=== PATIENT | male | born 1945 | race African-American/Black ===

== ENCOUNTER 2016-11-23 11:38 | Inpatient (IN) | payer MEDICARE, OTHER ==
[~2016-11-23] VITALS: Ht 180.3 cm; Wt 69.9 kg
[~2016-11-23 11:38] MED LIST: ACET500T68 PO; AMIO200T2 PO; AMLO10TA2 PO; AMLO10TA4 PO; AMOX1TAB58 PO; AMOX1TAB61 PO; ASPI-3 PO; ASPI325T4 PO; ATOR10TA60 PO; CA C1TAB28 PO; CALC200T3 PO; CALC667C PO; CARV12.5 PO; CEFE1PIG IV; CETI10TA30 PO; CLON0.2T PO; COLE1TAB PO; DILT120C97 PO; DIPH25CA58 PO; FLUV40CA3 PO; GABA-586 PO; GUAI5LIQ5 PO; INSU100I17 SQ; INSU100I27 SQ; IPRA3AMP IH; LEVO75TA5 PO; LISI-338 PO; LORA10TA3 PO; MINE120C TP; NITR0.4T SL; PANT40TA5 PO; POLY255P PO; TRAM50TA PO; TRAZ50TA15 PO; VANC1VIA3 MC; VANC750V2 IV; ZOLP5TAB4 PO
--- NOTE | 2016-11-23 12:50 | EKG ---
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
[2016-11-23 12:51] LABS: BASO # 0.1 x10^3/uL (0.0-0.2); BASO % 1 % (0-3); EOS % 0 % (0-3); HEMATOCRIT 41.4 % (39.0-53.0); HEMOGLOBIN 13.1 g/dL (13.0-17.5); LYMPH # 17.2 x10^3/uL (1.0-4.8); LYMPH % 69 % (24-48); MEAN CORPUSCULAR HEMOGLOBIN 29 pg (25-35); MEAN CORPUSCULAR HGB CONC 32 g/dL (31-37); MEAN CORPUSCULAR VOLUME 90 fL (79-100); MONO % 5 % (0-9); NEUT % 25 % (31-73); PLATELET COUNT 224 x10^3/uL (140-400); RED BLOOD COUNT 4.58 x10^6/uL (4.30-5.70); RED CELL DISTRIBUTION WIDTH 15.3 % (11.5-14.5); WHITE BLOOD COUNT 24.8 x10^3/uL (4.0-11.0)
[2016-11-23 13:03] LABS: CALCIUM 8.2 mg/dL (8.5-10.1); CREATININE 10.3 mg/dL (0.7-1.3); POTASSIUM 4.4 mmol/L (3.5-5.1)
[2016-11-23 13:15] LABS: ALBUMIN 3.8 g/dL (3.4-5.0); TOTAL BILIRUBIN 0.6 mg/dL (0.2-1.0); TOTAL PROTEIN 7.6 g/dL (6.4-8.2)
[2016-11-23 13:16] LABS: CKMB INDEX 0.3 % (0-4); CKMB MASS 0.6 ng/mL (0.0-3.6)
--- NOTE | 2016-11-23 13:17 | RAD ---
EXAM: Chest, single view. HISTORY: Shortness of breath. COMPARISON: 11/17/2016. FINDINGS: A frontal view of the chest is obtained. There is stable diffuse interstitial prominence suggesting trace congestion. There is no consolidation, effusion or pneumothorax. The heart is normal in size. There are findings consistent with prior CABG. IMPRESSION: Suspected stable trace congestion.
[2016-11-23 14:30] LABS: % EOS 1 % (0-5)
[2016-11-23 14:33] LABS: PLT ESTIMATE ADEQUATE (ADEQUATE)
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
[2016-11-23] MEDS ORDERED: ONDANSETRON PF 4 MG/2 ML VIAL. IV PRN ×2 (15:15→18:45)
[2016-11-23] MEDS ORDERED: ACETAMINOPHEN 325 MG TABLET. PO PRN ×2 (15:15→18:45)
[2016-11-23 17:20] VITALS: BP 157/80
[2016-11-23 17:25] VITALS: BP 157/80
[2016-11-23] MEDS ORDERED: MELA3TAB12 PO (17:47)
[2016-11-23] MEDS ORDERED: TRAZ50TA15 PO (17:47)
[2016-11-23] MEDS ORDERED: IPRA3AMP NEB (17:47)
[2016-11-23] MEDS ORDERED: COLE1TAB2 PO (17:47)
[2016-11-23] MEDS ORDERED: ALBUTEROL SULFATE 2.5 MG/3 ML NEBU. NEB PRN (18:45)
[2016-11-23] MEDS ORDERED: hydrALAZINE 20 MG/ML VIAL. IVP PRN (18:45)
[2016-11-23 19:46] VITALS: BP 155/76
[2016-11-23 23:25] VITALS: BP 148/70
[2016-11-24] MEDS ORDERED: ACETAMINOPHEN 500 MG TABLET PO PRN
[2016-11-24] MEDS ORDERED: DIPHENHYDRAMINE HCL 25 MG CAPSULE PO PRN
[2016-11-24] MEDS ORDERED: CALCIUM CARBONATE 500 MG TAB.CHEW PO PRN
[2016-11-24] MEDS ORDERED: NITROGLYCERIN SUBLINGUAL 0.4 MG BOTTLE OF 25. SL PRN
[2016-11-24 03:17] VITALS: BP 155/86
--- NOTE | 2016-11-24 03:18 | HP ---
ADMIT DATE: 11/23/2016 CHIEF COMPLAINT: Altered mental status and hypoxia. HISTORY OF PRESENT ILLNESS: A 71-year-old male patient with prior history of end-stage renal disease on hemodialysis, brought from [facility]. The patient was here at [facility] yesterday and he was discharged. However, as per report, the patient was confused and wandering in the hallway and at the time of presentation to the ER, he was alert and oriented x 3 as per ER notes. At the time of my examination, the patient denies any confusion; however, he was wearing oxygen, presented with hypoxic respiratory failure. Previously, he was taking oxygen on an as needed basis. He denies any fever, chills, nausea, vomiting, abdominal pain and noncompliance to any medications. PAST MEDICAL HISTORY: Constipation, CVA, GERD, hyperlipidemia, hypertension, hypothyroidism, renal failure, insomnia. PAST SURGICAL HISTORY: CABG and stent placement in kidney, fistula in the left arm. PERSONAL HISTORY: Rarely takes alcohol and positive for cocaine and marijuana use. FAMILY HISTORY: Hypertension. REVIEW OF SYSTEMS: CONSTITUTIONAL: No fever or chills. EYES: No recent vision changes. SKIN: No rash or itching. CARDIOVASCULAR: No chest pain, syncope, palpitations or edema. RESPIRATORY: Hypoxia. GASTROINTESTINAL: No nausea, vomiting, diarrhea or abdominal pain. NEUROLOGICAL: No headache, paralysis. ENDOCRINOLOGIC: No cold or heat intolerance. GENITOURINARY: No burning with urination, no urgency. MUSCULOSKELETAL: No back pain or joint pain. LYMPHATICS: No enlarged nodes. PSYCHIATRIC: No anxiety or depression. ALLERGIES: NKDA. MEDICATIONS: Reviewed and reconciled, please see MRAD. PHYSICAL EXAM: GENERAL: Alert and oriented x 3, no acute distress, nasal cannula. HEENT: Head normocephalic, atraumatic. NECK: Supple. LUNGS: Clear to auscultation. HEART: Systolic murmur present. ABDOMEN: Soft and positive bowel sounds. EXTREMITIES: No cyanosis or edema. NEUROLOGIC: Normal speech and normal tone; alert and oriented. PSYCHIATRIC: Normal affect, normal mood. SKIN: No ulceration. VITAL SIGNS: Temperature 98.1, pulse is 81, respirations 19, blood pressure 147/77, pulse ox 93 on 3 liters. LABORATORY FINDINGS: 1. WBC is 24,000, his platelets are 224 and segmented neutrophil 26. 2. Chemistry: Sodium is 139, potassium 4.4, chloride is 94, gap is 19, creatinine is 10.3, BUN is 48. Troponin is 0.179. IMAGING STUDIES: Initial chest ray, suspected of stable trace congestion. ASSESSMENT: 1. Acute hypoxic respiratory failure, unclear etiology. 2. Leukocytosis. 3. End-stage renal disease, on hemodialysis. 4. Hypertension. 5. Hyperlipidemia. 6. ____ PLAN: 1. The patient will start on broad spectrum antibiotics. He will consult Pulmonology for respiratory failure and possible CT of the chest. 2. Nephrology has been consulted for dialysis. 3. Supplemental oxygen to keep saturations above 90%. 4. Home medications reviewed and reconciled. 5. Renal diet. 6. Mild elevation of troponins due to renal failure. 7. Monitor WBC. Previous WBC at the time of discharge was ____ also. The patient was ____ wearing oxygen. 8. Prognosis is guarded. CHECO LAWTON MD DR: KIA/jc JOB#: [id number] / [id number]
--- NOTE | 2016-11-24 05:32 | ACF ---
Admission Forms Criteria GENERAL ADMISSION CRITERIA (Place 'X' for any and all applicable criteria): Admission is indicated for ANY ONE of the following: [ ]I. Hemodynamic instability as indicated by ANY ONE of the following(1)(2) (3)(4)(5): [ ]a) Vital sign abnormality not readily corrected by appropriate treatment within 12 to 24 hours indicated by ANY ONE of the following: [ ]i) Hypotension [ ]ii) Symptomatic Tachycardia unresponsive to treatment (eg , analgesia, fluids, sedation as indicated) [ ]iii) Orthostatic vital sign changes unresponsive to treatment (eg, fluids) [ ]b) Vital sign abnormality that is severe indicated by ANY ONE of the following: [ ]i) Inadequate perfusion indicated by ANY ONE of the following: [ ]1) Lactic acidosis (greater than 2 mmol/L) [ ]2) New abnormal capillary refill (greater than 3 seconds) [ ]3) Other metabolic acidosis (arterial pH less than 7.35) not otherwise explained [ ]4) Reduced urine output [ ]5) Altered mental status [ ]6) Myocardial Ischemia [ ]v) Mean arterial pressure[A] less than 60 mm Hg [ ]vi) Mean arterial pressure[A] less than 70 mm Hg after 30 minutes of appropriate treatment (eg, fluid resuscitation) [ ]vii) IV inotropic or vasopressor medication required to maintain adequate blood pressure or perfusion [ ]viii) Sustained heart rate greater than 120 beats per minute in adult or child 6 years or older[B]] [ ]II. Hypertension requiring inpatient treatment as indicated by ANY ONE of the following(6)(7)(8): [ ]a) SBP greater than 220 mm Hg or DBP greater than 120 mm Hg despite treatment [ ]b) SBP greater than 140 mm Hg or DBP greater than 100 mm Hg with evidence of acute end organ damage as indicated by ANY ONE of the following: [ ]i) Encephalopathy [ ]ii) Acute renal failure as indicated by new onset of ANY ONE of the following(9)(10)(11)(12)(13): [ ]1) A 3-fold rise in serum creatinine from baseline [ ]2) Serum creatinine greater than 4 mg/dL ( 354 micromoles/L) with acute rise greater than 0.5 mg/dL (44.2 micromoles/L) [ ]3) Reduction of more than 75% in estimated glomerular filtration rate from baseline [ ]4) Estimated glomerular filtration rate less than 35 mL/min/1.73m2 (0.59 mL/sec/1.73m2) in child up to 18 years of age [ ]5) Cessation of urine output indicated by ALL of the following: [ ]A. Adequate volume status [ ]B. Inadequate urine output as indicated by ANY ONE of the following: [ ]a. Urine output less than 0.3 mL/kg/hr for 24 hours [ ]b. Anuria (urine output less than 0.1 mL/kg/hr) for 12 hours [ ]iii) Aortic dissection [ ]iv) Myocardial ischemia [ ]v) Left ventricular heart failure [ ]vi) Retinal hemorrhage [ ]vii) Other significant finding [ ]c) Hypertension in child requiring inpatient treatment as indicated by ALL of the following(14)(15)(16): [ ]i) Outpatient treatment not effective, not available, or not appropriate [ ]ii) SBP or DBP greater than 95th percentile for age [ ]iii) Evidence of acute end organ damage as indicated by ANY ONE of the following: [ ]1) Altered mental status [ ]2) Acute renal failure as indicated by new onset of ANY ONE of the following(9)(10)(11)(12)(13): [ ]A. A 3-fold rise in serum creatinine from baseline [ ]B. Serum creatinine greater than 4 mg/dL (354 micromoles/L) with acute rise greater than 0.5 mg/dL (44.2 micromoles/L) [ ]C. Reduction of more than 75% in estimated glomerular filtration rate from baseline [ ]D. Estimated glomerular filtration rate less than 35 mL/min/1.73m2 (0.59 mL/sec/1.73m2)in child up to 18 years of age [ ]E. Cessation of urine output indicated by ALL of the following: [ ]a. Adequate volume status [ ]b. Inadequate urine output as indicated by ANY ONE of the following: [ ]1) Urine output less than 0.3 mL/kg/hr for 24 hours [ ]2) Anuria (urine output less than 0.1 mL/kg/hr) for 12 hours [ ]3) Severe headache [ ]4) Visual disturbance [ ]5) Retinal hemorrhage [ ]6) Other significant finding [ ]III. Acute cardiac or peripheral ischemia as indicated by ANY ONE of the following: [ ]a) Acute coronary syndrome(17)(18) [ ]b) Acute peripheral ischemia (eg, pulseless, cool, mottled, or cyanotic extremity)(19) [ ]IV. Cardiac arrhythmias or findings of immediate concern indicated by ANY ONE of the following(20)(21): [ ]a) Heart rhythms that are inherently dangerous or unstable indicated by ANY ONE of the following(22)(23)(24): [ ]i) Resuscitated ventricular fibrillation or cardiac arrest [ ]ii) Ventricular escape rhythm [ ]iii) Sustained ventricular tachycardia (30 seconds or more of ventricular rhythm at greater than 100 beats per minute) [ ]iv) Nonsustained ventricular tachycardia and ANY ONE of the following: [ ]1) Suspected cardiac ischemia as cause or consequence of ventricular tachycardia [ ]2) In setting of acute myocarditis [ ]b) Unstable cardiac conduction defects indicated by ANY ONE of the following(24)(25)(26): [ ]i) Type II second-degree atrioventricular block [ ]ii) Third-degree atrioventricular block [ ]iii) New-onset left bundle branch block with suspected myocardial ischemia [ ]c) Any heart rhythm and ANY ONE of the following(22)(23)(27)(28)( 29): [ ] i) Continuous long-term ECG monitoring needed (eg, initiation of drug requiring monitoring for more than 24 hours) [ ] ii) Patient has automatic implanted cardioverter defibrillator that is repeatedly firing, malfunctioning, or in need of immediate adjustment of settings beyond the scope of ambulatory or observation care. [ ]d) Heart rhythms of concern due to ANY ONE of the following: [ ]i) Hypotension [ ]ii) Respiratory distress [ ]iii) Association with other significant symptoms (eg, bradycardia with syncope or ongoing dizziness, supraventricular tachycardia with chest pain) (27)(28) (30) [ ] V. Severe heart failure as indicated by ANY ONE of the following ( 31)(32): [ ]a) Respiratory distress [ ]b) Hypotension [ ]c) Anasarca (refractory to outpatient therapy) [ ]d) Cardiac arrhythmias of immediate concern [ ]e) Myocardial ischemia [X]. Respiratory abnormalities, including ANY ONE of the following(33)(34) (35)(36): [ ]a) Respiratory rate greater than 30 breaths per minute unresponsive to treatment [A] [X]b) New saturation of arterial oxygen less than 90% [ ]c) New partial pressure of carbon dioxide greater than 44 mm Hg ( 5.9 kPa) [ ]d) Supplemental oxygen or respiratory treatments needed that are new or not performable at other levels of care [ ]e) New-onset cyanosis [ ]f) Inability to protect airway [ ]g) Chronic lung disease with severe deterioration (not responsive to emergency and observation care treatment as appropriate) as indicated by ANY ONE of the following(34)(36 ): [ ]i) SaO2 5% below baseline in patient with chronic hypoxemia [ ]ii) New requirement for supplemental oxygen to keep SaO2 at baseline or acceptable level [ ]iii) Required supplemental oxygen performable only in acute inpatient setting [ ]iv) Severe airflow or ventilation abnormalities [ ]v) Previously mobile patient unable to walk between rooms [ ]vi Inability to eat or sleep due to dyspnea [ ]vii) Rapid rate of exacerbation onset [ ]viii) Altered mental status ]VII. Severe airflow or ventilation abnormalities (not responsive to emergency and observation care treatment as appropriate) as indicated by ANY ONE of the following(33)(34)(35)(37): [ ]a) PCO2 greater than 42 mm Hg (5.6 kPa) and pH less than 7.35 (new ) [ ]b) Documented PCO2 increased more than 5 mm Hg (0.7 kPa) from disease baseline [ ]c) Airflow measurements [B] less than 60% of previous best or predicted (eg, peak expiratory flow rate less than 300 L/minute) despite intensive emergent treatment [C] [ ]d) Required respiratory treatments that are performable only in acute inpatient setting [ ]VIII. Impending or actual respiratory arrest ( Also use Respiratory Failure GRG for severe respiratory disease and long-term mechanical ventilation patients) [ ]IX. Neurologic abnormalities, including ANY ONE of the following: [ ]a) New findings that suggest ANY ONE of the following: [ ]i) SMALL [employer] REPAIRER infection(38) [ ]ii) Cerebral bleeding, ischemia, or vasospasm(39)(40) [ ]iii) Increased intracranial pressure, hydrocephalus, or cerebral edema(41)(42)(43) [ ]iv) Spinal cord injury(44) [ ]b) Uncontrolled seizures(45) [ ]c) New-onset coma (eg, Des coma scale score less than 9) or unexplained abnormal mental status (eg, Des coma scale score less than 14) [D](41)(46)(47) [ ]X. New-onset severe neurologic findings requiring inpatient care; examples include(42)(48)(49): [ ]a) Papilledema [ ]b) Cerebral edema [ ]c) Mass effect on CT scan [ ]XI. Suspected acute intra-abdominal process with peritoneal signs, abdominal mass, or similar findings (50)(51)(52) [ ]XII. Severe physiologic disorder remaining after emergency or observation level care (as appropriate) as indicated by ANY ONE of the following (53): [ ]a) Significant dehydration [ ]b) Diabetic ketoacidosis [ ]c) Hyperglycemic hyperosmolar state (eg, osmolality greater than 320 mOsm/kg (mmol/kg) [ ]d) Hypoglycemia [ ]e) Other (new) acid-base disorder with pH less than 7.35 or greater than 7.5(54) [ ]f) Thyroid storm (55) [ ]g) Myxedema coma (55) [ ]XIII. Abdominal abnormalities with ANY ONE of the following(56)(57): [ ]a) Absent bowel sounds with complete ileus [ ]b) Signs of intestinal obstruction or peritonitis [E] [ ]c) Nausea and vomiting that cannot be controlled with outpatient or observation care [ ]XIV. Acute renal failure as indicated by new onset of ANY ONE of the following(9)(10)(11)(12)(13): [ ]a) A 3-fold rise in serum creatinine from baseline [ ]b) Serum creatinine greater than 4 mg/dL (354 micromoles/L) with acute rise greater than 0.5 mg/dL (44.2 micromoles/L) [ ]c) Reduction of more than 75% in estimated glomerular filtration rate from baseline [ ]d) Estimated glomerular filtration rate less than 35 mL/min/ 1.73m2 (0.59 mL/sec/1.73m2) in child up to 18 years of age [ ]e) Cessation of urine output indicated by ALL of the following: [ ]i) Adequate volume status [ ]ii) Inadequate urine output as indicated by ANY ONE of the following: [ ]1) Urine output less than 0.3 mL/kg/hr for 24 hours [ ]2) Anuria (urine output less than 0.1 mL/kg/hr) for 12 hours [ ]XV. Significant uremic complications as indicated by ANY ONE of the following(58)(59)(60): [ ]a) Outpatient therapy is ineffective or not feasible for ANY ONE of the following: [ ]i) Severe heart failure [ ]ii) Severehypertension [ ]iii) Pleural effusion [ ]iv) Pericarditis or pericardial effusion [ ]b) Cardiac arrhythmias of immediate concern [ ]c) Intractable nausea or vomiting [ ]d) Recurrent seizures [ ]e) Encephalopathy [ ]f) Bleeding abnormalities (eg, platelet dysfunction) with active (eg, gastrointestinal) bleeding [ ]g) Dialysis indicated before long-term access or ambulatory arrangements can be made [ ]h) Significant metabolic or electrolyte abnormalities (eg, severe acidosis or hyperkalemia) [ ]XVI. High fever or other high-risk infection situation as indicated by ANY ONE of the following(61)(62)(63)(64): [ ]a) Outpatient and observation care antimicrobial treatment unavailable, not effective, or not appropriate [ ]b) Documented bacteremia [ ]c) Temperature greater than 40.5 degrees C (104.9 degrees F) ( oral) [ ]d) Temperature greater than 39.5 degrees C (103.1 degrees F) ( oral) or less than 36 degrees C (96.8 degrees F) (rectal) that does not respond to e treatment and observation care [ ] XVII. Temperature less than 95 degrees F (35 degrees C)(rectal)(65) [ ] XVIII. Severe nutritional abnormalities as indicated by ALL of the following (66)(67): [ ]a) Inability to tolerate or establish sufficient oral or other enteral nutrition in outpatient setting [ ]b) Parenteral nutrition regimen need that must be implemented on inpatient basis [ ] XIX. Severe electrolyte abnormalities indicated by ALL of the following(68) (69)(70): [ ]a) Electrolytes and associated findings are not as expected for patient baseline or acceptable treatment effects. [ ]b) Severe abnormalities indicated by ANY ONE of the following: [ ]i) Sodium less than 130 mEq/L (mmol/L) (new) [ ]ii)Sodium less than 135 mEq/L (mmol/L) with ANY ONE of the following: [ ]1) Uncorrectable (to near normal or chronic baseline) after trial of outpatient and emergency treatment [ ]2) Altered mental status [ ]3) Seizures [ ]4) Severe medical etiology requiring inpatient management (eg, heart failure, hypovolemia) [ ]iii) Sodium greater than 155 mEq/L (mmol/L) [ ]iv) Sodium greater than 150 mEq/L (mmol/L) with ANY ONE of the following: [ ]1) Uncorrectable (to near normal or chronic baseline) with outpatient and emergency treatment [ ]2) Altered mental status [ ]3) Seizures [ ]4) Severe medical etiology (eg, hypovolemia, diabetes insipidus) [ ]v) Potassium less than 2.5 mEq/L (mmol/L) despite outpatient and emergency treatment [ ]vi) Potassium less than 3 mEq/L (mmol/L) with ANY ONE of the following: [ ]1) Weakness [ ]2) Cardiac abnormality (eg, arrhythmia, conduction disturbance) [ ]3) Cardiac ischemia [ ]4) Ileus [ ]5) Ongoing medical cause requiring inpatient management (eg, acute renal wasting or SIADH) [ ]6) Other severe symptoms [ ]vii) Potassium greater than 6.5 mEq/L (mmol/L) [ ]viii) Potassium greater than 5 mEq/L (mmol/L) with ANY ONE of the following: [ ]1) Uncorrectable (to near normal or chronic baseline) with outpatient and emergency treatment [ ]2) Severe ECG findings [F] [ ]3) Acute worsening of renal failure (creatinine greater than 2.5 mg/dL (221 micromoles/L) or significant elevation for age and size) [ ]4) Severe weakness [ ]5) Severe medical etiology (eg, hemolysis, infection, drug overdose) [ ]ix) Calcium less than 7 mg/dL (1.75 mmol/L) despite outpatient and emergency treatment (72) [ ]x) Calcium less than 8 mg/dL (2 mmol/L) with significant symptoms or findings; examples include(72): [ ]1) Altered mental status [ ]2) Muscle spasms [ ]3) Seizures [ ]4) Breathing difficulty [ ]5) Cardiac abnormality (eg, arrhythmia or conduction disturbance) [ ]xi) Calcium greater than 14 mg/dL (3.5 mmol/L)(72) [ ]xii) Calcium greater than 12 mg/dL (3 mmol/L) with ANY ONE of the following(72): [ ]1) Uncorrectable (to near normal or chronic baseline) with outpatient and emergency treatment [ ]2) Significant dehydration or hypovolemia as indicated by ALL of the following(70)(73)(74): [ ]A. Not resolved with initial treatments [ ]B. Clinically significant dehydration as indicated by ANY ONE of the following: [ ]a. Vomiting refractory to outpatient treatment (ie, precluding oral rehydration) [ ]b. Inability to drink [ ]c. Hypernatremia or other electrolyte abnormality unable to be corrected with outpatient and emergency treatment [ ]d. Failure to remain hydrated with outpatient therapy [ ]e. Reduced urine output [ ]f. Hypotension [ ]g. Serious cause for dehydration requiring acute hospitalization (eg, bowel obstruction, increased intracranial pressure, infectious cause) [ ]h. Child with ANY ONE of the following(75): [ ]1) Severe abdominal tenderness [ ]2) Adequate care not available at home [ ]3) Severe dehydration ( greater than 9% loss of body weight) [ ]4) Significant symptoms or findings; examples include: [ ]A. Altered mental status [ ]B. Cardiac abnormality (eg, arrhythmia, conduction disturbance) [ ]C. Malignant etiology requiring inpatient treatment [ ]xiii) Phosphorus less than 1 mg/dL (0.32 mmol/L) [ ]xiv) Phosphorus less than 1.5 mg/dL (0.48 mmol/L) with ANY ONE of the following: [ ]1) Patient unresponsive to outpatient and emergency treatment [ ]2) Significant symptoms or findings; examples include: [ ]A. Weakness [ ]B. Altered mental status [ ]C. Breathing difficulty [ ]D. Seizures [ ]E. Rhabdomyolysis [ ]xv) Phosphorus greater than 10 mg/dL (3.2 mmol/L) [ ]xvi) Phosphorus greater than 4.5 mg/dL (1.45 mmol/L) (new) with ANY ONE of the following: [ ]1) Severe medical etiology (eg, crush injury, acute renal failure) [ ]2) Associated hypocalcemia with significant findings; examples include: [ ]A. Neurologic symptoms [ ]B. Altered mental status [ ]C. Muscle spasms [ ]D. Seizures [ ]E. Breathing difficulty [ ]F. Cardiac abnormality (eg, arrhythmia, conduction disturbance) [ ]xvii) Magnesium less than 1 mg/dL (0.41 mmol/L) [ ]xviii) Magnesium less than 1.5 mg/dL (0.62 mmol/L) with ANY ONE of the following: [ ]1) Patient unresponsive to outpatient and emergency treatment [ ]2) Associated hypocalcemia with significant findings; examples include: [ ]A. Altered mental status [ ]B. Muscle spasms [ ]C. Seizures [ ]D. Breathing difficulty [ ]E. Cardiac abnormality (eg, arrhythmia , conduction disturbance) [ ]3) Associated hypokalemia (potassium less than 3 mEq/L (mmol/L)) with risk of arrhythmia [ ]xix) Magnesium greater than 4 mEq/L (2 mmol/L) [ ]xx) Magnesium greater than 2.5 mEq/L (1.25 mmol/L) with significant symptoms or findings; examples include: [ ]1) Weakness [ ]2) Altered mental status [ ]3) Cardiac abnormality (eg, arrhythmia, conduction disturbance) [ ]4) Breathing difficulty [ ]5) Severe medical etiology (eg, renal failure, hypovolemia) [ ]xxi) Uric acid greater than 20 mg/dL (1190 micromoles/L)(76) [ ]xxii) Uric acid greater than 8 mg/dL (476 micromoles/L) with significant symptoms or findings of tumor lysis syndrome; examples include(76): [ ]1) Creatinine greater than 1.5 times upper limit of normal [ ]2) Cardiac abnormality (eg, arrhythmia, conduction disturbance) [ ]3) Seizure [ ]XX. Acute blood loss causing significant abnormality as indicated by ANY ONE of the following(77)(78): [ ]a) Hemoglobin less than 10 g/dL (100 g/L) (not baseline) [ ]b) Hematocrit less than 30% (0.30) (not baseline) [ ]c) Repeat hematocrit decreased more than 2% (0.02) [ ]d) Uncontrolled bleeding [ ]XXI. Severe anemia indicated by ANY ONE of the following(78)(79): [ ]a) Altered mental status [ ]b) Chest pain [ ]c) Exertional dyspnea [ ]d) Syncope [ ]e) Other findings suggesting inadequate perfusion [ ]f) Treatment with transfusion or volume replacement is ineffective at resolving ANY ONE of the following [G]: [ ]i) Tachycardia for age [ ]ii) Orthostatic vital sign changes as indicated by ANY ONE of the following(80): [ ]1) Fall in SBP of 20 mm Hg or more 1 to 3 minutes after patient sits or stands from recumbent position [ ]2) Fall in DBP of 10 mm Hg or more 1 to 3 minutes after patient sits or stands from recumbent position [ ]XXII. High-risk low platelet count as indicated by ANY ONE of the following( 81)(82): [ ]a) Severe or life-threatening bleeding (eg, intracranial, major gastrointestinal, or extensive mucosal bleeding), with any reduced platelet count [ ]b) Platelet count less than 20,000/mm3 (20 x109/L) with any active bleeding [ ]c) Platelet count less than 10,000/mm3 (10 x109/L) with minor purpura or petechiae [ ]d) Platelet count less than 5000/mm3 (5 x109/L) [ ]e) Low platelet count with hemolytic anemia [ ]XXIII. Disseminated intravascular coagulation(77)(83) [ ]XXIV. Severe adverse drug or systemic toxin reaction requiring inpatient treatment; examples include(84)(85): [ ]a) Serotonin syndrome(86) [ ]b) Neuroleptic malignant syndrome(86) [ ]c) Cholinergic syndrome with severe symptoms (eg, bronchorrhea, weakness, mental status changes, seizures) [ ]d) Sympathetic syndrome with severe symptoms (eg, seizures, mental status changes, cardiac dysrhythmias) [ ]e) Anticholinergic syndrome [ ]XXV. Severe pain requiring acute inpatient management as indicated by ALL of the following (87)(88)(89): [ ]a) Continuous or frequent (eg, every 2 to 4 hours) parenteral analgesics required [H] [ ]b) Rapid improvement expected from treatment or acute intervention (eg, surgery, anesthesia procedure) [ ]XXVI.Severe behavioral health issues judged unmanageable at a lower level of care (eg, residential) in a patient who is ANY ONE of the following(91) [ ]a) Acutely suicidal [ ]b) A danger to self (eg, self-mutilating or suicidal behavior) [ ]c) A danger to others (eg, assaultive or homicidal behavior) [ ]d) Incapacitated because of grave disability (eg, inability to provide for self at lower level of care) (92) [ ]XXVII. Inpatient monitoring needed; examples include(1)(3)(87)(93)(94)(95)(96 ): [ ]a) Vital signs, neurologic signs, or vascular checks more frequently than every 4 hours [ ]b) Cardiac or respiratory monitoring beyond the scope (eg, over 24 hours) of observation care [ ]c) Pulmonary artery catheter monitoring [ ]d) Suspected compartment syndrome(97) (98) [ ]e) Cerebral bleeding, hydrocephalus, or vasospasm monitoring [ ]f) Increased intracranial pressure or cerebral edema monitoring [ ]g) monitoring [ ]XXVIII. Treatment requiring inpatient care; examples include: [ ]a) IV fluid to replace significant ongoing losses (greater than 3 L/m2 per day)(53) [ ]b) High concentration oxygen (greater than 40%)(33)(99)(100) [ ]c) Frequent respiratory therapy (more frequently than every 4 hours) to maintain airflow rates greater than 60% of baseline(33)(99)(100) [ ]d) Epidural analgesia(87) [ ]e) IV anticoagulation, vasoactive, or antiarrhythmic medication(19 )(23) [ ]f) Acute thrombolytics (generally require 24 hours of observation )(101)(102) [ ]XXIX. Emergency procedures needed; examples include: [ ]a) Emergency inpatient surgery [ ]b) Temporary pacemaker placement(103) [ ]c) Chest tube placement with active evacuation (eg, suction, drainage)(104) [ ]d) Emergent cardioversion(105) [ ]e) Emergent cardiac or vascular procedures (eg, cardiac catheterization, angioplasty) (17)(18) [ ]f) Emergent dialysis access placement and institution(10)(106) [ ]g) Emergent pericardiocentesis(107) [ ]h) Emergent plasmapheresis or leukapheresis(83) [ ]i) Emergent tracheostomy The original [employer] content created by [employer] has been revised. The portions of the content which have been revised are identified through the use of italic text or in bold, and [employer] has neither reviewed nor approved the modified material. All other unmodified content is copyright [employer]. Please see references footnoted in the original [employer] edition 2016 Admission Criteria Met?: Yes AYO WHEELER Nov 24, 2016 05:32
[2016-11-24 07:33] VITALS: BP 145/78
[2016-11-24] MEDS: IPRATRPIUM/ALBUTEROL 0.5/2.5MG 3 ML NEBU. NEB SCH ×3 (08:04→21:00)
[2016-11-24 08:16] VITALS: BP 145/86
--- NOTE | 2016-11-24 08:20 | PDOC ---
PROGRESS NOTES Chief Complaint Chief Complaint Acute encephalopathy, improved Hypoxia, acute on chronic End stage renal disease, HD, Dm2, insulin hypothyriod htn, chronic diastolic CHF History of Present Illness History of Present Illness calm and responsive today, he seems like his normal self Vitals Vitals Vital Signs Date Time Temp Pulse Resp B/P Pulse Ox O2 Delivery O2 Flow Rate FiO2 11/24/16 08:04 95 Nasal Cannula 2.0 11/24/16 03:17 97.9 80 17 155/86 97.9 Physical Exam General: Alert, Oriented X3, Cooperative, No acute distress Heart: No murmurs Lungs: Clear, Other Abdomen: No tenderness, No hepatosplenomegaly Extremities: No edema Skin: No significant lesion Labs LABS Laboratory Tests Test 11/23/16 12:20 White Blood Count 24.8x10^3/uL (4.0-11.0) Red Blood Count 4.58x10^6/uL (4.30-5.70) Hemoglobin 13.1g/dL (13.0-17.5) Hematocrit 41.4% (39.0-53.0) Mean Corpuscular Volume 90fL (79-100) Mean Corpuscular Hemoglobin 29pg (25-35) Mean Corpuscular Hemoglobin Concent 32g/dL (31-37) Red Cell Distribution Width 15.3% (11.5-14.5) Platelet Count 224x10^3/uL (140-400) Neutrophils (%) (Auto) 25% (31-73) Lymphocytes (%) (Auto) 69% (24-48) Monocytes (%) (Auto) 5% (0-9) Eosinophils (%) (Auto) 0% (0-3) Basophils (%) (Auto) 1% (0-3) Neutrophils # (Auto) 6.1x10^3uL (1.8-7.7) Lymphocytes # (Auto) 17.2x10^3/uL (1.0-4.8) Monocytes # (Auto) 1.3x10^3/uL (0.0-1.1) Eosinophils # (Auto) 0.0x10^3/uL (0.0-0.7) Basophils # (Auto) 0.1x10^3/uL (0.0-0.2) Segmented Neutrophils % 26% (35-66) Lymphocytes % 70% (24-48) Atypical Lymphocytes % (Manual) 1% (0-0) Monocytes % 2% (0-10) Eosinophils % 1% (0-5) Platelet Estimate Adequate (ADEQUATE) Sodium Level 139mmol/L (136-145) Potassium Level 4.4mmol/L (3.5-5.1) Chloride Level 94mmol/L (98-107) Carbon Dioxide Level 26mmol/L (21-32) Anion Gap 19 (6-14) Blood Urea Nitrogen 48mg/dL (8-26) Creatinine 10.3mg/dL (0.7-1.3) Estimated GFR (Cockcroft-Gault) 6.0 BUN/Creatinine Ratio 5 (6-20) Glucose Level 143mg/dL (70-99) Lactic Acid Level 1.4mmol/L (0.4-2.0) Calcium Level 8.2mg/dL (8.5-10.1) Total Bilirubin 0.6mg/dL (0.2-1.0) Aspartate Amino Transf (AST/SGOT) 42U/L (15-37) Alanine Aminotransferase (ALT/SGPT) 24U/L (16-63) Alkaline Phosphatase 67U/L (46-116) Creatine Kinase 223U/L (39-308) Creatine Kinase MB (Mass) 0.6ng/mL (0.0-3.6) Creatine Kinase MB Relative Index 0.3% (0-4) Troponin I Quantitative 0.179ng/mL (0.000-0.055) Total Protein 7.6g/dL (6.4-8.2) Albumin 3.8g/dL (3.4-5.0) Albumin/Globulin Ratio 1.0 (1.0-1.7) Review of Systems Review of Systems lethargy weakness Assessment and Plan Assessmemt and Plan cont abx supp 02 i am unsure why he was not wearing his 02 at assisted living Problems Medical Problems: (1) Acute encephalopathy Status: Acute (2) Elevated troponin Status: Acute (3) End stage renal disease Status: Acute (4) Hypoxia Status: Acute Problems: Comment Review of Relevant I have reviewed the following items marli (where applicable) has been applied. Labs Laboratory Tests Test 11/23/16 12:20 White Blood Count 24.8x10^3/uL (4.0-11.0) Red Blood Count 4.58x10^6/uL (4.30-5.70) Hemoglobin 13.1g/dL (13.0-17.5) Hematocrit 41.4% (39.0-53.0) Mean Corpuscular Volume 90fL (79-100) Mean Corpuscular Hemoglobin 29pg (25-35) Mean Corpuscular Hemoglobin Concent 32g/dL (31-37) Red Cell Distribution Width 15.3% (11.5-14.5) Platelet Count 224x10^3/uL (140-400) Neutrophils (%) (Auto) 25% (31-73) Lymphocytes (%) (Auto) 69% (24-48) Monocytes (%) (Auto) 5% (0-9) Eosinophils (%) (Auto) 0% (0-3) Basophils (%) (Auto) 1% (0-3) Neutrophils # (Auto) 6.1x10^3uL (1.8-7.7) Lymphocytes # (Auto) 17.2x10^3/uL (1.0-4.8) Monocytes # (Auto) 1.3x10^3/uL (0.0-1.1) Eosinophils # (Auto) 0.0x10^3/uL (0.0-0.7) Basophils # (Auto) 0.1x10^3/uL (0.0-0.2) Segmented Neutrophils % 26% (35-66) Lymphocytes % 70% (24-48) Atypical Lymphocytes % (Manual) 1% (0-0) Monocytes % 2% (0-10) Eosinophils % 1% (0-5) Platelet Estimate Adequate (ADEQUATE) Sodium Level 139mmol/L (136-145) Potassium Level 4.4mmol/L (3.5-5.1) Chloride Level 94mmol/L (98-107) Carbon Dioxide Level 26mmol/L (21-32) Anion Gap 19 (6-14) Blood Urea Nitrogen 48mg/dL (8-26) Creatinine 10.3mg/dL (0.7-1.3) Estimated GFR (Cockcroft-Gault) 6.0 BUN/Creatinine Ratio 5 (6-20) Glucose Level 143mg/dL (70-99) Lactic Acid Level 1.4mmol/L (0.4-2.0) Calcium Level 8.2mg/dL (8.5-10.1) Total Bilirubin 0.6mg/dL (0.2-1.0) Aspartate Amino Transf (AST/SGOT) 42U/L (15-37) Alanine Aminotransferase (ALT/SGPT) 24U/L (16-63) Alkaline Phosphatase 67U/L (46-116) Creatine Kinase 223U/L (39-308) Creatine Kinase MB (Mass) 0.6ng/mL (0.0-3.6) Creatine Kinase MB Relative Index 0.3% (0-4) Troponin I Quantitative 0.179ng/mL (0.000-0.055) Total Protein 7.6g/dL (6.4-8.2) Albumin 3.8g/dL (3.4-5.0) Albumin/Globulin Ratio 1.0 (1.0-1.7) Laboratory Tests Test 11/23/16 12:20 White Blood Count 24.8x10^3/uL (4.0-11.0) Red Blood Count 4.58x10^6/uL (4.30-5.70) Hemoglobin 13.1g/dL (13.0-17.5) Hematocrit 41.4% (39.0-53.0) Mean Corpuscular Volume 90fL (79-100) Mean Corpuscular Hemoglobin 29pg (25-35) Mean Corpuscular Hemoglobin Concent 32g/dL (31-37) Red Cell Distribution Width 15.3% (11.5-14.5) Platelet Count 224x10^3/uL (140-400) Neutrophils (%) (Auto) 25% (31-73) Lymphocytes (%) (Auto) 69% (24-48) Monocytes (%) (Auto) 5% (0-9) Eosinophils (%) (Auto) 0% (0-3) Basophils (%) (Auto) 1% (0-3) Neutrophils # (Auto) 6.1x10^3uL (1.8-7.7) Lymphocytes # (Auto) 17.2x10^3/uL (1.0-4.8) Monocytes # (Auto) 1.3x10^3/uL (0.0-1.1) Eosinophils # (Auto) 0.0x10^3/uL (0.0-0.7) Basophils # (Auto) 0.1x10^3/uL (0.0-0.2) Segmented Neutrophils % 26% (35-66) Lymphocytes % 70% (24-48) Atypical Lymphocytes % (Manual) 1% (0-0) Monocytes % 2% (0-10) Eosinophils % 1% (0-5) Platelet Estimate Adequate (ADEQUATE) Sodium Level 139mmol/L (136-145) Potassium Level 4.4mmol/L (3.5-5.1) Chloride Level 94mmol/L (98-107) Carbon Dioxide Level 26mmol/L (21-32) Anion Gap 19 (6-14) Blood Urea Nitrogen 48mg/dL (8-26) Creatinine 10.3mg/dL (0.7-1.3) Estimated GFR (Cockcroft-Gault) 6.0 BUN/Creatinine Ratio 5 (6-20) Glucose Level 143mg/dL (70-99) Lactic Acid Level 1.4mmol/L (0.4-2.0) Calcium Level 8.2mg/dL (8.5-10.1) Total Bilirubin 0.6mg/dL (0.2-1.0) Aspartate Amino Transf (AST/SGOT) 42U/L (15-37) Alanine Aminotransferase (ALT/SGPT) 24U/L (16-63) Alkaline Phosphatase 67U/L (46-116) Creatine Kinase 223U/L (39-308) Creatine Kinase MB (Mass) 0.6ng/mL (0.0-3.6) Creatine Kinase MB Relative Index 0.3% (0-4) Troponin I Quantitative 0.179ng/mL (0.000-0.055) Total Protein 7.6g/dL (6.4-8.2) Albumin 3.8g/dL (3.4-5.0) Albumin/Globulin Ratio 1.0 (1.0-1.7) Medications Current Medications Ondansetron HCl (Zofran) 4 mg PRN Q8HRS PRN IV NAUSEA/VOMITING; Start 11/23/16 at 15:15; Stop 11/24/16 at 00:07; Status DC Acetaminophen (Tylenol) 650 mg PRN Q4HRS PRN PO FEVER; Start 11/23/16 at 15:15 ; Stop 11/24/16 at 00:06; Status DC Acetaminophen (Tylenol) 325 mg PRN Q6HRS PRN PO MILD PAIN / TEMP; Start at 18:45; Stop 11/24/16 at 00:06; Status DC Acetaminophen/ Hydrocodone Bitart (Lortab 5/325) 1 tab PRN Q6HRS PRN PO MODERATE TO SEVERE PAIN; Start 11/23/16 at 18:45 Hydralazine HCl (Apresoline) 10 mg PRN Q4HRS PRN IVP ELEVATED BP, SEE COMMENTS ; Start 11/23/16 at 18:45 Ondansetron HCl (Zofran) 4 mg PRN Q8HRS PRN IV NAUSEA/VOMITING; Start 11/23/16 at 18:45 Albuterol Sulfate (Ventolin Neb Soln) 2.5 mg PRN Q4HRS PRN NEB SHORTNESS OF BREATH; Start 11/23/16 at 18:45 Acetaminophen (Tylenol) 500 mg PRN TID PRN PO MILD PAIN/TEMP; Start 11/24/16 at 00:00 Amlodipine Besylate (Norvasc) 10 mg DAILY PO ; Start 11/24/16 at 09:00 Aspirin (Ecotrin) 325 mg DAILY PO ; Start 11/24/16 at 09:00 Atorvastatin Calcium (Lipitor) 5 mg HS PO ; Start 11/24/16 at 21:00 Calcium Acetate (Phoslo) 667 mg TIDAC PO ; Start 11/24/16 at 07:30 Calcium Carbonate/ Glycine (Tums) 500 mg PRN Q6HRS PRN PO HEARTBURN / GAS; Start 11/24/16 at 00:00 Colestipol HCl (Colestid) 1 gm DAILY PO ; Start 11/24/16 at 09:00 Diphenhydramine HCl (Benadryl) 25 mg PRN Q6HRS PRN PO ITCHING; Start 11/24/16 at 00:00 Gabapentin (Neurontin) 300 mg HS PO ; Start 11/24/16 at 21:00 Insulin Detemir (Levemir) 25 units HS SQ ; Start 11/24/16 at 21:00 Albuterol/ Ipratropium (Duoneb) 3 ml TID NEB Last administered on 11/24/16t 08: 04; Start 11/24/16 at 09:00 Levothyroxine Sodium (Synthroid) 75 mcg DAILY07 PO ; Start 11/24/16 at 07:00 Multi-Ingred Cream/Lotion/Oil/ Oint (Hydrocerin) 1 michela QID TP ; Start 11/24/16 at 09:00 Nitroglycerin (Nitrostat) 0.4 mg PRN Q5MIN PRN SL CHEST PAIN; Start 11/24/16 at 00:00 Polyethylene Glycol (miraLAX PACKET) 17 gm DAILY PO ; Start 11/24/16 at 09:00 Trazodone HCl (Desyrel) 50 mg QHS PO ; Start 11/24/16 at 21:00 Non-Formulary Medication 3 mg HS PO ; Start 11/24/16 at 21:00; Status UNV Active Scripts Active Reported Trazodone Hcl 50 Mg Tablet 0.5 Tab PO QHS Melatonin 3 Mg Tab.rapdis 3 Mg PO HS Duoneb 0.5-3(2.5) Mg/3 Ml (Albuterol/Ipratropium) 3 Ml Ampul.neb 3 Ml NEB TID Colestipol Hcl 1 Gm Tablet 1 Gm PO DAILY Eucerin Creme (Mineral Oil/White Petrolatum) 120 Gm Cream..g. 1 Michela TP QID Atorvastatin Calcium 10 Mg Tablet 5 Mg PO HS Take next dose tonight 12/20/15 at bedtime Aspir-Lorin (Aspirin) 325 Mg Tablet.dr 325 Mg PO DAILY Take next dose tomorrow 12/21/15 in AM Amlodipine Besylate 10 Mg Tablet 10 Mg PO DAILY Take next tomorrow 12/21/15 in AM Levemir Flextouch (Insulin Detemir) 100 Unit/1 Ml Insuln.pen 25 Unit SQ HS TAKE NEXT DOSE TONIGHT 12/20/15 AT BEDTIME Polyethylene Glycol 3350 255 Gm Powder 17 Gm PO DAILY TAKE DAILY NEEDED FOR CONSTIPATION Nitrostat (Nitroglycerin) 0.4 Mg Tab.subl 0.4 Mg SL PRN Q5MIN PRN Benadryl (Diphenhydramine Hcl) 25 Mg Capsule 25 Mg PO PRN Q6HRS PRN TAKE NEEDED Acetaminophen 500 Mg Tablet 500 Mg PO PRN TID PRN Loratadine 10 Mg Tablet 10 Mg PO DAILY TAKE NEXT DOSE TOMORROW 12/21/15 IN AM Calcium Acetate 667 Mg Capsule 667 Mg PO TIDAC TAKE NEXT DOSE TONIGHT 05/19/15 AT BEDTIME Levothyroxine Sodium 75 Mcg Tablet 75 Mcg PO DAILY TAKE NEXT DOSE TOMORROW 12/21/15 IN AM Tums (Calcium Carbonate) 200 Mg Tab.chew 200 Mg PO PRN Q6HRS PRN Tramadol Hcl 50 Mg Tablet 100 Mg PO BID PRN Gabapentin 300 Mg Capsule 300 Mg PO HS TAKE NEXT DOSE TONIGHT 12/20/15 AT BEDTIME Vitals/I & O Vital Sign - Last 24 Hours 11/23/16 11/23/16 11/23/16 11/23/16 11:38 11:51 12:21 12:51 Temp 98.1 98.1 Pulse 81 80 75 71 Resp B/P 165/79 162/81 155/74 149/69 Pulse Ox 96 96 92 96 O2 Delivery Nasal Cannula Nasal Cannula Nasal Cannula Nasal Cannula O2 Flow Rate 3 3 3 3 11/23/16 11/23/16 11/23/16 11/23/16 13:21 13:51 14:21 14:51 Pulse 81 71 75 73 Resp B/P 147/77 149/72 175/81 163/74 Pulse Ox 93 96 97 O2 Delivery Nasal Cannula Nasal Cannula Nasal Cannula Nasal Cannula O2 Flow Rate 3 3 3 3 11/23/16 11/23/16 11/23/16 11/23/16 15:21 17:15 17:20 17:25 Temp 97.9 97.9 97.9 97.9 Pulse 77 85 76 76 Resp 18 B/P 153/75 181/89 157/80 157/80 Pulse Ox 93 93 O2 Delivery Nasal Cannula Nasal Cannula Nasal Cannula O2 Flow Rate 3 3.0 3.0 11/23/16 11/23/16 11/23/16 11/24/16 19:46 20:00 23:25 03:17 Temp 97.6 98.0 97.9 97.6 98.0 97.9 Pulse 73 68 80 Resp B/P 155/76 148/70 155/86 Pulse Ox 94 92 95 O2 Delivery Nasal Cannula Nasal Cannula Nasal Cannula Nasal Cannula O2 Flow Rate 3.0 3.0 3.0 3.0 11/24/16 08:04 Pulse Ox 95 O2 Delivery Nasal Cannula O2 Flow Rate 2.0 Intake and Output 11/23/16 11/23/16 11/24/16 15:00 23:00 07:00 Intake Total 300 ml 780 ml Balance 300 ml 780 ml OTTO CLINE MD Nov 24, 2016 08:20
[2016-11-24] MEDS: MINERAL OIL/PETROLATUM TOPICAL CREAM 113GM JAR. TP SCH ×4 (09:00→20:32)
[2016-11-24] MEDS: POLYETHYLENE GLYCOL 3350 17 GM PACKET. PO SCH (09:00)
[2016-11-24] MEDS: CALCIUM ACETATE 667 MG CAPSULE PO SCH ×3 (09:02→16:30)
[2016-11-24] MEDS: AMLODIPINE BESYLATE 10 MG TABLET PO SCH (09:03)
[2016-11-24] MEDS: ASPIRIN ENTERIC COATED 325 MG TABLET.DR. PO SCH (09:03)
--- NOTE | 2016-11-24 10:00 | PDOC ---
Renal-Progress Notes Subjective Notes Notes NONE, CONFUSED, READMITTED WITH SOB AND CHF History of Present Illness Hx of present illness STABLE Vitals Vitals Vital Signs Date Time Temp Pulse Resp B/P Pulse Ox O2 Delivery O2 Flow Rate FiO2 11/24/16 09:03 73 145/78 11/24/16 08:04 95 Nasal Cannula 2.0 11/24/16 07:33 98.0 17 98.0 Weight Weight [ ] I.O. Intake and Output Intake and Output 11/24/16 07:00 Intake Total 1080 ml Balance 1080 ml Intake Oral 1080 ml Labs Labs Laboratory Tests Test 11/23/16 12:20 White Blood Count 24.8x10^3/uL (4.0-11.0) Red Blood Count 4.58x10^6/uL (4.30-5.70) Hemoglobin 13.1g/dL (13.0-17.5) Hematocrit 41.4% (39.0-53.0) Mean Corpuscular Volume 90fL (79-100) Mean Corpuscular Hemoglobin 29pg (25-35) Mean Corpuscular Hemoglobin Concent 32g/dL (31-37) Red Cell Distribution Width 15.3% (11.5-14.5) Platelet Count 224x10^3/uL (140-400) Neutrophils (%) (Auto) 25% (31-73) Lymphocytes (%) (Auto) 69% (24-48) Monocytes (%) (Auto) 5% (0-9) Eosinophils (%) (Auto) 0% (0-3) Basophils (%) (Auto) 1% (0-3) Neutrophils # (Auto) 6.1x10^3uL (1.8-7.7) Lymphocytes # (Auto) 17.2x10^3/uL (1.0-4.8) Monocytes # (Auto) 1.3x10^3/uL (0.0-1.1) Eosinophils # (Auto) 0.0x10^3/uL (0.0-0.7) Basophils # (Auto) 0.1x10^3/uL (0.0-0.2) Segmented Neutrophils % 26% (35-66) Lymphocytes % 70% (24-48) Atypical Lymphocytes % (Manual) 1% (0-0) Monocytes % 2% (0-10) Eosinophils % 1% (0-5) Platelet Estimate Adequate (ADEQUATE) Sodium Level 139mmol/L (136-145) Potassium Level 4.4mmol/L (3.5-5.1) Chloride Level 94mmol/L (98-107) Carbon Dioxide Level 26mmol/L (21-32) Anion Gap 19 (6-14) Blood Urea Nitrogen 48mg/dL (8-26) Creatinine 10.3mg/dL (0.7-1.3) Estimated GFR (Cockcroft-Gault) 6.0 BUN/Creatinine Ratio 5 (6-20) Glucose Level 143mg/dL (70-99) Lactic Acid Level 1.4mmol/L (0.4-2.0) Calcium Level 8.2mg/dL (8.5-10.1) Total Bilirubin 0.6mg/dL (0.2-1.0) Aspartate Amino Transf (AST/SGOT) 42U/L (15-37) Alanine Aminotransferase (ALT/SGPT) 24U/L (16-63) Alkaline Phosphatase 67U/L (46-116) Creatine Kinase 223U/L (39-308) Creatine Kinase MB (Mass) 0.6ng/mL (0.0-3.6) Creatine Kinase MB Relative Index 0.3% (0-4) Troponin I Quantitative 0.179ng/mL (0.000-0.055) Total Protein 7.6g/dL (6.4-8.2) Albumin 3.8g/dL (3.4-5.0) Albumin/Globulin Ratio 1.0 (1.0-1.7) Review of Systems Constitutional: yes: no symptom reported Physical Exam General Appearance: no apparent distress Skin: warm Respiratory: decreased breath sounds Heart: S1S2, RRR Abdomen: soft, bowel sounds present Genitourinary: bladder flat Extremities: pulses present, atrophy Neurology: confused Assessment Assessment IMP ESRD LEUCOCYTOSIS MET ENCEPHALOPATHY DM II HTN MILD CHF PLAN WILL ASK ID TO SEE PT HD TODAY UF TO YANE TONEY MD Nov 24, 2016 10:00
[2016-11-24 11:18] VITALS: BP 150/72
[2016-11-24] MEDS ORDERED: IV NORMAL SALINE 1000ML BAG 1,000 ML IV PRN (11:18)
[2016-11-24] MEDS ORDERED: DIPHENHYDRAMINE 50 MG/ML VIAL IV PRN ×2 (11:30)
[2016-11-24] MEDS ORDERED: DIALYSIS PATIENT. MC PRN (11:30)
[2016-11-24] MEDS: LEVOTHYROXINE 75 MCG TABLET PO SCH (11:31)
--- NOTE | 2016-11-24 11:44 | PDOC ---
Infectious Disease Note Subjective Subjective Pt returned with change in MS and hypoxia, now back to his normal ROS ROS GEN: Denies fevers, chills, sweats HEENT: Denies blurred vision, sore throat CV: Denies chest pain RESP: Denies shortness of air, cough GI: Denies n/v/d NEURO: Denies confusion, dizziness MSK: Denies weakness, joint pain/swelling Vital Sign Vital Signs Vital Signs Date Time Temp Pulse Resp B/P Pulse Ox O2 Delivery O2 Flow Rate FiO2 11/24/16 11:18 97.9 78 17 150/72 92 Nasal Cannula 3.0 97.9 Physical Exam PHYSICAL EXAM GENERAL: NAD, Alert HEENT: PERRL, OC/OP NECK: Supple, no JVD, no LN LUNGS: Clear HEART: S1S2, no gallop, no murmur ABD: Soft, NT, no organomegaly, no rebound EXT: No edema, no cyanosis TELEGRAPH DISPATCHER: Alert, oriented x 3, no focal neurologic deficit SKIN: No rash IV: ok Labs Lab Laboratory Tests Test 11/23/16 12:20 White Blood Count 24.8x10^3/uL (4.0-11.0) Red Blood Count 4.58x10^6/uL (4.30-5.70) Hemoglobin 13.1g/dL (13.0-17.5) Hematocrit 41.4% (39.0-53.0) Mean Corpuscular Volume 90fL (79-100) Mean Corpuscular Hemoglobin 29pg (25-35) Mean Corpuscular Hemoglobin Concent 32g/dL (31-37) Red Cell Distribution Width 15.3% (11.5-14.5) Platelet Count 224x10^3/uL (140-400) Neutrophils (%) (Auto) 25% (31-73) Lymphocytes (%) (Auto) 69% (24-48) Monocytes (%) (Auto) 5% (0-9) Eosinophils (%) (Auto) 0% (0-3) Basophils (%) (Auto) 1% (0-3) Neutrophils # (Auto) 6.1x10^3uL (1.8-7.7) Lymphocytes # (Auto) 17.2x10^3/uL (1.0-4.8) Monocytes # (Auto) 1.3x10^3/uL (0.0-1.1) Eosinophils # (Auto) 0.0x10^3/uL (0.0-0.7) Basophils # (Auto) 0.1x10^3/uL (0.0-0.2) Segmented Neutrophils % 26% (35-66) Lymphocytes % 70% (24-48) Atypical Lymphocytes % (Manual) 1% (0-0) Monocytes % 2% (0-10) Eosinophils % 1% (0-5) Platelet Estimate Adequate (ADEQUATE) Sodium Level 139mmol/L (136-145) Potassium Level 4.4mmol/L (3.5-5.1) Chloride Level 94mmol/L (98-107) Carbon Dioxide Level 26mmol/L (21-32) Anion Gap 19 (6-14) Blood Urea Nitrogen 48mg/dL (8-26) Creatinine 10.3mg/dL (0.7-1.3) Estimated GFR (Cockcroft-Gault) 6.0 BUN/Creatinine Ratio 5 (6-20) Glucose Level 143mg/dL (70-99) Lactic Acid Level 1.4mmol/L (0.4-2.0) Calcium Level 8.2mg/dL (8.5-10.1) Total Bilirubin 0.6mg/dL (0.2-1.0) Aspartate Amino Transf (AST/SGOT) 42U/L (15-37) Alanine Aminotransferase (ALT/SGPT) 24U/L (16-63) Alkaline Phosphatase 67U/L (46-116) Creatine Kinase 223U/L (39-308) Creatine Kinase MB (Mass) 0.6ng/mL (0.0-3.6) Creatine Kinase MB Relative Index 0.3% (0-4) Troponin I Quantitative 0.179ng/mL (0.000-0.055) Total Protein 7.6g/dL (6.4-8.2) Albumin 3.8g/dL (3.4-5.0) Albumin/Globulin Ratio 1.0 (1.0-1.7) Objective Assessment Leukocytosis Hypoxia, CHF ESRD Plan Plan of Care check c diff if diarrhea, pt denies now check CT abd and pelvis and chest d/w KIMMY Benavidez MD Nov 24, 2016 11:44
--- NOTE | 2016-11-24 13:00 | PDOC ---
Provider Note Provider Note dictated JESSICA HAYS MD Nov 24, 2016 13:00
[2016-11-24 13:41] LABS: BASO # 0.1 x10^3/uL (0.0-0.2); BASO % 0 % (0-3); EOS % 1 % (0-3); HEMATOCRIT 37.7 % (39.0-53.0); HEMOGLOBIN 12.2 g/dL (13.0-17.5); LYMPH # 19.5 x10^3/uL (1.0-4.8); LYMPH % 67 % (24-48); MEAN CORPUSCULAR HEMOGLOBIN 29 pg (25-35); MEAN CORPUSCULAR HGB CONC 32 g/dL (31-37); MEAN CORPUSCULAR VOLUME 89 fL (79-100); MONO % 6 % (0-9); NEUT % 27 % (31-73); PLATELET COUNT 245 x10^3/uL (140-400); RED BLOOD COUNT 4.24 x10^6/uL (4.30-5.70); WHITE BLOOD COUNT 29.3 x10^3/uL (4.0-11.0)
[2016-11-24 13:45] LABS: CALCIUM 7.7 mg/dL (8.5-10.1); CREATININE 13.1 mg/dL (0.7-1.3); GFR 4.6; POTASSIUM 4.2 mmol/L (3.5-5.1)
[2016-11-24] MEDS: COLESTIPOL HCL 1 GM TABLET PO SCH (17:56)
[2016-11-24 19:15] VITALS: BP 114/51
[2016-11-24] MEDS: ATORVASTATIN CALCIUM 10 MG TABLET. PO SCH (20:32)
[2016-11-24] MEDS: HYDROCODONE/APAP 5/325MG TABLET. PO PRN ×2 (20:32→21:43)
[2016-11-24] MEDS: traZODone 50 MG TABLET. PO SCH (20:32)
[2016-11-24] MEDS: GABAPENTIN 300 MG CAPSULE. PO SCH (20:37)
[2016-11-24] MEDS: INSULIN DETEMIR 300 UNITS/3 ML INSULN.PEN. SQ SCH (20:42)
[2016-11-24] MEDS ORDERED: NON FORMULARY ITEM (Melatonin 3 MG) PO SCH (21:00)
[2016-11-24 23:17] VITALS: BP 135/71
--- NOTE | 2016-11-25 02:43 | CONS ---
DATE OF CONSULTATION: PULMONARY CONSULTATION ATTENDING PHYSICIAN: Dr. Devries. REASON FOR CONSULTATION: Hypoxia. HISTORY OF PRESENT ILLNESS: The patient is a 71-year-old male who was brought into the Emergency Room with altered mental status. He was also found to be hypoxic at his residence at [facility]. He was confused and was wondering the halls, half dressed. His oxygen saturation was 80%. Normally, he is not on home oxygen. He was placed on oxygen and currently saturations are 92% on 3 liters. He is afebrile. His chest x-ray was reviewed. It shows mild CHF. He does not have a fever. Infectious Disease has also been consulted. I have been asked to see him for further evaluation. He is not the best historian. He does say that he smoked in the past, at least 35 years. PAST MEDICAL HISTORY: Significant for history of CVA, history of GERD, dyslipidemia, hypertension, hypothyroidism, history of [place], renal failure, and insomnia. History of cocaine and marijuana use. PAST SURGICAL HISTORY: Colectomy, coronary artery bypass surgery, stent placed in the kidney and fistula in the left arm. ALLERGIES: None. CURRENT MEDICATIONS: Reviewed as listed in the MRAD. Currently, not on antibiotics. SYSTEMS REVIEW: Unable to obtain from the patient due to his encephalopathy. SOCIAL HISTORY: History of tobacco use for at least 35 years. PHYSICAL EXAMINATION: GENERAL: He is somewhat confused, but no obvious respiratory distress. VITAL SIGNS: He is afebrile, blood pressure 150/72, pulse ox 92% on 3 liters. NECK: Supple. LUNGS: Diminished breath sounds. CARDIOVASCULAR: With regular rate and rhythm. ABDOMEN: Soft and nontender. EXTREMITIES: With no pitting edema. LABORATORY DATA: Reviewed. White cell count 24.8, hemoglobin 13.1, platelets are 224. BUN 40 and creatinine of 10.3. Troponin level is 0.179. IMPRESSION: 1. Acute hypoxic respiratory failure, suspect related to mild congestive heart failure. Cannot exclude an infectious cause. 2. Marked leukocytosis. No focal consolidation seen on the chest x-ray. Infectious Disease has been consulted and CT chest, abdomen and pelvis has been ordered and we will follow the results. 3. Acute metabolic encephalopathy. 4. End-stage renal disease, on hemodialysis. 5. Mildly increased troponin level. 6. Underlying chronic obstructive pulmonary disease, clinically compensated. RECOMMENDATIONS: 1. Continue present oxygen. 2. Follow CT chest as ordered by Infectious Disease. 3. Monitor white cell count. 4. Currently not on antibiotics. We will wait for ID recommendations. 5. Consider hemodialysis with ultrafiltration. 6. Follow Nephrology recommendation. 7. We will follow along with you. JESSICA HAYS MD DR: MEAGAN/jc JOB#: [id number] / [id number] YOHANNES
[2016-11-25 03:12] VITALS: BP 157/93
[2016-11-25 07:00] VITALS: BP 165/78
[2016-11-25] MEDS: IPRATRPIUM/ALBUTEROL 0.5/2.5MG 3 ML NEBU. NEB SCH ×4 (07:14→19:32)
[2016-11-25] MEDS ORDERED: IOHEXOL 240 MG/ML 50ML VIAL. PO ONE (07:30)
[2016-11-25] MEDS ORDERED: IOHEXOL 300 MG/ML 75 ML VIAL IV ONE (07:30)
[2016-11-25] MEDS: CALCIUM ACETATE 667 MG CAPSULE PO SCH ×3 (07:30→16:30)
[2016-11-25 08:35] LABS: BASO # 0.2 x10^3/uL (0.0-0.2); BASO % 1 % (0-3); EOS % 1 % (0-3); HEMATOCRIT 41.5 % (39.0-53.0); HEMOGLOBIN 13.2 g/dL (13.0-17.5); LYMPH # 21.4 x10^3/uL (1.0-4.8); LYMPH % 69 % (24-48); MEAN CORPUSCULAR HEMOGLOBIN 29 pg (25-35); MEAN CORPUSCULAR HGB CONC 32 g/dL (31-37); MEAN CORPUSCULAR VOLUME 91 fL (79-100); MONO % 7 % (0-9); NEUT % 23 % (31-73); PLATELET COUNT 292 x10^3/uL (140-400); RED BLOOD COUNT 4.56 x10^6/uL (4.30-5.70); RED CELL DISTRIBUTION WIDTH 15.4 % (11.5-14.5)
[2016-11-25 08:48] LABS: ALBUMIN 3.8 g/dL (3.4-5.0); ALBUMIN/GLOBULIN RATIO 0.8 (1.0-1.7); CALCIUM 8.7 mg/dL (8.5-10.1); GFR 6.2; PHOSPHORUS 6.1 mg/dL (2.6-4.7); POTASSIUM 4.6 mmol/L (3.5-5.1); TOTAL BILIRUBIN 0.6 mg/dL (0.2-1.0); TOTAL PROTEIN 8.3 g/dL (6.4-8.2)
[2016-11-25] MEDS: POLYETHYLENE GLYCOL 3350 17 GM PACKET. PO SCH (09:00)
[2016-11-25] MEDS: MINERAL OIL/PETROLATUM TOPICAL CREAM 113GM JAR. TP SCH ×4 (09:00→20:02)
--- NOTE | 2016-11-25 10:21 | PDOC ---
CARDIO Progress Notes Date and Time Date of Service 11/25/2016 Time of Evaluation 0940 Subjective Subjective: No Chest Pain, No shortness of breath, No Palpitations, Other ( wants to get out of here) Vitals Vitals Vital Signs Date Time Temp Pulse Resp B/P Pulse Ox O2 Delivery O2 Flow Rate FiO2 11/25/16 08:00 Nasal Cannula 3.0 11/25/16 07:14 94 11/25/16 07:00 98.9 77 18 165/78 98.9 Weight Weight [ ] Input and Output Intake and Output Intake and Output 11/25/16 07:00 Intake Total 550 ml Balance 550 ml Intake Oral 550 ml # Voids 1 Laboratory Labs Laboratory Tests Test 11/24/16 11:57 11/24/16 13:00 11/24/16 20:38 11/25/16 07:12 Nasal Screen MRSA (PCR) Negative (Negative) White Blood Count 29.3x10^3/uL (4.0-11.0) Red Blood Count 4.24x10^6/uL (4.30-5.70) Hemoglobin 12.2g/dL (13.0-17.5) Hematocrit 37.7% (39.0-53.0) Mean Corpuscular Volume 89fL (79-100) Mean Corpuscular Hemoglobin 29pg (25-35) Mean Corpuscular Hemoglobin Concent 32g/dL (31-37) Red Cell Distribution Width 15.0% (11.5-14.5) Platelet Count 245x10^3/uL (140-400) Neutrophils (%) (Auto) 27% (31-73) Lymphocytes (%) (Auto) 67% (24-48) Monocytes (%) (Auto) 6% (0-9) Eosinophils (%) (Auto) 1% (0-3) Basophils (%) (Auto) 0% (0-3) Neutrophils # (Auto) 7.8x10^3uL (1.8-7.7) Lymphocytes # (Auto) 19.5x10^3/uL (1.0-4.8) Monocytes # (Auto) 1.6x10^3/uL (0.0-1.1) Eosinophils # (Auto) 0.3x10^3/uL (0.0-0.7) Basophils # (Auto) 0.1x10^3/uL (0.0-0.2) Sodium Level 139mmol/L (136-145) Potassium Level 4.2mmol/L (3.5-5.1) Chloride Level 95mmol/L (98-107) Carbon Dioxide Level 24mmol/L (21-32) Anion Gap 20 (6-14) Blood Urea Nitrogen 60mg/dL (8-26) Creatinine 13.1mg/dL (0.7-1.3) Estimated GFR (Cockcroft-Gault) 4.6 Glucose Level 126mg/dL (70-99) Calcium Level 7.7mg/dL (8.5-10.1) Glucose (Fingerstick) 173mg/dL (70-99) 124mg/dL (70-99) Test 11/25/16 08:15 White Blood Count 31.0x10^3/uL (4.0-11.0) Red Blood Count 4.56x10^6/uL (4.30-5.70) Hemoglobin 13.2g/dL (13.0-17.5) Hematocrit 41.5% (39.0-53.0) Mean Corpuscular Volume 91fL (79-100) Mean Corpuscular Hemoglobin 29pg (25-35) Mean Corpuscular Hemoglobin Concent 32g/dL (31-37) Red Cell Distribution Width 15.4% (11.5-14.5) Platelet Count 292x10^3/uL (140-400) Neutrophils (%) (Auto) 23% (31-73) Lymphocytes (%) (Auto) 69% (24-48) Monocytes (%) (Auto) 7% (0-9) Eosinophils (%) (Auto) 1% (0-3) Basophils (%) (Auto) 1% (0-3) Neutrophils # (Auto) 7.1x10^3uL (1.8-7.7) Lymphocytes # (Auto) 21.4x10^3/uL (1.0-4.8) Monocytes # (Auto) 2.1x10^3/uL (0.0-1.1) Eosinophils # (Auto) 0.2x10^3/uL (0.0-0.7) Basophils # (Auto) 0.2x10^3/uL (0.0-0.2) Sodium Level 138mmol/L (136-145) Potassium Level 4.6mmol/L (3.5-5.1) Chloride Level 94mmol/L (98-107) Carbon Dioxide Level 29mmol/L (21-32) Anion Gap 15 (6-14) Blood Urea Nitrogen 34mg/dL (8-26) Creatinine 10.0mg/dL (0.7-1.3) Estimated GFR (Cockcroft-Gault) 6.2 BUN/Creatinine Ratio 3 (6-20) Glucose Level 147mg/dL (70-99) Calcium Level 8.7mg/dL (8.5-10.1) Phosphorus Level 6.1mg/dL (2.6-4.7) Magnesium Level 2.0mg/dL (1.8-2.4) Total Bilirubin 0.6mg/dL (0.2-1.0) Aspartate Amino Transf (AST/SGOT) 25U/L (15-37) Alanine Aminotransferase (ALT/SGPT) 22U/L (16-63) Alkaline Phosphatase 76U/L (46-116) Total Protein 8.3g/dL (6.4-8.2) Albumin 3.8g/dL (3.4-5.0) Albumin/Globulin Ratio 0.8 (1.0-1.7) Microbiology Micro Microbiology 11/23/16 Blood Culture - Preliminary, Resulted NO GROWTH AFTER 1 DAY Review of Systems Constitutional: yes: no symptom reported Physical Exam HEENT: Neck Supple W Full Motion Chest: Symmetric LUNGS: Other (diminished bases) Heart: murmurs (2/6 systolic murmur to BLANCA and LLS border) Abdomen: Soft N/T Extremities: No Edema, No Calf Tenderness Neurology: alert, oriented, follow commands Assessment Assessment Reason for evaluation: Arrhythmia HPI: Pt is a 71 yo male admitted for noted hypoxia and confusion. Pt was discharged very recently and was evaluated by cardiology. He was seen at [facility] walking around half naked and was noted confused with hypoxia when help came. Currently pt has no recollection of events and leading to it. Denies any prior symptoms of chest pain, palpitations and no signs of falls or any injury. Currently his mentation appears to be back to baseline and denies any discomfort. Overnight he has been noted with rhythm ectopies but no correlated symptomatology. He is sitting up denies any discomfort. Denies any CP, palpitations as an inpt and no further SOA. 1. Arrhythmia SR with episodes of multifocal PVCs. Tachycardia noted in the 140s, nonsustained episode and its sinus tach, no significant tachyarrhythmias. Likely reactive to extracardiac conditions, mainly fluid shifts, leukocytosis , and hypoxia. Demand mediated mild elevation of troponin. Recent TTE and MPI suggest no ischemia. No anginal symptoms. EKG SR with no acute changes and has been compared. Resides at assisted living. Unable to use BB due to intermittent use of cocaine. Maintain lyte balance. Will obtain another drug screen. Further recommendation as described below. 2. Acute on chronic diastolic CHF Fluid offloading via HD Clinically compensated. 3. Chronic troponin elevation Within 0.07 to 0.18 from multiple admissions. Last TTE 12/2015 with normal wall motion and preserved EF. . Hypoxia with CHF and COPD component. Will obtain TTE today and note any significant changes contributing to current condition. Further recommendation after TTE. 4. Hypoxic/metabolic encephalopathy Improved. 5. Leukocytosis/FLU with sepsis, POA influenza A + noted in 11/18/2016 Treated by ID recently. 6. ESRD on HD per nephrology 7. h/o CAD s/p CABG stable, no anginal symptoms continue with secondary preventions 8. Mild stable. continue medical management 9. Hypertension Labile. on Norvasc Will start on Imdur. 10. HLP statin. 11. H/o substance abuse Last noted positive tox screen was 12/2015. Verbally admit intermittent use cocaine with last use a month ago. If circulating cocaine, this may induce arrhythmias. DELVIS CARBAJAL APRN Nov 25, 2016 10:21
[2016-11-25] MEDS ORDERED: METOPROLOL TART IMMED RELEASE 25 MG TABLET PO SCH (11:00)
--- NOTE | 2016-11-25 11:04 | PDOC ---
Infectious Disease Note Subjective Subjective pt feeling ok, just back from CT ROS ROS GEN: Denies fevers, chills, sweats HEENT: Denies blurred vision, sore throat CV: Denies chest pain GI: Denies n/v/d NEURO: Denies confusion, dizziness MSK: Denies weakness, joint pain/swelling Vital Sign Vital Signs Vital Signs Date Time Temp Pulse Resp B/P Pulse Ox O2 Delivery O2 Flow Rate FiO2 11/25/16 08:00 Nasal Cannula 3.0 11/25/16 07:14 94 11/25/16 07:00 98.9 77 18 165/78 98.9 Physical Exam PHYSICAL EXAM GENERAL: NAD, Alert HEENT: PERRL, OC/OP NECK: Supple, no JVD, no LN LUNGS: Clear HEART: S1S2, no gallop, no murmur ABD: Soft, NT, no organomegaly, no rebound EXT: No edema, no cyanosis [employer]: Alert, oriented x 3, no focal neurologic deficit SKIN: No rash IV: ok Labs Lab Laboratory Tests Test 11/24/16 11:57 11/24/16 13:00 11/24/16 20:38 11/25/16 07:12 Nasal Screen MRSA (PCR) Negative (Negative) White Blood Count 29.3x10^3/uL (4.0-11.0) Red Blood Count 4.24x10^6/uL (4.30-5.70) Hemoglobin 12.2g/dL (13.0-17.5) Hematocrit 37.7% (39.0-53.0) Mean Corpuscular Volume 89fL (79-100) Mean Corpuscular Hemoglobin 29pg (25-35) Mean Corpuscular Hemoglobin Concent 32g/dL (31-37) Red Cell Distribution Width 15.0% (11.5-14.5) Platelet Count 245x10^3/uL (140-400) Neutrophils (%) (Auto) 27% (31-73) Lymphocytes (%) (Auto) 67% (24-48) Monocytes (%) (Auto) 6% (0-9) Eosinophils (%) (Auto) 1% (0-3) Basophils (%) (Auto) 0% (0-3) Neutrophils # (Auto) 7.8x10^3uL (1.8-7.7) Lymphocytes # (Auto) 19.5x10^3/uL (1.0-4.8) Monocytes # (Auto) 1.6x10^3/uL (0.0-1.1) Eosinophils # (Auto) 0.3x10^3/uL (0.0-0.7) Basophils # (Auto) 0.1x10^3/uL (0.0-0.2) Sodium Level 139mmol/L (136-145) Potassium Level 4.2mmol/L (3.5-5.1) Chloride Level 95mmol/L (98-107) Carbon Dioxide Level 24mmol/L (21-32) Anion Gap 20 (6-14) Blood Urea Nitrogen 60mg/dL (8-26) Creatinine 13.1mg/dL (0.7-1.3) Estimated GFR (Cockcroft-Gault) 4.6 Glucose Level 126mg/dL (70-99) Calcium Level 7.7mg/dL (8.5-10.1) Glucose (Fingerstick) 173mg/dL (70-99) 124mg/dL (70-99) Test 11/25/16 08:15 White Blood Count 31.0x10^3/uL (4.0-11.0) Red Blood Count 4.56x10^6/uL (4.30-5.70) Hemoglobin 13.2g/dL (13.0-17.5) Hematocrit 41.5% (39.0-53.0) Mean Corpuscular Volume 91fL (79-100) Mean Corpuscular Hemoglobin 29pg (25-35) Mean Corpuscular Hemoglobin Concent 32g/dL (31-37) Red Cell Distribution Width 15.4% (11.5-14.5) Platelet Count 292x10^3/uL (140-400) Neutrophils (%) (Auto) 23% (31-73) Lymphocytes (%) (Auto) 69% (24-48) Monocytes (%) (Auto) 7% (0-9) Eosinophils (%) (Auto) 1% (0-3) Basophils (%) (Auto) 1% (0-3) Neutrophils # (Auto) 7.1x10^3uL (1.8-7.7) Lymphocytes # (Auto) 21.4x10^3/uL (1.0-4.8) Monocytes # (Auto) 2.1x10^3/uL (0.0-1.1) Eosinophils # (Auto) 0.2x10^3/uL (0.0-0.7) Basophils # (Auto) 0.2x10^3/uL (0.0-0.2) Sodium Level 138mmol/L (136-145) Potassium Level 4.6mmol/L (3.5-5.1) Chloride Level 94mmol/L (98-107) Carbon Dioxide Level 29mmol/L (21-32) Anion Gap 15 (6-14) Blood Urea Nitrogen 34mg/dL (8-26) Creatinine 10.0mg/dL (0.7-1.3) Estimated GFR (Cockcroft-Gault) 6.2 BUN/Creatinine Ratio 3 (6-20) Glucose Level 147mg/dL (70-99) Calcium Level 8.7mg/dL (8.5-10.1) Phosphorus Level 6.1mg/dL (2.6-4.7) Magnesium Level 2.0mg/dL (1.8-2.4) Total Bilirubin 0.6mg/dL (0.2-1.0) Aspartate Amino Transf (AST/SGOT) 25U/L (15-37) Alanine Aminotransferase (ALT/SGPT) 22U/L (16-63) Alkaline Phosphatase 76U/L (46-116) Total Protein 8.3g/dL (6.4-8.2) Albumin 3.8g/dL (3.4-5.0) Albumin/Globulin Ratio 0.8 (1.0-1.7) Objective Assessment Leukocytosis Hypoxia, CHF ESRD Plan Plan of Care check c diff if diarrhea, pt denies now check CT abd and pelvis and chest just done start zac and KIMMY Sellers MD Nov 25, 2016 11:04
[2016-11-25] MEDS: LEVOTHYROXINE 75 MCG TABLET PO SCH (11:22)
[2016-11-25 11:25] VITALS: BP 124/70
[2016-11-25] MEDS: AMLODIPINE BESYLATE 10 MG TABLET PO SCH (11:25)
[2016-11-25] MEDS: ASPIRIN ENTERIC COATED 325 MG TABLET.DR. PO SCH (11:25)
--- NOTE | 2016-11-25 11:26 | PDOC ---
PULMONARY PROGRESS NOTES Subjective no soa Vitals Vital Signs Date Time Temp Pulse Resp B/P Pulse Ox O2 Delivery O2 Flow Rate FiO2 11/25/16 08:00 Nasal Cannula 3.0 11/25/16 07:14 94 11/25/16 07:00 98.9 77 18 165/78 98.9 General: Alert, Oriented X4, No acute distress Lungs: Clear Cardiovascular: S1, S2 Abdomen: Soft Extremities: No Edema, Other Labs Laboratory Tests Test 11/23/16 12:20 11/24/16 11:57 11/24/16 13:00 11/24/16 20:38 White Blood Count 24.8x10^3/uL (4.0-11.0) 29.3x10^3/uL (4.0-11.0) Red Blood Count 4.58x10^6/uL (4.30-5.70) 4.24x10^6/uL (4.30-5.70) Hemoglobin 13.1g/dL (13.0-17.5) 12.2g/dL (13.0-17.5) Hematocrit 41.4% (39.0-53.0) 37.7% (39.0-53.0) Mean Corpuscular Volume 90fL (79-100) 89fL (79-100) Mean Corpuscular Hemoglobin 29pg (25-35) 29pg (25-35) Mean Corpuscular Hemoglobin Concent 32g/dL (31-37) 32g/dL (31-37) Red Cell Distribution Width 15.3% (11.5-14.5) 15.0% (11.5-14.5) Platelet Count 224x10^3/uL (140-400) 245x10^3/uL (140-400) Neutrophils (%) (Auto) 25% (31-73) 27% (31-73) Lymphocytes (%) (Auto) 69% (24-48) 67% (24-48) Monocytes (%) (Auto) 5% (0-9) 6% (0-9) Eosinophils (%) (Auto) 0% (0-3) 1% (0-3) Basophils (%) (Auto) 1% (0-3) 0% (0-3) Neutrophils # (Auto) 6.1x10^3uL (1.8-7.7) 7.8x10^3uL (1.8-7.7) Lymphocytes # (Auto) 17.2x10^3/uL (1.0-4.8) 19.5x10^3/uL (1.0-4.8) Monocytes # (Auto) 1.3x10^3/uL (0.0-1.1) 1.6x10^3/uL (0.0-1.1) Eosinophils # (Auto) 0.0x10^3/uL (0.0-0.7) 0.3x10^3/uL (0.0-0.7) Basophils # (Auto) 0.1x10^3/uL (0.0-0.2) 0.1x10^3/uL (0.0-0.2) Segmented Neutrophils % 26% (35-66) Lymphocytes % 70% (24-48) Atypical Lymphocytes % (Manual) 1% (0-0) Monocytes % 2% (0-10) Eosinophils % 1% (0-5) Platelet Estimate Adequate (ADEQUATE) Sodium Level 139mmol/L (136-145) 139mmol/L (136-145) Potassium Level 4.4mmol/L (3.5-5.1) 4.2mmol/L (3.5-5.1) Chloride Level 94mmol/L (98-107) 95mmol/L (98-107) Carbon Dioxide Level 26mmol/L (21-32) 24mmol/L (21-32) Anion Gap 19 (6-14) 20 (6-14) Blood Urea Nitrogen 48mg/dL (8-26) 60mg/dL (8-26) Creatinine 10.3mg/dL (0.7-1.3) 13.1mg/dL (0.7-1.3) Estimated GFR (Cockcroft-Gault) 6.0 4.6 BUN/Creatinine Ratio 5 (6-20) Glucose Level 143mg/dL (70-99) 126mg/dL (70-99) Lactic Acid Level 1.4mmol/L (0.4-2.0) Calcium Level 8.2mg/dL (8.5-10.1) 7.7mg/dL (8.5-10.1) Total Bilirubin 0.6mg/dL (0.2-1.0) Aspartate Amino Transf (AST/SGOT) 42U/L (15-37) Alanine Aminotransferase (ALT/SGPT) 24U/L (16-63) Alkaline Phosphatase 67U/L (46-116) Creatine Kinase 223U/L (39-308) Creatine Kinase MB (Mass) 0.6ng/mL (0.0-3.6) Creatine Kinase MB Relative Index 0.3% (0-4) Troponin I Quantitative 0.179ng/mL (0.000-0.055) Total Protein 7.6g/dL (6.4-8.2) Albumin 3.8g/dL (3.4-5.0) Albumin/Globulin Ratio 1.0 (1.0-1.7) Nasal Screen MRSA (PCR) Negative (Negative) Glucose (Fingerstick) 173mg/dL (70-99) Test 11/25/16 07:12 11/25/16 08:15 11/25/16 11:16 Glucose (Fingerstick) 124mg/dL (70-99) 150mg/dL (70-99) White Blood Count 31.0x10^3/uL (4.0-11.0) Red Blood Count 4.56x10^6/uL (4.30-5.70) Hemoglobin 13.2g/dL (13.0-17.5) Hematocrit 41.5% (39.0-53.0) Mean Corpuscular Volume 91fL (79-100) Mean Corpuscular Hemoglobin 29pg (25-35) Mean Corpuscular Hemoglobin Concent 32g/dL (31-37) Red Cell Distribution Width 15.4% (11.5-14.5) Platelet Count 292x10^3/uL (140-400) Neutrophils (%) (Auto) 23% (31-73) Lymphocytes (%) (Auto) 69% (24-48) Monocytes (%) (Auto) 7% (0-9) Eosinophils (%) (Auto) 1% (0-3) Basophils (%) (Auto) 1% (0-3) Neutrophils # (Auto) 7.1x10^3uL (1.8-7.7) Lymphocytes # (Auto) 21.4x10^3/uL (1.0-4.8) Monocytes # (Auto) 2.1x10^3/uL (0.0-1.1) Eosinophils # (Auto) 0.2x10^3/uL (0.0-0.7) Basophils # (Auto) 0.2x10^3/uL (0.0-0.2) Sodium Level 138mmol/L (136-145) Potassium Level 4.6mmol/L (3.5-5.1) Chloride Level 94mmol/L (98-107) Carbon Dioxide Level 29mmol/L (21-32) Anion Gap 15 (6-14) Blood Urea Nitrogen 34mg/dL (8-26) Creatinine 10.0mg/dL (0.7-1.3) Estimated GFR (Cockcroft-Gault) 6.2 BUN/Creatinine Ratio 3 (6-20) Glucose Level 147mg/dL (70-99) Calcium Level 8.7mg/dL (8.5-10.1) Phosphorus Level 6.1mg/dL (2.6-4.7) Magnesium Level 2.0mg/dL (1.8-2.4) Total Bilirubin 0.6mg/dL (0.2-1.0) Aspartate Amino Transf (AST/SGOT) 25U/L (15-37) Alanine Aminotransferase (ALT/SGPT) 22U/L (16-63) Alkaline Phosphatase 76U/L (46-116) Total Protein 8.3g/dL (6.4-8.2) Albumin 3.8g/dL (3.4-5.0) Albumin/Globulin Ratio 0.8 (1.0-1.7) Laboratory Tests Test 11/24/16 11:57 11/24/16 13:00 11/24/16 20:38 11/25/16 07:12 Nasal Screen MRSA (PCR) Negative (Negative) White Blood Count 29.3x10^3/uL (4.0-11.0) Red Blood Count 4.24x10^6/uL (4.30-5.70) Hemoglobin 12.2g/dL (13.0-17.5) Hematocrit 37.7% (39.0-53.0) Mean Corpuscular Volume 89fL (79-100) Mean Corpuscular Hemoglobin 29pg (25-35) Mean Corpuscular Hemoglobin Concent 32g/dL (31-37) Red Cell Distribution Width 15.0% (11.5-14.5) Platelet Count 245x10^3/uL (140-400) Neutrophils (%) (Auto) 27% (31-73) Lymphocytes (%) (Auto) 67% (24-48) Monocytes (%) (Auto) 6% (0-9) Eosinophils (%) (Auto) 1% (0-3) Basophils (%) (Auto) 0% (0-3) Neutrophils # (Auto) 7.8x10^3uL (1.8-7.7) Lymphocytes # (Auto) 19.5x10^3/uL (1.0-4.8) Monocytes # (Auto) 1.6x10^3/uL (0.0-1.1) Eosinophils # (Auto) 0.3x10^3/uL (0.0-0.7) Basophils # (Auto) 0.1x10^3/uL (0.0-0.2) Sodium Level 139mmol/L (136-145) Potassium Level 4.2mmol/L (3.5-5.1) Chloride Level 95mmol/L (98-107) Carbon Dioxide Level 24mmol/L (21-32) Anion Gap 20 (6-14) Blood Urea Nitrogen 60mg/dL (8-26) Creatinine 13.1mg/dL (0.7-1.3) Estimated GFR (Cockcroft-Gault) 4.6 Glucose Level 126mg/dL (70-99) Calcium Level 7.7mg/dL (8.5-10.1) Glucose (Fingerstick) 173mg/dL (70-99) 124mg/dL (70-99) Test 11/25/16 08:15 11/25/16 11:16 White Blood Count 31.0x10^3/uL (4.0-11.0) Red Blood Count 4.56x10^6/uL (4.30-5.70) Hemoglobin 13.2g/dL (13.0-17.5) Hematocrit 41.5% (39.0-53.0) Mean Corpuscular Volume 91fL (79-100) Mean Corpuscular Hemoglobin 29pg (25-35) Mean Corpuscular Hemoglobin Concent 32g/dL (31-37) Red Cell Distribution Width 15.4% (11.5-14.5) Platelet Count 292x10^3/uL (140-400) Neutrophils (%) (Auto) 23% (31-73) Lymphocytes (%) (Auto) 69% (24-48) Monocytes (%) (Auto) 7% (0-9) Eosinophils (%) (Auto) 1% (0-3) Basophils (%) (Auto) 1% (0-3) Neutrophils # (Auto) 7.1x10^3uL (1.8-7.7) Lymphocytes # (Auto) 21.4x10^3/uL (1.0-4.8) Monocytes # (Auto) 2.1x10^3/uL (0.0-1.1) Eosinophils # (Auto) 0.2x10^3/uL (0.0-0.7) Basophils # (Auto) 0.2x10^3/uL (0.0-0.2) Sodium Level 138mmol/L (136-145) Potassium Level 4.6mmol/L (3.5-5.1) Chloride Level 94mmol/L (98-107) Carbon Dioxide Level 29mmol/L (21-32) Anion Gap 15 (6-14) Blood Urea Nitrogen 34mg/dL (8-26) Creatinine 10.0mg/dL (0.7-1.3) Estimated GFR (Cockcroft-Gault) 6.2 BUN/Creatinine Ratio 3 (6-20) Glucose Level 147mg/dL (70-99) Calcium Level 8.7mg/dL (8.5-10.1) Phosphorus Level 6.1mg/dL (2.6-4.7) Magnesium Level 2.0mg/dL (1.8-2.4) Total Bilirubin 0.6mg/dL (0.2-1.0) Aspartate Amino Transf (AST/SGOT) 25U/L (15-37) Alanine Aminotransferase (ALT/SGPT) 22U/L (16-63) Alkaline Phosphatase 76U/L (46-116) Total Protein 8.3g/dL (6.4-8.2) Albumin 3.8g/dL (3.4-5.0) Albumin/Globulin Ratio 0.8 (1.0-1.7) Glucose (Fingerstick) 150mg/dL (70-99) Medications Active Scripts Medications Dose Route/Sig Days Date Category Dose Instructions Trazodone Hcl 50 Mg Tablet 0.5 Tab PO QHS 11/23/16 Reported Melatonin 3 Mg Tab.rapdis 3 Mg PO HS 11/23/16 Reported Duoneb 0.5-3(2.5) Mg/3 Ml (Albuterol/Ipratropium) 3 Ml Ampul.neb 3 Ml NEB TID 11/23/16 Reported Colestipol Hcl 1 Gm Tablet 1 Gm PO DAILY 11/23/16 Reported Eucerin Creme (Mineral Oil/White Petrolatum) 120 Gm Cream..g. 1 Michela TP QID 11/18/15 Reported Atorvastatin Calcium 10 Mg Tablet 5 Mg PO HS 11/18/15 Reported Take next dose tonight 12/20/15 at bedtime Aspir-Lorin (Aspirin) 325 Mg Tablet.dr 325 Mg PO DAILY 11/18/15 Reported Take next dose tomorrow 12/21/15 in AM Amlodipine Besylate 10 Mg Tablet 10 Mg PO DAILY 11/18/15 Reported Take next tomorrow 12/21/15 in AM Levemir Flextouch (Insulin Detemir) 100 Unit/1 Ml Insuln.pen 25 Unit SQ HS 08/15/15 Reported TAKE NEXT DOSE TONIGHT 12/20/15 AT BEDTIME Polyethylene Glycol 3350 255 Gm Powder 17 Gm PO DAILY 03/24/15 Reported TAKE DAILY NEEDED FOR CONSTIPATION Nitrostat (Nitroglycerin) 0.4 Mg Tab.subl 0.4 Mg SL PRN Q5MIN PRN 03/24/15 Reported Benadryl (Diphenhydramine Hcl) 25 Mg Capsule 25 Mg PO PRN Q6HRS PRN 03/24/15 Reported TAKE NEEDED Acetaminophen 500 Mg Tablet 500 Mg PO PRN TID PRN 03/24/15 Reported Loratadine 10 Mg Tablet 10 Mg PO DAILY 04/03/14 Reported TAKE NEXT DOSE TOMORROW 12/21/15 IN AM Calcium Acetate 667 Mg Capsule 667 Mg PO TIDAC 11/11/13 Reported TAKE NEXT DOSE TONIGHT 05/19/15 AT BEDTIME Levothyroxine Sodium 75 Mcg Tablet 75 Mcg PO DAILY 11/11/13 Reported TAKE NEXT DOSE TOMORROW 12/21/15 IN AM Tums (Calcium Carbonate) 200 Mg Tab.chew 200 Mg PO PRN Q6HRS PRN 11/11/13 Reported Tramadol Hcl 50 Mg Tablet 100 Mg PO BID PRN 11/11/13 Reported Gabapentin 300 Mg Capsule 300 Mg PO HS 11/11/13 Reported TAKE NEXT DOSE TONIGHT 12/20/[address] CHEST REVIEWED Mild basal infiltrates/atelectasis Impression . 1. Acute hypoxic respiratory failure, suspect related to mild congestive heart failure seen on cxr. Not well seen on today's ct chest . Mild basal infiltrates vs atelectasis seen CT chest, Await abdomen and pelvis findings 3. Acute metabolic encephalopathy. 4. End-stage renal disease, on hemodialysis. 5. Mildly increased troponin level. 6. Underlying chronic obstructive pulmonary disease, clinically compensated. 7. Unexplained leukocytosis Plan . : 1. Continue present oxygen. 2. Follow CT abdomen/pelvis report reviewed, no acute findings 3. Cannot explained etiology of marked leukocytosis based on ct findings. Do not think its a pulmonary source. Needs to r/o [employer] etiology. Follow ID recommendations . 4. ID recommendations. 5. Consider hemodialysis with ultrafiltration. 6. Follow Nephrology recommendation. JESSICA HAYS MD Nov 25, 2016 11:26
--- NOTE | 2016-11-25 11:54 | PDOC ---
Renal-Progress Notes Subjective Notes Notes LESS CONFUSED History of Present Illness Hx of present illness BETTER Vitals Vitals Vital Signs Date Time Temp Pulse Resp B/P Pulse Ox O2 Delivery O2 Flow Rate FiO2 11/25/16 11:25 97.9 64 22 124/70 93 Nasal Cannula 3.0 97.9 Weight Weight [ ] I.O. Intake and Output Intake and Output 11/25/16 07:00 Intake Total 550 ml Balance 550 ml Intake Oral 550 ml # Voids 1 Labs Labs Laboratory Tests Test 11/24/16 11:57 11/24/16 13:00 11/24/16 20:38 11/25/16 07:12 Nasal Screen MRSA (PCR) Negative (Negative) White Blood Count 29.3x10^3/uL (4.0-11.0) Red Blood Count 4.24x10^6/uL (4.30-5.70) Hemoglobin 12.2g/dL (13.0-17.5) Hematocrit 37.7% (39.0-53.0) Mean Corpuscular Volume 89fL (79-100) Mean Corpuscular Hemoglobin 29pg (25-35) Mean Corpuscular Hemoglobin Concent 32g/dL (31-37) Red Cell Distribution Width 15.0% (11.5-14.5) Platelet Count 245x10^3/uL (140-400) Neutrophils (%) (Auto) 27% (31-73) Lymphocytes (%) (Auto) 67% (24-48) Monocytes (%) (Auto) 6% (0-9) Eosinophils (%) (Auto) 1% (0-3) Basophils (%) (Auto) 0% (0-3) Neutrophils # (Auto) 7.8x10^3uL (1.8-7.7) Lymphocytes # (Auto) 19.5x10^3/uL (1.0-4.8) Monocytes # (Auto) 1.6x10^3/uL (0.0-1.1) Eosinophils # (Auto) 0.3x10^3/uL (0.0-0.7) Basophils # (Auto) 0.1x10^3/uL (0.0-0.2) Sodium Level 139mmol/L (136-145) Potassium Level 4.2mmol/L (3.5-5.1) Chloride Level 95mmol/L (98-107) Carbon Dioxide Level 24mmol/L (21-32) Anion Gap 20 (6-14) Blood Urea Nitrogen 60mg/dL (8-26) Creatinine 13.1mg/dL (0.7-1.3) Estimated GFR (Cockcroft-Gault) 4.6 Glucose Level 126mg/dL (70-99) Calcium Level 7.7mg/dL (8.5-10.1) Glucose (Fingerstick) 173mg/dL (70-99) 124mg/dL (70-99) Test 11/25/16 08:15 11/25/16 11:16 White Blood Count 31.0x10^3/uL (4.0-11.0) Red Blood Count 4.56x10^6/uL (4.30-5.70) Hemoglobin 13.2g/dL (13.0-17.5) Hematocrit 41.5% (39.0-53.0) Mean Corpuscular Volume 91fL (79-100) Mean Corpuscular Hemoglobin 29pg (25-35) Mean Corpuscular Hemoglobin Concent 32g/dL (31-37) Red Cell Distribution Width 15.4% (11.5-14.5) Platelet Count 292x10^3/uL (140-400) Neutrophils (%) (Auto) 23% (31-73) Lymphocytes (%) (Auto) 69% (24-48) Monocytes (%) (Auto) 7% (0-9) Eosinophils (%) (Auto) 1% (0-3) Basophils (%) (Auto) 1% (0-3) Neutrophils # (Auto) 7.1x10^3uL (1.8-7.7) Lymphocytes # (Auto) 21.4x10^3/uL (1.0-4.8) Monocytes # (Auto) 2.1x10^3/uL (0.0-1.1) Eosinophils # (Auto) 0.2x10^3/uL (0.0-0.7) Basophils # (Auto) 0.2x10^3/uL (0.0-0.2) Sodium Level 138mmol/L (136-145) Potassium Level 4.6mmol/L (3.5-5.1) Chloride Level 94mmol/L (98-107) Carbon Dioxide Level 29mmol/L (21-32) Anion Gap 15 (6-14) Blood Urea Nitrogen 34mg/dL (8-26) Creatinine 10.0mg/dL (0.7-1.3) Estimated GFR (Cockcroft-Gault) 6.2 BUN/Creatinine Ratio 3 (6-20) Glucose Level 147mg/dL (70-99) Calcium Level 8.7mg/dL (8.5-10.1) Phosphorus Level 6.1mg/dL (2.6-4.7) Magnesium Level 2.0mg/dL (1.8-2.4) Total Bilirubin 0.6mg/dL (0.2-1.0) Aspartate Amino Transf (AST/SGOT) 25U/L (15-37) Alanine Aminotransferase (ALT/SGPT) 22U/L (16-63) Alkaline Phosphatase 76U/L (46-116) Total Protein 8.3g/dL (6.4-8.2) Albumin 3.8g/dL (3.4-5.0) Albumin/Globulin Ratio 0.8 (1.0-1.7) Glucose (Fingerstick) 150mg/dL (70-99) Micro Micro Microbiology 11/23/16 Blood Culture - Preliminary, Resulted NO GROWTH AFTER 1 DAY Review of Systems Constitutional: yes: no symptom reported Physical Exam General Appearance: no apparent distress Skin: warm Respiratory: decreased breath sounds Heart: S1S2, RRR Abdomen: soft, bowel sounds present Genitourinary: bladder flat Extremities: pulses present, atrophy Neurology: alert Assessment Assessment IMP ESRD LEUCOCYTOSIS MET ENCEPHALOPATHY DM II HTN MILD CHF PLAN ID EVAL AND TX HD TOMORROW YANE RANGEL MD Nov 25, 2016 11:54
--- NOTE | 2016-11-25 11:57 | RAD ---
CT chest abdomen pelvis with IV contrast History: Leukocytosis. Comparison: CT chest 09/16/2014. CT abdomen pelvis 04/03/2014. Technique: After administration of oral and intravenous contrast, 60 mL Omnipaque 300, helical CT of the chest, abdomen, and pelvis was performed from the lung apices through the ischial tuberosities. One or more of the following individualized dose reduction techniques were utilized for the study: Automated exposure control Adjustment of mA and/or kV according to patient's size Use of iterative reconstruction technique. Findings: Median sternotomy wires are seen. Thyroid is symmetric, but small. Trachea and mainstem bronchi appear patent. No mediastinal lymphadenopathy is seen. Largest lymph node is a right lower paratracheal lymph node which measures 9 mm in short axis. Post CABG changes are seen. Diffuse atherosclerosis of the aorta and branch vessels is noted. Mild bilateral gynecomastia is seen. Mild-moderate centrilobular emphysematous changes of lungs can be seen. No pneumothorax or pleural effusion is identified. Bilateral lower lobes demonstrate areas of dependent consolidation which are relatively increased attenuation, favored represent atelectasis. No convincing airspace disease to suggest appreciated. Liver demonstrates several small cysts. Spleen, pancreas, and right adrenal gland are unremarkable. Mild density is seen involving the gallbladder, could indicate cholelithiasis. There is nodular thickening of left adrenal gland, similar to previous study, probably from hematoma. Bilateral renal cysts are seen. Bilateral kidneys are moderate to severely atrophic. Both kidneys demonstrate multiple calcifications involving the hilum and renal collecting system, which may be combination of vascular calcifications and nonobstructive nephrolithiasis. Rather severe aortic atherosclerosis is seen as well as involving branch vessels of the abdominal aorta. No bowel obstruction or inflammation is identified. Urinary bladder demonstrates a small amount of urine. Prostate is enlarged. As seen before, multiple small epigastric ventral hernias containing fat are seen. No appendiceal inflammation is identified. No free air or free fluid is seen in the abdomen or pelvis. Degenerative changes are present in the spine. Impression: 1. No acute abnormality identified in the chest, abdomen, or pelvis. No inflammation or explanation for patient's leukocytosis is identified. 2. Bilateral dependent atelectasis. 3. Emphysema. 4. Rather extensive atherosclerosis. 5. Question cholelithiasis. 6. Multiple fat-containing ventral hernias.
[2016-11-25] MEDS ORDERED: VANCOMYCIN 1.75 GM in IV NORMAL SALINE 500ML BAG 500 ML IV ONE (12:00)
[2016-11-25] MEDS: ISOSORBIDE MONONITRATE ER 30 MG TAB.ER.24H PO SCH (13:30)
--- NOTE | 2016-11-25 14:02 | PDOC ---
PROGRESS NOTES Chief Complaint Chief Complaint Acute encephalopathy, improved Hypoxia, acute on chronic End stage renal disease, HD, Dm2, insulin hypothyriod htn, chronic diastolic CHF History of Present Illness History of Present Illness calm and responsive today, he seems like his normal self Vitals Vitals Vital Signs Date Time Temp Pulse Resp B/P Pulse Ox O2 Delivery O2 Flow Rate FiO2 11/25/16 13:44 97 Nasal Cannula 3.0 11/25/16 13:30 77 165/78 11/25/16 11:25 97.9 22 97.9 Physical Exam General: Alert, Oriented X3, Cooperative, No acute distress Heart: Regular rate, No murmurs Lungs: Clear Abdomen: No tenderness, No hepatosplenomegaly Extremities: No edema Skin: No significant lesion Labs LABS Laboratory Tests Test 11/24/16 20:38 11/25/16 07:12 11/25/16 08:15 11/25/16 11:16 Glucose (Fingerstick) 173mg/dL (70-99) 124mg/dL (70-99) 150mg/dL (70-99) White Blood Count 31.0x10^3/uL (4.0-11.0) Red Blood Count 4.56x10^6/uL (4.30-5.70) Hemoglobin 13.2g/dL (13.0-17.5) Hematocrit 41.5% (39.0-53.0) Mean Corpuscular Volume 91fL (79-100) Mean Corpuscular Hemoglobin 29pg (25-35) Mean Corpuscular Hemoglobin Concent 32g/dL (31-37) Red Cell Distribution Width 15.4% (11.5-14.5) Platelet Count 292x10^3/uL (140-400) Neutrophils (%) (Auto) 23% (31-73) Lymphocytes (%) (Auto) 69% (24-48) Monocytes (%) (Auto) 7% (0-9) Eosinophils (%) (Auto) 1% (0-3) Basophils (%) (Auto) 1% (0-3) Neutrophils # (Auto) 7.1x10^3uL (1.8-7.7) Lymphocytes # (Auto) 21.4x10^3/uL (1.0-4.8) Monocytes # (Auto) 2.1x10^3/uL (0.0-1.1) Eosinophils # (Auto) 0.2x10^3/uL (0.0-0.7) Basophils # (Auto) 0.2x10^3/uL (0.0-0.2) Sodium Level 138mmol/L (136-145) Potassium Level 4.6mmol/L (3.5-5.1) Chloride Level 94mmol/L (98-107) Carbon Dioxide Level 29mmol/L (21-32) Anion Gap 15 (6-14) Blood Urea Nitrogen 34mg/dL (8-26) Creatinine 10.0mg/dL (0.7-1.3) Estimated GFR (Cockcroft-Gault) 6.2 BUN/Creatinine Ratio 3 (6-20) Glucose Level 147mg/dL (70-99) Calcium Level 8.7mg/dL (8.5-10.1) Phosphorus Level 6.1mg/dL (2.6-4.7) Magnesium Level 2.0mg/dL (1.8-2.4) Total Bilirubin 0.6mg/dL (0.2-1.0) Aspartate Amino Transf (AST/SGOT) 25U/L (15-37) Alanine Aminotransferase (ALT/SGPT) 22U/L (16-63) Alkaline Phosphatase 76U/L (46-116) Total Protein 8.3g/dL (6.4-8.2) Albumin 3.8g/dL (3.4-5.0) Albumin/Globulin Ratio 0.8 (1.0-1.7) Assessment and Plan Assessmemt and Plan cont current dc soon Problems Medical Problems: (1) Acute encephalopathy Status: Acute (2) Elevated troponin Status: Acute (3) End stage renal disease Status: Acute (4) Hypoxia Status: Acute Problems: Comment Review of Relevant I have reviewed the following items marli (where applicable) has been applied. Labs Laboratory Tests Test 11/24/16 11:57 11/24/16 13:00 11/24/16 20:38 11/25/16 07:12 Nasal Screen MRSA (PCR) Negative (Negative) White Blood Count 29.3x10^3/uL (4.0-11.0) Red Blood Count 4.24x10^6/uL (4.30-5.70) Hemoglobin 12.2g/dL (13.0-17.5) Hematocrit 37.7% (39.0-53.0) Mean Corpuscular Volume 89fL (79-100) Mean Corpuscular Hemoglobin 29pg (25-35) Mean Corpuscular Hemoglobin Concent 32g/dL (31-37) Red Cell Distribution Width 15.0% (11.5-14.5) Platelet Count 245x10^3/uL (140-400) Neutrophils (%) (Auto) 27% (31-73) Lymphocytes (%) (Auto) 67% (24-48) Monocytes (%) (Auto) 6% (0-9) Eosinophils (%) (Auto) 1% (0-3) Basophils (%) (Auto) 0% (0-3) Neutrophils # (Auto) 7.8x10^3uL (1.8-7.7) Lymphocytes # (Auto) 19.5x10^3/uL (1.0-4.8) Monocytes # (Auto) 1.6x10^3/uL (0.0-1.1) Eosinophils # (Auto) 0.3x10^3/uL (0.0-0.7) Basophils # (Auto) 0.1x10^3/uL (0.0-0.2) Sodium Level 139mmol/L (136-145) Potassium Level 4.2mmol/L (3.5-5.1) Chloride Level 95mmol/L (98-107) Carbon Dioxide Level 24mmol/L (21-32) Anion Gap 20 (6-14) Blood Urea Nitrogen 60mg/dL (8-26) Creatinine 13.1mg/dL (0.7-1.3) Estimated GFR (Cockcroft-Gault) 4.6 Glucose Level 126mg/dL (70-99) Calcium Level 7.7mg/dL (8.5-10.1) Glucose (Fingerstick) 173mg/dL (70-99) 124mg/dL (70-99) Test 11/25/16 08:15 11/25/16 11:16 White Blood Count 31.0x10^3/uL (4.0-11.0) Red Blood Count 4.56x10^6/uL (4.30-5.70) Hemoglobin 13.2g/dL (13.0-17.5) Hematocrit 41.5% (39.0-53.0) Mean Corpuscular Volume 91fL (79-100) Mean Corpuscular Hemoglobin 29pg (25-35) Mean Corpuscular Hemoglobin Concent 32g/dL (31-37) Red Cell Distribution Width 15.4% (11.5-14.5) Platelet Count 292x10^3/uL (140-400) Neutrophils (%) (Auto) 23% (31-73) Lymphocytes (%) (Auto) 69% (24-48) Monocytes (%) (Auto) 7% (0-9) Eosinophils (%) (Auto) 1% (0-3) Basophils (%) (Auto) 1% (0-3) Neutrophils # (Auto) 7.1x10^3uL (1.8-7.7) Lymphocytes # (Auto) 21.4x10^3/uL (1.0-4.8) Monocytes # (Auto) 2.1x10^3/uL (0.0-1.1) Eosinophils # (Auto) 0.2x10^3/uL (0.0-0.7) Basophils # (Auto) 0.2x10^3/uL (0.0-0.2) Sodium Level 138mmol/L (136-145) Potassium Level 4.6mmol/L (3.5-5.1) Chloride Level 94mmol/L (98-107) Carbon Dioxide Level 29mmol/L (21-32) Anion Gap 15 (6-14) Blood Urea Nitrogen 34mg/dL (8-26) Creatinine 10.0mg/dL (0.7-1.3) Estimated GFR (Cockcroft-Gault) 6.2 BUN/Creatinine Ratio 3 (6-20) Glucose Level 147mg/dL (70-99) Calcium Level 8.7mg/dL (8.5-10.1) Phosphorus Level 6.1mg/dL (2.6-4.7) Magnesium Level 2.0mg/dL (1.8-2.4) Total Bilirubin 0.6mg/dL (0.2-1.0) Aspartate Amino Transf (AST/SGOT) 25U/L (15-37) Alanine Aminotransferase (ALT/SGPT) 22U/L (16-63) Alkaline Phosphatase 76U/L (46-116) Total Protein 8.3g/dL (6.4-8.2) Albumin 3.8g/dL (3.4-5.0) Albumin/Globulin Ratio 0.8 (1.0-1.7) Glucose (Fingerstick) 150mg/dL (70-99) Laboratory Tests Test 11/24/16 20:38 11/25/16 07:12 11/25/16 08:15 11/25/16 11:16 Glucose (Fingerstick) 173mg/dL (70-99) 124mg/dL (70-99) 150mg/dL (70-99) White Blood Count 31.0x10^3/uL (4.0-11.0) Red Blood Count 4.56x10^6/uL (4.30-5.70) Hemoglobin 13.2g/dL (13.0-17.5) Hematocrit 41.5% (39.0-53.0) Mean Corpuscular Volume 91fL (79-100) Mean Corpuscular Hemoglobin 29pg (25-35) Mean Corpuscular Hemoglobin Concent 32g/dL (31-37) Red Cell Distribution Width 15.4% (11.5-14.5) Platelet Count 292x10^3/uL (140-400) Neutrophils (%) (Auto) 23% (31-73) Lymphocytes (%) (Auto) 69% (24-48) Monocytes (%) (Auto) 7% (0-9) Eosinophils (%) (Auto) 1% (0-3) Basophils (%) (Auto) 1% (0-3) Neutrophils # (Auto) 7.1x10^3uL (1.8-7.7) Lymphocytes # (Auto) 21.4x10^3/uL (1.0-4.8) Monocytes # (Auto) 2.1x10^3/uL (0.0-1.1) Eosinophils # (Auto) 0.2x10^3/uL (0.0-0.7) Basophils # (Auto) 0.2x10^3/uL (0.0-0.2) Sodium Level 138mmol/L (136-145) Potassium Level 4.6mmol/L (3.5-5.1) Chloride Level 94mmol/L (98-107) Carbon Dioxide Level 29mmol/L (21-32) Anion Gap 15 (6-14) Blood Urea Nitrogen 34mg/dL (8-26) Creatinine 10.0mg/dL (0.7-1.3) Estimated GFR (Cockcroft-Gault) 6.2 BUN/Creatinine Ratio 3 (6-20) Glucose Level 147mg/dL (70-99) Calcium Level 8.7mg/dL (8.5-10.1) Phosphorus Level 6.1mg/dL (2.6-4.7) Magnesium Level 2.0mg/dL (1.8-2.4) Total Bilirubin 0.6mg/dL (0.2-1.0) Aspartate Amino Transf (AST/SGOT) 25U/L (15-37) Alanine Aminotransferase (ALT/SGPT) 22U/L (16-63) Alkaline Phosphatase 76U/L (46-116) Total Protein 8.3g/dL (6.4-8.2) Albumin 3.8g/dL (3.4-5.0) Albumin/Globulin Ratio 0.8 (1.0-1.7) Microbiology 11/23/16 Blood Culture - Preliminary, Resulted NO GROWTH AFTER 2 DAYS Medications Current Medications Ondansetron HCl (Zofran) 4 mg PRN Q8HRS PRN IV NAUSEA/VOMITING; Start 11/23/16 at 15:15; Stop 11/24/16 at 00:07; Status DC Acetaminophen (Tylenol) 650 mg PRN Q4HRS PRN PO FEVER; Start 11/23/16 at 15:15 ; Stop 11/24/16 at 00:06; Status DC Acetaminophen (Tylenol) 325 mg PRN Q6HRS PRN PO MILD PAIN / TEMP; Start at 18:45; Stop 11/24/16 at 00:06; Status DC Acetaminophen/ Hydrocodone Bitart (Lortab 5/325) 1 tab PRN Q6HRS PRN PO MODERATE TO SEVERE PAIN Last administered on 11/24/16t 21:43; Start 11/23/16 at 18:45 Hydralazine HCl (Apresoline) 10 mg PRN Q4HRS PRN IVP ELEVATED BP, SEE COMMENTS ; Start 11/23/16 at 18:45 Ondansetron HCl (Zofran) 4 mg PRN Q8HRS PRN IV NAUSEA/VOMITING; Start 11/23/16 at 18:45 Albuterol Sulfate (Ventolin Neb Soln) 2.5 mg PRN Q4HRS PRN NEB SHORTNESS OF BREATH; Start 11/23/16 at 18:45 Acetaminophen (Tylenol) 500 mg PRN TID PRN PO MILD PAIN/TEMP; Start 11/24/16 at 00:00 Amlodipine Besylate (Norvasc) 10 mg DAILY PO Last administered on 11/25/16 11: 25; Start 11/24/16 at 09:00 Aspirin (Ecotrin) 325 mg DAILY PO Last administered on 11/25/16 11:25; Start 11/24/16 at 09:00 Atorvastatin Calcium (Lipitor) 5 mg HS PO Last administered on 11/24/16 20:32 ; Start 11/24/16 at 21:00 Calcium Acetate (Phoslo) 667 mg TIDAC PO Last administered on 11/25/16 11:30; Start 11/24/16 at 07:30 Calcium Carbonate/ Glycine (Tums) 500 mg PRN Q6HRS PRN PO HEARTBURN / GAS; Start 11/24/16 at 00:00 Colestipol HCl (Colestid) 1 gm DAILY PO Last administered on 11/24/16 17:56; Start 11/24/16 at 09:00 Diphenhydramine HCl (Benadryl) 25 mg PRN Q6HRS PRN PO ITCHING; Start 11/24/16 at 00:00 Gabapentin (Neurontin) 300 mg HS PO ; Start 11/24/16 at 21:00 Insulin Detemir (Levemir) 25 units HS SQ Last administered on 11/24/16 20:42; Start 11/24/16 at 21:00 Albuterol/ Ipratropium (Duoneb) 3 ml TID NEB Last administered on 11/25/16 13: 44; Start 11/24/16 at 09:00 Levothyroxine Sodium (Synthroid) 75 mcg DAILY07 PO Last administered on 11:22; Start 11/24/16 at 07:00 Multi-Ingred Cream/Lotion/Oil/ Oint (Hydrocerin) 1 michela QID TP Last administered on 11/24/16 20:32; Start 11/24/16 at 09:00 Nitroglycerin (Nitrostat) 0.4 mg PRN Q5MIN PRN SL CHEST PAIN; Start 11/24/16 at 00:00 Polyethylene Glycol (miraLAX PACKET) 17 gm DAILY PO ; Start 11/24/16 at 09:00 Trazodone HCl (Desyrel) 50 mg QHS PO Last administered on 11/24/16 20:32; Start 11/24/16 at 21:00 Non-Formulary Medication 3 mg 3 mg HS PO ; Start 11/24/16 at 21:00; Status UNV Sodium Chloride (Iv Sodium Chloride 0.9% 1000ml Bag) 1,000 ml @ 1,000 mls/hr Q1H PRN IV hypotension; Start 11/24/16 at 11:18; Stop 11/24/16 at 17:17; Status DC Diphenhydramine HCl (Benadryl) 25 mg 1X PRN PRN IV ITCHING; Start 11/24/16 at 11:30; Stop 11/25/16 at 11:29; Status DC Diphenhydramine HCl (Benadryl) 25 mg 1X PRN PRN IV ITCHING; Start 11/24/16 at 11:30; Stop 11/25/16 at 11:29; Status DC Info (PHARMACY MONITORING -- do not chart) 1 each PRN DAILY PRN MC SEE COMMENTS ; Start 11/24/16 at 11:30 Iohexol (Omnipaque 300 Mg/ml) 75 ml 1X ONCE IV ; Start 11/25/16 at 07:30; Stop 11/25/16 at 07:31; Status DC Iohexol (Omnipaque 240 Mg/ml) 30 ml 1X ONCE PO ; Start 11/25/16 at 07:30; Stop 11/25/16 at 07:31; Status DC Metoprolol Tartrate (Lopressor) 12.5 mg BID PO ; Start 11/25/16 at 11:00; Stop 11/25/16 at 11:00; Status DC Isosorbide Mononitrate (Imdur) 30 mg DAILY PO Last administered on 11/25/16 13 :30; Start 11/25/16 at 11:00 Vancomycin HCl 1 each 1 each PRN DAILY PRN MC SEE COMMENTS; Start 11/25/16 at 11:15 Piperacillin Sod/ Tazobactam Sod 2.25 gm/Sodium Chloride 50 ml @ 100 mls/hr Q6HRS IV ; Start 11/25/16 at 12:00 Vancomycin HCl/ Sodium Chloride (Iv Sodium Chloride 0.9% 500ml Bag) 500 ml @ 250 mls/hr 1X ONCE IV Last administered on 11/25/16t 13:28; Start 11/25/16 at 12:00; Stop 11/25/16 at 13:59; Status DC Active Scripts Active Reported Trazodone Hcl 50 Mg Tablet 0.5 Tab PO QHS Melatonin 3 Mg Tab.rapdis 3 Mg PO HS Duoneb 0.5-3(2.5) Mg/3 Ml (Albuterol/Ipratropium) 3 Ml Ampul.neb 3 Ml NEB TID Colestipol Hcl 1 Gm Tablet 1 Gm PO DAILY Eucerin Creme (Mineral Oil/White Petrolatum) 120 Gm Cream..g. 1 Michela TP QID Atorvastatin Calcium 10 Mg Tablet 5 Mg PO HS Take next dose tonight 12/20/15 at bedtime Aspir-Lorin (Aspirin) 325 Mg Tablet.dr 325 Mg PO DAILY Take next dose tomorrow 12/21/15 in AM Amlodipine Besylate 10 Mg Tablet 10 Mg PO DAILY Take next tomorrow 12/21/15 in AM Levemir Flextouch (Insulin Detemir) 100 Unit/1 Ml Insuln.pen 25 Unit SQ HS TAKE NEXT DOSE TONIGHT 12/20/15 AT BEDTIME Polyethylene Glycol 3350 255 Gm Powder 17 Gm PO DAILY TAKE DAILY NEEDED FOR CONSTIPATION Nitrostat (Nitroglycerin) 0.4 Mg Tab.subl 0.4 Mg SL PRN Q5MIN PRN Benadryl (Diphenhydramine Hcl) 25 Mg Capsule 25 Mg PO PRN Q6HRS PRN TAKE NEEDED Acetaminophen 500 Mg Tablet 500 Mg PO PRN TID PRN Loratadine 10 Mg Tablet 10 Mg PO DAILY TAKE NEXT DOSE TOMORROW 12/21/15 IN AM Calcium Acetate 667 Mg Capsule 667 Mg PO TIDAC TAKE NEXT DOSE TONIGHT 05/19/15 AT BEDTIME Levothyroxine Sodium 75 Mcg Tablet 75 Mcg PO DAILY TAKE NEXT DOSE TOMORROW 12/21/15 IN AM Tums (Calcium Carbonate) 200 Mg Tab.chew 200 Mg PO PRN Q6HRS PRN Tramadol Hcl 50 Mg Tablet 100 Mg PO BID PRN Gabapentin 300 Mg Capsule 300 Mg PO HS TAKE NEXT DOSE TONIGHT 12/20/15 AT BEDTIME Vitals/I & O Vital Sign - Last 24 Hours 11/24/16 11/24/16 11/24/16 11/24/16 19:15 20:00 21:01 21:43 Temp 99.2 99.2 Pulse 79 Resp 18 B/P 114/51 Pulse Ox 93 93 O2 Delivery Nasal Cannula Nasal Cannula Nasal Cannula Nasal Cannula O2 Flow Rate 3.0 3.0 3.0 3.0 11/24/16 11/25/16 11/25/16 11/25/16 23:17 03:12 07:00 07:14 Temp 98.6 98.4 98.9 98.6 98.4 98.9 Pulse 76 75 77 Resp B/P 135/71 157/93 165/78 Pulse Ox 95 94 O2 Delivery Nasal Cannula Nasal Cannula Nasal Cannula Nasal Cannula O2 Flow Rate 3.0 3.0 3.0 3.0 11/25/16 11/25/16 11/25/16 11/25/16 08:00 11:25 11:25 13:30 Temp 97.9 97.9 Pulse 77 64 77 Resp 22 B/P 165/78 124/70 165/78 Pulse Ox 93 O2 Delivery Nasal Cannula Nasal Cannula O2 Flow Rate 3.0 3.0 11/25/16 13:44 Pulse Ox 97 O2 Delivery Nasal Cannula O2 Flow Rate 3.0 Intake and Output 11/24/16 11/24/16 11/25/16 15:00 23:00 07:00 Intake Total 450 ml 100 ml Balance 450 ml 100 ml OTTO CLINE MD Nov 25, 2016 14:02
--- NOTE | 2016-11-25 14:43 | CARD ---
APPROVED REPORT EXAM: Two-dimensional and M-mode echocardiogram with Doppler and color Doppler. Other Information Quality : Fair INDICATION Congestive Heart Failure CAD 2D DIMENSIONS RVDd3.4 (2.9-3.5cm)Left Atrium(2D)3.4 (1.6-4.0cm) IVSd1.5 (0.7-1.1cm)Aortic Root(2D)2.2 (2.0-3.7cm) LVDd3.9 (3.9-5.9cm)LVOT Diameter1.8 (1.8-2.4cm) PWd1.4 (0.7-1.1cm)LVDs3.2 (2.5-4.0cm) SV25.8 mlLVEF(%)50.0 (>50%) Aortic Valve AoV Peak Jerry.173.6cm/sAoV VTI28.7cm AO Peak GR.12.0mmHgLVOT Peak Jerry.103.6cm/s LVOT VTI 17.59cmAO Mean GR.7mmHg RADHA (VMAX)1.68qr0ZRC (VTI)1.61cm2 AI P 1/2 [id number] Mitral Valve MV E Ajwbietq32.3cm/sMV DECEL [id number] MV A Suvdpeme06.9cm/sMV E Mean Gr.1mmHg MV OOB93ldW/A Ratio0.6 MV A Bwbglwaa21liWEM (PHT)2.58cm2 TDI E/Lateral E'6.1E/Medial E'9.1 Pulmonary Valve PV Peak Hqgfdbai469.4cm/sPV Peak Grad.7mmHg RVOT VTI18.3cm Tricuspid Valve TR P. Nmteagqs214cf/sTR Peak Gr.7mmHg Pulmonary Vein S1 Bfzqmoac09.8cm/sD2 Uatyodfc63.0cm/s LEFT VENTRICLE The left ventricle is normal size. There is mild to moderate concentric left ventricular hypertrophy. The left ventricular systolic function is low normal. EF 50% Subtle septal hypokinesis. Transmitral Doppler flow pattern is Grade I-abnormal relaxation pattern. RIGHT VENTRICLE The right ventricle is normal size. There is normal right ventricular wall thickness. The right ventr icular systolic function is normal. ATRIA The left atrium size is normal. The right atrium size is normal. The interatrial septum is intact wit h no evidence for an atrial septal defect or patent foramen ovale as noted on 2-D or Doppler imaging. AORTIC VALVE The aortic valve is mildly calcified. The aortic valve is trileaflet. Doppler and Color Flow revealed mild aortic regurgitation. There is mild valvular aortic stenosis. Calculated aortic valve area is 1 .7 cm2 with maximum pressure gradient of 12 mmHg and mean pressure gradient of 7 mmHg. MITRAL VALVE The mitral valve is normal in structure and function. Doppler and Color Flow revealed trace to mild m itral regurgitation. TRICUSPID VALVE The tricuspid valve is normal in structure and function. Doppler and Color Flow revealed trace tricus pid regurgitation. PULMONIC VALVE Doppler and Color Flow revealed trace pulmonic valvular regurgitation. GREAT VESSELS The aortic root is normal in size. Normal pulmonary venous flow (Doppler). The IVC is normal in size and collapses >50% with inspiration. PERICARDIAL EFFUSION There is no evidence of significant pericardial effusion. Critical Notification Critical Value: No <Conclusion> The left ventricular systolic function is low normal. EF 50% Subtle septal hypokinesis. Transmitral Doppler flow pattern is Grade I-abnormal relaxation pattern. There is mild valvular aortic stenosis. Calculated aortic valve area is 1.7 cm2 with maximum pressur e gradient of 12 mmHg and mean pressure gradient of 7 mmHg. Doppler and Color Flow revealed mild aortic regurgitation.
[2016-11-25 15:26] VITALS: BP 128/68
[2016-11-25] MEDS: PIPERACILLIN/TAZOBACTAM 2.25 GM in IV NORMAL SALINE 50ML 50 ML IV SCH ×2 (17:04→19:55)
[2016-11-25] MEDS: COLESTIPOL HCL 1 GM TABLET PO SCH (17:18)
[2016-11-25] MEDS: VANCOMYCIN PER PHARMACY MC PRN (18:39)
[2016-11-25 19:10] VITALS: BP 138/75
[2016-11-25] MEDS: traZODone 50 MG TABLET. PO SCH (19:57)
[2016-11-25] MEDS: INSULIN DETEMIR 300 UNITS/3 ML INSULN.PEN. SQ SCH (20:02)
[2016-11-25] MEDS: GABAPENTIN 300 MG CAPSULE. PO SCH (20:02)
[2016-11-25] MEDS: ATORVASTATIN CALCIUM 10 MG TABLET. PO SCH (20:02)
[2016-11-25 23:54] VITALS: BP 112/57
[2016-11-26] MEDS: PIPERACILLIN/TAZOBACTAM 2.25 GM in IV NORMAL SALINE 50ML 50 ML IV SCH ×4 (02:12→18:30)
[2016-11-26 03:22] VITALS: BP 131/63
[2016-11-26] MEDS: LEVOTHYROXINE 75 MCG TABLET PO SCH (06:02)
[2016-11-26 06:40] LABS: CALCIUM 8.2 mg/dL (8.5-10.1); CREATININE 11.2 mg/dL (0.7-1.3); GFR 5.5; POTASSIUM 5.1 mmol/L (3.5-5.1)
[2016-11-26] MEDS: CALCIUM ACETATE 667 MG CAPSULE PO SCH ×3 (07:30→16:30)
[2016-11-26] MEDS ORDERED: IV NORMAL SALINE 1000ML BAG 1,000 ML IV PRN (07:36)
[2016-11-26] MEDS ORDERED: ALBUMIN HUMAN 25% 200 ML IV PRN (07:45)
[2016-11-26] MEDS ORDERED: DIALYSIS PATIENT. MC PRN ×2 (07:45)
[2016-11-26] MEDS: IPRATRPIUM/ALBUTEROL 0.5/2.5MG 3 ML NEBU. NEB SCH ×4 (08:54→19:28)
[2016-11-26] MEDS: POLYETHYLENE GLYCOL 3350 17 GM PACKET. PO SCH (09:00)
[2016-11-26] MEDS: COLESTIPOL HCL 1 GM TABLET PO SCH (09:00)
[2016-11-26] MEDS: MINERAL OIL/PETROLATUM TOPICAL CREAM 113GM JAR. TP SCH ×4 (09:00→21:30)
--- NOTE | 2016-11-26 09:44 | PDOC ---
PROGRESS NOTES Chief Complaint Chief Complaint Acute encephalopathy, improved Hypoxia, acute on chronic End stage renal disease, HD, Dm2, insulin hypothyriod htn, chronic diastolic CHF History of Present Illness History of Present Illness no event HD this AM cont current Vitals Vitals Vital Signs Date Time Temp Pulse Resp B/P Pulse Ox O2 Delivery O2 Flow Rate FiO2 11/26/16 03:22 98.1 68 16 131/63 99 Nasal Cannula 3.0 98.1 Physical Exam General: Alert, Oriented X3, Cooperative, No acute distress Heart: Regular rate, No murmurs Lungs: Clear Abdomen: No tenderness, No hepatosplenomegaly Extremities: No edema Skin: No significant lesion Labs LABS Laboratory Tests Test 11/25/16 11:16 11/25/16 16:49 11/25/16 16:54 11/25/16 16:58 Glucose (Fingerstick) 150mg/dL (70-99) 276mg/dL (70-99) 166mg/dL (70-99) 169mg/dL (70-99) Test 11/25/16 20:01 11/26/16 05:38 Glucose (Fingerstick) 117mg/dL (70-99) Sodium Level 134mmol/L (136-145) Potassium Level 5.1mmol/L (3.5-5.1) Chloride Level 91mmol/L (98-107) Carbon Dioxide Level 25mmol/L (21-32) Anion Gap 18 (6-14) Blood Urea Nitrogen 45mg/dL (8-26) Creatinine 11.2mg/dL (0.7-1.3) Estimated GFR (Cockcroft-Gault) 5.5 Glucose Level 111mg/dL (70-99) Calcium Level 8.2mg/dL (8.5-10.1) Assessment and Plan Assessmemt and Plan improved, consider SNU, PT eval 11/25, recommended lives at assisted living, possible compliance problems Problems Medical Problems: (1) Acute encephalopathy Status: Acute (2) Elevated troponin Status: Acute (3) End stage renal disease Status: Acute (4) Hypoxia Status: Acute Problems: Comment Review of Relevant I have reviewed the following items marli (where applicable) has been applied. Labs Laboratory Tests Test 11/24/16 11:57 11/24/16 13:00 11/24/16 20:38 11/25/16 07:12 Nasal Screen MRSA (PCR) Negative (Negative) White Blood Count 29.3x10^3/uL (4.0-11.0) Red Blood Count 4.24x10^6/uL (4.30-5.70) Hemoglobin 12.2g/dL (13.0-17.5) Hematocrit 37.7% (39.0-53.0) Mean Corpuscular Volume 89fL (79-100) Mean Corpuscular Hemoglobin 29pg (25-35) Mean Corpuscular Hemoglobin Concent 32g/dL (31-37) Red Cell Distribution Width 15.0% (11.5-14.5) Platelet Count 245x10^3/uL (140-400) Neutrophils (%) (Auto) 27% (31-73) Lymphocytes (%) (Auto) 67% (24-48) Monocytes (%) (Auto) 6% (0-9) Eosinophils (%) (Auto) 1% (0-3) Basophils (%) (Auto) 0% (0-3) Neutrophils # (Auto) 7.8x10^3uL (1.8-7.7) Lymphocytes # (Auto) 19.5x10^3/uL (1.0-4.8) Monocytes # (Auto) 1.6x10^3/uL (0.0-1.1) Eosinophils # (Auto) 0.3x10^3/uL (0.0-0.7) Basophils # (Auto) 0.1x10^3/uL (0.0-0.2) Sodium Level 139mmol/L (136-145) Potassium Level 4.2mmol/L (3.5-5.1) Chloride Level 95mmol/L (98-107) Carbon Dioxide Level 24mmol/L (21-32) Anion Gap 20 (6-14) Blood Urea Nitrogen 60mg/dL (8-26) Creatinine 13.1mg/dL (0.7-1.3) Estimated GFR (Cockcroft-Gault) 4.6 Glucose Level 126mg/dL (70-99) Calcium Level 7.7mg/dL (8.5-10.1) Glucose (Fingerstick) 173mg/dL (70-99) 124mg/dL (70-99) Test 11/25/16 08:15 11/25/16 11:16 11/25/16 16:49 11/25/16 16:54 White Blood Count 31.0x10^3/uL (4.0-11.0) Red Blood Count 4.56x10^6/uL (4.30-5.70) Hemoglobin 13.2g/dL (13.0-17.5) Hematocrit 41.5% (39.0-53.0) Mean Corpuscular Volume 91fL (79-100) Mean Corpuscular Hemoglobin 29pg (25-35) Mean Corpuscular Hemoglobin Concent 32g/dL (31-37) Red Cell Distribution Width 15.4% (11.5-14.5) Platelet Count 292x10^3/uL (140-400) Neutrophils (%) (Auto) 23% (31-73) Lymphocytes (%) (Auto) 69% (24-48) Monocytes (%) (Auto) 7% (0-9) Eosinophils (%) (Auto) 1% (0-3) Basophils (%) (Auto) 1% (0-3) Neutrophils # (Auto) 7.1x10^3uL (1.8-7.7) Lymphocytes # (Auto) 21.4x10^3/uL (1.0-4.8) Monocytes # (Auto) 2.1x10^3/uL (0.0-1.1) Eosinophils # (Auto) 0.2x10^3/uL (0.0-0.7) Basophils # (Auto) 0.2x10^3/uL (0.0-0.2) Sodium Level 138mmol/L (136-145) Potassium Level 4.6mmol/L (3.5-5.1) Chloride Level 94mmol/L (98-107) Carbon Dioxide Level 29mmol/L (21-32) Anion Gap 15 (6-14) Blood Urea Nitrogen 34mg/dL (8-26) Creatinine 10.0mg/dL (0.7-1.3) Estimated GFR (Cockcroft-Gault) 6.2 BUN/Creatinine Ratio 3 (6-20) Glucose Level 147mg/dL (70-99) Calcium Level 8.7mg/dL (8.5-10.1) Phosphorus Level 6.1mg/dL (2.6-4.7) Magnesium Level 2.0mg/dL (1.8-2.4) Total Bilirubin 0.6mg/dL (0.2-1.0) Aspartate Amino Transf (AST/SGOT) 25U/L (15-37) Alanine Aminotransferase (ALT/SGPT) 22U/L (16-63) Alkaline Phosphatase 76U/L (46-116) Total Protein 8.3g/dL (6.4-8.2) Albumin 3.8g/dL (3.4-5.0) Albumin/Globulin Ratio 0.8 (1.0-1.7) Glucose (Fingerstick) 150mg/dL (70-99) 276mg/dL (70-99) 166mg/dL (70-99) Test 11/25/16 16:58 11/25/16 20:01 11/26/16 05:38 Glucose (Fingerstick) 169mg/dL (70-99) 117mg/dL (70-99) Sodium Level 134mmol/L (136-145) Potassium Level 5.1mmol/L (3.5-5.1) Chloride Level 91mmol/L (98-107) Carbon Dioxide Level 25mmol/L (21-32) Anion Gap 18 (6-14) Blood Urea Nitrogen 45mg/dL (8-26) Creatinine 11.2mg/dL (0.7-1.3) Estimated GFR (Cockcroft-Gault) 5.5 Glucose Level 111mg/dL (70-99) Calcium Level 8.2mg/dL (8.5-10.1) Laboratory Tests Test 11/25/16 11:16 11/25/16 16:49 11/25/16 16:54 11/25/16 16:58 Glucose (Fingerstick) 150mg/dL (70-99) 276mg/dL (70-99) 166mg/dL (70-99) 169mg/dL (70-99) Test 11/25/16 20:01 11/26/16 05:38 Glucose (Fingerstick) 117mg/dL (70-99) Sodium Level 134mmol/L (136-145) Potassium Level 5.1mmol/L (3.5-5.1) Chloride Level 91mmol/L (98-107) Carbon Dioxide Level 25mmol/L (21-32) Anion Gap 18 (6-14) Blood Urea Nitrogen 45mg/dL (8-26) Creatinine 11.2mg/dL (0.7-1.3) Estimated GFR (Cockcroft-Gault) 5.5 Glucose Level 111mg/dL (70-99) Calcium Level 8.2mg/dL (8.5-10.1) Microbiology 11/23/16 Blood Culture - Preliminary, Resulted NO GROWTH AFTER 2 DAYS Medications Current Medications Ondansetron HCl (Zofran) 4 mg PRN Q8HRS PRN IV NAUSEA/VOMITING; Start 11/23/16 at 15:15; Stop 11/24/16 at 00:07; Status DC Acetaminophen (Tylenol) 650 mg PRN Q4HRS PRN PO FEVER; Start 11/23/16 at 15:15 ; Stop 11/24/16 at 00:06; Status DC Acetaminophen (Tylenol) 325 mg PRN Q6HRS PRN PO MILD PAIN / TEMP; Start at 18:45; Stop 11/24/16 at 00:06; Status DC Acetaminophen/ Hydrocodone Bitart (Lortab 5/325) 1 tab PRN Q6HRS PRN PO MODERATE TO SEVERE PAIN Last administered on 11/24/16 21:43; Start 11/23/16 at 18:45 Hydralazine HCl (Apresoline) 10 mg PRN Q4HRS PRN IVP ELEVATED BP, SEE COMMENTS ; Start 11/23/16 at 18:45 Ondansetron HCl (Zofran) 4 mg PRN Q8HRS PRN IV NAUSEA/VOMITING; Start 11/23/16 at 18:45 Albuterol Sulfate (Ventolin Neb Soln) 2.5 mg PRN Q4HRS PRN NEB SHORTNESS OF BREATH; Start 11/23/16 at 18:45 Acetaminophen (Tylenol) 500 mg PRN TID PRN PO MILD PAIN/TEMP; Start 11/24/16 at 00:00 Amlodipine Besylate (Norvasc) 10 mg DAILY PO Last administered on 11/25/16 11: 25; Start 11/24/16 at 09:00 Aspirin (Ecotrin) 325 mg DAILY PO Last administered on 11/25/16 11:25; Start 11/24/16 at 09:00 Atorvastatin Calcium (Lipitor) 5 mg HS PO Last administered on 11/24/16 20:32 ; Start 11/24/16 at 21:00 Calcium Acetate (Phoslo) 667 mg TIDAC PO Last administered on 11/25/16 11:30; Start 11/24/16 at 07:30 Calcium Carbonate/ Glycine (Tums) 500 mg PRN Q6HRS PRN PO HEARTBURN / GAS; Start 11/24/16 at 00:00 Colestipol HCl (Colestid) 1 gm DAILY PO Last administered on 11/25/16 17:18; Start 11/24/16 at 09:00 Diphenhydramine HCl (Benadryl) 25 mg PRN Q6HRS PRN PO ITCHING; Start 11/24/16 at 00:00 Gabapentin (Neurontin) 300 mg HS PO ; Start 11/24/16 at 21:00 Insulin Detemir (Levemir) 25 units HS SQ Last administered on 11/24/16 20:42; Start 11/24/16 at 21:00 Albuterol/ Ipratropium (Duoneb) 3 ml TID NEB Last administered on 11/25/16 13: 44; Start 11/24/16 at 09:00 Levothyroxine Sodium (Synthroid) 75 mcg DAILY07 PO Last administered on 06:02; Start 11/24/16 at 07:00 Multi-Ingred Cream/Lotion/Oil/ Oint (Hydrocerin) 1 michela QID TP Last administered on 11/24/16 20:32; Start 11/24/16 at 09:00 Nitroglycerin (Nitrostat) 0.4 mg PRN Q5MIN PRN SL CHEST PAIN; Start 11/24/16 at 00:00 Polyethylene Glycol (miraLAX PACKET) 17 gm DAILY PO ; Start 11/24/16 at 09:00 Trazodone HCl (Desyrel) 50 mg QHS PO Last administered on 11/25/16 19:57; Start 11/24/16 at 21:00 Non-Formulary Medication 3 mg 3 mg HS PO ; Start 11/24/16 at 21:00; Status UNV Sodium Chloride (Iv Sodium Chloride 0.9% 1000ml Bag) 1,000 ml @ 1,000 mls/hr Q1H PRN IV hypotension; Start 11/24/16 at 11:18; Stop 11/24/16 at 17:17; Status DC Diphenhydramine HCl (Benadryl) 25 mg 1X PRN PRN IV ITCHING; Start 11/24/16 at 11:30; Stop 11/25/16 at 11:29; Status DC Diphenhydramine HCl (Benadryl) 25 mg 1X PRN PRN IV ITCHING; Start 11/24/16 at 11:30; Stop 11/25/16 at 11:29; Status DC Info (PHARMACY MONITORING -- do not chart) 1 each PRN DAILY PRN MC SEE COMMENTS ; Start 11/24/16 at 11:30 Iohexol (Omnipaque 300 Mg/ml) 75 ml 1X ONCE IV ; Start 11/25/16 at 07:30; Stop 11/25/16 at 07:31; Status DC Iohexol (Omnipaque 240 Mg/ml) 30 ml 1X ONCE PO ; Start 11/25/16 at 07:30; Stop 11/25/16 at 07:31; Status DC Metoprolol Tartrate (Lopressor) 12.5 mg BID PO ; Start 11/25/16 at 11:00; Stop 11/25/16 at 11:00; Status DC Isosorbide Mononitrate (Imdur) 30 mg DAILY PO Last administered on 11/25/16 13 :30; Start 11/25/16 at 11:00 Vancomycin HCl 1 each 1 each PRN DAILY PRN MC SEE COMMENTS Last administered on 11/25/16 18:39; Start 11/25/16 at 11:15 Piperacillin Sod/ Tazobactam Sod 2.25 gm/Sodium Chloride 50 ml @ 100 mls/hr Q6HRS IV Last administered on 11/26/16 05:41; Start 11/25/16 at 12:00 Vancomycin HCl/ Sodium Chloride (Iv Sodium Chloride 0.9% 500ml Bag) 500 ml @ 250 mls/hr 1X ONCE IV Last administered on 11/25/16 13:28; Start 11/25/16 at 12:00; Stop 11/25/16 at 13:59; Status DC Vancomycin HCl 1 each 1 each 1X ONCE MC ; Start 11/27/16 at 16:00; Stop at 16:01 Sodium Chloride 1,000 ml @ 1,000 mls/hr Q1H PRN IV hypotension; Start 11/26/16 at 07:36; Stop 11/26/16 at 13:35 Albumin Human (Albuminar) 200 ml @ 200 mls/hr 1X PRN PRN IV Hypotension; Start 11/26/16 at 07:45; Stop 11/26/16 at 13:44 Info (PHARMACY MONITORING -- do not chart) 1 each PRN DAILY PRN MC SEE COMMENTS ; Start 11/26/16 at 07:45; Status UNV Info (PHARMACY MONITORING -- do not chart) 1 each PRN DAILY PRN MC SEE COMMENTS ; Start 11/26/16 at 07:45; Status UNV Active Scripts Active Reported Trazodone Hcl 50 Mg Tablet 0.5 Tab PO QHS Melatonin 3 Mg Tab.rapdis 3 Mg PO HS Duoneb 0.5-3(2.5) Mg/3 Ml (Albuterol/Ipratropium) 3 Ml Ampul.neb 3 Ml NEB TID Colestipol Hcl 1 Gm Tablet 1 Gm PO DAILY Eucerin Creme (Mineral Oil/White Petrolatum) 120 Gm Cream..g. 1 Michela TP QID Atorvastatin Calcium 10 Mg Tablet 5 Mg PO HS Take next dose tonight 12/20/15 at bedtime Aspir-Lorin (Aspirin) 325 Mg Tablet.dr 325 Mg PO DAILY Take next dose tomorrow 12/21/15 in AM Amlodipine Besylate 10 Mg Tablet 10 Mg PO DAILY Take next tomorrow 12/21/15 in AM Levemir Flextouch (Insulin Detemir) 100 Unit/1 Ml Insuln.pen 25 Unit SQ HS TAKE NEXT DOSE TONIGHT 12/20/15 AT BEDTIME Polyethylene Glycol 3350 255 Gm Powder 17 Gm PO DAILY TAKE DAILY NEEDED FOR CONSTIPATION Nitrostat (Nitroglycerin) 0.4 Mg Tab.subl 0.4 Mg SL PRN Q5MIN PRN Benadryl (Diphenhydramine Hcl) 25 Mg Capsule 25 Mg PO PRN Q6HRS PRN TAKE NEEDED Acetaminophen 500 Mg Tablet 500 Mg PO PRN TID PRN Loratadine 10 Mg Tablet 10 Mg PO DAILY TAKE NEXT DOSE TOMORROW 12/21/15 IN AM Calcium Acetate 667 Mg Capsule 667 Mg PO TIDAC TAKE NEXT DOSE TONIGHT 05/19/15 AT BEDTIME Levothyroxine Sodium 75 Mcg Tablet 75 Mcg PO DAILY TAKE NEXT DOSE TOMORROW 12/21/15 IN AM Tums (Calcium Carbonate) 200 Mg Tab.chew 200 Mg PO PRN Q6HRS PRN Tramadol Hcl 50 Mg Tablet 100 Mg PO BID PRN Gabapentin 300 Mg Capsule 300 Mg PO HS TAKE NEXT DOSE TONIGHT 12/20/15 AT BEDTIME Vitals/I & O Vital Sign - Last 24 Hours 11/25/16 11/25/16 11/25/16 11/25/16 11:25 11:25 13:30 13:44 Temp 97.9 97.9 Pulse 77 64 77 Resp 22 B/P 165/78 124/70 165/78 Pulse Ox 93 97 O2 Delivery Nasal Cannula Nasal Cannula O2 Flow Rate 3.0 3.0 11/25/16 11/25/16 11/25/16 11/25/16 15:26 19:10 20:00 23:54 Temp 97.9 98.5 97.9 97.9 98.5 97.9 Pulse 65 75 67 Resp 20 20 20 B/P 128/68 138/75 112/57 Pulse Ox 93 92 92 O2 Delivery Nasal Cannula Nasal Cannula Nasal Cannula Nasal Cannula O2 Flow Rate 3.0 3.0 3.0 3.0 11/26/16 03:22 Temp 98.1 98.1 Pulse 68 Resp 16 B/P 131/63 Pulse Ox 99 O2 Delivery Nasal Cannula O2 Flow Rate 3.0 Intake and Output 11/25/16 11/25/16 11/26/16 15:00 23:00 07:00 Intake Total 240 ml Balance 240 ml OTTO CLINE MD Nov 26, 2016 09:44
--- NOTE | 2016-11-26 10:17 | PDOC ---
Infectious Disease Note Subjective Subjective pt feeling better ROS ROS GEN: Denies fevers, chills, sweats HEENT: Denies blurred vision, sore throat CV: Denies chest pain RESP: Denies shortness of air, cough GI: Denies n/v/d NEURO: Denies confusion, dizziness MSK: Denies weakness, joint pain/swelling Vital Sign Vital Signs Vital Signs Date Time Temp Pulse Resp B/P Pulse Ox O2 Delivery O2 Flow Rate FiO2 11/26/16 03:22 98.1 68 16 131/63 99 Nasal Cannula 3.0 98.1 Physical Exam PHYSICAL EXAM GENERAL: NAD, Alert HEENT: PERRL, OC/OP NECK: Supple, no JVD, no LN LUNGS: Clear HEART: S1S2, no gallop, no murmur ABD: Soft, NT, no organomegaly, no rebound EXT: No edema, no cyanosis POT MAKER: Alert, oriented x 3, no focal neurologic deficit SKIN: No rash IV: ok Labs Lab Laboratory Tests Test 11/25/16 11:16 11/25/16 16:49 11/25/16 16:54 11/25/16 16:58 Glucose (Fingerstick) 150mg/dL (70-99) 276mg/dL (70-99) 166mg/dL (70-99) 169mg/dL (70-99) Test 11/25/16 20:01 11/26/16 05:38 Glucose (Fingerstick) 117mg/dL (70-99) Sodium Level 134mmol/L (136-145) Potassium Level 5.1mmol/L (3.5-5.1) Chloride Level 91mmol/L (98-107) Carbon Dioxide Level 25mmol/L (21-32) Anion Gap 18 (6-14) Blood Urea Nitrogen 45mg/dL (8-26) Creatinine 11.2mg/dL (0.7-1.3) Estimated GFR (Cockcroft-Gault) 5.5 Glucose Level 111mg/dL (70-99) Calcium Level 8.2mg/dL (8.5-10.1) Micro culture neg ct neg Objective Assessment Leukocytosis ? etio Hypoxia, CHF ESRD Plan Plan of Care check c diff if diarrhea, pt denies now vanc and zosyn cbc KIMMY MORALES MD Nov 26, 2016 10:17
--- NOTE | 2016-11-26 10:42 | PDOC ---
CARDIO Progress Notes Date and Time Date of Service 11/26/2016 Time of Evaluation 1015 Subjective Subjective: No Chest Pain, No shortness of breath, No Palpitations, No Dizziness Vitals Vitals Vital Signs Date Time Temp Pulse Resp B/P Pulse Ox O2 Delivery O2 Flow Rate FiO2 11/26/16 03:22 98.1 68 16 131/63 99 Nasal Cannula 3.0 98.1 Weight Weight [ ] Input and Output Intake and Output Intake and Output 11/26/16 07:00 Intake Total 240 ml Balance 240 ml Intake Oral 240 ml # Voids 1 # Bowel Movements 1 Laboratory Labs Laboratory Tests Test 11/25/16 11:16 11/25/16 16:49 11/25/16 16:54 11/25/16 16:58 Glucose (Fingerstick) 150mg/dL (70-99) 276mg/dL (70-99) 166mg/dL (70-99) 169mg/dL (70-99) Test 11/25/16 20:01 11/26/16 05:38 Glucose (Fingerstick) 117mg/dL (70-99) Sodium Level 134mmol/L (136-145) Potassium Level 5.1mmol/L (3.5-5.1) Chloride Level 91mmol/L (98-107) Carbon Dioxide Level 25mmol/L (21-32) Anion Gap 18 (6-14) Blood Urea Nitrogen 45mg/dL (8-26) Creatinine 11.2mg/dL (0.7-1.3) Estimated GFR (Cockcroft-Gault) 5.5 Glucose Level 111mg/dL (70-99) Calcium Level 8.2mg/dL (8.5-10.1) Microbiology Micro Microbiology 11/23/16 Blood Culture - Preliminary, Resulted NO GROWTH AFTER 2 DAYS Review of Systems Constitutional: yes: no symptom reported Physical Exam HEENT: Neck Supple W Full Motion Chest: Symmetric LUNGS: Other (diminished bases) Heart: S1S2, RRR, murmurs (2/6 systolic murmur to BLANCA and LLS border) Abdomen: Soft N/T Extremities: No Edema, No Calf Tenderness Neurology: alert, oriented, follow commands Assessment Assessment 1. Arrhythmia SR with episodes of multifocal PVCs yesterday and brief occasional NSVT overnight. Fast HR noted to be sustained sinus tach in which no further recurrence overnight, reactive Highly suspecting part contributor is continued use of cocaine. Demand mediated mild elevation of troponin. Repeat TTE revealed no significant changes. No anginal symptoms. EKG SR with no acute changes and has been compared. Resides at assisted living. Unable to use BB due to intermittent use of cocaine. Maintain lyte balance. Emphasized complete cessation of cocaine use. Encourage to comply with outpt follow ups. 2. Acute on chronic diastolic CHF Fluid offloading via HD and currently receiving it. Clinically compensated. 3. Chronic troponin elevation Within 0.07 to 0.18 from multiple admissions. Notable for hypoxia with CHF and COPD component. 4. Hypoxic/metabolic encephalopathy Improved. 5. Leukocytosis/FLU with sepsis, POA influenza A + noted in 11/18/2016 Treated by ID recently. 6. ESRD on HD per nephrology 7. h/o CAD s/p CABG stable, no anginal symptoms continue with secondary preventions No further cardiac recommendation 8. Mild stable. No significant changes per TTE continue medical management 9. Hypertension controlled on Norvasc with addition of imdur 10. HLP statin. 11. H/o substance abuse Last noted positive tox screen was 12/2015. Continued use. Verbally told me he used it last month and corrected himself that he used it last week as well. Emphasized abstinence. DELVIS CARBAJAL APRN Nov 26, 2016 10:42
[2016-11-26 10:46] LABS: HEMATOCRIT 43.5 % (39.0-53.0); RED BLOOD COUNT 4.85 x10^6/uL (4.30-5.70); RED CELL DISTRIBUTION WIDTH 15.3 % (11.5-14.5); WHITE BLOOD COUNT 10.1 x10^3/uL (4.0-11.0)
[2016-11-26 11:00] VITALS: BP 142/63
[2016-11-26] MEDS: ASPIRIN ENTERIC COATED 325 MG TABLET.DR. PO SCH (11:12)
[2016-11-26] MEDS: AMLODIPINE BESYLATE 10 MG TABLET PO SCH (11:13)
[2016-11-26] MEDS: ISOSORBIDE MONONITRATE ER 30 MG TAB.ER.24H PO SCH (11:16)
--- NOTE | 2016-11-26 11:17 | PDOC ---
Renal-Progress Notes Subjective Notes Notes LESS CONFUSED History of Present Illness Hx of present illness BETTER Vitals Vitals Vital Signs Date Time Temp Pulse Resp B/P Pulse Ox O2 Delivery O2 Flow Rate FiO2 11/26/16 11:00 97.7 77 18 142/63 99 Nasal Cannula 3.0 97.7 Weight Weight [ ] I.O. Intake and Output Intake and Output 11/26/16 07:00 Intake Total 240 ml Balance 240 ml Intake Oral 240 ml # Voids 1 # Bowel Movements 1 Labs Labs Laboratory Tests Test 11/25/16 16:49 11/25/16 16:54 11/25/16 16:58 11/25/16 20:01 Glucose (Fingerstick) 276mg/dL (70-99) 166mg/dL (70-99) 169mg/dL (70-99) 117mg/dL (70-99) Test 11/26/16 05:38 White Blood Count 10.1x10^3/uL (4.0-11.0) Red Blood Count 4.85x10^6/uL (4.30-5.70) Hemoglobin 14.0g/dL (13.0-17.5) Hematocrit 43.5% (39.0-53.0) Mean Corpuscular Volume 90fL (79-100) Mean Corpuscular Hemoglobin 29pg (25-35) Mean Corpuscular Hemoglobin Concent 32g/dL (31-37) Red Cell Distribution Width 15.3% (11.5-14.5) Platelet Count 344x10^3/uL (140-400) Sodium Level 134mmol/L (136-145) Potassium Level 5.1mmol/L (3.5-5.1) Chloride Level 91mmol/L (98-107) Carbon Dioxide Level 25mmol/L (21-32) Anion Gap 18 (6-14) Blood Urea Nitrogen 45mg/dL (8-26) Creatinine 11.2mg/dL (0.7-1.3) Estimated GFR (Cockcroft-Gault) 5.5 Glucose Level 111mg/dL (70-99) Calcium Level 8.2mg/dL (8.5-10.1) Micro Micro Microbiology 11/23/16 Blood Culture - Preliminary, Resulted NO GROWTH AFTER 2 DAYS Review of Systems Constitutional: yes: no symptom reported Physical Exam General Appearance: no apparent distress Skin: warm Respiratory: decreased breath sounds Heart: S1S2, RRR Abdomen: soft, bowel sounds present Genitourinary: bladder flat Extremities: pulses present, atrophy Neurology: alert Assessment Assessment IMP ESRD LEUCOCYTOSIS MET ENCEPHALOPATHY DM II HTN MILD CHF PLAN ID EVAL AND TX HD TODAY UF TO YANE TONEY MD Nov 26, 2016 11:17
--- NOTE | 2016-11-26 14:49 | PDOC ---
PULMONARY PROGRESS NOTES Subjective has sob, cough, no pain, no nasal congestion Vitals Vital Signs Date Time Temp Pulse Resp B/P Pulse Ox O2 Delivery O2 Flow Rate FiO2 11/26/16 11:42 92 Nasal Cannula 3.0 11/26/16 11:16 77 142/63 11/26/16 11:00 97.7 18 97.7 Comments ros as above ros otherwise neg General: Alert, Oriented X4, No acute distress HEENT: Other (nc at perrl) Lungs: Clear Cardiovascular: S1, S2 Abdomen: Soft, Non-tender, Other (no mass ) Neuro Exam: Alert, Oriented Extremities: No Edema, Other Skin: Warm Labs Laboratory Tests Test 11/24/16 20:38 11/25/16 07:12 11/25/16 08:15 11/25/16 11:16 Glucose (Fingerstick) 173mg/dL (70-99) 124mg/dL (70-99) 150mg/dL (70-99) White Blood Count 31.0x10^3/uL (4.0-11.0) Red Blood Count 4.56x10^6/uL (4.30-5.70) Hemoglobin 13.2g/dL (13.0-17.5) Hematocrit 41.5% (39.0-53.0) Mean Corpuscular Volume 91fL (79-100) Mean Corpuscular Hemoglobin 29pg (25-35) Mean Corpuscular Hemoglobin Concent 32g/dL (31-37) Red Cell Distribution Width 15.4% (11.5-14.5) Platelet Count 292x10^3/uL (140-400) Neutrophils (%) (Auto) 23% (31-73) Lymphocytes (%) (Auto) 69% (24-48) Monocytes (%) (Auto) 7% (0-9) Eosinophils (%) (Auto) 1% (0-3) Basophils (%) (Auto) 1% (0-3) Neutrophils # (Auto) 7.1x10^3uL (1.8-7.7) Lymphocytes # (Auto) 21.4x10^3/uL (1.0-4.8) Monocytes # (Auto) 2.1x10^3/uL (0.0-1.1) Eosinophils # (Auto) 0.2x10^3/uL (0.0-0.7) Basophils # (Auto) 0.2x10^3/uL (0.0-0.2) Sodium Level 138mmol/L (136-145) Potassium Level 4.6mmol/L (3.5-5.1) Chloride Level 94mmol/L (98-107) Carbon Dioxide Level 29mmol/L (21-32) Anion Gap 15 (6-14) Blood Urea Nitrogen 34mg/dL (8-26) Creatinine 10.0mg/dL (0.7-1.3) Estimated GFR (Cockcroft-Gault) 6.2 BUN/Creatinine Ratio 3 (6-20) Glucose Level 147mg/dL (70-99) Calcium Level 8.7mg/dL (8.5-10.1) Phosphorus Level 6.1mg/dL (2.6-4.7) Magnesium Level 2.0mg/dL (1.8-2.4) Total Bilirubin 0.6mg/dL (0.2-1.0) Aspartate Amino Transf (AST/SGOT) 25U/L (15-37) Alanine Aminotransferase (ALT/SGPT) 22U/L (16-63) Alkaline Phosphatase 76U/L (46-116) Total Protein 8.3g/dL (6.4-8.2) Albumin 3.8g/dL (3.4-5.0) Albumin/Globulin Ratio 0.8 (1.0-1.7) Test 11/25/16 16:49 11/25/16 16:54 11/25/16 16:58 11/25/16 20:01 Glucose (Fingerstick) 276mg/dL (70-99) 166mg/dL (70-99) 169mg/dL (70-99) 117mg/dL (70-99) Test 11/26/16 05:38 11/26/16 11:33 White Blood Count 10.1x10^3/uL (4.0-11.0) Red Blood Count 4.85x10^6/uL (4.30-5.70) Hemoglobin 14.0g/dL (13.0-17.5) Hematocrit 43.5% (39.0-53.0) Mean Corpuscular Volume 90fL (79-100) Mean Corpuscular Hemoglobin 29pg (25-35) Mean Corpuscular Hemoglobin Concent 32g/dL (31-37) Red Cell Distribution Width 15.3% (11.5-14.5) Platelet Count 344x10^3/uL (140-400) Sodium Level 134mmol/L (136-145) Potassium Level 5.1mmol/L (3.5-5.1) Chloride Level 91mmol/L (98-107) Carbon Dioxide Level 25mmol/L (21-32) Anion Gap 18 (6-14) Blood Urea Nitrogen 45mg/dL (8-26) Creatinine 11.2mg/dL (0.7-1.3) Estimated GFR (Cockcroft-Gault) 5.5 Glucose Level 111mg/dL (70-99) Calcium Level 8.2mg/dL (8.5-10.1) Glucose (Fingerstick) 114mg/dL (70-99) Laboratory Tests Test 11/25/16 16:49 11/25/16 16:54 11/25/16 16:58 11/25/16 20:01 Glucose (Fingerstick) 276mg/dL (70-99) 166mg/dL (70-99) 169mg/dL (70-99) 117mg/dL (70-99) Test 11/26/16 05:38 11/26/16 11:33 White Blood Count 10.1x10^3/uL (4.0-11.0) Red Blood Count 4.85x10^6/uL (4.30-5.70) Hemoglobin 14.0g/dL (13.0-17.5) Hematocrit 43.5% (39.0-53.0) Mean Corpuscular Volume 90fL (79-100) Mean Corpuscular Hemoglobin 29pg (25-35) Mean Corpuscular Hemoglobin Concent 32g/dL (31-37) Red Cell Distribution Width 15.3% (11.5-14.5) Platelet Count 344x10^3/uL (140-400) Sodium Level 134mmol/L (136-145) Potassium Level 5.1mmol/L (3.5-5.1) Chloride Level 91mmol/L (98-107) Carbon Dioxide Level 25mmol/L (21-32) Anion Gap 18 (6-14) Blood Urea Nitrogen 45mg/dL (8-26) Creatinine 11.2mg/dL (0.7-1.3) Estimated GFR (Cockcroft-Gault) 5.5 Glucose Level 111mg/dL (70-99) Calcium Level 8.2mg/dL (8.5-10.1) Glucose (Fingerstick) 114mg/dL (70-99) Medications Active Scripts Medications Dose Route/Sig Days Date Category Dose Instructions Trazodone Hcl 50 Mg Tablet 0.5 Tab PO QHS 11/23/16 Reported Melatonin 3 Mg Tab.rapdis 3 Mg PO HS 11/23/16 Reported Duoneb 0.5-3(2.5) Mg/3 Ml (Albuterol/Ipratropium) 3 Ml Ampul.neb 3 Ml NEB TID 11/23/16 Reported Colestipol Hcl 1 Gm Tablet 1 Gm PO DAILY 11/23/16 Reported Eucerin Creme (Mineral Oil/White Petrolatum) 120 Gm Cream..g. 1 Michela TP QID 11/18/15 Reported Atorvastatin Calcium 10 Mg Tablet 5 Mg PO HS 11/18/15 Reported Take next dose tonight 12/20/15 at bedtime Aspir-Lorin (Aspirin) 325 Mg Tablet.dr 325 Mg PO DAILY 11/18/15 Reported Take next dose tomorrow 12/21/15 in AM Amlodipine Besylate 10 Mg Tablet 10 Mg PO DAILY 11/18/15 Reported Take next tomorrow 12/21/15 in AM Levemir Flextouch (Insulin Detemir) 100 Unit/1 Ml Insuln.pen 25 Unit SQ HS 08/15/15 Reported TAKE NEXT DOSE TONIGHT 12/20/15 AT BEDTIME Polyethylene Glycol 3350 255 Gm Powder 17 Gm PO DAILY 03/24/15 Reported TAKE DAILY NEEDED FOR CONSTIPATION Nitrostat (Nitroglycerin) 0.4 Mg Tab.subl 0.4 Mg SL PRN Q5MIN PRN 03/24/15 Reported Benadryl (Diphenhydramine Hcl) 25 Mg Capsule 25 Mg PO PRN Q6HRS PRN 03/24/15 Reported TAKE NEEDED Acetaminophen 500 Mg Tablet 500 Mg PO PRN TID PRN 03/24/15 Reported Loratadine 10 Mg Tablet 10 Mg PO DAILY 04/03/14 Reported TAKE NEXT DOSE TOMORROW 12/21/15 IN AM Calcium Acetate 667 Mg Capsule 667 Mg PO TIDAC 11/11/13 Reported TAKE NEXT DOSE TONIGHT 05/19/15 AT BEDTIME Levothyroxine Sodium 75 Mcg Tablet 75 Mcg PO DAILY 11/11/13 Reported TAKE NEXT DOSE TOMORROW 12/21/15 IN AM Tums (Calcium Carbonate) 200 Mg Tab.chew 200 Mg PO PRN Q6HRS PRN 11/11/13 Reported Tramadol Hcl 50 Mg Tablet 100 Mg PO BID PRN 11/11/13 Reported Gabapentin 300 Mg Capsule 300 Mg PO HS 11/11/13 Reported TAKE NEXT DOSE TONIGHT 12/20/[address] CHEST REVIEWED Mild basal infiltrates/atelectasis Impression . 1. Acute hypoxic respiratory failure, suspect related to mild congestive heart failure seen on cxr. Not well seen on today's ct chest . Mild basal infiltrates vs atelectasis seen CT chest, Await abdomen and pelvis findings 3. Acute metabolic encephalopathy. 4. End-stage renal disease, on hemodialysis. 5. Mildly increased troponin level. 6. Underlying chronic obstructive pulmonary disease, clinically compensated. 7. Unexplained leukocytosis Plan . : 1. [address] abdomen/pelvis report reviewed, no acute findings 3. Cannot explained etiology of marked leukocytosis based on ct findings. Do not think its a pulmonary source. Follow ID recommendations . cont abx 4. bronchodilator 5. Consider hemodialysis with ultrafiltration. 6. Follow Nephrology recommendation. discussed w MADELINE Schafer MD Nov 26, 2016 14:49
[2016-11-26 15:00] VITALS: BP 113/56
[2016-11-26] MEDS: VANCOMYCIN PER PHARMACY MC PRN (18:07)
[2016-11-26 19:30] VITALS: BP 119/45
[2016-11-26] MEDS: traZODone 50 MG TABLET. PO SCH (21:26)
[2016-11-26] MEDS: ATORVASTATIN CALCIUM 10 MG TABLET. PO SCH (21:29)
[2016-11-26] MEDS: GABAPENTIN 300 MG CAPSULE. PO SCH (21:30)
[2016-11-26] MEDS: INSULIN DETEMIR 300 UNITS/3 ML INSULN.PEN. SQ SCH (21:41)
[2016-11-26 23:29] VITALS: BP 116/60
[2016-11-27] MEDS: PIPERACILLIN/TAZOBACTAM 2.25 GM in IV NORMAL SALINE 50ML 50 ML IV SCH ×3 (00:38→11:37)
[2016-11-27 03:06] VITALS: BP 114/57
[2016-11-27] MEDS: LEVOTHYROXINE 75 MCG TABLET PO SCH (06:24)
[2016-11-27] MEDS: CALCIUM ACETATE 667 MG CAPSULE PO SCH ×3 (06:24→16:41)
[2016-11-27 07:39] VITALS: BP 115/62
[2016-11-27] MEDS: IPRATRPIUM/ALBUTEROL 0.5/2.5MG 3 ML NEBU. NEB SCH ×4 (07:42→19:46)
[2016-11-27] MEDS: ISOSORBIDE MONONITRATE ER 30 MG TAB.ER.24H PO SCH (08:28)
[2016-11-27] MEDS: POLYETHYLENE GLYCOL 3350 17 GM PACKET. PO SCH (08:28)
[2016-11-27] MEDS: AMLODIPINE BESYLATE 10 MG TABLET PO SCH (08:28)
[2016-11-27] MEDS: COLESTIPOL HCL 1 GM TABLET PO SCH (08:28)
[2016-11-27] MEDS: ASPIRIN ENTERIC COATED 325 MG TABLET.DR. PO SCH (08:28)
[2016-11-27] MEDS: MINERAL OIL/PETROLATUM TOPICAL CREAM 113GM JAR. TP SCH ×4 (08:31→20:26)
--- NOTE | 2016-11-27 09:06 | PDOC ---
PULMONARY PROGRESS NOTES Subjective has sob, cough, no pain, no nasal congestion, is tired Vitals Vital Signs Date Time Temp Pulse Resp B/P Pulse Ox O2 Delivery O2 Flow Rate FiO2 11/27/16 08:28 74 115/62 11/27/16 07:43 Nasal Cannula 3.0 11/27/16 07:39 97.5 18 92 97.5 Comments ros as above ros otherwise neg General: Alert, Oriented X4, No acute distress HEENT: Other (nc at perrl) Lungs: Clear Cardiovascular: S1, S2 Abdomen: Soft, Non-tender, Other (no mass ) Neuro Exam: Alert, Oriented Extremities: No Edema, Other Skin: Warm Labs Laboratory Tests Test 11/25/16 11:16 11/25/16 16:49 11/25/16 16:54 11/25/16 16:58 Glucose (Fingerstick) 150mg/dL (70-99) 276mg/dL (70-99) 166mg/dL (70-99) 169mg/dL (70-99) Test 11/25/16 20:01 11/26/16 05:38 11/26/16 11:33 11/26/16 16:49 Glucose (Fingerstick) 117mg/dL (70-99) 114mg/dL (70-99) 166mg/dL (70-99) White Blood Count 10.1x10^3/uL (4.0-11.0) Red Blood Count 4.85x10^6/uL (4.30-5.70) Hemoglobin 14.0g/dL (13.0-17.5) Hematocrit 43.5% (39.0-53.0) Mean Corpuscular Volume 90fL (79-100) Mean Corpuscular Hemoglobin 29pg (25-35) Mean Corpuscular Hemoglobin Concent 32g/dL (31-37) Red Cell Distribution Width 15.3% (11.5-14.5) Platelet Count 344x10^3/uL (140-400) Sodium Level 134mmol/L (136-145) Potassium Level 5.1mmol/L (3.5-5.1) Chloride Level 91mmol/L (98-107) Carbon Dioxide Level 25mmol/L (21-32) Anion Gap 18 (6-14) Blood Urea Nitrogen 45mg/dL (8-26) Creatinine 11.2mg/dL (0.7-1.3) Estimated GFR (Cockcroft-Gault) 5.5 Glucose Level 111mg/dL (70-99) Calcium Level 8.2mg/dL (8.5-10.1) Test 11/26/16 21:09 11/27/16 07:51 Glucose (Fingerstick) 126mg/dL (70-99) 70mg/dL (70-99) Laboratory Tests Test 11/26/16 11:33 11/26/16 16:49 11/26/16 21:09 11/27/16 07:51 Glucose (Fingerstick) 114mg/dL (70-99) 166mg/dL (70-99) 126mg/dL (70-99) 70mg/dL (70-99) Medications Active Scripts Medications Dose Route/Sig Days Date Category Dose Instructions Trazodone Hcl 50 Mg Tablet 0.5 Tab PO QHS 11/23/16 Reported Melatonin 3 Mg Tab.rapdis 3 Mg PO HS 11/23/16 Reported Duoneb 0.5-3(2.5) Mg/3 Ml (Albuterol/Ipratropium) 3 Ml Ampul.neb 3 Ml NEB TID 11/23/16 Reported Colestipol Hcl 1 Gm Tablet 1 Gm PO DAILY 11/23/16 Reported Eucerin Creme (Mineral Oil/White Petrolatum) 120 Gm Cream..g. 1 Michela TP QID 11/18/15 Reported Atorvastatin Calcium 10 Mg Tablet 5 Mg PO HS 11/18/15 Reported Take next dose tonight 12/20/15 at bedtime Aspir-Lorin (Aspirin) 325 Mg Tablet.dr 325 Mg PO DAILY 11/18/15 Reported Take next dose tomorrow 12/21/15 in AM Amlodipine Besylate 10 Mg Tablet 10 Mg PO DAILY 11/18/15 Reported Take next tomorrow 12/21/15 in AM Levemir Flextouch (Insulin Detemir) 100 Unit/1 Ml Insuln.pen 25 Unit SQ HS 08/15/15 Reported TAKE NEXT DOSE TONIGHT 12/20/15 AT BEDTIME Polyethylene Glycol 3350 255 Gm Powder 17 Gm PO DAILY 03/24/15 Reported TAKE DAILY NEEDED FOR CONSTIPATION Nitrostat (Nitroglycerin) 0.4 Mg Tab.subl 0.4 Mg SL PRN Q5MIN PRN 03/24/15 Reported Benadryl (Diphenhydramine Hcl) 25 Mg Capsule 25 Mg PO PRN Q6HRS PRN 03/24/15 Reported TAKE NEEDED Acetaminophen 500 Mg Tablet 500 Mg PO PRN TID PRN 03/24/15 Reported Loratadine 10 Mg Tablet 10 Mg PO DAILY 04/03/14 Reported TAKE NEXT DOSE TOMORROW 12/21/15 IN AM Calcium Acetate 667 Mg Capsule 667 Mg PO TIDAC 11/11/13 Reported TAKE NEXT DOSE TONIGHT 05/19/15 AT BEDTIME Levothyroxine Sodium 75 Mcg Tablet 75 Mcg PO DAILY 11/11/13 Reported TAKE NEXT DOSE TOMORROW 12/21/15 IN AM Tums (Calcium Carbonate) 200 Mg Tab.chew 200 Mg PO PRN Q6HRS PRN 11/11/13 Reported Tramadol Hcl 50 Mg Tablet 100 Mg PO BID PRN 11/11/13 Reported Gabapentin 300 Mg Capsule 300 Mg PO HS 11/11/13 Reported TAKE NEXT DOSE TONIGHT 12/20/[address] CHEST REVIEWED Mild basal infiltrates/atelectasis Impression . 1. Acute hypoxic respiratory failure, suspect related to mild congestive heart failure seen on cxr. Not well seen on today's ct chest . Mild basal infiltrates vs atelectasis seen CT chest, Await abdomen and pelvis findings 3. Acute metabolic encephalopathy. 4. End-stage renal disease, on hemodialysis. 5. Mildly increased troponin level. 6. Underlying chronic obstructive pulmonary disease, clinically compensated. 7. Unexplained leukocytosis, resolved Plan . : 1. [address] abdomen/pelvis report reviewed, no acute findings 3. Cannot explained etiology of marked leukocytosis based on ct findings. Do not think its a pulmonary source. Follow ID recommendations . cont abx 4. bronchodilator 5. Consider hemodialysis with ultrafiltration. 6. Follow Nephrology recommendation. discussed w pt will sign off but available for any help MADELINE FLOYD MD Nov 27, 2016 09:06
--- NOTE | 2016-11-27 10:26 | PDOC ---
Infectious Disease Note Subjective Subjective Comfortable, tired Appetite ok Diarrhea yesterday, and this am. No cramps but cannot control Supplemental O2, no increase demand ROS ROS GEN: Denies fevers, chills, sweats HEENT: Denies sore throat CV: Denies chest pain RESP: Denies shortness of air, cough GI: Denies n/v Vital Sign Vital Signs Vital Signs Date Time Temp Pulse Resp B/P Pulse Ox O2 Delivery O2 Flow Rate FiO2 11/27/16 08:28 74 115/62 11/27/16 07:43 Nasal Cannula 3.0 11/27/16 07:39 97.5 18 92 97.5 Physical Exam PHYSICAL EXAM GENERAL: NAD HEENT: Oral cavity pink and moist NECK: Supple, no JVD, no LN LUNGS: Clear HEART: S1S2, no gallop, no murmur ABD: Soft, NT, BS present EXT: No edema, no cyanosis [employer]DIVIDUAL [employer]: Sleepy, responds appropriately SKIN: No rash IV: ok Labs Lab Laboratory Tests Test 11/26/16 11:33 11/26/16 16:49 11/26/16 21:09 11/27/16 07:51 Glucose (Fingerstick) 114mg/dL (70-99) 166mg/dL (70-99) 126mg/dL (70-99) 70mg/dL (70-99) Micro BLOOD CULTURE Preliminary NO GROWTH AFTER 3 DAYS Objective Assessment Leukocytosis ? etiology. improved 11/26 but rapidly hopefully true Hypoxia, CHF ESRD/HD Plan Plan of Care Cont vanc D/c Zosyn CBC in am Need C-diff sample - d/w nursing Monitor labs/cultures Supportive care Attending Co-Sign Attending Co-Sign The patient was seen and interviewed as well as examined at the bedside. The chart was reviewed. The case was discussed. Agree with the plan of care. KAUSHIK PRESTON APRN Nov 27, 2016 10:26 LALITHA BAUTISTA MD Nov 27, 2016 13:58
[2016-11-27 11:57] VITALS: BP 104/69
--- NOTE | 2016-11-27 12:18 | PDOC ---
PROGRESS NOTES Chief Complaint Chief Complaint Acute encephalopathy, improved Hypoxia, acute on chronic End stage renal disease, HD, Dm2, insulin hypothyriod htn, chronic diastolic CHF History of Present Illness History of Present Illness no event feels well cont current DC plan for when abx are able to be weaned per ID consult Vitals Vitals Vital Signs Date Time Temp Pulse Resp B/P Pulse Ox O2 Delivery O2 Flow Rate FiO2 11/27/16 11:57 97.7 95 18 104/69 90 Nasal Cannula 3.0 97.7 Physical Exam General: Alert, Oriented X3, Cooperative, No acute distress Heart: Regular rate, No murmurs Lungs: Clear Abdomen: No tenderness, No hepatosplenomegaly Extremities: No clubbing, No cyanosis, No edema Skin: No rashes, No breakdown, No significant lesion Labs LABS Laboratory Tests Test 11/26/16 16:49 11/26/16 21:09 11/27/16 07:51 11/27/16 11:39 Glucose (Fingerstick) 166mg/dL (70-99) 126mg/dL (70-99) 70mg/dL (70-99) 135mg/dL (70-99) Review of Systems Review of Systems some lethargy Assessment and Plan Assessmemt and Plan Problems Medical Problems: (1) Acute encephalopathy Status: Acute (2) Elevated troponin Status: Acute (3) End stage renal disease Status: Acute (4) Hypoxia Status: Acute Problems: Comment Review of Relevant I have reviewed the following items marli (where applicable) has been applied. Labs Laboratory Tests Test 11/25/16 16:49 11/25/16 16:54 11/25/16 16:58 11/25/16 20:01 Glucose (Fingerstick) 276mg/dL (70-99) 166mg/dL (70-99) 169mg/dL (70-99) 117mg/dL (70-99) Test 11/26/16 05:38 11/26/16 11:33 11/26/16 16:49 11/26/16 21:09 White Blood Count 10.1x10^3/uL (4.0-11.0) Red Blood Count 4.85x10^6/uL (4.30-5.70) Hemoglobin 14.0g/dL (13.0-17.5) Hematocrit 43.5% (39.0-53.0) Mean Corpuscular Volume 90fL (79-100) Mean Corpuscular Hemoglobin 29pg (25-35) Mean Corpuscular Hemoglobin Concent 32g/dL (31-37) Red Cell Distribution Width 15.3% (11.5-14.5) Platelet Count 344x10^3/uL (140-400) Sodium Level 134mmol/L (136-145) Potassium Level 5.1mmol/L (3.5-5.1) Chloride Level 91mmol/L (98-107) Carbon Dioxide Level 25mmol/L (21-32) Anion Gap 18 (6-14) Blood Urea Nitrogen 45mg/dL (8-26) Creatinine 11.2mg/dL (0.7-1.3) Estimated GFR (Cockcroft-Gault) 5.5 Glucose Level 111mg/dL (70-99) Calcium Level 8.2mg/dL (8.5-10.1) Glucose (Fingerstick) 114mg/dL (70-99) 166mg/dL (70-99) 126mg/dL (70-99) Test 11/27/16 07:51 11/27/16 11:39 Glucose (Fingerstick) 70mg/dL (70-99) 135mg/dL (70-99) Laboratory Tests Test 11/26/16 16:49 11/26/16 21:09 11/27/16 07:51 11/27/16 11:39 Glucose (Fingerstick) 166mg/dL (70-99) 126mg/dL (70-99) 70mg/dL (70-99) 135mg/dL (70-99) Microbiology 11/23/16 Blood Culture - Preliminary, Resulted NO GROWTH AFTER 3 DAYS Medications Current Medications Ondansetron HCl (Zofran) 4 mg PRN Q8HRS PRN IV NAUSEA/VOMITING; Start 11/23/16 at 15:15; Stop 11/24/16 at 00:07; Status DC Acetaminophen (Tylenol) 650 mg PRN Q4HRS PRN PO FEVER; Start 11/23/16 at 15:15 ; Stop 11/24/16 at 00:06; Status DC Acetaminophen (Tylenol) 325 mg PRN Q6HRS PRN PO MILD PAIN / TEMP; Start at 18:45; Stop 11/24/16 at 00:06; Status DC Acetaminophen/ Hydrocodone Bitart (Lortab 5/325) 1 tab PRN Q6HRS PRN PO MODERATE TO SEVERE PAIN Last administered on 11/24/16 21:43; Start 11/23/16 at 18:45 Hydralazine HCl (Apresoline) 10 mg PRN Q4HRS PRN IVP ELEVATED BP, SEE COMMENTS ; Start 11/23/16 at 18:45 Ondansetron HCl (Zofran) 4 mg PRN Q8HRS PRN IV NAUSEA/VOMITING; Start 11/23/16 at 18:45 Albuterol Sulfate (Ventolin Neb Soln) 2.5 mg PRN Q4HRS PRN NEB SHORTNESS OF BREATH Last administered on 11/26/16 19:31; Start 11/23/16 at 18:45 Acetaminophen (Tylenol) 500 mg PRN TID PRN PO MILD PAIN/TEMP; Start 11/24/16 at 00:00 Amlodipine Besylate (Norvasc) 10 mg DAILY PO Last administered on 11/27/16 08: 28; Start 11/24/16 at 09:00 Aspirin (Ecotrin) 325 mg DAILY PO Last administered on 11/27/16 08:28; Start 11/24/16 at 09:00 Atorvastatin Calcium (Lipitor) 5 mg HS PO Last administered on 11/26/16 21:29 ; Start 11/24/16 at 21:00 Calcium Acetate (Phoslo) 667 mg TIDAC PO Last administered on 11/27/16 11:36; Start 11/24/16 at 07:30 Calcium Carbonate/ Glycine (Tums) 500 mg PRN Q6HRS PRN PO HEARTBURN / GAS; Start 11/24/16 at 00:00 Colestipol HCl (Colestid) 1 gm DAILY PO Last administered on 11/27/16 08:28; Start 11/24/16 at 09:00 Diphenhydramine HCl (Benadryl) 25 mg PRN Q6HRS PRN PO ITCHING; Start 11/24/16 at 00:00 Gabapentin (Neurontin) 300 mg HS PO Last administered on 11/26/16 21:30; Start 11/24/16 at 21:00 Insulin Detemir (Levemir) 25 units HS SQ Last administered on 11/26/16 21:41; Start 11/24/16 at 21:00 Albuterol/ Ipratropium (Duoneb) 3 ml TID NEB Last administered on 11/26/16 11: 40; Start 11/24/16 at 09:00; Stop 11/26/16 at 14:52; Status DC Levothyroxine Sodium (Synthroid) 75 mcg DAILY07 PO Last administered on 06:24; Start 11/24/16 at 07:00 Multi-Ingred Cream/Lotion/Oil/ Oint (Hydrocerin) 1 michela QID TP Last administered on 11/27/16 08:31; Start 11/24/16 at 09:00 Nitroglycerin (Nitrostat) 0.4 mg PRN Q5MIN PRN SL CHEST PAIN; Start 11/24/16 at 00:00 Polyethylene Glycol (miraLAX PACKET) 17 gm DAILY PO ; Start 11/24/16 at 09:00 Trazodone HCl (Desyrel) 50 mg QHS PO Last administered on 11/26/16 21:26; Start 11/24/16 at 21:00 Non-Formulary Medication 3 mg 3 mg HS PO ; Start 11/24/16 at 21:00; Status UNV Sodium Chloride (Iv Sodium Chloride 0.9% 1000ml Bag) 1,000 ml @ 1,000 mls/hr Q1H PRN IV hypotension; Start 11/24/16 at 11:18; Stop 11/24/16 at 17:17; Status DC Diphenhydramine HCl (Benadryl) 25 mg 1X PRN PRN IV ITCHING; Start 11/24/16 at 11:30; Stop 11/25/16 at 11:29; Status DC Diphenhydramine HCl (Benadryl) 25 mg 1X PRN PRN IV ITCHING; Start 11/24/16 at 11:30; Stop 11/25/16 at 11:29; Status DC Info (PHARMACY MONITORING -- do not chart) 1 each PRN DAILY PRN MC SEE COMMENTS ; Start 11/24/16 at 11:30 Iohexol (Omnipaque 300 Mg/ml) 75 ml 1X ONCE IV ; Start 11/25/16 at 07:30; Stop 11/25/16 at 07:31; Status DC Iohexol (Omnipaque 240 Mg/ml) 30 ml 1X ONCE PO ; Start 11/25/16 at 07:30; Stop 11/25/16 at 07:31; Status DC Metoprolol Tartrate (Lopressor) 12.5 mg BID PO ; Start 11/25/16 at 11:00; Stop 11/25/16 at 11:00; Status DC Isosorbide Mononitrate (Imdur) 30 mg DAILY PO Last administered on 11/27/16 08 :28; Start 11/25/16 at 11:00 Vancomycin HCl 1 each 1 each PRN DAILY PRN MC SEE COMMENTS Last administered on 11/26/16 18:07; Start 11/25/16 at 11:15 Piperacillin Sod/ Tazobactam Sod 2.25 gm/Sodium Chloride 50 ml @ 100 mls/hr Q6HRS IV Last administered on 11/27/16 11:37; Start 11/25/16 at 12:00 Vancomycin HCl/ Sodium Chloride (Iv Sodium Chloride 0.9% 500ml Bag) 500 ml @ 250 mls/hr 1X ONCE IV Last administered on 11/25/16 13:28; Start 11/25/16 at 12:00; Stop 11/25/16 at 13:59; Status DC Vancomycin HCl 1 each 1 each 1X ONCE MC ; Start 11/27/16 at 16:00; Stop at 16:01 Sodium Chloride 1,000 ml @ 1,000 mls/hr Q1H PRN IV hypotension; Start 11/26/16 at 07:36; Stop 11/26/16 at 13:35; Status DC Albumin Human (Albuminar) 200 ml @ 200 mls/hr 1X PRN PRN IV Hypotension; Start 11/26/16 at 07:45; Stop 11/26/16 at 13:44; Status DC Info (PHARMACY MONITORING -- do not chart) 1 each PRN DAILY PRN MC SEE COMMENTS ; Start 11/26/16 at 07:45; Status UNV Info (PHARMACY MONITORING -- do not chart) 1 each PRN DAILY PRN MC SEE COMMENTS ; Start 11/26/16 at 07:45; Status UNV Albuterol/ Ipratropium (Duoneb) 3 ml RTQID NEB Last administered on 11/27/16t 11:33; Start 11/26/16 at 16:00 Active Scripts Active Reported Trazodone Hcl 50 Mg Tablet 0.5 Tab PO QHS Melatonin 3 Mg Tab.rapdis 3 Mg PO HS Duoneb 0.5-3(2.5) Mg/3 Ml (Albuterol/Ipratropium) 3 Ml Ampul.neb 3 Ml NEB TID Colestipol Hcl 1 Gm Tablet 1 Gm PO DAILY Eucerin Creme (Mineral Oil/White Petrolatum) 120 Gm Cream..g. 1 Michela TP QID Atorvastatin Calcium 10 Mg Tablet 5 Mg PO HS Take next dose tonight 12/20/15 at bedtime Aspir-Lorin (Aspirin) 325 Mg Tablet.dr 325 Mg PO DAILY Take next dose tomorrow 12/21/15 in AM Amlodipine Besylate 10 Mg Tablet 10 Mg PO DAILY Take next tomorrow 12/21/15 in AM Levemir Flextouch (Insulin Detemir) 100 Unit/1 Ml Insuln.pen 25 Unit SQ HS TAKE NEXT DOSE TONIGHT 12/20/15 AT BEDTIME Polyethylene Glycol 3350 255 Gm Powder 17 Gm PO DAILY TAKE DAILY NEEDED FOR CONSTIPATION Nitrostat (Nitroglycerin) 0.4 Mg Tab.subl 0.4 Mg SL PRN Q5MIN PRN Benadryl (Diphenhydramine Hcl) 25 Mg Capsule 25 Mg PO PRN Q6HRS PRN TAKE NEEDED Acetaminophen 500 Mg Tablet 500 Mg PO PRN TID PRN Loratadine 10 Mg Tablet 10 Mg PO DAILY TAKE NEXT DOSE TOMORROW 12/21/15 IN AM Calcium Acetate 667 Mg Capsule 667 Mg PO TIDAC TAKE NEXT DOSE TONIGHT 05/19/15 AT BEDTIME Levothyroxine Sodium 75 Mcg Tablet 75 Mcg PO DAILY TAKE NEXT DOSE TOMORROW 12/21/15 IN AM Tums (Calcium Carbonate) 200 Mg Tab.chew 200 Mg PO PRN Q6HRS PRN Tramadol Hcl 50 Mg Tablet 100 Mg PO BID PRN Gabapentin 300 Mg Capsule 300 Mg PO HS TAKE NEXT DOSE TONIGHT 12/20/15 AT BEDTIME Vitals/I & O Vital Sign - Last 24 Hours 11/26/16 11/26/16 11/26/16 11/26/16 15:00 15:26 19:30 19:32 Temp 98.1 97.5 98.1 97.5 Pulse 97 89 Resp 20 18 B/P 113/56 119/45 Pulse Ox 97 92 O2 Delivery Nasal Cannula Nasal Cannula Nasal Cannula Nasal Cannula O2 Flow Rate 3.0 3.0 3.0 3.0 11/26/16 11/26/16 11/27/16 11/27/16 20:00 23:29 03:06 07:39 Temp 98.1 98.3 97.5 98.1 98.3 97.5 Pulse 77 75 74 Resp 18 18 18 B/P 116/60 114/57 115/62 Pulse Ox 91 91 92 O2 Delivery Nasal Cannula Nasal Cannula Nasal Cannula Nasal Cannula O2 Flow Rate 3.0 3.0 3.0 3.0 11/27/16 11/27/16 11/27/16 11/27/16 07:43 08:28 08:28 11:33 Pulse 74 74 B/P 115/62 115/62 O2 Delivery Nasal Cannula Room Air O2 Flow Rate 3.0 11/27/16 11:57 Temp 97.7 97.7 Pulse 95 Resp 18 B/P 104/69 Pulse Ox 90 O2 Delivery Nasal Cannula O2 Flow Rate 3.0 Intake and Output 11/26/16 11/26/16 11/27/16 15:00 23:00 07:00 Intake Total 200 ml 170 ml Balance 200 ml 170 ml OTTO CLINE MD Nov 27, 2016 12:18
[2016-11-27 15:00] VITALS: BP 123/53
[2016-11-27] MEDS ORDERED: VANCOMYCIN RANDOM LEVEL. MC ONE (16:00)
[2016-11-27 19:00] VITALS: BP 145/64
[2016-11-27] MEDS: ATORVASTATIN CALCIUM 10 MG TABLET. PO SCH (20:18)
[2016-11-27] MEDS: traZODone 50 MG TABLET. PO SCH (20:18)
[2016-11-27] MEDS: GABAPENTIN 300 MG CAPSULE. PO SCH (20:18)
[2016-11-27] MEDS: INSULIN DETEMIR 300 UNITS/3 ML INSULN.PEN. SQ SCH (20:25)
[2016-11-27 23:00] VITALS: BP 135/63
[2016-11-28 03:00] VITALS: BP 130/65
[2016-11-28 05:11] LABS: BASO % 0 % (0-3); EOS % 2 % (0-3); HEMATOCRIT 36.6 % (39.0-53.0); HEMOGLOBIN 11.8 g/dL (13.0-17.5); LYMPH # 15.2 x10^3/uL (1.0-4.8); LYMPH % 63 % (24-48); MEAN CORPUSCULAR HEMOGLOBIN 29 pg (25-35); MEAN CORPUSCULAR HGB CONC 32 g/dL (31-37); MEAN CORPUSCULAR VOLUME 88 fL (79-100); MONO % 6 % (0-9); NEUT % 29 % (31-73); PLATELET COUNT 420 x10^3/uL (140-400); RED BLOOD COUNT 4.14 x10^6/uL (4.30-5.70); RED CELL DISTRIBUTION WIDTH 15.5 % (11.5-14.5); WHITE BLOOD COUNT 24.2 x10^3/uL (4.0-11.0)
[2016-11-28] MEDS: LEVOTHYROXINE 75 MCG TABLET PO SCH (06:30)
[2016-11-28 07:19] VITALS: BP 135/75
[2016-11-28] MEDS: IPRATRPIUM/ALBUTEROL 0.5/2.5MG 3 ML NEBU. NEB SCH ×4 (08:06→19:03)
[2016-11-28] MEDS: POLYETHYLENE GLYCOL 3350 17 GM PACKET. PO SCH (09:00)
[2016-11-28] MEDS: CALCIUM ACETATE 667 MG CAPSULE PO SCH ×3 (09:29→17:14)
[2016-11-28] MEDS: COLESTIPOL HCL 1 GM TABLET PO SCH (09:29)
[2016-11-28] MEDS: MINERAL OIL/PETROLATUM TOPICAL CREAM 113GM JAR. TP SCH ×4 (09:29→20:44)
[2016-11-28] MEDS: AMLODIPINE BESYLATE 10 MG TABLET PO SCH (09:30)
[2016-11-28] MEDS: ISOSORBIDE MONONITRATE ER 30 MG TAB.ER.24H PO SCH (09:30)
[2016-11-28] MEDS: ASPIRIN ENTERIC COATED 325 MG TABLET.DR. PO SCH (09:30)
--- NOTE | 2016-11-28 10:38 | PDOC ---
Infectious Disease Note Subjective Subjective Comfortable Appetite ok + diarrhea. 1-2 stools in the morning usually No cramps/N/V ROS ROS GEN: Denies fevers, chills, sweats HEENT: Denies sore throat CV: Denies chest pain RESP: Denies shortness of air, cough Vital Sign Vital Signs Vital Signs Date Time Temp Pulse Resp B/P Pulse Ox O2 Delivery O2 Flow Rate FiO2 11/28/16 09:30 87 138/77 11/28/16 08:06 Nasal Cannula 3.0 11/28/16 07:19 97.9 18 97 97.9 Physical Exam PHYSICAL EXAM GENERAL: Propped up in bed, alert, NAD HEENT: Oral cavity pink and moist NECK: Supple, no JVD, no LN LUNGS: Clear HEART: S1S2, no gallop, no murmur ABD: Soft, NT, BS present EXT: No edema, no cyanosis. 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 SKIN: No rash IV: ok Labs Lab Laboratory Tests Test 11/27/16 11:39 11/27/16 16:20 11/27/16 16:55 11/27/16 20:20 Glucose (Fingerstick) 135mg/dL (70-99) 174mg/dL (70-99) 197mg/dL (70-99) Random Vancomycin Level 26.1mcg/mL Test 11/28/16 04:23 11/28/16 08:03 White Blood Count 24.2x10^3/uL (4.0-11.0) Red Blood Count 4.14x10^6/uL (4.30-5.70) Hemoglobin 11.8g/dL (13.0-17.5) Hematocrit 36.6% (39.0-53.0) Mean Corpuscular Volume 88fL (79-100) Mean Corpuscular Hemoglobin 29pg (25-35) Mean Corpuscular Hemoglobin Concent 32g/dL (31-37) Red Cell Distribution Width 15.5% (11.5-14.5) Platelet Count 420x10^3/uL (140-400) Neutrophils (%) (Auto) 29% (31-73) Lymphocytes (%) (Auto) 63% (24-48) Monocytes (%) (Auto) 6% (0-9) Eosinophils (%) (Auto) 2% (0-3) Basophils (%) (Auto) 0% (0-3) Neutrophils # (Auto) 7.1x10^3uL (1.8-7.7) Lymphocytes # (Auto) 15.2x10^3/uL (1.0-4.8) Monocytes # (Auto) 1.5x10^3/uL (0.0-1.1) Eosinophils # (Auto) 0.4x10^3/uL (0.0-0.7) Basophils # (Auto) 0.0x10^3/uL (0.0-0.2) Glucose (Fingerstick) 141mg/dL (70-99) Micro BLOOD CULTURE Preliminary NO GROWTH AFTER 3 DAYS Objective Assessment Leukocytosis ? etiology. Elevated again ? if 11/27 true WBC Hypoxia, CHF ESRD/HD Plan Plan of Care Cont vanc C-diff sample pending. Still complains to me about his stomach and loose stool Trial of po Vanc until C-diff ruled out. Sample sent d/w nursing Monitor labs/cultures Supportive care Attending Co-Sign Attending Co-Sign The patient was seen and interviewed as well as examined at the bedside. The chart was reviewed. The case was discussed. Agree with the plan of care. KAUSHIK PRESTON APRN Nov 28, 2016 10:38 LALITHA BAUTISTA MD Nov 28, 2016 13:22
[2016-11-28 11:17] VITALS: BP 117/66
--- NOTE | 2016-11-28 11:40 | PDOC ---
PROGRESS NOTES Chief Complaint Chief Complaint Acute encephalopathy, improved Hypoxia, acute on chronic End stage renal disease, HD, Dm2, insulin hypothyroid htn, chronic diastolic CHF History of Present Illness History of Present Illness no event feels well some dyspnea at rest on IV vanco - may be able to coordinate with HD at discharge Vitals Vitals Vital Signs Date Time Temp Pulse Resp B/P Pulse Ox O2 Delivery O2 Flow Rate FiO2 11/28/16 11:17 98.1 74 18 117/66 90 Nasal Cannula 3.0 98.1 Physical Exam General: Alert, Oriented X3, Cooperative, No acute distress Heart: Regular rate, No murmurs Lungs: Clear Abdomen: No tenderness, No hepatosplenomegaly Extremities: No clubbing, No cyanosis, No edema Skin: No rashes, No breakdown, No significant lesion Labs LABS Laboratory Tests Test 11/27/16 16:20 11/27/16 16:55 11/27/16 20:20 11/28/16 04:23 Random Vancomycin Level 26.1mcg/mL Glucose (Fingerstick) 174mg/dL (70-99) 197mg/dL (70-99) White Blood Count 24.2x10^3/uL (4.0-11.0) Red Blood Count 4.14x10^6/uL (4.30-5.70) Hemoglobin 11.8g/dL (13.0-17.5) Hematocrit 36.6% (39.0-53.0) Mean Corpuscular Volume 88fL (79-100) Mean Corpuscular Hemoglobin 29pg (25-35) Mean Corpuscular Hemoglobin Concent 32g/dL (31-37) Red Cell Distribution Width 15.5% (11.5-14.5) Platelet Count 420x10^3/uL (140-400) Neutrophils (%) (Auto) 29% (31-73) Lymphocytes (%) (Auto) 63% (24-48) Monocytes (%) (Auto) 6% (0-9) Eosinophils (%) (Auto) 2% (0-3) Basophils (%) (Auto) 0% (0-3) Neutrophils # (Auto) 7.1x10^3uL (1.8-7.7) Lymphocytes # (Auto) 15.2x10^3/uL (1.0-4.8) Monocytes # (Auto) 1.5x10^3/uL (0.0-1.1) Eosinophils # (Auto) 0.4x10^3/uL (0.0-0.7) Basophils # (Auto) 0.0x10^3/uL (0.0-0.2) Test 11/28/16 08:03 Glucose (Fingerstick) 141mg/dL (70-99) Assessment and Plan Assessmemt and Plan Problems Medical Problems: (1) Acute encephalopathy Status: Acute (2) Elevated troponin Status: Acute (3) End stage renal disease Status: Acute (4) Hypoxia Status: Acute Problems: Comment Review of Relevant I have reviewed the following items marli (where applicable) has been applied. Labs Laboratory Tests Test 11/26/16 16:49 11/26/16 21:09 11/27/16 07:51 11/27/16 11:39 Glucose (Fingerstick) 166mg/dL (70-99) 126mg/dL (70-99) 70mg/dL (70-99) 135mg/dL (70-99) Test 11/27/16 16:20 11/27/16 16:55 11/27/16 20:20 11/28/16 04:23 Random Vancomycin Level 26.1mcg/mL Glucose (Fingerstick) 174mg/dL (70-99) 197mg/dL (70-99) White Blood Count 24.2x10^3/uL (4.0-11.0) Red Blood Count 4.14x10^6/uL (4.30-5.70) Hemoglobin 11.8g/dL (13.0-17.5) Hematocrit 36.6% (39.0-53.0) Mean Corpuscular Volume 88fL (79-100) Mean Corpuscular Hemoglobin 29pg (25-35) Mean Corpuscular Hemoglobin Concent 32g/dL (31-37) Red Cell Distribution Width 15.5% (11.5-14.5) Platelet Count 420x10^3/uL (140-400) Neutrophils (%) (Auto) 29% (31-73) Lymphocytes (%) (Auto) 63% (24-48) Monocytes (%) (Auto) 6% (0-9) Eosinophils (%) (Auto) 2% (0-3) Basophils (%) (Auto) 0% (0-3) Neutrophils # (Auto) 7.1x10^3uL (1.8-7.7) Lymphocytes # (Auto) 15.2x10^3/uL (1.0-4.8) Monocytes # (Auto) 1.5x10^3/uL (0.0-1.1) Eosinophils # (Auto) 0.4x10^3/uL (0.0-0.7) Basophils # (Auto) 0.0x10^3/uL (0.0-0.2) Test 11/28/16 08:03 Glucose (Fingerstick) 141mg/dL (70-99) Laboratory Tests Test 11/27/16 16:20 11/27/16 16:55 11/27/16 20:20 11/28/16 04:23 Random Vancomycin Level 26.1mcg/mL Glucose (Fingerstick) 174mg/dL (70-99) 197mg/dL (70-99) White Blood Count 24.2x10^3/uL (4.0-11.0) Red Blood Count 4.14x10^6/uL (4.30-5.70) Hemoglobin 11.8g/dL (13.0-17.5) Hematocrit 36.6% (39.0-53.0) Mean Corpuscular Volume 88fL (79-100) Mean Corpuscular Hemoglobin 29pg (25-35) Mean Corpuscular Hemoglobin Concent 32g/dL (31-37) Red Cell Distribution Width 15.5% (11.5-14.5) Platelet Count 420x10^3/uL (140-400) Neutrophils (%) (Auto) 29% (31-73) Lymphocytes (%) (Auto) 63% (24-48) Monocytes (%) (Auto) 6% (0-9) Eosinophils (%) (Auto) 2% (0-3) Basophils (%) (Auto) 0% (0-3) Neutrophils # (Auto) 7.1x10^3uL (1.8-7.7) Lymphocytes # (Auto) 15.2x10^3/uL (1.0-4.8) Monocytes # (Auto) 1.5x10^3/uL (0.0-1.1) Eosinophils # (Auto) 0.4x10^3/uL (0.0-0.7) Basophils # (Auto) 0.0x10^3/uL (0.0-0.2) Test 11/28/16 08:03 Glucose (Fingerstick) 141mg/dL (70-99) Microbiology 11/23/16 Blood Culture - Preliminary, Resulted NO GROWTH AFTER 4 DAYS Medications Current Medications Ondansetron HCl (Zofran) 4 mg PRN Q8HRS PRN IV NAUSEA/VOMITING; Start 11/23/16 at 15:15; Stop 11/24/16 at 00:07; Status DC Acetaminophen (Tylenol) 650 mg PRN Q4HRS PRN PO FEVER; Start 11/23/16 at 15:15 ; Stop 11/24/16 at 00:06; Status DC Acetaminophen (Tylenol) 325 mg PRN Q6HRS PRN PO MILD PAIN / TEMP; Start at 18:45; Stop 11/24/16 at 00:06; Status DC Acetaminophen/ Hydrocodone Bitart (Lortab 5/325) 1 tab PRN Q6HRS PRN PO MODERATE TO SEVERE PAIN Last administered on 11/24/16 21:43; Start 11/23/16 at 18:45 Hydralazine HCl (Apresoline) 10 mg PRN Q4HRS PRN IVP ELEVATED BP, SEE COMMENTS ; Start 11/23/16 at 18:45 Ondansetron HCl (Zofran) 4 mg PRN Q8HRS PRN IV NAUSEA/VOMITING; Start 11/23/16 at 18:45 Albuterol Sulfate (Ventolin Neb Soln) 2.5 mg PRN Q4HRS PRN NEB SHORTNESS OF BREATH Last administered on 11/26/16 19:31; Start 11/23/16 at 18:45 Acetaminophen (Tylenol) 500 mg PRN TID PRN PO MILD PAIN/TEMP; Start 11/24/16 at 00:00 Amlodipine Besylate (Norvasc) 10 mg DAILY PO Last administered on 11/28/16 09: 30; Start 11/24/16 at 09:00 Aspirin (Ecotrin) 325 mg DAILY PO Last administered on 11/28/16 09:30; Start 11/24/16 at 09:00 Atorvastatin Calcium (Lipitor) 5 mg HS PO Last administered on 11/27/16 20:18 ; Start 11/24/16 at 21:00 Calcium Acetate (Phoslo) 667 mg TIDAC PO Last administered on 11/28/16 09:29; Start 11/24/16 at 07:30 Calcium Carbonate/ Glycine (Tums) 500 mg PRN Q6HRS PRN PO HEARTBURN / GAS; Start 11/24/16 at 00:00 Colestipol HCl (Colestid) 1 gm DAILY PO Last administered on 11/28/16 09:29; Start 11/24/16 at 09:00 Diphenhydramine HCl (Benadryl) 25 mg PRN Q6HRS PRN PO ITCHING; Start 11/24/16 at 00:00 Gabapentin (Neurontin) 300 mg HS PO Last administered on 11/27/16 20:18; Start 11/24/16 at 21:00 Insulin Detemir (Levemir) 25 units HS SQ Last administered on 11/27/16 20:25; Start 11/24/16 at 21:00 Albuterol/ Ipratropium (Duoneb) 3 ml TID NEB Last administered on 11/26/16 11: 40; Start 11/24/16 at 09:00; Stop 11/26/16 at 14:52; Status DC Levothyroxine Sodium (Synthroid) 75 mcg DAILY07 PO Last administered on 06:30; Start 11/24/16 at 07:00 Multi-Ingred Cream/Lotion/Oil/ Oint (Hydrocerin) 1 michela QID TP Last administered on 11/28/16 09:29; Start 11/24/16 at 09:00 Nitroglycerin (Nitrostat) 0.4 mg PRN Q5MIN PRN SL CHEST PAIN; Start 11/24/16 at 00:00 Polyethylene Glycol (miraLAX PACKET) 17 gm DAILY PO ; Start 11/24/16 at 09:00 Trazodone HCl (Desyrel) 50 mg QHS PO Last administered on 11/27/16 20:18; Start 11/24/16 at 21:00 Non-Formulary Medication 3 mg 3 mg HS PO ; Start 11/24/16 at 21:00; Status UNV Sodium Chloride (Iv Sodium Chloride 0.9% 1000ml Bag) 1,000 ml @ 1,000 mls/hr Q1H PRN IV hypotension; Start 11/24/16 at 11:18; Stop 11/24/16 at 17:17; Status DC Diphenhydramine HCl (Benadryl) 25 mg 1X PRN PRN IV ITCHING; Start 11/24/16 at 11:30; Stop 11/25/16 at 11:29; Status DC Diphenhydramine HCl (Benadryl) 25 mg 1X PRN PRN IV ITCHING; Start 11/24/16 at 11:30; Stop 11/25/16 at 11:29; Status DC Info (PHARMACY MONITORING -- do not chart) 1 each PRN DAILY PRN MC SEE COMMENTS ; Start 11/24/16 at 11:30 Iohexol (Omnipaque 300 Mg/ml) 75 ml 1X ONCE IV ; Start 11/25/16 at 07:30; Stop 11/25/16 at 07:31; Status DC Iohexol (Omnipaque 240 Mg/ml) 30 ml 1X ONCE PO ; Start 11/25/16 at 07:30; Stop 11/25/16 at 07:31; Status DC Metoprolol Tartrate (Lopressor) 12.5 mg BID PO ; Start 11/25/16 at 11:00; Stop 11/25/16 at 11:00; Status DC Isosorbide Mononitrate (Imdur) 30 mg DAILY PO Last administered on 11/28/16 09 :30; Start 11/25/16 at 11:00 Vancomycin HCl 1 each 1 each PRN DAILY PRN MC SEE COMMENTS Last administered on 11/26/16 18:07; Start 11/25/16 at 11:15 Piperacillin Sod/ Tazobactam Sod 2.25 gm/Sodium Chloride 50 ml @ 100 mls/hr Q6HRS IV Last administered on 11/27/16 11:37; Start 11/25/16 at 12:00; Stop at 13:59; Status DC Vancomycin HCl/ Sodium Chloride (Iv Sodium Chloride 0.9% 500ml Bag) 500 ml @ 250 mls/hr 1X ONCE IV Last administered on 11/25/16 13:28; Start 11/25/16 at 12:00; Stop 11/25/16 at 13:59; Status DC Vancomycin HCl 1 each 1 each 1X ONCE MC Last administered on 11/27/16 16:00; Start 11/27/16 at 16:00; Stop 11/27/16 at 16:01; Status DC Sodium Chloride 1,000 ml @ 1,000 mls/hr Q1H PRN IV hypotension; Start 11/26/16 at 07:36; Stop 11/26/16 at 13:35; Status DC Albumin Human (Albuminar) 200 ml @ 200 mls/hr 1X PRN PRN IV Hypotension; Start 11/26/16 at 07:45; Stop 11/26/16 at 13:44; Status DC Info (PHARMACY MONITORING -- do not chart) 1 each PRN DAILY PRN MC SEE COMMENTS ; Start 11/26/16 at 07:45; Status UNV Info (PHARMACY MONITORING -- do not chart) 1 each PRN DAILY PRN MC SEE COMMENTS ; Start 11/26/16 at 07:45; Status UNV Albuterol/ Ipratropium (Duoneb) 3 ml RTQID NEB Last administered on 11/28/16 08:06; Start 11/26/16 at 16:00 Active Scripts Active Reported Trazodone Hcl 50 Mg Tablet 0.5 Tab PO QHS Melatonin 3 Mg Tab.rapdis 3 Mg PO HS Duoneb 0.5-3(2.5) Mg/3 Ml (Albuterol/Ipratropium) 3 Ml Ampul.neb 3 Ml NEB TID Colestipol Hcl 1 Gm Tablet 1 Gm PO DAILY Eucerin Creme (Mineral Oil/White Petrolatum) 120 Gm Cream..g. 1 Michela TP QID Atorvastatin Calcium 10 Mg Tablet 5 Mg PO HS Take next dose tonight 12/20/15 at bedtime Aspir-Lorin (Aspirin) 325 Mg Tablet.dr 325 Mg PO DAILY Take next dose tomorrow 12/21/15 in AM Amlodipine Besylate 10 Mg Tablet 10 Mg PO DAILY Take next tomorrow 12/21/15 in AM Levemir Flextouch (Insulin Detemir) 100 Unit/1 Ml Insuln.pen 25 Unit SQ HS TAKE NEXT DOSE TONIGHT 12/20/15 AT BEDTIME Polyethylene Glycol 3350 255 Gm Powder 17 Gm PO DAILY TAKE DAILY NEEDED FOR CONSTIPATION Nitrostat (Nitroglycerin) 0.4 Mg Tab.subl 0.4 Mg SL PRN Q5MIN PRN Benadryl (Diphenhydramine Hcl) 25 Mg Capsule 25 Mg PO PRN Q6HRS PRN TAKE NEEDED Acetaminophen 500 Mg Tablet 500 Mg PO PRN TID PRN Loratadine 10 Mg Tablet 10 Mg PO DAILY TAKE NEXT DOSE TOMORROW 12/21/15 IN AM Calcium Acetate 667 Mg Capsule 667 Mg PO TIDAC TAKE NEXT DOSE TONIGHT 05/19/15 AT BEDTIME Levothyroxine Sodium 75 Mcg Tablet 75 Mcg PO DAILY TAKE NEXT DOSE TOMORROW 12/21/15 IN AM Tums (Calcium Carbonate) 200 Mg Tab.chew 200 Mg PO PRN Q6HRS PRN Tramadol Hcl 50 Mg Tablet 100 Mg PO BID PRN Gabapentin 300 Mg Capsule 300 Mg PO HS TAKE NEXT DOSE TONIGHT 12/20/15 AT BEDTIME Vitals/I & O Vital Sign - Last 24 Hours 11/27/16 11/27/16 11/27/16 11/27/16 11:57 15:00 15:38 19:00 Temp 97.7 97.7 98.1 97.7 97.7 98.1 Pulse 95 78 77 Resp 18 18 18 B/P 104/69 123/53 145/64 Pulse Ox 90 91 91 92 O2 Delivery Nasal Cannula Nasal Cannula Nasal Cannula Nasal Cannula O2 Flow Rate 3.0 3.0 3.0 3.0 11/27/16 11/27/16 11/27/16 11/28/16 19:46 20:00 23:00 03:00 Temp 98.5 98.4 98.5 98.4 Pulse 80 76 Resp 18 18 B/P 135/63 130/65 Pulse Ox 95 95 O2 Delivery Nasal Cannula Nasal Cannula Nasal Cannula Nasal Cannula O2 Flow Rate 3.0 3.0 3.0 3.0 11/28/16 11/28/16 11/28/16 11/28/16 07:19 08:06 09:30 09:30 Temp 97.9 97.9 Pulse 87 87 87 Resp 18 B/P 135/75 138/77 138/77 Pulse Ox 97 O2 Delivery Nasal Cannula Nasal Cannula O2 Flow Rate 3.0 3.0 11/28/16 11:17 Temp 98.1 98.1 Pulse 74 Resp 18 B/P 117/66 Pulse Ox 90 O2 Delivery Nasal Cannula O2 Flow Rate 3.0 Intake and Output 11/27/16 11/27/16 11/28/16 15:00 23:00 07:00 Intake Total 240 ml 500 ml 780 ml Balance 240 ml 500 ml 780 ml OTTO CLINE MD Nov 28, 2016 11:40
[2016-11-28] MEDS: VANCOMYCIN PER PHARMACY MC PRN (14:25)
[2016-11-28 15:00] VITALS: BP 131/60
[2016-11-28] MEDS: VANCOMYCIN 125 MG/2.5 ML ORAL SOLUTION. PO SCH ×3 (15:23→20:44)
[2016-11-28 19:00] VITALS: BP 155/65
[2016-11-28] MEDS: ATORVASTATIN CALCIUM 10 MG TABLET. PO SCH (20:44)
[2016-11-28] MEDS: traZODone 50 MG TABLET. PO SCH (20:44)
[2016-11-28] MEDS: GABAPENTIN 300 MG CAPSULE. PO SCH (20:44)
[2016-11-28] MEDS: INSULIN DETEMIR 300 UNITS/3 ML INSULN.PEN. SQ SCH (20:48)
[2016-11-28 22:36] VITALS: BP 117/56
[2016-11-29 03:00] VITALS: BP 136/55
[2016-11-29 06:03] LABS: BASO # 0.1 x10^3/uL (0.0-0.2); BASO % 0 % (0-3); EOS % 2 % (0-3); HEMATOCRIT 34.6 % (39.0-53.0); HEMOGLOBIN 11.1 g/dL (13.0-17.5); LYMPH # 15.5 x10^3/uL (1.0-4.8); LYMPH % 59 % (24-48); MEAN CORPUSCULAR HEMOGLOBIN 29 pg (25-35); MEAN CORPUSCULAR HGB CONC 32 g/dL (31-37); MEAN CORPUSCULAR VOLUME 90 fL (79-100); MONO % 6 % (0-9); NEUT % 33 % (31-73); PLATELET COUNT 449 x10^3/uL (140-400); RED BLOOD COUNT 3.84 x10^6/uL (4.30-5.70); RED CELL DISTRIBUTION WIDTH 15.3 % (11.5-14.5); WHITE BLOOD COUNT 26.4 x10^3/uL (4.0-11.0)
[2016-11-29] MEDS: LEVOTHYROXINE 75 MCG TABLET PO SCH (06:12)
[2016-11-29] MEDS: IPRATRPIUM/ALBUTEROL 0.5/2.5MG 3 ML NEBU. NEB SCH ×4 (06:22→19:57)
[2016-11-29 06:30] LABS: ALBUMIN 2.7 g/dL (3.4-5.0); ALBUMIN/GLOBULIN RATIO 0.5 (1.0-1.7); CALCIUM 8.4 mg/dL (8.5-10.1); CREATININE 13.6 mg/dL (0.7-1.3); GFR 4.4; MAGNESIUM 2.3 mg/dL (1.8-2.4); POTASSIUM 4.2 mmol/L (3.5-5.1); TOTAL BILIRUBIN 0.4 mg/dL (0.2-1.0); TOTAL PROTEIN 7.8 g/dL (6.4-8.2)
[2016-11-29 07:00] VITALS: BP 133/57
[2016-11-29] MEDS: VANCOMYCIN 125 MG/2.5 ML ORAL SOLUTION. PO SCH (08:00)
[2016-11-29] MEDS: CALCIUM ACETATE 667 MG CAPSULE PO SCH ×3 (08:01→16:55)
[2016-11-29] MEDS: AMLODIPINE BESYLATE 10 MG TABLET PO SCH (08:01)
[2016-11-29] MEDS: ISOSORBIDE MONONITRATE ER 30 MG TAB.ER.24H PO SCH (08:01)
[2016-11-29] MEDS: POLYETHYLENE GLYCOL 3350 17 GM PACKET. PO SCH (08:02)
[2016-11-29] MEDS: ASPIRIN ENTERIC COATED 325 MG TABLET.DR. PO SCH (08:02)
[2016-11-29] MEDS: MINERAL OIL/PETROLATUM TOPICAL CREAM 113GM JAR. TP SCH ×4 (08:02→20:25)
[2016-11-29] MEDS: COLESTIPOL HCL 1 GM TABLET PO SCH (08:02)
--- NOTE | 2016-11-29 09:00 | PDOC ---
Infectious Disease Note Subjective Subjective Comfortable Appetite ok No diarrhea today No cramps/N/V ROS ROS GEN: Denies fevers, chills, sweats HEENT: Denies blurred vision, sore throat CV: Denies chest pain RESP: Denies shortness of air, cough GI: Denies n/v/d NEURO: Denies confusion, dizziness MSK: Denies weakness, joint pain/swelling Vital Sign Vital Signs Vital Signs Date Time Temp Pulse Resp B/P Pulse Ox O2 Delivery O2 Flow Rate FiO2 11/29/16 08:01 73 133/57 11/29/16 08:00 Nasal Cannula 3.0 11/29/16 06:23 96 11/29/16 03:00 97.8 18 97.8 Physical Exam PHYSICAL EXAM GENERAL: Propped up in bed, alert, NAD HEENT: Oral cavity pink and moist NECK: Supple, no JVD, no LN LUNGS: Clear HEART: S1S2, no gallop, no murmur ABD: Soft, NT, BS present EXT: No edema, no cyanosis. 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 SKIN: No rash IV: ok Labs Lab Laboratory Tests Test 11/28/16 09:08 11/28/16 12:48 11/28/16 17:14 11/28/16 20:25 Clostridium difficile Toxin (PCR) Negative (Negative) Glucose (Fingerstick) 199mg/dL (70-99) 180mg/dL (70-99) 277mg/dL (70-99) Test 11/29/16 05:10 11/29/16 07:22 White Blood Count 26.4x10^3/uL (4.0-11.0) Red Blood Count 3.84x10^6/uL (4.30-5.70) Hemoglobin 11.1g/dL (13.0-17.5) Hematocrit 34.6% (39.0-53.0) Mean Corpuscular Volume 90fL (79-100) Mean Corpuscular Hemoglobin 29pg (25-35) Mean Corpuscular Hemoglobin Concent 32g/dL (31-37) Red Cell Distribution Width 15.3% (11.5-14.5) Platelet Count 449x10^3/uL (140-400) Neutrophils (%) (Auto) 33% (31-73) Lymphocytes (%) (Auto) 59% (24-48) Monocytes (%) (Auto) 6% (0-9) Eosinophils (%) (Auto) 2% (0-3) Basophils (%) (Auto) 0% (0-3) Neutrophils # (Auto) 8.8x10^3uL (1.8-7.7) Lymphocytes # (Auto) 15.5x10^3/uL (1.0-4.8) Monocytes # (Auto) 1.6x10^3/uL (0.0-1.1) Eosinophils # (Auto) 0.5x10^3/uL (0.0-0.7) Basophils # (Auto) 0.1x10^3/uL (0.0-0.2) Sodium Level 142mmol/L (136-145) Potassium Level 4.2mmol/L (3.5-5.1) Chloride Level 99mmol/L (98-107) Carbon Dioxide Level 25mmol/L (21-32) Anion Gap 18 (6-14) Blood Urea Nitrogen 53mg/dL (8-26) Creatinine 13.6mg/dL (0.7-1.3) Estimated GFR (Cockcroft-Gault) 4.4 BUN/Creatinine Ratio 4 (6-20) Glucose Level 135mg/dL (70-99) Calcium Level 8.4mg/dL (8.5-10.1) Magnesium Level 2.3mg/dL (1.8-2.4) Total Bilirubin 0.4mg/dL (0.2-1.0) Aspartate Amino Transf (AST/SGOT) 17U/L (15-37) Alanine Aminotransferase (ALT/SGPT) 12U/L (16-63) Alkaline Phosphatase 70U/L (46-116) Total Protein 7.8g/dL (6.4-8.2) Albumin 2.7g/dL (3.4-5.0) Albumin/Globulin Ratio 0.5 (1.0-1.7) Glucose (Fingerstick) 109mg/dL (70-99) Objective Assessment Leukocytosis ? etiology. Elevated again . C-diff neg/ Lymphocytosis Hypoxia, CHF ESRD/HD Plan Plan of Care Discont vanc IV and po Consult Heme given persistent Leukocytosis and lymphocytosis Monitor labs/cultures Supportive care LALITHA BAUTISTA MD Nov 29, 2016 08:59
[2016-11-29 11:00] VITALS: BP 132/64
--- NOTE | 2016-11-29 12:08 | PDOC ---
Dialysis Progress Note Dialysis Note Dialysis Note Seen on Hemodialysis, tolerating treatment well for now Vitals on Hemodialysis: 139/72 73 afeb General Appearance: Awake: Alert Oriented x 3 Neck: No JVD or JVP Chest: CTA Shon Heart: S1 S2 Abdomen - Soft NTND Extremities - No Edema ESRD: Dialysis as below F 180 NR 3.5 Hrs (unless otherwise stated on OP Ch Orders) 3 K 2.5 Ca 140 Na 35 HC03 Qb 350 + Qd 500+ Heparin 0 Units Uf dry weight as tolerated May give 25-50 gms of 25% Albumin if needed to maintain Hemodynamic stability Treatment plan reviewed and discussed with bar captain Vitals Vital Signs Vital Signs Date Time Temp Pulse Resp B/P Pulse Ox O2 Delivery O2 Flow Rate FiO2 11/29/16 11:00 98.3 69 20 132/64 98 Nasal Cannula 3.0 98.3 Labs Last Labs Laboratory Tests Test 11/27/16 16:20 11/27/16 16:55 11/27/16 20:20 11/28/16 04:23 Random Vancomycin Level 26.1mcg/mL Glucose (Fingerstick) 174mg/dL (70-99) 197mg/dL (70-99) White Blood Count 24.2x10^3/uL (4.0-11.0) Red Blood Count 4.14x10^6/uL (4.30-5.70) Hemoglobin 11.8g/dL (13.0-17.5) Hematocrit 36.6% (39.0-53.0) Mean Corpuscular Volume 88fL (79-100) Mean Corpuscular Hemoglobin 29pg (25-35) Mean Corpuscular Hemoglobin Concent 32g/dL (31-37) Red Cell Distribution Width 15.5% (11.5-14.5) Platelet Count 420x10^3/uL (140-400) Neutrophils (%) (Auto) 29% (31-73) Lymphocytes (%) (Auto) 63% (24-48) Monocytes (%) (Auto) 6% (0-9) Eosinophils (%) (Auto) 2% (0-3) Basophils (%) (Auto) 0% (0-3) Neutrophils # (Auto) 7.1x10^3uL (1.8-7.7) Lymphocytes # (Auto) 15.2x10^3/uL (1.0-4.8) Monocytes # (Auto) 1.5x10^3/uL (0.0-1.1) Eosinophils # (Auto) 0.4x10^3/uL (0.0-0.7) Basophils # (Auto) 0.0x10^3/uL (0.0-0.2) Test 11/28/16 08:03 11/28/16 09:08 11/28/16 12:48 11/28/16 17:14 Glucose (Fingerstick) 141mg/dL (70-99) 199mg/dL (70-99) 180mg/dL (70-99) Clostridium difficile Toxin (PCR) Negative (Negative) Test 11/28/16 20:25 11/29/16 05:10 11/29/16 07:22 11/29/16 10:48 Glucose (Fingerstick) 277mg/dL (70-99) 109mg/dL (70-99) 158mg/dL (70-99) White Blood Count 26.4x10^3/uL (4.0-11.0) Red Blood Count 3.84x10^6/uL (4.30-5.70) Hemoglobin 11.1g/dL (13.0-17.5) Hematocrit 34.6% (39.0-53.0) Mean Corpuscular Volume 90fL (79-100) Mean Corpuscular Hemoglobin 29pg (25-35) Mean Corpuscular Hemoglobin Concent 32g/dL (31-37) Red Cell Distribution Width 15.3% (11.5-14.5) Platelet Count 449x10^3/uL (140-400) Neutrophils (%) (Auto) 33% (31-73) Lymphocytes (%) (Auto) 59% (24-48) Monocytes (%) (Auto) 6% (0-9) Eosinophils (%) (Auto) 2% (0-3) Basophils (%) (Auto) 0% (0-3) Neutrophils # (Auto) 8.8x10^3uL (1.8-7.7) Lymphocytes # (Auto) 15.5x10^3/uL (1.0-4.8) Monocytes # (Auto) 1.6x10^3/uL (0.0-1.1) Eosinophils # (Auto) 0.5x10^3/uL (0.0-0.7) Basophils # (Auto) 0.1x10^3/uL (0.0-0.2) Sodium Level 142mmol/L (136-145) Potassium Level 4.2mmol/L (3.5-5.1) Chloride Level 99mmol/L (98-107) Carbon Dioxide Level 25mmol/L (21-32) Anion Gap 18 (6-14) Blood Urea Nitrogen 53mg/dL (8-26) Creatinine 13.6mg/dL (0.7-1.3) Estimated GFR (Cockcroft-Gault) 4.4 BUN/Creatinine Ratio 4 (6-20) Glucose Level 135mg/dL (70-99) Calcium Level 8.4mg/dL (8.5-10.1) Magnesium Level 2.3mg/dL (1.8-2.4) Total Bilirubin 0.4mg/dL (0.2-1.0) Aspartate Amino Transf (AST/SGOT) 17U/L (15-37) Alanine Aminotransferase (ALT/SGPT) 12U/L (16-63) Alkaline Phosphatase 70U/L (46-116) Total Protein 7.8g/dL (6.4-8.2) Albumin 2.7g/dL (3.4-5.0) Albumin/Globulin Ratio 0.5 (1.0-1.7) Laboratory Tests Test 11/28/16 12:48 11/28/16 17:14 11/28/16 20:25 11/29/16 05:10 Glucose (Fingerstick) 199mg/dL (70-99) 180mg/dL (70-99) 277mg/dL (70-99) White Blood Count 26.4x10^3/uL (4.0-11.0) Red Blood Count 3.84x10^6/uL (4.30-5.70) Hemoglobin 11.1g/dL (13.0-17.5) Hematocrit 34.6% (39.0-53.0) Mean Corpuscular Volume 90fL (79-100) Mean Corpuscular Hemoglobin 29pg (25-35) Mean Corpuscular Hemoglobin Concent 32g/dL (31-37) Red Cell Distribution Width 15.3% (11.5-14.5) Platelet Count 449x10^3/uL (140-400) Neutrophils (%) (Auto) 33% (31-73) Lymphocytes (%) (Auto) 59% (24-48) Monocytes (%) (Auto) 6% (0-9) Eosinophils (%) (Auto) 2% (0-3) Basophils (%) (Auto) 0% (0-3) Neutrophils # (Auto) 8.8x10^3uL (1.8-7.7) Lymphocytes # (Auto) 15.5x10^3/uL (1.0-4.8) Monocytes # (Auto) 1.6x10^3/uL (0.0-1.1) Eosinophils # (Auto) 0.5x10^3/uL (0.0-0.7) Basophils # (Auto) 0.1x10^3/uL (0.0-0.2) Sodium Level 142mmol/L (136-145) Potassium Level 4.2mmol/L (3.5-5.1) Chloride Level 99mmol/L (98-107) Carbon Dioxide Level 25mmol/L (21-32) Anion Gap 18 (6-14) Blood Urea Nitrogen 53mg/dL (8-26) Creatinine 13.6mg/dL (0.7-1.3) Estimated GFR (Cockcroft-Gault) 4.4 BUN/Creatinine Ratio 4 (6-20) Glucose Level 135mg/dL (70-99) Calcium Level 8.4mg/dL (8.5-10.1) Magnesium Level 2.3mg/dL (1.8-2.4) Total Bilirubin 0.4mg/dL (0.2-1.0) Aspartate Amino Transf (AST/SGOT) 17U/L (15-37) Alanine Aminotransferase (ALT/SGPT) 12U/L (16-63) Alkaline Phosphatase 70U/L (46-116) Total Protein 7.8g/dL (6.4-8.2) Albumin 2.7g/dL (3.4-5.0) Albumin/Globulin Ratio 0.5 (1.0-1.7) Test 11/29/16 07:22 11/29/16 10:48 Glucose (Fingerstick) 109mg/dL (70-99) 158mg/dL (70-99) Assessment Assessment Problems Medical Problems: (1) Acute encephalopathy Status: Acute (2) Elevated troponin Status: Acute (3) End stage renal disease Status: Acute (4) Hypoxia Status: Acute Problems: Plan Plan of Care Problems Medical Problems: (1) Acute encephalopathy Status: Acute (2) Elevated troponin Status: Acute (3) End stage renal disease Status: Acute (4) Hypoxia Status: Acute LEIGH MORALES MD Nov 29, 2016 12:08
--- NOTE | 2016-11-29 14:05 | PDOC ---
PROGRESS NOTES Chief Complaint Chief Complaint Acute encephalopathy, improved Hypoxia, acute on chronic End stage renal disease on HD, Dm2, insulin hypothyroid htn, chronic diastolic CHF leukocytosis plan; 1. fu with renal for HD, fu with ID, off vanco iv and po on 11/29 2. onco consult for leukocytosis with high percentage of lymph 3. cont insulin , SSI ptot dvt, gi ppx History of Present Illness History of Present Illness no event feels well some dyspnea at rest CDIFF NEG, diarrhea better wbc still high as 26 Vitals Vitals Vital Signs Date Time Temp Pulse Resp B/P Pulse Ox O2 Delivery O2 Flow Rate FiO2 11/29/16 11:00 98.3 69 20 132/64 98 Nasal Cannula 3.0 98.3 Physical Exam General: Alert, Oriented X3, Cooperative, No acute distress Heart: Regular rate, No murmurs Lungs: Clear Abdomen: No tenderness, No hepatosplenomegaly Extremities: No clubbing, No cyanosis, No edema Skin: No rashes, No breakdown, No significant lesion Labs LABS Laboratory Tests Test 11/28/16 17:14 11/28/16 20:25 11/29/16 05:10 11/29/16 07:22 Glucose (Fingerstick) 180mg/dL (70-99) 277mg/dL (70-99) 109mg/dL (70-99) White Blood Count 26.4x10^3/uL (4.0-11.0) Red Blood Count 3.84x10^6/uL (4.30-5.70) Hemoglobin 11.1g/dL (13.0-17.5) Hematocrit 34.6% (39.0-53.0) Mean Corpuscular Volume 90fL (79-100) Mean Corpuscular Hemoglobin 29pg (25-35) Mean Corpuscular Hemoglobin Concent 32g/dL (31-37) Red Cell Distribution Width 15.3% (11.5-14.5) Platelet Count 449x10^3/uL (140-400) Neutrophils (%) (Auto) 33% (31-73) Lymphocytes (%) (Auto) 59% (24-48) Monocytes (%) (Auto) 6% (0-9) Eosinophils (%) (Auto) 2% (0-3) Basophils (%) (Auto) 0% (0-3) Neutrophils # (Auto) 8.8x10^3uL (1.8-7.7) Lymphocytes # (Auto) 15.5x10^3/uL (1.0-4.8) Monocytes # (Auto) 1.6x10^3/uL (0.0-1.1) Eosinophils # (Auto) 0.5x10^3/uL (0.0-0.7) Basophils # (Auto) 0.1x10^3/uL (0.0-0.2) Sodium Level 142mmol/L (136-145) Potassium Level 4.2mmol/L (3.5-5.1) Chloride Level 99mmol/L (98-107) Carbon Dioxide Level 25mmol/L (21-32) Anion Gap 18 (6-14) Blood Urea Nitrogen 53mg/dL (8-26) Creatinine 13.6mg/dL (0.7-1.3) Estimated GFR (Cockcroft-Gault) 4.4 BUN/Creatinine Ratio 4 (6-20) Glucose Level 135mg/dL (70-99) Calcium Level 8.4mg/dL (8.5-10.1) Magnesium Level 2.3mg/dL (1.8-2.4) Total Bilirubin 0.4mg/dL (0.2-1.0) Aspartate Amino Transf (AST/SGOT) 17U/L (15-37) Alanine Aminotransferase (ALT/SGPT) 12U/L (16-63) Alkaline Phosphatase 70U/L (46-116) Total Protein 7.8g/dL (6.4-8.2) Albumin 2.7g/dL (3.4-5.0) Albumin/Globulin Ratio 0.5 (1.0-1.7) Test 11/29/16 10:48 Glucose (Fingerstick) 158mg/dL (70-99) Review of Systems Review of Systems no fever, chills, sob, chest pain Assessment and Plan Assessmemt and Plan Problems Medical Problems: (1) Acute encephalopathy Status: Acute (2) Elevated troponin Status: Acute (3) End stage renal disease Status: Acute (4) Hypoxia Status: Acute Problems: Comment Review of Relevant I have reviewed the following items marli (where applicable) has been applied. Labs Laboratory Tests Test 11/27/16 16:20 11/27/16 16:55 11/27/16 20:20 11/28/16 04:23 Random Vancomycin Level 26.1mcg/mL Glucose (Fingerstick) 174mg/dL (70-99) 197mg/dL (70-99) White Blood Count 24.2x10^3/uL (4.0-11.0) Red Blood Count 4.14x10^6/uL (4.30-5.70) Hemoglobin 11.8g/dL (13.0-17.5) Hematocrit 36.6% (39.0-53.0) Mean Corpuscular Volume 88fL (79-100) Mean Corpuscular Hemoglobin 29pg (25-35) Mean Corpuscular Hemoglobin Concent 32g/dL (31-37) Red Cell Distribution Width 15.5% (11.5-14.5) Platelet Count 420x10^3/uL (140-400) Neutrophils (%) (Auto) 29% (31-73) Lymphocytes (%) (Auto) 63% (24-48) Monocytes (%) (Auto) 6% (0-9) Eosinophils (%) (Auto) 2% (0-3) Basophils (%) (Auto) 0% (0-3) Neutrophils # (Auto) 7.1x10^3uL (1.8-7.7) Lymphocytes # (Auto) 15.2x10^3/uL (1.0-4.8) Monocytes # (Auto) 1.5x10^3/uL (0.0-1.1) Eosinophils # (Auto) 0.4x10^3/uL (0.0-0.7) Basophils # (Auto) 0.0x10^3/uL (0.0-0.2) Test 11/28/16 08:03 11/28/16 09:08 11/28/16 12:48 11/28/16 17:14 Glucose (Fingerstick) 141mg/dL (70-99) 199mg/dL (70-99) 180mg/dL (70-99) Clostridium difficile Toxin (PCR) Negative (Negative) Test 11/28/16 20:25 11/29/16 05:10 11/29/16 07:22 11/29/16 10:48 Glucose (Fingerstick) 277mg/dL (70-99) 109mg/dL (70-99) 158mg/dL (70-99) White Blood Count 26.4x10^3/uL (4.0-11.0) Red Blood Count 3.84x10^6/uL (4.30-5.70) Hemoglobin 11.1g/dL (13.0-17.5) Hematocrit 34.6% (39.0-53.0) Mean Corpuscular Volume 90fL (79-100) Mean Corpuscular Hemoglobin 29pg (25-35) Mean Corpuscular Hemoglobin Concent 32g/dL (31-37) Red Cell Distribution Width 15.3% (11.5-14.5) Platelet Count 449x10^3/uL (140-400) Neutrophils (%) (Auto) 33% (31-73) Lymphocytes (%) (Auto) 59% (24-48) Monocytes (%) (Auto) 6% (0-9) Eosinophils (%) (Auto) 2% (0-3) Basophils (%) (Auto) 0% (0-3) Neutrophils # (Auto) 8.8x10^3uL (1.8-7.7) Lymphocytes # (Auto) 15.5x10^3/uL (1.0-4.8) Monocytes # (Auto) 1.6x10^3/uL (0.0-1.1) Eosinophils # (Auto) 0.5x10^3/uL (0.0-0.7) Basophils # (Auto) 0.1x10^3/uL (0.0-0.2) Sodium Level 142mmol/L (136-145) Potassium Level 4.2mmol/L (3.5-5.1) Chloride Level 99mmol/L (98-107) Carbon Dioxide Level 25mmol/L (21-32) Anion Gap 18 (6-14) Blood Urea Nitrogen 53mg/dL (8-26) Creatinine 13.6mg/dL (0.7-1.3) Estimated GFR (Cockcroft-Gault) 4.4 BUN/Creatinine Ratio 4 (6-20) Glucose Level 135mg/dL (70-99) Calcium Level 8.4mg/dL (8.5-10.1) Magnesium Level 2.3mg/dL (1.8-2.4) Total Bilirubin 0.4mg/dL (0.2-1.0) Aspartate Amino Transf (AST/SGOT) 17U/L (15-37) Alanine Aminotransferase (ALT/SGPT) 12U/L (16-63) Alkaline Phosphatase 70U/L (46-116) Total Protein 7.8g/dL (6.4-8.2) Albumin 2.7g/dL (3.4-5.0) Albumin/Globulin Ratio 0.5 (1.0-1.7) Laboratory Tests Test 11/28/16 17:14 11/28/16 20:25 11/29/16 05:10 11/29/16 07:22 Glucose (Fingerstick) 180mg/dL (70-99) 277mg/dL (70-99) 109mg/dL (70-99) White Blood Count 26.4x10^3/uL (4.0-11.0) Red Blood Count 3.84x10^6/uL (4.30-5.70) Hemoglobin 11.1g/dL (13.0-17.5) Hematocrit 34.6% (39.0-53.0) Mean Corpuscular Volume 90fL (79-100) Mean Corpuscular Hemoglobin 29pg (25-35) Mean Corpuscular Hemoglobin Concent 32g/dL (31-37) Red Cell Distribution Width 15.3% (11.5-14.5) Platelet Count 449x10^3/uL (140-400) Neutrophils (%) (Auto) 33% (31-73) Lymphocytes (%) (Auto) 59% (24-48) Monocytes (%) (Auto) 6% (0-9) Eosinophils (%) (Auto) 2% (0-3) Basophils (%) (Auto) 0% (0-3) Neutrophils # (Auto) 8.8x10^3uL (1.8-7.7) Lymphocytes # (Auto) 15.5x10^3/uL (1.0-4.8) Monocytes # (Auto) 1.6x10^3/uL (0.0-1.1) Eosinophils # (Auto) 0.5x10^3/uL (0.0-0.7) Basophils # (Auto) 0.1x10^3/uL (0.0-0.2) Sodium Level 142mmol/L (136-145) Potassium Level 4.2mmol/L (3.5-5.1) Chloride Level 99mmol/L (98-107) Carbon Dioxide Level 25mmol/L (21-32) Anion Gap 18 (6-14) Blood Urea Nitrogen 53mg/dL (8-26) Creatinine 13.6mg/dL (0.7-1.3) Estimated GFR (Cockcroft-Gault) 4.4 BUN/Creatinine Ratio 4 (6-20) Glucose Level 135mg/dL (70-99) Calcium Level 8.4mg/dL (8.5-10.1) Magnesium Level 2.3mg/dL (1.8-2.4) Total Bilirubin 0.4mg/dL (0.2-1.0) Aspartate Amino Transf (AST/SGOT) 17U/L (15-37) Alanine Aminotransferase (ALT/SGPT) 12U/L (16-63) Alkaline Phosphatase 70U/L (46-116) Total Protein 7.8g/dL (6.4-8.2) Albumin 2.7g/dL (3.4-5.0) Albumin/Globulin Ratio 0.5 (1.0-1.7) Test 11/29/16 10:48 Glucose (Fingerstick) 158mg/dL (70-99) Microbiology 11/23/16 Blood Culture - Final, Complete NO GROWTH AFTER 5 DAYS Medications Current Medications Ondansetron HCl (Zofran) 4 mg PRN Q8HRS PRN IV NAUSEA/VOMITING; Start 11/23/16 at 15:15; Stop 11/24/16 at 00:07; Status DC Acetaminophen (Tylenol) 650 mg PRN Q4HRS PRN PO FEVER; Start 11/23/16 at 15:15 ; Stop 11/24/16 at 00:06; Status DC Acetaminophen (Tylenol) 325 mg PRN Q6HRS PRN PO MILD PAIN / TEMP; Start at 18:45; Stop 11/24/16 at 00:06; Status DC Acetaminophen/ Hydrocodone Bitart (Lortab 5/325) 1 tab PRN Q6HRS PRN PO MODERATE TO SEVERE PAIN Last administered on 11/24/16 21:43; Start 11/23/16 at 18:45 Hydralazine HCl (Apresoline) 10 mg PRN Q4HRS PRN IVP ELEVATED BP, SEE COMMENTS ; Start 11/23/16 at 18:45 Ondansetron HCl (Zofran) 4 mg PRN Q8HRS PRN IV NAUSEA/VOMITING; Start 11/23/16 at 18:45 Albuterol Sulfate (Ventolin Neb Soln) 2.5 mg PRN Q4HRS PRN NEB SHORTNESS OF BREATH Last administered on 11/26/16 19:31; Start 11/23/16 at 18:45 Acetaminophen (Tylenol) 500 mg PRN TID PRN PO MILD PAIN/TEMP; Start 11/24/16 at 00:00 Amlodipine Besylate (Norvasc) 10 mg DAILY PO Last administered on 11/29/16 08: 01; Start 11/24/16 at 09:00 Aspirin (Ecotrin) 325 mg DAILY PO Last administered on 11/29/16 08:02; Start 11/24/16 at 09:00 Atorvastatin Calcium (Lipitor) 5 mg HS PO Last administered on 11/28/16 20:44 ; Start 11/24/16 at 21:00 Calcium Acetate (Phoslo) 667 mg TIDAC PO Last administered on 11/29/16 08:01; Start 11/24/16 at 07:30 Calcium Carbonate/ Glycine (Tums) 500 mg PRN Q6HRS PRN PO HEARTBURN / GAS; Start 11/24/16 at 00:00 Colestipol HCl (Colestid) 1 gm DAILY PO Last administered on 11/29/16 08:02; Start 11/24/16 at 09:00 Diphenhydramine HCl (Benadryl) 25 mg PRN Q6HRS PRN PO ITCHING; Start 11/24/16 at 00:00 Gabapentin (Neurontin) 300 mg HS PO Last administered on 11/28/16 20:44; Start 11/24/16 at 21:00 Insulin Detemir (Levemir) 25 units HS SQ Last administered on 11/28/16 20:48; Start 11/24/16 at 21:00 Albuterol/ Ipratropium (Duoneb) 3 ml TID NEB Last administered on 11/26/16 11: 40; Start 11/24/16 at 09:00; Stop 11/26/16 at 14:52; Status DC Levothyroxine Sodium (Synthroid) 75 mcg DAILY07 PO Last administered on 06:12; Start 11/24/16 at 07:00 Multi-Ingred Cream/Lotion/Oil/ Oint (Hydrocerin) 1 michela QID TP Last administered on 11/29/16 08:02; Start 11/24/16 at 09:00 Nitroglycerin (Nitrostat) 0.4 mg PRN Q5MIN PRN SL CHEST PAIN; Start 11/24/16 at 00:00 Polyethylene Glycol (miraLAX PACKET) 17 gm DAILY PO Last administered on 08:02; Start 11/24/16 at 09:00 Trazodone HCl (Desyrel) 50 mg QHS PO Last administered on 11/28/16 20:44; Start 11/24/16 at 21:00 Non-Formulary Medication 3 mg 3 mg HS PO ; Start 11/24/16 at 21:00; Status UNV Sodium Chloride (Iv Sodium Chloride 0.9% 1000ml Bag) 1,000 ml @ 1,000 mls/hr Q1H PRN IV hypotension; Start 11/24/16 at 11:18; Stop 11/24/16 at 17:17; Status DC Diphenhydramine HCl (Benadryl) 25 mg 1X PRN PRN IV ITCHING; Start 11/24/16 at 11:30; Stop 11/25/16 at 11:29; Status DC Diphenhydramine HCl (Benadryl) 25 mg 1X PRN PRN IV ITCHING; Start 11/24/16 at 11:30; Stop 11/25/16 at 11:29; Status DC Info (PHARMACY MONITORING -- do not chart) 1 each PRN DAILY PRN MC SEE COMMENTS ; Start 11/24/16 at 11:30 Iohexol (Omnipaque 300 Mg/ml) 75 ml 1X ONCE IV ; Start 11/25/16 at 07:30; Stop 11/25/16 at 07:31; Status DC Iohexol (Omnipaque 240 Mg/ml) 30 ml 1X ONCE PO ; Start 11/25/16 at 07:30; Stop 11/25/16 at 07:31; Status DC Metoprolol Tartrate (Lopressor) 12.5 mg BID PO ; Start 11/25/16 at 11:00; Stop 11/25/16 at 11:00; Status DC Isosorbide Mononitrate (Imdur) 30 mg DAILY PO Last administered on 11/29/16 08 :01; Start 11/25/16 at 11:00 Vancomycin HCl 1 each 1 each PRN DAILY PRN MC SEE COMMENTS Last administered on 11/28/16 14:25; Start 11/25/16 at 11:15; Stop 11/29/16 at 08:59; Status DC Piperacillin Sod/ Tazobactam Sod 2.25 gm/Sodium Chloride 50 ml @ 100 mls/hr Q6HRS IV Last administered on 11/27/16 11:37; Start 11/25/16 at 12:00; Stop at 13:59; Status DC Vancomycin HCl/ Sodium Chloride (Iv Sodium Chloride 0.9% 500ml Bag) 500 ml @ 250 mls/hr 1X ONCE IV Last administered on 11/25/16 13:28; Start 11/25/16 at 12:00; Stop 11/25/16 at 13:59; Status DC Vancomycin HCl 1 each 1 each 1X ONCE MC Last administered on 11/27/16 16:00; Start 11/27/16 at 16:00; Stop 11/27/16 at 16:01; Status DC Sodium Chloride 1,000 ml @ 1,000 mls/hr Q1H PRN IV hypotension; Start 11/26/16 at 07:36; Stop 11/26/16 at 13:35; Status DC Albumin Human (Albuminar) 200 ml @ 200 mls/hr 1X PRN PRN IV Hypotension; Start 11/26/16 at 07:45; Stop 11/26/16 at 13:44; Status DC Info (PHARMACY MONITORING -- do not chart) 1 each PRN DAILY PRN MC SEE COMMENTS ; Start 11/26/16 at 07:45; Status UNV Info (PHARMACY MONITORING -- do not chart) 1 each PRN DAILY PRN MC SEE COMMENTS ; Start 11/26/16 at 07:45; Status UNV Albuterol/ Ipratropium (Duoneb) 3 ml RTQID NEB Last administered on 11/29/16 10:54; Start 11/26/16 at 16:00 Vancomycin HCl 125 mg 125 mg [id number] PO Last administered on 11/29/16 08:00; Start 11/28/16 at 14:00; Stop 11/29/16 at 08:59; Status DC Vancomycin HCl/ Sodium Chloride (Iv Sodium Chloride 0.9% 100ml) 100 ml @ 100 mls/hr QMWF IV ; Start 11/29/16 at 16:00; Stop 11/29/16 at 16:00; Status DC Active Scripts Active Reported Trazodone Hcl 50 Mg Tablet 0.5 Tab PO QHS Melatonin 3 Mg Tab.rapdis 3 Mg PO HS Duoneb 0.5-3(2.5) Mg/3 Ml (Albuterol/Ipratropium) 3 Ml Ampul.neb 3 Ml NEB TID Colestipol Hcl 1 Gm Tablet 1 Gm PO DAILY Eucerin Creme (Mineral Oil/White Petrolatum) 120 Gm Cream..g. 1 Michela TP QID Atorvastatin Calcium 10 Mg Tablet 5 Mg PO HS Take next dose tonight 12/20/15 at bedtime Aspir-Lorin (Aspirin) 325 Mg Tablet.dr 325 Mg PO DAILY Take next dose tomorrow 12/21/15 in AM Amlodipine Besylate 10 Mg Tablet 10 Mg PO DAILY Take next tomorrow 12/21/15 in AM Levemir Flextouch (Insulin Detemir) 100 Unit/1 Ml Insuln.pen 25 Unit SQ HS TAKE NEXT DOSE TONIGHT 12/20/15 AT BEDTIME Polyethylene Glycol 3350 255 Gm Powder 17 Gm PO DAILY TAKE DAILY NEEDED FOR CONSTIPATION Nitrostat (Nitroglycerin) 0.4 Mg Tab.subl 0.4 Mg SL PRN Q5MIN PRN Benadryl (Diphenhydramine Hcl) 25 Mg Capsule 25 Mg PO PRN Q6HRS PRN TAKE NEEDED Acetaminophen 500 Mg Tablet 500 Mg PO PRN TID PRN Loratadine 10 Mg Tablet 10 Mg PO DAILY TAKE NEXT DOSE TOMORROW 12/21/15 IN AM Calcium Acetate 667 Mg Capsule 667 Mg PO TIDAC TAKE NEXT DOSE TONIGHT 05/19/15 AT BEDTIME Levothyroxine Sodium 75 Mcg Tablet 75 Mcg PO DAILY TAKE NEXT DOSE TOMORROW 12/21/15 IN AM Tums (Calcium Carbonate) 200 Mg Tab.chew 200 Mg PO PRN Q6HRS PRN Tramadol Hcl 50 Mg Tablet 100 Mg PO BID PRN Gabapentin 300 Mg Capsule 300 Mg PO HS TAKE NEXT DOSE TONIGHT 12/20/15 AT BEDTIME Vitals/I & O Vital Sign - Last 24 Hours 11/28/16 11/28/16 11/28/16 11/28/16 15:00 16:31 19:00 19:03 Temp 97.5 98.1 97.5 98.1 Pulse 82 81 Resp 18 16 B/P 131/60 155/65 Pulse Ox 93 90 O2 Delivery Nasal Cannula Nasal Cannula Nasal Cannula Nasal Cannula O2 Flow Rate 3.0 3.0 3.0 3.0 11/28/16 11/28/16 11/29/16 11/29/16 20:00 22:36 03:00 06:23 Temp 96.3 97.8 96.3 97.8 Pulse 82 77 Resp 16 18 B/P 117/56 136/55 Pulse Ox 99 91 96 O2 Delivery Nasal Cannula Nasal Cannula Nasal Cannula Nasal Cannula O2 Flow Rate 3.0 3.0 3.0 3.0 11/29/16 11/29/16 11/29/16 11/29/16 07:00 08:00 08:01 08:01 Temp 98.4 98.4 Pulse 73 73 73 Resp 20 B/P 133/57 133/57 133/57 Pulse Ox 94 O2 Delivery Nasal Cannula Nasal Cannula O2 Flow Rate 3.0 3.0 11/29/16 11/29/16 10:54 11:00 Temp 98.3 98.3 Pulse 69 Resp 20 B/P 132/64 Pulse Ox 91 98 O2 Delivery Nasal Cannula Nasal Cannula O2 Flow Rate 3.0 3.0 Intake and Output 11/28/16 11/28/16 11/29/16 15:00 23:00 07:00 Intake Total 480 ml 1180 ml 300 ml Balance 480 ml 1180 ml 300 ml ARMANDO BO MD Nov 29, 2016 14:05
--- NOTE | 2016-11-29 14:18 | PDOC ---
Provider Note Provider Note Hem/Onc consult 1. Leukocytosis suspicious for CLL I will order flow cytometry See dictation [id number] VIRGIE VIDAL MD Nov 29, 2016 14:18
[2016-11-29 15:00] VITALS: BP 134/64
[2016-11-29] MEDS ORDERED: VANCOMYCIN 500 MG in IV NORMAL SALINE 100ML 100 ML IV SCH (16:00)
[2016-11-29 19:26] VITALS: BP 152/65
[2016-11-29] MEDS: traZODone 50 MG TABLET. PO SCH (20:25)
[2016-11-29] MEDS: INSULIN DETEMIR 300 UNITS/3 ML INSULN.PEN. SQ SCH (20:25)
[2016-11-29] MEDS: ATORVASTATIN CALCIUM 10 MG TABLET. PO SCH (20:25)
[2016-11-29] MEDS: GABAPENTIN 300 MG CAPSULE. PO SCH (20:25)
[2016-11-29 23:24] VITALS: BP 150/65
--- NOTE | 2016-11-30 00:37 | CONS ---
DATE OF CONSULTATION: 11/29/2016 REQUESTING PHYSICIAN: Dr. Niall Devries REASON FOR CONSULTATION: Leukocytosis and lymphocytosis. HISTORY OF PRESENT ILLNESS: The patient is a 71-year-old -[place] gentleman who reports having had chronic leukocytosis and lymphocytosis and he follows up at [facility]. When asked if he has leukemia, he mentioned that he does think that he has leukemia. He was admitted to [facility] on 11/23/2016 with altered mental status. He was noted to be hypoxic at his residence at [facility]. He was confused and was wandering in the halls half dressed. His oxygen saturation was 80%. He was placed on oxygen. He underwent chest x-ray which showed mild CHF. No fever. He was noted to have leukocytosis with a WBC of 24.8 on 11/23/2016 with absolute lymphocyte count of 17.2. Peripheral smears have revealed evidence of atypical lymphocytes and hence I was consulted for further evaluation. His WBC count worsened on 11/29/2016 to 26.4 and hence I was consulted. PAST MEDICAL HISTORY: CVA, GERD, dyslipidemia, hypertension, hypothyroidism, myocardial infarction, renal failure, insomnia. SOCIAL HISTORY: He has a [id number] smoking history. FAMILY HISTORY: Negative for leukemia. REVIEW OF SYSTEMS: A 12-point review of systems was performed. Pertinent positives are mentioned in the history of present illness. Rest of the system review is negative. PHYSICAL EXAMINATION: GENERAL APPEARANCE: The patient is a 71-year-old -[place] gentleman who is in no acute cardiorespiratory distress. VITAL SIGNS: Blood pressure 132/64, temperature 98.3. HEAD: Atraumatic, normocephalic. EYES: No icterus. NECK: Supple. CHEST: Bilaterally symmetrical. HEART: S1, S2 normal. ABDOMEN: Soft, nontender. CENTRAL NERVOUS SYSTEM: No focal deficits. LYMPHATICS: No lymphadenopathy. SKIN: No rashes. PSYCHOLOGIC: Mood and affect are appropriate. MUSCULOSKELETAL: No joint effusions. LABORATORY DATA: WBC 26.4, hemoglobin 11.1, platelet count 449, absolute lymphocyte count 15.5. Peripheral blood smear reveals evidence of elevated lymphocytes and atypical lymphocytes. Creatinine is 13.6. IMPRESSION AND PLAN: 1. Chronic leukocytosis and lymphocytosis. It is clinically concerning for chronic lymphocytic leukemia. The patient reports having been evaluated at [facility] and I will obtain the records from [facility]. Even he does have confirmed CLL, this would be considered as stage 0 chronic lymphocytic leukemia and it would not require any chemotherapy at this point. I discussed in detail with the patient. He understands and agrees with continued followup. 2. End-stage renal disease. He is on hemodialysis. 3. Acute hypoxic type respiratory failure, improved. Management per Pulmonary Medicine. VIRGIE VIDAL MD DR: JANE/jc JOB#: [id number] / [id number] YOHANNES
[2016-11-30 03:11] VITALS: BP 154/68
[2016-11-30] MEDS: LEVOTHYROXINE 75 MCG TABLET PO SCH (06:01)
[2016-11-30 07:00] VITALS: BP 144/65
[2016-11-30] MEDS: ASPIRIN ENTERIC COATED 325 MG TABLET.DR. PO SCH (08:40)
[2016-11-30] MEDS: AMLODIPINE BESYLATE 10 MG TABLET PO SCH (08:40)
[2016-11-30] MEDS: CALCIUM ACETATE 667 MG CAPSULE PO SCH ×3 (08:41→16:30)
[2016-11-30] MEDS: POLYETHYLENE GLYCOL 3350 17 GM PACKET. PO SCH (08:41)
[2016-11-30] MEDS: ISOSORBIDE MONONITRATE ER 30 MG TAB.ER.24H PO SCH (08:41)
[2016-11-30] MEDS: COLESTIPOL HCL 1 GM TABLET PO SCH (08:41)
[2016-11-30] MEDS: MINERAL OIL/PETROLATUM TOPICAL CREAM 113GM JAR. TP SCH ×2 (08:44→13:00)
[2016-11-30] MEDS: IPRATRPIUM/ALBUTEROL 0.5/2.5MG 3 ML NEBU. NEB SCH ×3 (09:07→15:51)
--- NOTE | 2016-11-30 09:07 | PDOC ---
Provider Note Provider Note DATE OF SERVICE: 11/30/2016 c/c: f/u of CLL Leukocytosis and lymphocytosis. HISTORY OF PRESENT ILLNESS: The patient is a 71-year-old -[place] gentleman who reports having had chronic leukocytosis and lymphocytosis and he follows up at [facility]. He was admitted to [facility] on 11/23/2016 with altered mental status. He was noted to be hypoxic at his residence at [facility]. He was confused and was wandering in the halls half dressed. His oxygen saturation was 80%. He was placed on oxygen. He underwent chest x-ray which showed mild CHF. No fever. He was noted to have leukocytosis with a WBC of 24.8 on 11/23/2016 with absolute lymphocyte count of 17.2. Peripheral smears have revealed evidence of atypical lymphocytes and hence I was consulted for further evaluation. His WBC count worsened on 11/29/2016 to 26.4 and hence I was consulted. PAST MEDICAL HISTORY: CVA, GERD, dyslipidemia, hypertension, hypothyroidism, myocardial infarction, renal failure, insomnia. REVIEW OF SYSTEMS: no CP PHYSICAL EXAMINATION: GENERAL APPEARANCE: The patient is a 71-year-old -[place] gentleman who is in no acute cardiorespiratory distress. CHEST: Bilaterally symmetrical. HEART: S1, S2 normal. ABDOMEN: Soft, nontender. CENTRAL NERVOUS SYSTEM: No focal deficits. LABORATORY DATA: WBC 26.4, hemoglobin 11.1, platelet count 449, absolute lymphocyte count 15.5. Peripheral blood smear reveals evidence of elevated lymphocytes and atypical lymphocytes. Creatinine is 13.6. IMPRESSION AND PLAN: 1. CLL - Chronic leukocytosis and lymphocytosis. I reviewed records from [facility]. This would be considered as stage 0 chronic lymphocytic leukemia and it would not require any chemotherapy at this point. I discussed in detail with the patient. He understands and agrees with continued followup. 2. End-stage renal disease. He is on hemodialysis. 3. Acute hypoxic type respiratory failure, improved. Management per Pulmonary Medicine. VIRGIE VIDAL MD Nov 30, 2016 09:07
--- NOTE | 2016-11-30 09:10 | PDOC ---
Infectious Disease Note Subjective Subjective Comfortable Appetite ok No diarrhea today No cramps/N/V Wants to go home ROS ROS GEN: Denies fevers, chills, sweats HEENT: Denies blurred vision, sore throat CV: Denies chest pain RESP: Denies shortness of air, cough GI: Denies n/v/d NEURO: Denies confusion, dizziness MSK: Denies weakness, joint pain/swelling Vital Sign Vital Signs Vital Signs Date Time Temp Pulse Resp B/P Pulse Ox O2 Delivery O2 Flow Rate FiO2 11/30/16 08:41 69 144/65 11/30/16 07:00 98.5 18 94 98.5 11/30/16 03:11 Room Air 11/29/16 23:24 3.0 Physical Exam PHYSICAL EXAM GENERAL: Propped up in bed, alert, NAD. Looks well HEENT: Oral cavity pink and moist NECK: Supple, no JVD, no LN LUNGS: Clear HEART: S1S2, no gallop, no murmur ABD: Soft, NT, BS present EXT: No edema, no cyanosis. LUE AV fistula QA TECH: Alert, oriented SKIN: No rash IV: ok Labs Lab Laboratory Tests Test 11/29/16 10:48 11/29/16 17:18 11/29/16 20:16 Glucose (Fingerstick) 158mg/dL (70-99) 216mg/dL (70-99) 203mg/dL (70-99) Objective Assessment Leukocytosis ? etiology. Appreciate Dr. Kennedy stroud Lymphocytosis Hypoxia, CHF ESRD/HD Plan Plan of Care Cont off LALITHA Zapata MD Nov 30, 2016 09:10
[2016-11-30 09:52] LABS: CALCIUM 9.5 mg/dL (8.5-10.1); CREATININE 10.1 mg/dL (0.7-1.3); GFR 6.1; POTASSIUM 4.8 mmol/L (3.5-5.1)
[2016-11-30 09:54] LABS: BASO % 0 % (0-3); EOS % 2 % (0-3); HEMATOCRIT 37.7 % (39.0-53.0); HEMOGLOBIN 12.4 g/dL (13.0-17.5); LYMPH # 14.1 x10^3/uL (1.0-4.8); LYMPH % 56 % (24-48); MEAN CORPUSCULAR HEMOGLOBIN 29 pg (25-35); MEAN CORPUSCULAR HGB CONC 33 g/dL (31-37); MEAN CORPUSCULAR VOLUME 88 fL (79-100); MONO % 5 % (0-9); NEUT % 37 % (31-73); PLATELET COUNT 504 x10^3/uL (140-400); RED BLOOD COUNT 4.28 x10^6/uL (4.30-5.70); RED CELL DISTRIBUTION WIDTH 15.3 % (11.5-14.5); WHITE BLOOD COUNT 25.1 x10^3/uL (4.0-11.0)
--- NOTE | 2016-11-30 10:15 | PDOC ---
SUBJECTIVE ROS F/up ESRD Feeling "fine" CVS: no Orthopnea, no CP RESP: no SOB, no JIMENEZ GI: no Nausea, no Vomiting : no Dysuria, no Urgency OBJECTIVE Vital Signs Vital Signs Date Time Temp Pulse Resp B/P Pulse Ox O2 Delivery O2 Flow Rate FiO2 11/30/16 09:09 95 Nasal Cannula 3.0 11/30/16 08:41 69 144/65 11/30/16 07:00 98.5 18 98.5 I & 0 Intake and Output 11/30/16 07:00 Intake Total 560 ml Output Total 200 ml Balance 360 ml Intake Oral 560 ml Output Urine Total 200 ml PHYSICAL EXAM Physical Exam GEN: Awake, Oriented x 3, In no distress EYES: Vision Unchanged, Conjunctiva Normal EN: No EN Drainage, Mucous Membranes moist NECK: no JVD, min JVP, Supple, no Thyromegaly CVS: S1S2, soft Murmur, No Gallop, No Rub,no Edema RESP: no Rales, occ Rhonchi,no Acc. Muscle Use GI: BS + ve, NO Bruit, Non Tender, Non Distended : no CVA tenderness, no Suprapubic Tenderness DIAGNOSIS/ASSESSMENT Assessment & Plan ESRD: Current fluid and E-lyte status does not necessitate emergent need for dialysis. Will re-evaluate for dialysis in the am and continue on MWF schedule. ANEMIA; NO Aranesp ordered for hgb > 11, Transfuse with next HD as needed HTN: Current BP meds as reviewed. See orders for changes. H/o HyperPhos - ct current binder regimen for now. Follow phos and alter regimen as needed Discussed Plan of Care with family [] at bedside [] over the phone Problems: COMMENT/RELEVANT DATA Meds Current Medications Medications (Trade) Dose Ordered Sig/Zeus Start Time Stop Time Status Last Admin Dose Admin Acetaminophen (Tylenol) 500 mg PRN TID PRN 11/24/16 00:00 Acetaminophen/ Hydrocodone Bitart (Lortab 5/325) 1 tab PRN Q6HRS PRN 11/23/16 18:45 11/24/16 21:43 1 TAB Albumin Human (Albuminar) 200 ml @ 200 mls/hr 1X PRN PRN 11/26/16 07:45 11/26/16 13:44 DC Albuterol Sulfate (Ventolin Neb Soln) 2.5 mg PRN Q4HRS PRN 11/23/16 18:45 11/26/16 19:31 2.5 MG Albuterol/ Ipratropium (Duoneb) 3 ml RTQID 11/26/16 16:00 11/30/16 09:07 3 ML Amlodipine Besylate (Norvasc) 10 mg DAILY 11/24/16 09:00 11/30/16 08:40 10 MG Aspirin (Ecotrin) 325 mg DAILY 11/24/16 09:00 11/30/16 08:40 325 MG Atorvastatin Calcium (Lipitor) 5 mg HS 11/24/16 21:00 11/29/16 20:25 5 MG Calcium Acetate (Phoslo) 667 mg TIDAC 11/24/16 07:30 11/30/16 08:41 667 MG Calcium Carbonate/ Glycine (Tums) 500 mg PRN Q6HRS PRN 11/24/16 00:00 Colestipol HCl (Colestid) 1 gm DAILY 11/24/16 09:00 11/30/16 08:41 1 GM Diphenhydramine HCl (Benadryl) 25 mg 1X PRN PRN 11/24/16 11:30 11/25/16 11:29 DC Gabapentin (Neurontin) 300 mg HS 11/24/16 21:00 11/29/16 20:25 300 MG Hydralazine HCl (Apresoline) 10 mg PRN Q4HRS PRN 11/23/16 18:45 Info (PHARMACY MONITORING -- do not chart) 1 each PRN DAILY PRN 11/26/16 07:45 UNV Insulin Detemir (Levemir) 25 units HS 11/24/16 21:00 11/29/16 20:25 25 UNITS Iohexol (Omnipaque 240 Mg/ml) 30 ml 1X ONCE 11/25/16 07:30 11/25/16 07:31 DC Iohexol (Omnipaque 300 Mg/ml) 75 ml 1X ONCE 11/25/16 07:30 11/25/16 07:31 DC Isosorbide Mononitrate 30 mg 30 mg DAILY 11/25/16 11:00 11/30/16 08:41 30 MG Levothyroxine Sodium (Synthroid) 75 mcg DAILY07 11/24/16 07:00 11/30/16 06:01 75 MCG Metoprolol Tartrate (Lopressor) 12.5 mg BID 11/25/16 11:00 11/25/16 11:00 DC Multi-Ingred Cream/Lotion/Oil/ Oint (Hydrocerin) 1 eren QID 11/24/16 09:00 11/30/16 08:44 1 EREN Nitroglycerin (Nitrostat) 0.4 mg PRN Q5MIN PRN 11/24/16 00:00 Non-Formulary Medication 3 mg 3 mg HS 11/24/16 21:00 UNV Ondansetron HCl (Zofran) 4 mg PRN Q8HRS PRN 11/23/16 18:45 Piperacillin Sod/ Tazobactam Sod 2.25 gm/Sodium Chloride 50 ml @ 100 mls/hr Q6HRS 11/25/16 12:00 11/27/16 13:59 DC 11/27/16 11:37 100 MLS/HR Polyethylene Glycol (miraLAX PACKET) 17 gm DAILY 11/24/16 09:00 11/29/16 08:02 17 GM Sodium Chloride 1,000 ml @ 1,000 mls/hr Q1H PRN 11/26/16 07:36 11/26/16 13:35 DC Sodium Chloride (Iv Sodium Chloride 0.9% 1000ml Bag) 1,000 ml @ 1,000 mls/hr Q1H PRN 11/24/16 11:18 11/24/16 17:17 DC Trazodone HCl (Desyrel) 50 mg QHS 11/24/16 21:00 11/29/16 20:25 50 MG Vancomycin HCl 125 mg 125 mg [id number] 11/28/16 14:00 11/29/16 08:59 DC 11/29/16 08:00 125 MG Vancomycin HCl 1 each 1 each 1X ONCE 11/27/16 16:00 11/27/16 16:01 DC 11/27/16 16:00 1 EACH Vancomycin HCl/ Sodium Chloride (Iv Sodium Chloride 0.9% 100ml) 100 ml @ 100 mls/hr QMWF 11/29/16 16:00 11/29/16 16:00 DC Vancomycin HCl/ Sodium Chloride (Iv Sodium Chloride 0.9% 500ml Bag) 500 ml @ 250 mls/hr 1X ONCE 11/25/16 12:00 11/25/16 13:59 DC 11/25/16 13:28 250 MLS/HR Lab Laboratory Tests Test 11/29/16 10:48 11/29/16 17:18 11/29/16 20:16 11/30/16 07:18 Glucose (Fingerstick) 158mg/dL (70-99) 216mg/dL (70-99) 203mg/dL (70-99) 261mg/dL (70-99) Test 11/30/16 09:00 White Blood Count 25.1x10^3/uL (4.0-11.0) Red Blood Count 4.28x10^6/uL (4.30-5.70) Hemoglobin 12.4g/dL (13.0-17.5) Hematocrit 37.7% (39.0-53.0) Mean Corpuscular Volume 88fL (79-100) Mean Corpuscular Hemoglobin 29pg (25-35) Mean Corpuscular Hemoglobin Concent 33g/dL (31-37) Red Cell Distribution Width 15.3% (11.5-14.5) Platelet Count 504x10^3/uL (140-400) Neutrophils (%) (Auto) 37% (31-73) Lymphocytes (%) (Auto) 56% (24-48) Monocytes (%) (Auto) 5% (0-9) Eosinophils (%) (Auto) 2% (0-3) Basophils (%) (Auto) 0% (0-3) Neutrophils # (Auto) 9.2x10^3uL (1.8-7.7) Lymphocytes # (Auto) 14.1x10^3/uL (1.0-4.8) Monocytes # (Auto) 1.3x10^3/uL (0.0-1.1) Eosinophils # (Auto) 0.4x10^3/uL (0.0-0.7) Basophils # (Auto) 0.0x10^3/uL (0.0-0.2) Sodium Level 138mmol/L (136-145) Potassium Level 4.8mmol/L (3.5-5.1) Chloride Level 95mmol/L (98-107) Carbon Dioxide Level 28mmol/L (21-32) Anion Gap 15 (6-14) Blood Urea Nitrogen 44mg/dL (8-26) Creatinine 10.1mg/dL (0.7-1.3) Estimated GFR (Cockcroft-Gault) 6.1 Glucose Level 210mg/dL (70-99) Calcium Level 9.5mg/dL (8.5-10.1) Other CT Body 1. No acute abnormality identified in the chest, abdomen, or pelvis. No inflammation or explanation for patient's leukocytosis is identified. 2. Bilateral dependent atelectasis. 3. Emphysema. 4. Rather extensive atherosclerosis. 5. Question cholelithiasis. 6. Multiple fat-containing ventral hernias. LEIGH MORALES MD Nov 30, 2016 10:15
[2016-11-30 10:52] VITALS: BP 119/61
--- NOTE | 2016-11-30 14:15 | PDOC3 ---
Discharge Summary [facility] Date of Admission: Nov 23, 2016 Discharge Date: Nov 30, 2016 Admitting Diagnosis Acute encephalopathy, metabolic Hypoxia, acute on chronic End stage renal disease on HD, Dm2, insulin hypothyroid htn, chronic diastolic CHF leukocytosis with CLL plan; 1. fu with renal for HD, fu with ID, off vanco iv and po on 11/29 2. onco consult for leukocytosis with high percentage of lymph 3. cont insulin , SSI ptot dvt, gi ppx History of Present Illness History of Present Illness no event feels well some dyspnea at rest CDIFF NEG, diarrhea better wbc still high as 26 Vitals Vitals Vital Signs Date Time Temp Pulse Resp B/P Pulse Ox O2 Delivery O2 Flow Rate FiO2 11/29/16 11:00 98.3 69 20 132/64 98 Nasal Cannula 3.0 98.3 Physical Exam Problems: Final Diagnosis Problems Medical Problems: (1) Acute encephalopathy Status: Acute (2) Elevated troponin Status: Acute (3) End stage renal disease Status: Acute (4) Hypoxia Status: Acute CONSULTS id pulm renal Brief Hospital Course Mr. Simms is a 71 old M, from assisted living facility, home o2 2-3L sometimes, HD pt, comes for AMS. He was found possible PNA and leukocytosis and was treated with abx. He was found still leukocytosis, abx dced. onco consulted, pt has had CLL, no need t treatment. dc home, cont HD dc time 35min General: Alert, Oriented X3, Cooperative, No acute distress Heart: Regular rate, No murmurs Lungs: Clear Abdomen: No tenderness, No hepatosplenomegaly Extremities: No clubbing, No cyanosis, No edema Skin: No rashes, No breakdown, No significant lesion Patient History: FH: heart attack 30 MOTHER, Onset:Unknown FH: liver disease 33 FATHER, Onset:Unknown Unknown Problems: Disposition home CONDITION AT DISCHARGE: Improved Diet regular Scheduled Amlodipine Besylate (Amlodipine Besylate) 10 MG PO DAILY (Reported) Aspirin (Aspir-Lorin) 325 MG PO DAILY (Reported) Atorvastatin Calcium (Atorvastatin Calcium) 5 MG PO HS (Reported) Calcium Acetate (Calcium Acetate) 667 MG PO TIDAC (Reported) Colestipol Hcl (Colestipol Hcl) 1 GM PO DAILY (Reported) Gabapentin (Gabapentin) 300 MG PO HS (Reported) Insulin Detemir (Levemir Flextouch) 25 UNIT SQ HS (Reported) Ipratropium/Albuterol Sulfate (Duoneb 0.5-3(2.5) Mg/3 Ml) 3 ML NEB TID (Reported ) Levothyroxine Sodium (Levothyroxine Sodium) 75 MCG PO DAILY (Reported) Loratadine (Loratadine) 10 MG PO DAILY (Reported) Melatonin (Melatonin) 3 MG PO HS (Reported) Mineral Oil/Petrolatum,White (Eucerin Creme ) 1 MINERVA TP QID (Reported) Polyethylene Glycol 3350 (Polyethylene Glycol 3350) 17 GM PO DAILY (Reported) Trazodone Hcl (Trazodone Hcl) 0.5 TAB PO QHS (Reported) Scheduled PRN Acetaminophen (Acetaminophen) 500 MG PO PRN TID PRN PRN PAIN/TEMP (Reported) Calcium Carbonate (Tums) 200 MG PO PRN Q6HRS PRN PRN HEARTBURN / GAS (Reported) Diphenhydramine Hcl (Benadryl) 25 MG PO PRN Q6HRS PRN PRN ITCHING (Reported) Nitroglycerin (Nitrostat) 0.4 MG SL PRN Q5MIN PRN PRN CHEST PAIN (Reported) Tramadol Hcl (Tramadol Hcl) 100 MG PO BID PRN PRN (Reported) Discontinued Medications Trazodone Hcl (Trazodone Hcl) 50 MG PO QHS (Reported) Follow Up pcp in 2 weeks ARMANDO BO MD Nov 30, 2016 14:15
[2016-11-30 14:54] VITALS: BP 129/70
== END 2016-11-30 17:12 | disposition home or self-care (01) | DRG 291 ==
LOC: ER 11:38 → ED HOLD 14:22 → 6 SOUTH 17:25
PROVIDERS: ADMIT Internal Medicine; ATTEND Internal Medicine
DX: I50.33 Acute on chronic diastolic (congestive) heart failure (principal); J96.01 Acute respiratory failure with hypoxia; G93.41 Metabolic encephalopathy; N18.6 End stage renal disease; J18.9 Pneumonia, unspecified organism; C91.10 Chronic lymphocytic leukemia of B-cell type not having achieved remission; I13.2 Hypertensive heart and chronic kidney disease with heart failure and with stage 5 chronic kidney disease, or end stage renal disease; G93.1 Anoxic brain damage, not elsewhere classified; E03.9 Hypothyroidism, unspecified; E11.22 Type 2 diabetes mellitus with diabetic chronic kidney disease; E78.00 Pure hypercholesterolemia, unspecified; E78.5 Hyperlipidemia, unspecified; F14.90 Cocaine use, unspecified, uncomplicated; I25.10 Atherosclerotic heart disease of native coronary artery without angina pectoris; I35.0 Nonrheumatic aortic (valve) stenosis; J44.9 Chronic obstructive pulmonary disease, unspecified; K21.9 Gastro-esophageal reflux disease without esophagitis; Z84.89 Family history of other specified conditions; Z82.49 Family history of ischemic heart disease and other diseases of the circulatory system; Z86.73 Personal history of transient ischemic attack (TIA), and cerebral infarction without residual deficits; I25.2 Old myocardial infarction; Z87.891 Personal history of nicotine dependence; Z95.1 Presence of aortocoronary bypass graft; Z99.2 Dependence on renal dialysis
CPT/HCPCS: 36415; 71010; 71260; 74177; 80048; 80053; 80202; 82553; 82947; 83605; 83735; 84100; 84484; 85007; 85027; 87040; 87324; 87641; 93005; 93306; 94640; 94760; J1815; J2543; J3370; J7040; J7620; 97116; 97530; 97535; 99285-25

== ENCOUNTER 2017-11-04 11:24 | Inpatient (IN) | payer MEDICARE, OTHER ==
[~2017-11-04] VITALS: Ht 180.3 cm; Wt 72.3 kg
[~2017-11-04 11:24] MED LIST changes: -ASPI325T4 PO; +ASPI325T8 PO; +CHOL100013 PO; +COLE1TAB2 PO; +DILT120C80 PO; -DILT120C97 PO; +FOLI0.8T3 PO; +IPRA3AMP NEB; +ISOS30TA4 PO; +LACT1CAP19 PO; +LEVO500T59 PO; +MELA3TAB43 PO; +MIRT15TA3 PO; +SEVE800T9 PO; -ZOLP5TAB4 PO; +ZOLP5TAB5 PO
--- NOTE | 2017-11-04 12:15 | EKG ---
[facility] [address] [place] [address] Test Date: 2017-11-04 Test Time: 11:34:31 Pat Name: IMAN STRANGE Department: Room: Gender: M [employer] Admin: : 1945 Requested By: ANNE-MARIE CHOWDARY Order Number: [id number] Reading MD: Akira Guzmán Measurements Intervals [place] Rate: 78 P: 71 IA: 178 QRS: 51 QRSD: 98 T: 142 QT: 386 QTc: 443 Interpretive Statements SINUS RHYTHM VENTRICULAR PREMATURE COMPLEX(ES) ST & T ABNORMALITY, CONSIDER ANTEROLATERAL ISCHEMIA OR LEFT VENTRICULAR STRAIN T ABNORMALITY IN INFEROLATERAL LEADS ABNORMAL ECG Electronically Signed On 11-17-2017 16:26:04 RAG INSPECTOR by Akira Guzmán
[2017-11-04] MEDS ORDERED: methylPREDNISolone SOD SUCC PF 125 MG/2 ML VIAL. IV ONE (14:30)
[2017-11-04] MEDS ORDERED: IPRATRPIUM/ALBUTEROL 0.5/2.5MG 3 ML NEBU. NEB ONE (14:30)
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
--- NOTE | 2017-11-04 15:26 | PDOC2 ---
CONSULT Date of Consult Date of Consult DATE: 11/04/17 TIME: 15:20 Reason for Consult Reason for Consult: ESRD, RA Hypoxia Referring Physician Referring Physician: Dr Rios in ER Identification/Chief Complaint Chief Complaint SOB Problems: Source Source: Chart review, Patient Past Medical History Cardiovascular: CAD, HTN, Hyperlipidemia CENTRAL NERVOUS SYSTEM: CVA GI: GERD Heme/Onc: Cancer Hepatobiliary: Other Rheumatologic: No pertinent hx Infectious disease: No pertinent hx Renal/: Chronic renal insuff Past Surgical History Past Surgical History: Other Family History Family History: Diabetes, Other Social History ALCOHOL: none Drugs: Cocaine, Marijuana Lives: Alone Domestic Violence: Neg Current Problem List Problem List Problems Medical Problems: (1) Shortness of breath Status: Acute Current Medications Current Medications Current Medications Albuterol/ Ipratropium (Duoneb) 3 ml 1X ONCE NEB ; Start 11/04/17 at 14:30; Stop 11/04/17 at 14:31; Status DC Methylprednisolone Sodium Succinate (SOLU-Medrol 125MG VIAL) 125 mg 1X ONCE IV ; Start 11/04/17 at 14:30; Stop 11/04/17 at 14:31; Status DC Active Scripts Active Levemir Flextouch (Insulin Detemir) 100 Unit/1 Ml Insuln.pen 32 Units SQ HS Novolog Flexpen (Insulin Aspart) 100 Unit/1 Ml Insuln.pen 8 Units SQ TIDAC Culturelle (Lactobacillus Rhamnosus Gg) 1 Each Cap.sprink 1 Cap PO BID Levaquin (Levofloxacin) 500 Mg Tablet 500 Mg PO Q48H until 10/21/17 Isosorbide Mononitrate Er (Isosorbide Mononitrate) 30 Mg Tab.er.24h 30 Mg PO DAILY Reported Mirtazapine 15 Mg Tablet 1 Tab PO QHS Renvela (Sevelamer Carbonate) 800 Mg Tablet 800 Mg PO TIDWMEALS Vitamin D (Cholecalciferol (Vitamin D3)) 1,000 Unit Capsule 1 Cap PO DAILY Nephro-Ulises Tablet (Folic Acid/Vitamin B Comp W-C) 0.8 Mg Tablet 1 Tab PO DAILY Trazodone Hcl 50 Mg Tablet 1 Tab PO QHS Duoneb 0.5-3(2.5) Mg/3 Ml (Albuterol/Ipratropium) 3 Ml Ampul.neb 3 Ml NEB TID Colestipol Hcl 1 Gm Tablet 1 Gm PO DAILY Atorvastatin Calcium 10 Mg Tablet 5 Mg PO HS Take next dose tonight 12/20/15 at bedtime Aspir-Lorin (Aspirin) 325 Mg Tablet.dr 325 Mg PO DAILY Take next dose tomorrow 12/21/15 in AM Amlodipine Besylate 10 Mg Tablet 10 Mg PO DAILY Take next tomorrow 12/21/15 in AM Levemir Flextouch (Insulin Detemir) 100 Unit/1 Ml Insuln.pen 28 Unit SQ HS TAKE NEXT DOSE TONIGHT 12/20/15 AT BEDTIME Polyethylene Glycol 3350 255 Gm Powder 17 Gm PO DAILY TAKE DAILY NEEDED FOR CONSTIPATION Nitrostat (Nitroglycerin) 0.4 Mg Tab.subl 0.4 Mg SL PRN Q5MIN PRN Benadryl (Diphenhydramine Hcl) 25 Mg Capsule 25 Mg PO PRN Q6HRS PRN TAKE NEEDED Acetaminophen 500 Mg Tablet 500 Mg PO PRN TID PRN Loratadine 10 Mg Tablet 10 Mg PO DAILY TAKE NEXT DOSE TOMORROW 12/21/15 IN AM Levothyroxine Sodium 75 Mcg Tablet 75 Mcg PO DAILY TAKE NEXT DOSE TOMORROW 12/21/15 IN AM Tums (Calcium Carbonate) 200 Mg Tab.chew 200 Mg PO PRN Q6HRS PRN Tramadol Hcl 50 Mg Tablet 100 Mg PO BID PRN Gabapentin 300 Mg Capsule 300 Mg PO HS TAKE NEXT DOSE TONIGHT 12/20/15 AT BEDTIME Allergies Allergies: Coded Allergies: No Known Drug Allergies (Unverified , 10/15/13) ROS Review of System GEN: no Fevers no Chills EYES: no new Visual Complaints ENT: no EN Drainage no Hearing deficiets CVS: min Orthopnea no CP RESP: + SOB + JIMENEZ GI: n Nausea no Vomiting : no Dysuria no Urgency HEME: no easy bruising no Palp Ly Nodes NEURO no Focal Weakness no Sz PSYCH: no Suicidal Ideation no Depression SKIN: no Rashes ENDO: no Polyuria or Polydipsia no Hot/Cold Intolerance MU SK: no Arthraigia no Myalgia Physical Exam Physical Exam General Appearance: Awake Alert Oriented x 2 In mod resp Distress - ? underlying dementia/ memory loss Eyes: VIsion Unchanged Conjunctiva Normal EN: No EN Drainage Mucous Memb. dryihs - poor dentition Neck: min JVD + JVP Supple no Thyromegaly CVS: S1 S2 + Murmur No Gallop No Rub no Edema Resp: few gee Rales occ Rhonchi + Acc. Muscle use GI: BS +ve NO Bruit Non Tender Non Distended : no CVA tenderness; no Suprapubic Tenderness SKIN: no Rashes Breast Exam deferred Mu.Sk: Adequate ROM no Muscle Atrophy Heme: Unable to palpate Obvious LAD no Splenomegaly NEURO: Good Strength and Tone Cranial Nerves II - XII grossly intact Psych: not Depressed no Active hallucination Vital Signs Vital Signs Date Time Temp Pulse Resp B/P (MAP) Pulse Ox O2 Delivery O2 Flow Rate FiO2 11/04/17 13:06 74 13 153/71 (98) Nasal Cannula 4.0 11/04/17 11:24 98.1 82 98.1 Assessment & Plan ESRD: Dialysis as below (emergent) F 180 NR 2.5 Hrs 2 K 2.5 Ca 140 Na 40 HC03 Qb 350 + Qd 500+ Heparin 0 Units Uf 4 Kgs or to dry weight as tolerated May give 25-50 gms of 25% Albumin if needed to maintain Hemodynamic stability Treatment plan reviewed and discussed with job trainer RA Hypoxia: Emergent HD as ordered resp failure presumably due to fl overload - HD emergently has been setup - will reval on HD suspect fluid overload - UF with HD - some due to non-compliance Non-compliance with Fluid and diet - Anemia of CKD by Hx - may need Epogen if hgb < 11; reval after UF on HD. Transfuse with next HD as needed. HTN: Current BP meds reviewed. reval after UF Bone & Mineral: follow phos and alter binder regimen based on Trend Discussed Plan of Care and prognosis etc. at length with family. Labs Labs unable to be drawn due to lack of IV Access and hence will proceed with emergent HD and draw labs then LEIGH MORALES MD Nov 04, 2017 15:25
--- NOTE | 2017-11-04 15:29 | RAD ---
Indication: Shortness of air. Time of exam 1515 hours. Correlation is made with prior study from 10/18/2017. The heart is enlarged. There are changes of median sternotomy. There has been development of interstitial infiltrates in the upper lung malone bilaterally. No parenchymal consolidation is seen. No effusion or pneumothorax is identified. Impression: Development of bilateral interstitial infiltrates when compared with exam from 10/18/2017.
[2017-11-04] MEDS ORDERED: MORPHINE SULFATE 2 MG/ML DISP.SYRIN. IV PRN (15:45)
[2017-11-04] MEDS ORDERED: ONDANSETRON PF 4 MG/2 ML VIAL. IV PRN (15:45)
--- NOTE | 2017-11-04 16:19 | EKG ---
[facility] [address] [place] [address] Test Date: 2017-11-04 Test Time: 15:18:08 Pat Name: IMAN STRANGE Department: Room: Gender: M Ham Sawyer: : 1945 Requested By: ANNE-MARIE CHOWDARY Order Number: [id number] Reading MD: Akira Guzmán Measurements Intervals [place] Rate: 76 P: 22 WI: 190 QRS: 44 QRSD: 98 T: -170 QT: 398 QTc: 447 Interpretive Statements SINUS RHYTHM VENTRICULAR PREMATURE COMPLEX(ES) ST & T ABNORMALITY, CONSIDER ANTEROLATERAL ISCHEMIA OR LEFT VENTRICULAR STRAIN INFEROLATERAL ISCHEMIA OR LEFT VENTRICULAR STRAIN ABNORMAL ECG Electronically Signed On 11-17-2017 16:27:41 RIPSHEAR OPERATOR by Akira Guzmán
--- NOTE | 2017-11-04 16:38 | PDOC ---
Dialysis Progress Note Dialysis Note Dialysis Note Seen on Hemodialysis, tolerating treatment Okay hemodynamically but still on lot of O2. FM with NRB i npalce Vitals on Hemodialysis: 163/76 69 General Appearance: Awake: Alert Oriented x 2 Neck: No JVD or JVP Chest: CTA Shon Heart: S1 S2 + Murmur Abdomen - Soft NTND Extremities - No Edema ESRD: Dialysis as below F 180 NR 2.5 Hrs 2 K 2.5 Ca 140 Na 40 HC03 Qb 350 + Qd 500+ Heparin 0 Units Uf 4 Kgs or to dry weight as tolerated May give 25-50 gms of 25% Albumin if needed to maintain Hemodynamic stability Treatment plan reviewed and discussed with supervisor polishing Labs were drawn at beginng of HD and so HD O are subject to change pending availability of same Vitals Vital Signs Vital Signs Date Time Temp Pulse Resp B/P (MAP) Pulse Ox O2 Delivery O2 Flow Rate FiO2 11/04/17 15:58 74 24 173/74 (107) 100 NonRebreather Mask 10.0 11/04/17 11:24 98.1 98.1 Assessment Assessment Problems Medical Problems: (1) Shortness of breath Status: Acute Problems: Plan Plan of Care Problems Medical Problems: (1) Shortness of breath Status: Acute LEIGH MORALES MD Nov 04, 2017 16:38
[2017-11-04] MEDS ORDERED: PIP/TAZO PER PHARMACY MC PRN (16:45)
[2017-11-04] MEDS ORDERED: IV NORMAL SALINE 1000ML BAG 1,000 ML IV PRN ×2 (16:58)
[2017-11-04] MEDS ORDERED: diphenhydrAMINE 50 MG/ML VIAL IV PRN ×2 (17:00)
[2017-11-04] MEDS ORDERED: VANCOMYCIN 2 GM in IV DEXTROSE 5 %-0.2 % NACL 500 ML IV ONE (17:00)
[2017-11-04] MEDS: PIPERACILLIN/TAZO IV Push 2.25 GM VIAL. IVP SCH ×2 (17:00→22:43)
[2017-11-04] MEDS ORDERED: DIALYSIS PATIENT. MC PRN (17:00)
[2017-11-04 17:15] LABS: BASO # 0.1 x10^3/uL (0.0-0.2); BASO % 0 % (0-3); EOS % 4 % (0-3); HEMATOCRIT 24.8 % (39.0-53.0); HEMOGLOBIN 8.2 g/dL (13.0-17.5); LYMPH # 10.4 x10^3/uL (1.0-4.8); LYMPH % 59 % (24-48); MEAN CORPUSCULAR HEMOGLOBIN 29 pg (25-35); MEAN CORPUSCULAR HGB CONC 33 g/dL (31-37); MEAN CORPUSCULAR VOLUME 88 fL (79-100); MONO % 4 % (0-9); NEUT % 33 % (31-73); PLATELET COUNT 494 x10^3/uL (140-400); RED BLOOD COUNT 2.84 x10^6/uL (4.30-5.70); RED CELL DISTRIBUTION WIDTH 14.6 % (11.5-14.5); WHITE BLOOD COUNT 17.6 x10^3/uL (4.0-11.0)
[2017-11-04 17:19] LABS: CREATININE 8.9 mg/dL (0.7-1.3); GFR 7.1
[2017-11-04 17:26] LABS: DIRECT BILIRUBIN 0.1 mg/dL (0.0-0.2); TOTAL BILIRUBIN 0.4 mg/dL (0.2-1.0)
[2017-11-04] MEDS: VANCOMYCIN PER PHARMACY MC PRN (18:41)
[2017-11-04 19:30] VITALS: BP 150/64
[2017-11-04 19:56] LABS: % EOS 5 % (0-5)
[2017-11-04 19:57] LABS: CRENATED RBC PRESENT; OVALOCYTES OCC; PLT ESTIMATE INCREASED (ADEQUATE); POLYCHROMASIA SLIGHT; SCHISTOCYTES OCC; TARGET CELLS OCC
[2017-11-04 20:00] VITALS: BP 137/67
[2017-11-04 20:30] VITALS: BP 123/51
[2017-11-04 21:00] VITALS: BP 119/69
[2017-11-04 22:00] VITALS: BP 131/57
[2017-11-04 23:00] VITALS: BP 146/65
--- NOTE | 2017-11-04 23:12 | HP ---
ADMIT DATE: 11/04/2017 CHIEF COMPLAINT: Shortness of breath, swelling, elevated blood pressure, weakness. HISTORY OF PRESENT ILLNESS: The patient is a pleasant 72-year-old male who is noncompliant with his dialysis. I think the reason he is noncompliant was basically he lives alone. He does not have any transportation. He states he does not even have any food at home. No one is there. Once again, he has missed dialysis. I just discharged him a few days ago. On that admission, he had missed dialysis and presented with volume overload. Once again, he is here with volume overload. He may need emergent dialysis. I have discussed the case with ER physician. We are going to admit the patient and consult Nephrology. PAST MEDICAL HISTORY: Noncompliance, diabetes, hypertension, end-stage renal disease, on dialysis. ALLERGIES: None. FAMILY HISTORY: Diabetes. SOCIAL HISTORY: Does not drink, smoke or take drugs. MEDICATIONS: Reviewed. REVIEW OF SYSTEMS: GENERAL: He complains of weakness. SKIN: No bruising, hair changes or rashes. EYES: No blurred, double or loss of vision. NOSE AND THROAT: No history of nosebleeds, hoarseness or sore throat. HEART: No history of palpitations, chest pain or shortness of breath on exertion. PULMONARY: He complains of shortness of breath. GASTROINTESTINAL: Denies changes in appetite, nausea, vomiting, diarrhea or constipation. GENITOURINARY: No history of frequency, urgency, hesitancy or nocturia. NEUROLOGIC: Denies history of numbness, tingling, tremor or weakness. PSYCHIATRIC: No history of panic, anxiety or depression. ENDOCRINE: No history of heat or cold intolerance, polyuria or polydipsia. EXTREMITIES: Denies muscle weakness, joint pain, pain on walking or stiffness. PHYSICAL EXAMINATION: VITAL SIGNS: Temperature afebrile, pulse 90, respirations 18, blood pressure 113/68. GENERAL: He is alert, very weak, very depressed. He is on 100% nonrebreather. LUNGS: Diffuse wheezing. ABDOMEN: Soft, positive bowel sounds. EXTREMITIES: 1+ edema. SKIN: No rashes. ENDOCRINE: No thyromegaly. LYMPHATICS: No cervical nodes. HEMATOPOIETIC: No bruising. PSYCHIATRIC: He is depressed. ASSESSMENT AND PLAN: Volume overload secondary to end-stage renal disease with noncompliance. The patient has been admitted. We will consult Nephrology for dialysis. Continue his home medications, PT, OT, renal diet. Suspect he needs long-term care placement, but the patient refuses. PROGNOSIS: Guarded. LUIZ ALVARADO DO DR: CATARINA/jc JOB#: [id number] / [id number]
[2017-11-05] VITALS (11 sets, daily range): BP systolic 133–159; BP diastolic 54–71
--- NOTE | 2017-11-05 02:56 | CONS ---
DATE OF CONSULTATION: HISTORY OF PRESENT ILLNESS: The patient is a 72-year-old -[place] gentleman with known ESRD. He is followed by Nephrology and dialyzes at . He cannot tell me whether he went to dialysis on Tuesday or not. He appears to have some memory deficits. He is known to have noncompliance with his fluid intake. He was recently discharged from [facility] and was at rehab for about a week. He claims they sent him out from there and has been home. He could not tell me if he went to dialysis Tuesday either. He now presents to the ER with increasing shortness of breath. He is typically on 2 liters nasal cannula oxygen, but was found to be grossly hypoxemic and was sent from the dialysis unit to the ER. It is unclear to us why he does not go to ; however, he tells me that he does not like the care out there. On presentation to the ER, he was noted to be grossly hypoxemic as noted in the ER notes and reviewed by me. His pulse ox was 82% on 4 liters nasal cannula oxygen at presentation. He was noted to have somewhat of air hunger and is now on a nonrebreather. His chest x-ray done in the ER shows development of bilateral interstitial infiltrates when compared to exam from 10/18 at time of discharge. I was called by Dr. Adorno because of lack of IV access and for PICC line placement; however, given his ESRD status, it was felt that he would benefit from emergent dialysis. Anyway, his labs will have to be drawn at the beginning of dialysis. No labs are currently available. He does have a tendency to hyperkalemia also. There were some EKG changes as reviewed with the ER physician; however, no chest pain was reported by patient. He is also noted to have used cocaine 2-3 days ago. In this setting, emergent hemodialysis has been set up for the patient. For rest of details, see my electronic renal consult note. The patient will be dialyzed again tomorrow. LEIGH MORALES MD DR: ERASMO/jc JOB#: [id number] / [id number]
[2017-11-05] MEDS: PIPERACILLIN/TAZO IV Push 2.25 GM VIAL. IVP SCH ×3 (05:33→21:04)
[2017-11-05] MEDS ORDERED: IV NORMAL SALINE 1000ML BAG 1,000 ML IV PRN (08:29)
[2017-11-05] MEDS ORDERED: ALBUMIN HUMAN 25% 200 ML IV PRN (08:30)
[2017-11-05] MEDS ORDERED: DIALYSIS PATIENT. MC PRN (08:30)
[2017-11-05] MEDS: VANCOMYCIN PER PHARMACY MC PRN (09:25)
--- NOTE | 2017-11-05 10:27 | PDOC ---
Dialysis Progress Note Dialysis Note Dialysis Note Seen on Hemodialysis, tolerating treatment Okay Vitals on Hemodialysis: 130/51 72 afeb General Appearance: Awake: Alert Oriented x 2 Neck: No JVD or JVP Chest: CTA Shon Heart: S1 S2 + Murmur Abdomen - Soft NTND Extremities - No Edema ESRD: Dialysis as below F 180 NR 2.5 Hrs 2 K 2.5 Ca 140 Na 40 HC03 Qb 350 + Qd 500+ Heparin 0 Units Uf 1-2 Kgs or to dry weight as tolerated May give 25-50 gms of 25% Albumin if needed to maintain Hemodynamic stability Treatment plan reviewed and discussed with color sprayer Labs were drawn at beginng of HD and so HD O are subject to change pending availability of same Vitals Vital Signs Vital Signs Date Time Temp Pulse Resp B/P (MAP) Pulse Ox O2 Delivery O2 Flow Rate FiO2 11/05/17 08:00 71 18 146/65 (92) 99 Nasal Cannula 4.0 11/05/17 03:00 98.6 98.6 Labs Last Labs Laboratory Tests Test 11/04/17 16:50 11/04/17 18:37 11/05/17 03:45 White Blood Count 17.6 x10^3/uL (4.0-11.0) Red Blood Count 2.84 x10^6/uL (4.30-5.70) Hemoglobin 8.2 g/dL (13.0-17.5) Hematocrit 24.8 % (39.0-53.0) Mean Corpuscular Volume 88 fL (79-100) Mean Corpuscular Hemoglobin 29 pg (25-35) Mean Corpuscular Hemoglobin Concent 33 g/dL (31-37) Red Cell Distribution Width 14.6 % (11.5-14.5) Platelet Count 494 x10^3/uL (140-400) Neutrophils (%) (Auto) 33 % (31-73) Lymphocytes (%) (Auto) 59 % (24-48) Monocytes (%) (Auto) 4 % (0-9) Eosinophils (%) (Auto) 4 % (0-3) Basophils (%) (Auto) 0 % (0-3) Neutrophils # (Auto) 5.8 x10^3uL (1.8-7.7) Lymphocytes # (Auto) 10.4 x10^3/uL (1.0-4.8) Monocytes # (Auto) 0.6 x10^3/uL (0.0-1.1) Eosinophils # (Auto) 0.7 x10^3/uL (0.0-0.7) Basophils # (Auto) 0.1 x10^3/uL (0.0-0.2) Segmented Neutrophils % 32 % (35-66) Lymphocytes % 61 % (24-48) Monocytes % 2 % (0-10) Eosinophils % 5 % (0-5) Platelet Estimate Increased (ADEQUATE) Polychromasia Slight Target Cells Occ Ovalocytes Occ Crenated Cell Present Schistocytes Occ Sodium Level 140 mmol/L (136-145) Potassium Level 5.0 mmol/L (3.5-5.1) Chloride Level 97 mmol/L (98-107) Carbon Dioxide Level 31 mmol/L (21-32) Anion Gap 12 (6-14) Blood Urea Nitrogen 54 mg/dL (8-26) Creatinine 8.9 mg/dL (0.7-1.3) Estimated GFR (Cockcroft-Gault) 7.1 Glucose Level 92 mg/dL (70-99) Lactic Acid Level 0.4 mmol/L (0.4-2.0) Calcium Level 9.0 mg/dL (8.5-10.1) Total Bilirubin 0.4 mg/dL (0.2-1.0) Direct Bilirubin 0.1 mg/dL (0.0-0.2) Aspartate Amino Transf (AST/SGOT) 20 U/L (15-37) Alanine Aminotransferase (ALT/SGPT) 13 U/L (16-63) Alkaline Phosphatase 95 U/L (46-116) Troponin I Quantitative 0.271 ng/mL (0.000-0.055) 0.181 ng/mL (0.000-0.055) JT-Hul-R-Type Natriuretic Peptide 30913 pg/mL (0-124) Total Protein 7.0 g/dL (6.4-8.2) Albumin 3.0 g/dL (3.4-5.0) Lipase 87 U/L (73-393) Glucose (Fingerstick) 109 mg/dL (70-99) Laboratory Tests Test 11/04/17 16:50 11/04/17 18:37 11/05/17 03:45 White Blood Count 17.6 x10^3/uL (4.0-11.0) Red Blood Count 2.84 x10^6/uL (4.30-5.70) Hemoglobin 8.2 g/dL (13.0-17.5) Hematocrit 24.8 % (39.0-53.0) Mean Corpuscular Volume 88 fL (79-100) Mean Corpuscular Hemoglobin 29 pg (25-35) Mean Corpuscular Hemoglobin Concent 33 g/dL (31-37) Red Cell Distribution Width 14.6 % (11.5-14.5) Platelet Count 494 x10^3/uL (140-400) Neutrophils (%) (Auto) 33 % (31-73) Lymphocytes (%) (Auto) 59 % (24-48) Monocytes (%) (Auto) 4 % (0-9) Eosinophils (%) (Auto) 4 % (0-3) Basophils (%) (Auto) 0 % (0-3) Neutrophils # (Auto) 5.8 x10^3uL (1.8-7.7) Lymphocytes # (Auto) 10.4 x10^3/uL (1.0-4.8) Monocytes # (Auto) 0.6 x10^3/uL (0.0-1.1) Eosinophils # (Auto) 0.7 x10^3/uL (0.0-0.7) Basophils # (Auto) 0.1 x10^3/uL (0.0-0.2) Segmented Neutrophils % 32 % (35-66) Lymphocytes % 61 % (24-48) Monocytes % 2 % (0-10) Eosinophils % 5 % (0-5) Platelet Estimate Increased (ADEQUATE) Polychromasia Slight Target Cells Occ Ovalocytes Occ Crenated Cell Present Schistocytes Occ Sodium Level 140 mmol/L (136-145) Potassium Level 5.0 mmol/L (3.5-5.1) Chloride Level 97 mmol/L (98-107) Carbon Dioxide Level 31 mmol/L (21-32) Anion Gap 12 (6-14) Blood Urea Nitrogen 54 mg/dL (8-26) Creatinine 8.9 mg/dL (0.7-1.3) Estimated GFR (Cockcroft-Gault) 7.1 Glucose Level 92 mg/dL (70-99) Lactic Acid Level 0.4 mmol/L (0.4-2.0) Calcium Level 9.0 mg/dL (8.5-10.1) Total Bilirubin 0.4 mg/dL (0.2-1.0) Direct Bilirubin 0.1 mg/dL (0.0-0.2) Aspartate Amino Transf (AST/SGOT) 20 U/L (15-37) Alanine Aminotransferase (ALT/SGPT) 13 U/L (16-63) Alkaline Phosphatase 95 U/L (46-116) Troponin I Quantitative 0.271 ng/mL (0.000-0.055) 0.181 ng/mL (0.000-0.055) KW-Cje-S-Type Natriuretic Peptide 72886 pg/mL (0-124) Total Protein 7.0 g/dL (6.4-8.2) Albumin 3.0 g/dL (3.4-5.0) Lipase 87 U/L (73-393) Glucose (Fingerstick) 109 mg/dL (70-99) Assessment Assessment Problems Medical Problems: (1) Shortness of breath Status: Acute Problems: Plan Plan of Care Problems Medical Problems: (1) Shortness of breath Status: Acute LEIGH MORALES MD Nov 05, 2017 10:27
--- NOTE | 2017-11-05 10:40 | CONS ---
DATE OF CONSULTATION: ATTENDING PHYSICIAN: Dr. Demarcus Childs. REASON FOR CONSULTATION: Hypoxic respiratory failure. HISTORY OF PRESENT ILLNESS: The patient is a 72-year-old male who has a history of end-stage renal disease, on hemodialysis. He is somewhat noncompliant. He presented to the hospital with complaint of shortness of breath. He did not have any significant cough, fever, chills or chest pain or leg edema. He was noted to be hypoxic and was placed on 4 liters of oxygen. The patient's chest x-ray was consistent with mild interstitial edema. He is currently under dialysis. PAST MEDICAL HISTORY: History of end-stage renal disease, on hemodialysis; diabetes; hypertension and ongoing tobaccoism. Suspect COPD. ALLERGIES: None. FAMILY HISTORY: Diabetes. SOCIAL HISTORY: Smoker since in his teenage years. ALLERGIES: None. CURRENT MEDICATIONS: Reviewed as listed in the MRAD including broad-spectrum antibiotics. REVIEW OF SYSTEMS: Twelve-point system obtained. Pertinent positives discussed in history of present illness, otherwise noncontributory. All systems that were negative were reviewed as well. SOCIAL HISTORY: Smoker since age 16. PHYSICAL EXAMINATION: VITAL SIGNS: Blood pressure is stable; pulse ox initially was 82% on 4 liters, currently on 4 liters with saturation 96%. HEENT: Sclerae nonicteric. NECK: Supple. LUNGS: Diminished breath sounds. CARDIOVASCULAR: Regular rate and rhythm. ABDOMEN: Soft, nontender. EXTREMITIES: With no pitting edema. LABORATORY DATA: Reviewed. White cell count 17.6, hemoglobin 8.2 and platelets are 494. Troponin 0.271. IMPRESSION: 1. Acute hypoxic respiratory failure secondary to [id number] diastolic heart failure. 2. End-stage renal disease, on hemodialysis now in congestive heart failure. 3. History of tobaccoism, suspect underlying chronic obstructive pulmonary disease. 4. Increased troponin. 5. Leukocytosis, most likely reactive, but clinically less likely pneumonia. RECOMMENDATIONS: 1. Continue to wean oxygen. 2. Continue hemodialysis with ultrafiltration. 3. Repeat chest x-ray in 24 hours after dialysis. 4. Antibiotics can be deescalated, clinically less likely pneumonia. 5. Monitor white cell count. 6. Smoking cessation counseling provided. 7. Add bronchodilators. 8. Discussed with RN and we will follow along with you. JESSICA HAYS MD DR: MEAGAN/jc JOB#: [id number] / [id number]
[2017-11-05] MEDS: IPRATRPIUM/ALBUTEROL 0.5/2.5MG 3 ML NEBU. NEB SCH ×3 (12:00→20:42)
--- NOTE | 2017-11-05 12:59 | PDOC2 ---
CONSULT Date of Consult Date of Consult DATE: 11/05/17 TIME: 12:58 Reason for Consult Reason for Consult: Congestive heart failure Referring Physician Referring Physician: Dr. Childs Identification/Chief Complaint Chief Complaint Shortness of breath Problems: Source Source: Chart review, Patient History of Present Illness Reason for Visit: 72-year-old male with history of end-stage renal disease who is noncompliant with medications and dialysis presented with progressive shortness of breath. He denied any chest pain, palpitations or syncope. Past Medical History Cardiovascular: CAD, HTN, Hyperlipidemia CENTRAL NERVOUS SYSTEM: CVA GI: GERD Heme/Onc: Cancer Hepatobiliary: Other Rheumatologic: No pertinent hx Infectious disease: No pertinent hx Renal/: Chronic renal insuff Past Surgical History Past Surgical History: Other Family History Family History: Diabetes, Other Social History ALCOHOL: none Drugs: Cocaine, Marijuana Lives: Alone Domestic Violence: Neg Current Problem List Problem List Problems Medical Problems: (1) Shortness of breath Status: Acute Current Medications Current Medications Current Medications Albuterol/ Ipratropium (Duoneb) 3 ml 1X ONCE NEB ; Start 11/04/17 at 14:30; Stop 11/04/17 at 14:31; Status DC Methylprednisolone Sodium Succinate (SOLU-Medrol 125MG VIAL) 125 mg 1X ONCE IV Last administered on 11/04/17 15:59; Start 11/04/17 at 14:30; Stop at 14:31; Status DC Ondansetron HCl (Zofran) 4 mg PRN Q8HRS PRN IV NAUSEA/VOMITING; Start at 15:45; Stop 11/05/17 at 15:44 Morphine Sulfate 2 mg PRN Q2HR PRN IV PAIN; Start 11/04/17 at 15:45; Stop at 15:44 Vancomycin HCl (Vanco Per Pharmacy) 1 each PRN DAILY PRN MC SEE COMMENTS Last administered on 11/05/17 09:25; Start 11/04/17 at 16:45 Piperacillin Sod/ Tazobactam Sod (Zosyn Per Pharmacy) 1 each PRN DAILY PRN MC SEE COMMENTS; Start 11/04/17 at 16:45 Vancomycin HCl 2 gm/Dextrose/ Sodium Chloride 500 ml @ 250 mls/hr 1X ONCE IV Last administered on 11/04/17 20:41; Start 11/04/17 at 17:00; Stop 11/04/17 at 18:59; Status DC Piperacillin Sod/ Tazobactam Sod (Zosyn) 2.25 gm Q8HRS IVP Last administered on 11/05/17t 05:33; Start 11/04/17 at 17:00 Sodium Chloride 1,000 ml @ 1,000 mls/hr Q1H PRN IV hypotension; Start at 16:58; Stop 11/04/17 at 22:57; Status DC Diphenhydramine HCl (Benadryl) 25 mg 1X PRN PRN IV ITCHING; Start 11/04/17 at 17:00; Stop 11/05/17 at 16:59 Diphenhydramine HCl (Benadryl) 25 mg 1X PRN PRN IV ITCHING; Start 11/04/17 at 17:00; Stop 11/05/17 at 16:59 Sodium Chloride 1,000 ml @ 400 mls/hr Q2H30M PRN IV PATENCY; Start 11/04/17 at 16:58; Stop 11/05/17 at 04:57; Status DC Info (PHARMACY MONITORING -- do not chart) 1 each PRN DAILY PRN MC SEE COMMENTS ; Start 11/04/17 at 17:00; Stop 11/05/17 at 09:24; Status DC Vancomycin HCl 1 each 1X ONCE MC ; Start 11/06/17 at 05:00; Stop 11/06/17 at 05:01 Sodium Chloride 1,000 ml @ 1,000 mls/hr Q1H PRN IV hypotension; Start at 08:29; Stop 11/05/17 at 14:28 Albumin Human 200 ml @ 200 mls/hr 1X PRN PRN IV Hypotension; Start 11/05/17 at 08:30; Stop 11/05/17 at 14:29 Info (PHARMACY MONITORING -- do not chart) 1 each PRN DAILY PRN MC SEE COMMENTS ; Start 11/05/17 at 08:30 Lactobacillus Rhamnosus (Culturelle) 1 cap BID PO ; Start 11/05/17 at 21:00 Albuterol/ Ipratropium (Duoneb) 3 ml RTQID NEB ; Start 11/05/17 at 12:00 Active Scripts Active Levemir Flextouch (Insulin Detemir) 100 Unit/1 Ml Insuln.pen 32 Units SQ HS Novolog Flexpen (Insulin Aspart) 100 Unit/1 Ml Insuln.pen 8 Units SQ TIDAC Culturelle (Lactobacillus Rhamnosus Gg) 1 Each Cap.sprink 1 Cap PO BID Levaquin (Levofloxacin) 500 Mg Tablet 500 Mg PO Q48H until 10/21/17 Isosorbide Mononitrate Er (Isosorbide Mononitrate) 30 Mg Tab.er.24h 30 Mg PO DAILY Reported Mirtazapine 15 Mg Tablet 1 Tab PO QHS Renvela (Sevelamer Carbonate) 800 Mg Tablet 800 Mg PO TIDWMEALS Vitamin D (Cholecalciferol (Vitamin D3)) 1,000 Unit Capsule 1 Cap PO DAILY Nephro-Ulises Tablet (Folic Acid/Vitamin B Comp W-C) 0.8 Mg Tablet 1 Tab PO DAILY Trazodone Hcl 50 Mg Tablet 1 Tab PO QHS Duoneb 0.5-3(2.5) Mg/3 Ml (Albuterol/Ipratropium) 3 Ml Ampul.neb 3 Ml NEB TID Colestipol Hcl 1 Gm Tablet 1 Gm PO DAILY Atorvastatin Calcium 10 Mg Tablet 5 Mg PO HS Take next dose tonight 12/20/15 at bedtime Aspir-Lorin (Aspirin) 325 Mg Tablet.dr 325 Mg PO DAILY Take next dose tomorrow 12/21/15 in AM Amlodipine Besylate 10 Mg Tablet 10 Mg PO DAILY Take next tomorrow 12/21/15 in AM Levemir Flextouch (Insulin Detemir) 100 Unit/1 Ml Insuln.pen 28 Unit SQ HS TAKE NEXT DOSE TONIGHT 12/20/15 AT BEDTIME Polyethylene Glycol 3350 255 Gm Powder 17 Gm PO DAILY TAKE DAILY NEEDED FOR CONSTIPATION Nitrostat (Nitroglycerin) 0.4 Mg Tab.subl 0.4 Mg SL PRN Q5MIN PRN Benadryl (Diphenhydramine Hcl) 25 Mg Capsule 25 Mg PO PRN Q6HRS PRN TAKE NEEDED Acetaminophen 500 Mg Tablet 500 Mg PO PRN TID PRN Loratadine 10 Mg Tablet 10 Mg PO DAILY TAKE NEXT DOSE TOMORROW 12/21/15 IN AM Levothyroxine Sodium 75 Mcg Tablet 75 Mcg PO DAILY TAKE NEXT DOSE TOMORROW 12/21/15 IN AM Tums (Calcium Carbonate) 200 Mg Tab.chew 200 Mg PO PRN Q6HRS PRN Tramadol Hcl 50 Mg Tablet 100 Mg PO BID PRN Gabapentin 300 Mg Capsule 300 Mg PO HS TAKE NEXT DOSE TONIGHT 12/20/15 AT BEDTIME Allergies Allergies: Coded Allergies: No Known Drug Allergies (Unverified , 10/15/13) ROS PSYCHOLOGICAL ROS: No: Hallucinations Eyes: No Loss of vision HEENT: No: Epistaxis Respiratory: YES: Shortness of breath, No: Hemoptysis Gastrointestinal: No Vomiting, No Diarrhea Genitourinary: No Hematuria Neurological: No Seizures Skin: No Rash Physical Exam General: Alert, No acute distress HEENT: Atraumatic Lungs: Other (bilateral basal crepitations) Heart: Regular rate Abdomen: Soft, No tenderness Extremities: No edema Psych/Mental Status: Mood NL Vitals VITALS Vital Signs Date Time Temp Pulse Resp B/P (MAP) Pulse Ox O2 Delivery O2 Flow Rate FiO2 11/05/17 08:00 71 18 146/65 (92) 99 Nasal Cannula 4.0 11/05/17 03:00 98.6 98.6 Labs Labs Laboratory Tests Test 11/04/17 16:50 11/04/17 18:37 11/05/17 03:45 White Blood Count 17.6 x10^3/uL (4.0-11.0) Red Blood Count 2.84 x10^6/uL (4.30-5.70) Hemoglobin 8.2 g/dL (13.0-17.5) Hematocrit 24.8 % (39.0-53.0) Mean Corpuscular Volume 88 fL (79-100) Mean Corpuscular Hemoglobin 29 pg (25-35) Mean Corpuscular Hemoglobin Concent 33 g/dL (31-37) Red Cell Distribution Width 14.6 % (11.5-14.5) Platelet Count 494 x10^3/uL (140-400) Neutrophils (%) (Auto) 33 % (31-73) Lymphocytes (%) (Auto) 59 % (24-48) Monocytes (%) (Auto) 4 % (0-9) Eosinophils (%) (Auto) 4 % (0-3) Basophils (%) (Auto) 0 % (0-3) Neutrophils # (Auto) 5.8 x10^3uL (1.8-7.7) Lymphocytes # (Auto) 10.4 x10^3/uL (1.0-4.8) Monocytes # (Auto) 0.6 x10^3/uL (0.0-1.1) Eosinophils # (Auto) 0.7 x10^3/uL (0.0-0.7) Basophils # (Auto) 0.1 x10^3/uL (0.0-0.2) Segmented Neutrophils % 32 % (35-66) Lymphocytes % 61 % (24-48) Monocytes % 2 % (0-10) Eosinophils % 5 % (0-5) Platelet Estimate Increased (ADEQUATE) Polychromasia Slight Target Cells Occ Ovalocytes Occ Crenated Cell Present Schistocytes Occ Sodium Level 140 mmol/L (136-145) Potassium Level 5.0 mmol/L (3.5-5.1) Chloride Level 97 mmol/L (98-107) Carbon Dioxide Level 31 mmol/L (21-32) Anion Gap 12 (6-14) Blood Urea Nitrogen 54 mg/dL (8-26) Creatinine 8.9 mg/dL (0.7-1.3) Estimated GFR (Cockcroft-Gault) 7.1 Glucose Level 92 mg/dL (70-99) Lactic Acid Level 0.4 mmol/L (0.4-2.0) Calcium Level 9.0 mg/dL (8.5-10.1) Total Bilirubin 0.4 mg/dL (0.2-1.0) Direct Bilirubin 0.1 mg/dL (0.0-0.2) Aspartate Amino Transf (AST/SGOT) 20 U/L (15-37) Alanine Aminotransferase (ALT/SGPT) 13 U/L (16-63) Alkaline Phosphatase 95 U/L (46-116) Troponin I Quantitative 0.271 ng/mL (0.000-0.055) 0.181 ng/mL (0.000-0.055) HL-Yie-L-Type Natriuretic Peptide 34689 pg/mL (0-124) Total Protein 7.0 g/dL (6.4-8.2) Albumin 3.0 g/dL (3.4-5.0) Lipase 87 U/L (73-393) Glucose (Fingerstick) 109 mg/dL (70-99) Laboratory Tests Test 11/04/17 16:50 12/22/17 18:37 11/05/17 03:45 White Blood Count 17.6 x10^3/uL (4.0-11.0) Red Blood Count 2.84 x10^6/uL (4.30-5.70) Hemoglobin 8.2 g/dL (13.0-17.5) Hematocrit 24.8 % (39.0-53.0) Mean Corpuscular Volume 88 fL (79-100) Mean Corpuscular Hemoglobin 29 pg (25-35) Mean Corpuscular Hemoglobin Concent 33 g/dL (31-37) Red Cell Distribution Width 14.6 % (11.5-14.5) Platelet Count 494 x10^3/uL (140-400) Neutrophils (%) (Auto) 33 % (31-73) Lymphocytes (%) (Auto) 59 % (24-48) Monocytes (%) (Auto) 4 % (0-9) Eosinophils (%) (Auto) 4 % (0-3) Basophils (%) (Auto) 0 % (0-3) Neutrophils # (Auto) 5.8 x10^3uL (1.8-7.7) Lymphocytes # (Auto) 10.4 x10^3/uL (1.0-4.8) Monocytes # (Auto) 0.6 x10^3/uL (0.0-1.1) Eosinophils # (Auto) 0.7 x10^3/uL (0.0-0.7) Basophils # (Auto) 0.1 x10^3/uL (0.0-0.2) Segmented Neutrophils % 32 % (35-66) Lymphocytes % 61 % (24-48) Monocytes % 2 % (0-10) Eosinophils % 5 % (0-5) Platelet Estimate Increased (ADEQUATE) Polychromasia Slight Target Cells Occ Ovalocytes Occ Crenated Cell Present Schistocytes Occ Sodium Level 140 mmol/L (136-145) Potassium Level 5.0 mmol/L (3.5-5.1) Chloride Level 97 mmol/L (98-107) Carbon Dioxide Level 31 mmol/L (21-32) Anion Gap 12 (6-14) Blood Urea Nitrogen 54 mg/dL (8-26) Creatinine 8.9 mg/dL (0.7-1.3) Estimated GFR (Cockcroft-Gault) 7.1 Glucose Level 92 mg/dL (70-99) Lactic Acid Level 0.4 mmol/L (0.4-2.0) Calcium Level 9.0 mg/dL (8.5-10.1) Total Bilirubin 0.4 mg/dL (0.2-1.0) Direct Bilirubin 0.1 mg/dL (0.0-0.2) Aspartate Amino Transf (AST/SGOT) 20 U/L (15-37) Alanine Aminotransferase (ALT/SGPT) 13 U/L (16-63) Alkaline Phosphatase 95 U/L (46-116) Troponin I Quantitative 0.271 ng/mL (0.000-0.055) 0.181 ng/mL (0.000-0.055) AP-Pji-X-Type Natriuretic Peptide 43654 pg/mL (0-124) Total Protein 7.0 g/dL (6.4-8.2) Albumin 3.0 g/dL (3.4-5.0) Lipase 87 U/L (73-393) Glucose (Fingerstick) 109 mg/dL (70-99) Assessment/Plan Assessment/Plan 1. Acute respiratory failure secondary to acute on chronic diastolic heart failure secondary to noncompliance with hemodialysis. Recent 2-D echo in September 2017 showed LVEF 55-60% with moderate aortic insufficiency. Continue fluid removal with dialysis per nephrology team. 2. Mild troponin elevation mostly secondary to demand ischemia. Patient has history of coronary artery disease s/p CABG and cardiac catheterization in the September 2017 showed patent grafts. Continue current medical management. 3. 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 Left kidney was atrophic and hence no intervention was performed in the left renal artery. Patient has had repeated admissions for acute on chronic diastolic heart failure probably from noncompliance but agree with nephrology that right renal artery restenosis might have to be ruled out. I will discuss with primary door frame assembler machine 4. Hypertension: Controlled 5. Hyperlipidemia: Continue statin therapy 6. Diabetes mellitus type 2: Treated per IM 7. End-stage renal disease: Continue hemodialysis per nephrology team Thank you for your consultation DREA VERDUGO MD Nov 05, 2017 12:59
--- NOTE | 2017-11-05 15:39 | PDOC ---
PROGRESS NOTES Chief Complaint Chief Complaint acute on chronic diastolic CHF, fluid overload ESRD, has missed HD accel htn on admti noncompliance, poor ability to maintain self care History of Present Illness History of Present Illness feels better today, is not excited about getting HD again tomorrow, no complaint, Vitals Vitals Vital Signs Date Time Temp Pulse Resp B/P (MAP) Pulse Ox O2 Delivery O2 Flow Rate FiO2 11/05/17 15:15 97.9 91 16 136/60 (85) 94 Nasal Cannula 4.0 97.9 Physical Exam General: Alert, Cooperative, No acute distress Heart: Regular rate Lungs: Clear, Other Abdomen: Normal bowel sounds, Soft Extremities: No clubbing, No cyanosis Skin: No breakdown Labs LABS Laboratory Tests Test 11/04/17 16:50 11/04/17 18:37 11/05/17 03:45 11/05/17 13:09 White Blood Count 17.6 x10^3/uL (4.0-11.0) Red Blood Count 2.84 x10^6/uL (4.30-5.70) Hemoglobin 8.2 g/dL (13.0-17.5) Hematocrit 24.8 % (39.0-53.0) Mean Corpuscular Volume 88 fL (79-100) Mean Corpuscular Hemoglobin 29 pg (25-35) Mean Corpuscular Hemoglobin Concent 33 g/dL (31-37) Red Cell Distribution Width 14.6 % (11.5-14.5) Platelet Count 494 x10^3/uL (140-400) Neutrophils (%) (Auto) 33 % (31-73) Lymphocytes (%) (Auto) 59 % (24-48) Monocytes (%) (Auto) 4 % (0-9) Eosinophils (%) (Auto) 4 % (0-3) Basophils (%) (Auto) 0 % (0-3) Neutrophils # (Auto) 5.8 x10^3uL (1.8-7.7) Lymphocytes # (Auto) 10.4 x10^3/uL (1.0-4.8) Monocytes # (Auto) 0.6 x10^3/uL (0.0-1.1) Eosinophils # (Auto) 0.7 x10^3/uL (0.0-0.7) Basophils # (Auto) 0.1 x10^3/uL (0.0-0.2) Segmented Neutrophils % 32 % (35-66) Lymphocytes % 61 % (24-48) Monocytes % 2 % (0-10) Eosinophils % 5 % (0-5) Platelet Estimate Increased (ADEQUATE) Polychromasia Slight Target Cells Occ Ovalocytes Occ Crenated Cell Present Schistocytes Occ Sodium Level 140 mmol/L (136-145) Potassium Level 5.0 mmol/L (3.5-5.1) Chloride Level 97 mmol/L (98-107) Carbon Dioxide Level 31 mmol/L (21-32) Anion Gap 12 (6-14) Blood Urea Nitrogen 54 mg/dL (8-26) Creatinine 8.9 mg/dL (0.7-1.3) Estimated GFR (Cockcroft-Gault) 7.1 Glucose Level 92 mg/dL (70-99) Lactic Acid Level 0.4 mmol/L (0.4-2.0) Calcium Level 9.0 mg/dL (8.5-10.1) Total Bilirubin 0.4 mg/dL (0.2-1.0) Direct Bilirubin 0.1 mg/dL (0.0-0.2) Aspartate Amino Transf (AST/SGOT) 20 U/L (15-37) Alanine Aminotransferase (ALT/SGPT) 13 U/L (16-63) Alkaline Phosphatase 95 U/L (46-116) Troponin I Quantitative 0.271 ng/mL (0.000-0.055) 0.181 ng/mL (0.000-0.055) XR-Nvm-N-Type Natriuretic Peptide 29248 pg/mL (0-124) Total Protein 7.0 g/dL (6.4-8.2) Albumin 3.0 g/dL (3.4-5.0) Lipase 87 U/L (73-393) Glucose (Fingerstick) 109 mg/dL (70-99) 233 mg/dL (70-99) Review of Systems Review of Systems no n,.v.d some fatigue Assessment and Plan Assessmemt and Plan Problems Medical Problems: (1) Shortness of breath Status: Acute Problems: Comment Review of Relevant I have reviewed the following items marli (where applicable) has been applied. Labs Laboratory Tests Test 11/04/17 16:50 11/04/17 18:37 11/05/17 03:45 11/05/17 13:09 White Blood Count 17.6 x10^3/uL (4.0-11.0) Red Blood Count 2.84 x10^6/uL (4.30-5.70) Hemoglobin 8.2 g/dL (13.0-17.5) Hematocrit 24.8 % (39.0-53.0) Mean Corpuscular Volume 88 fL (79-100) Mean Corpuscular Hemoglobin 29 pg (25-35) Mean Corpuscular Hemoglobin Concent 33 g/dL (31-37) Red Cell Distribution Width 14.6 % (11.5-14.5) Platelet Count 494 x10^3/uL (140-400) Neutrophils (%) (Auto) 33 % (31-73) Lymphocytes (%) (Auto) 59 % (24-48) Monocytes (%) (Auto) 4 % (0-9) Eosinophils (%) (Auto) 4 % (0-3) Basophils (%) (Auto) 0 % (0-3) Neutrophils # (Auto) 5.8 x10^3uL (1.8-7.7) Lymphocytes # (Auto) 10.4 x10^3/uL (1.0-4.8) Monocytes # (Auto) 0.6 x10^3/uL (0.0-1.1) Eosinophils # (Auto) 0.7 x10^3/uL (0.0-0.7) Basophils # (Auto) 0.1 x10^3/uL (0.0-0.2) Segmented Neutrophils % 32 % (35-66) Lymphocytes % 61 % (24-48) Monocytes % 2 % (0-10) Eosinophils % 5 % (0-5) Platelet Estimate Increased (ADEQUATE) Polychromasia Slight Target Cells Occ Ovalocytes Occ Crenated Cell Present Schistocytes Occ Sodium Level 140 mmol/L (136-145) Potassium Level 5.0 mmol/L (3.5-5.1) Chloride Level 97 mmol/L (98-107) Carbon Dioxide Level 31 mmol/L (21-32) Anion Gap 12 (6-14) Blood Urea Nitrogen 54 mg/dL (8-26) Creatinine 8.9 mg/dL (0.7-1.3) Estimated GFR (Cockcroft-Gault) 7.1 Glucose Level 92 mg/dL (70-99) Lactic Acid Level 0.4 mmol/L (0.4-2.0) Calcium Level 9.0 mg/dL (8.5-10.1) Total Bilirubin 0.4 mg/dL (0.2-1.0) Direct Bilirubin 0.1 mg/dL (0.0-0.2) Aspartate Amino Transf (AST/SGOT) 20 U/L (15-37) Alanine Aminotransferase (ALT/SGPT) 13 U/L (16-63) Alkaline Phosphatase 95 U/L (46-116) Troponin I Quantitative 0.271 ng/mL (0.000-0.055) 0.181 ng/mL (0.000-0.055) LX-Pih-D-Type Natriuretic Peptide 23057 pg/mL (0-124) Total Protein 7.0 g/dL (6.4-8.2) Albumin 3.0 g/dL (3.4-5.0) Lipase 87 U/L (73-393) Glucose (Fingerstick) 109 mg/dL (70-99) 233 mg/dL (70-99) Laboratory Tests Test 11/04/17 16:50 11/04/17 18:37 11/05/17 03:45 11/05/17 13:09 White Blood Count 17.6 x10^3/uL (4.0-11.0) Red Blood Count 2.84 x10^6/uL (4.30-5.70) Hemoglobin 8.2 g/dL (13.0-17.5) Hematocrit 24.8 % (39.0-53.0) Mean Corpuscular Volume 88 fL (79-100) Mean Corpuscular Hemoglobin 29 pg (25-35) Mean Corpuscular Hemoglobin Concent 33 g/dL (31-37) Red Cell Distribution Width 14.6 % (11.5-14.5) Platelet Count 494 x10^3/uL (140-400) Neutrophils (%) (Auto) 33 % (31-73) Lymphocytes (%) (Auto) 59 % (24-48) Monocytes (%) (Auto) 4 % (0-9) Eosinophils (%) (Auto) 4 % (0-3) Basophils (%) (Auto) 0 % (0-3) Neutrophils # (Auto) 5.8 x10^3uL (1.8-7.7) Lymphocytes # (Auto) 10.4 x10^3/uL (1.0-4.8) Monocytes # (Auto) 0.6 x10^3/uL (0.0-1.1) Eosinophils # (Auto) 0.7 x10^3/uL (0.0-0.7) Basophils # (Auto) 0.1 x10^3/uL (0.0-0.2) Segmented Neutrophils % 32 % (35-66) Lymphocytes % 61 % (24-48) Monocytes % 2 % (0-10) Eosinophils % 5 % (0-5) Platelet Estimate Increased (ADEQUATE) Polychromasia Slight Target Cells Occ Ovalocytes Occ Crenated Cell Present Schistocytes Occ Sodium Level 140 mmol/L (136-145) Potassium Level 5.0 mmol/L (3.5-5.1) Chloride Level 97 mmol/L (98-107) Carbon Dioxide Level 31 mmol/L (21-32) Anion Gap 12 (6-14) Blood Urea Nitrogen 54 mg/dL (8-26) Creatinine 8.9 mg/dL (0.7-1.3) Estimated GFR (Cockcroft-Gault) 7.1 Glucose Level 92 mg/dL (70-99) Lactic Acid Level 0.4 mmol/L (0.4-2.0) Calcium Level 9.0 mg/dL (8.5-10.1) Total Bilirubin 0.4 mg/dL (0.2-1.0) Direct Bilirubin 0.1 mg/dL (0.0-0.2) Aspartate Amino Transf (AST/SGOT) 20 U/L (15-37) Alanine Aminotransferase (ALT/SGPT) 13 U/L (16-63) Alkaline Phosphatase 95 U/L (46-116) Troponin I Quantitative 0.271 ng/mL (0.000-0.055) 0.181 ng/mL (0.000-0.055) RP-Jtb-Z-Type Natriuretic Peptide 50852 pg/mL (0-124) Total Protein 7.0 g/dL (6.4-8.2) Albumin 3.0 g/dL (3.4-5.0) Lipase 87 U/L (73-393) Glucose (Fingerstick) 109 mg/dL (70-99) 233 mg/dL (70-99) Medications Current Medications Albuterol/ Ipratropium (Duoneb) 3 ml 1X ONCE NEB ; Start 11/04/17 at 14:30; Stop 11/04/17 at 14:31; Status DC Methylprednisolone Sodium Succinate (SOLU-Medrol 125MG VIAL) 125 mg 1X ONCE IV Last administered on 11/04/17 15:59; Start 11/04/17 at 14:30; Stop at 14:31; Status DC Ondansetron HCl (Zofran) 4 mg PRN Q8HRS PRN IV NAUSEA/VOMITING; Start at 15:45; Stop 11/05/17 at 15:44 Morphine Sulfate 2 mg PRN Q2HR PRN IV PAIN; Start 11/04/17 at 15:45; Stop at 15:44 Vancomycin HCl (Vanco Per Pharmacy) 1 each PRN DAILY PRN MC SEE COMMENTS Last administered on 11/05/17 09:25; Start 11/04/17 at 16:45 Piperacillin Sod/ Tazobactam Sod (Zosyn Per Pharmacy) 1 each PRN DAILY PRN MC SEE COMMENTS; Start 11/04/17 at 16:45 Vancomycin HCl 2 gm/Dextrose/ Sodium Chloride 500 ml @ 250 mls/hr 1X ONCE IV Last administered on 11/04/17 20:41; Start 11/04/17 at 17:00; Stop 11/04/17 at 18:59; Status DC Piperacillin Sod/ Tazobactam Sod (Zosyn) 2.25 gm Q8HRS IVP Last administered on 11/05/17 14:19; Start 11/04/17 at 17:00 Sodium Chloride 1,000 ml @ 1,000 mls/hr Q1H PRN IV hypotension; Start at 16:58; Stop 11/04/17 at 22:57; Status DC Diphenhydramine HCl (Benadryl) 25 mg 1X PRN PRN IV ITCHING; Start 11/04/17 at 17:00; Stop 11/05/17 at 16:59 Diphenhydramine HCl (Benadryl) 25 mg 1X PRN PRN IV ITCHING; Start 11/04/17 at 17:00; Stop 11/05/17 at 16:59 Sodium Chloride 1,000 ml @ 400 mls/hr Q2H30M PRN IV PATENCY; Start 11/04/17 at 16:58; Stop 11/05/17 at 04:57; Status DC Info (PHARMACY MONITORING -- do not chart) 1 each PRN DAILY PRN MC SEE COMMENTS ; Start 11/04/17 at 17:00; Stop 11/05/17 at 09:24; Status DC Vancomycin HCl 1 each 1X ONCE MC ; Start 11/06/17 at 05:00; Stop 11/06/17 at 05:01 Sodium Chloride 1,000 ml @ 1,000 mls/hr Q1H PRN IV hypotension; Start at 08:29; Stop 11/05/17 at 14:28; Status DC Albumin Human 200 ml @ 200 mls/hr 1X PRN PRN IV Hypotension; Start 11/05/17 at 08:30; Stop 11/05/17 at 14:29; Status DC Info (PHARMACY MONITORING -- do not chart) 1 each PRN DAILY PRN MC SEE COMMENTS ; Start 11/05/17 at 08:30 Lactobacillus Rhamnosus (Culturelle) 1 cap BID PO ; Start 11/05/17 at 21:00 Albuterol/ Ipratropium (Duoneb) 3 ml RTQID NEB Last administered on 11/05/17t 15:35; Start 11/05/17 at 12:00 Active Scripts Active Levemir Flextouch (Insulin Detemir) 100 Unit/1 Ml Insuln.pen 32 Units SQ HS Novolog Flexpen (Insulin Aspart) 100 Unit/1 Ml Insuln.pen 8 Units SQ TIDAC Culturelle (Lactobacillus Rhamnosus Gg) 1 Each Cap.sprink 1 Cap PO BID Levaquin (Levofloxacin) 500 Mg Tablet 500 Mg PO Q48H until 10/21/17 Isosorbide Mononitrate Er (Isosorbide Mononitrate) 30 Mg Tab.er.24h 30 Mg PO DAILY Reported Mirtazapine 15 Mg Tablet 1 Tab PO QHS Renvela (Sevelamer Carbonate) 800 Mg Tablet 800 Mg PO TIDWMEALS Vitamin D (Cholecalciferol (Vitamin D3)) 1,000 Unit Capsule 1 Cap PO DAILY Nephro-Ulises Tablet (Folic Acid/Vitamin B Comp W-C) 0.8 Mg Tablet 1 Tab PO DAILY Trazodone Hcl 50 Mg Tablet 1 Tab PO QHS Duoneb 0.5-3(2.5) Mg/3 Ml (Albuterol/Ipratropium) 3 Ml Ampul.neb 3 Ml NEB TID Colestipol Hcl 1 Gm Tablet 1 Gm PO DAILY Atorvastatin Calcium 10 Mg Tablet 5 Mg PO HS Take next dose tonight 12/20/15 at bedtime Aspir-Lorin (Aspirin) 325 Mg Tablet.dr 325 Mg PO DAILY Take next dose tomorrow 12/21/15 in AM Amlodipine Besylate 10 Mg Tablet 10 Mg PO DAILY Take next tomorrow 12/21/15 in AM Levemir Flextouch (Insulin Detemir) 100 Unit/1 Ml Insuln.pen 28 Unit SQ HS TAKE NEXT DOSE TONIGHT 12/20/15 AT BEDTIME Polyethylene Glycol 3350 255 Gm Powder 17 Gm PO DAILY TAKE DAILY NEEDED FOR CONSTIPATION Nitrostat (Nitroglycerin) 0.4 Mg Tab.subl 0.4 Mg SL PRN Q5MIN PRN Benadryl (Diphenhydramine Hcl) 25 Mg Capsule 25 Mg PO PRN Q6HRS PRN TAKE NEEDED Acetaminophen 500 Mg Tablet 500 Mg PO PRN TID PRN Loratadine 10 Mg Tablet 10 Mg PO DAILY TAKE NEXT DOSE TOMORROW 12/21/15 IN AM Levothyroxine Sodium 75 Mcg Tablet 75 Mcg PO DAILY TAKE NEXT DOSE TOMORROW 12/21/15 IN AM Tums (Calcium Carbonate) 200 Mg Tab.chew 200 Mg PO PRN Q6HRS PRN Tramadol Hcl 50 Mg Tablet 100 Mg PO BID PRN Gabapentin 300 Mg Capsule 300 Mg PO HS TAKE NEXT DOSE TONIGHT 12/20/15 AT BEDTIME Vitals/I & O Vital Sign - Last 24 Hours 11/04/17 11/04/17 11/04/17 11/04/17 15:58 19:30 20:00 20:00 Temp 97.8 97.8 Pulse 74 80 82 Resp 24 18 18 B/P (MAP) 173/74 (107) 150/64 (92) 137/67 (90) Pulse Ox 100 95 95 O2 Delivery NonRebreather Mask Nasal Cannula Nasal Cannula Nasal Cannula O2 Flow Rate 10.0 4.0 4.0 4.0 11/04/17 11/04/17 11/04/17 11/04/17 20:30 21:00 22:00 23:00 Pulse 84 84 81 93 Resp 18 14 23 B/P (MAP) 123/51 (75) 119/69 (86) 131/57 (81) 146/65 (92) Pulse Ox 92 93 96 96 O2 Delivery Nasal Cannula Nasal Cannula Nasal Cannula Nasal Cannula O2 Flow Rate 4.0 4.0 4.0 4.0 11/05/17 11/05/17 11/05/17 11/05/17 00:00 00:03 01:00 02:00 Temp 98.2 98.2 Pulse 95 74 76 Resp 18 B/P (MAP) 143/58 (86) 136/55 (82) 159/65 (96) Pulse Ox 96 96 96 O2 Delivery Nasal Cannula Nasal Cannula Nasal Cannula Nasal Cannula O2 Flow Rate 4.0 4.0 4.0 4.0 11/05/17 11/05/17 11/05/17 11/05/17 03:00 04:00 04:05 05:00 Temp 98.6 98.6 Pulse 76 69 72 Resp 16 15 14 B/P (MAP) 148/62 (90) 136/63 (87) 133/71 (91) Pulse Ox 96 98 99 O2 Delivery Nasal Cannula Nasal Cannula Nasal Cannula Nasal Cannula O2 Flow Rate 4.0 4.0 4.0 4.0 11/05/17 11/05/17 11/05/17 11/05/17 06:00 07:37 08:00 15:15 Temp 97.9 97.9 Pulse 72 71 91 Resp 10 31 16 B/P (MAP) 159/58 (91) 146/65 (92) 136/60 (85) Pulse Ox 99 99 94 O2 Delivery Nasal Cannula Nasal Cannula Nasal Cannula Nasal Cannula O2 Flow Rate 4.0 4.0 4.0 4.0 Intake and Output 11/04/17 11/04/17 11/05/17 15:00 23:00 07:00 Intake Total 500 ml 275 ml Output Total 100 ml Balance 500 ml 175 ml OTTO CLINE MD Nov 05, 2017 15:39
[2017-11-05] MEDS: LACTOBACILLUS RHAMNOSUS GG 1 CAPSULE. PO SCH (21:03)
[2017-11-06] MEDS: ZOLPIDEM 5 MG TABLET. PO PRN ×2 (00:51→20:50)
[2017-11-06] MEDS ORDERED: VANCOMYCIN RANDOM LEVEL. MC ONE (05:00)
[2017-11-06] MEDS: PIPERACILLIN/TAZO IV Push 2.25 GM VIAL. IVP SCH ×3 (06:02→21:39)
[2017-11-06 07:00] VITALS: BP 137/56
[2017-11-06] MEDS ORDERED: IV NORMAL SALINE 1000ML BAG 1,000 ML IV PRN ×2 (07:30)
[2017-11-06] MEDS: LACTOBACILLUS RHAMNOSUS GG 1 CAPSULE. PO SCH ×2 (07:59→20:50)
[2017-11-06] MEDS: IPRATRPIUM/ALBUTEROL 0.5/2.5MG 3 ML NEBU. NEB SCH ×4 (08:00→19:42)
[2017-11-06] MEDS ORDERED: DIALYSIS PATIENT. MC PRN (09:15)
--- NOTE | 2017-11-06 09:39 | PDOC ---
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 Vitals Vital Signs Vital Signs Date Time Temp Pulse Resp B/P (MAP) Pulse Ox O2 Delivery O2 Flow Rate FiO2 11/06/17 07:00 99.9 83 137/56 (83) 94 Nasal Cannula 4.0 99.9 11/05/17 22:33 18 Labs Last Labs Laboratory Tests Test 11/04/17 16:50 11/04/17 18:37 11/04/17 20:30 11/05/17 03:45 White Blood Count 17.6 x10^3/uL (4.0-11.0) Red Blood Count 2.84 x10^6/uL (4.30-5.70) Hemoglobin 8.2 g/dL (13.0-17.5) Hematocrit 24.8 % (39.0-53.0) Mean Corpuscular Volume 88 fL (79-100) Mean Corpuscular Hemoglobin 29 pg (25-35) Mean Corpuscular Hemoglobin Concent 33 g/dL (31-37) Red Cell Distribution Width 14.6 % (11.5-14.5) Platelet Count 494 x10^3/uL (140-400) Neutrophils (%) (Auto) 33 % (31-73) Lymphocytes (%) (Auto) 59 % (24-48) Monocytes (%) (Auto) 4 % (0-9) Eosinophils (%) (Auto) 4 % (0-3) Basophils (%) (Auto) 0 % (0-3) Neutrophils # (Auto) 5.8 x10^3uL (1.8-7.7) Lymphocytes # (Auto) 10.4 x10^3/uL (1.0-4.8) Monocytes # (Auto) 0.6 x10^3/uL (0.0-1.1) Eosinophils # (Auto) 0.7 x10^3/uL (0.0-0.7) Basophils # (Auto) 0.1 x10^3/uL (0.0-0.2) Segmented Neutrophils % 32 % (35-66) Lymphocytes % 61 % (24-48) Monocytes % 2 % (0-10) Eosinophils % 5 % (0-5) Platelet Estimate Increased (ADEQUATE) Polychromasia Slight Target Cells Occ Ovalocytes Occ Crenated Cell Present Schistocytes Occ Sodium Level 140 mmol/L (136-145) Potassium Level 5.0 mmol/L (3.5-5.1) Chloride Level 97 mmol/L (98-107) Carbon Dioxide Level 31 mmol/L (21-32) Anion Gap 12 (6-14) Blood Urea Nitrogen 54 mg/dL (8-26) Creatinine 8.9 mg/dL (0.7-1.3) Estimated GFR (Cockcroft-Gault) 7.1 Glucose Level 92 mg/dL (70-99) Lactic Acid Level 0.4 mmol/L (0.4-2.0) Calcium Level 9.0 mg/dL (8.5-10.1) Total Bilirubin 0.4 mg/dL (0.2-1.0) Direct Bilirubin 0.1 mg/dL (0.0-0.2) Aspartate Amino Transf (AST/SGOT) 20 U/L (15-37) Alanine Aminotransferase (ALT/SGPT) 13 U/L (16-63) Alkaline Phosphatase 95 U/L (46-116) Troponin I Quantitative 0.271 ng/mL (0.000-0.055) 0.181 ng/mL (0.000-0.055) HM-Wpo-C-Type Natriuretic Peptide 75495 pg/mL (0-124) Total Protein 7.0 g/dL (6.4-8.2) Albumin 3.0 g/dL (3.4-5.0) Lipase 87 U/L (73-393) Glucose (Fingerstick) 109 mg/dL (70-99) Nasal Screen MRSA (PCR) Negative (Negative) Test 11/05/17 13:09 11/05/17 17:08 11/05/17 21:37 11/06/17 07:41 Glucose (Fingerstick) 233 mg/dL (70-99) 224 mg/dL (70-99) 322 mg/dL (70-99) 171 mg/dL (70-99) Laboratory Tests Test 11/05/17 13:09 11/05/17 17:08 11/05/17 21:37 11/06/17 07:41 Glucose (Fingerstick) 233 mg/dL (70-99) 224 mg/dL (70-99) 322 mg/dL (70-99) 171 mg/dL (70-99) Assessment Assessment Problems Medical Problems: (1) Fluid overload Status: Acute (2) Shortness of breath Status: Acute Problems: Plan Plan of Care Problems Medical Problems: (1) Shortness of breath Status: Acute LEIGH MORALES MD Nov 06, 2017 09:39
--- NOTE | 2017-11-06 12:24 | PDOC ---
PROGRESS NOTES Chief Complaint Chief Complaint acute on chronic diastolic CHF, fluid overload acute on chronic respiratory failure secondary to chronic diastolic HF ESRD, has missed HD noncompliance, poor ability to maintain self care HTN DM History of Present Illness History of Present Illness Patient seen and examined during dialysis. No acute events overnight. Denies chest pain, shortness of breath. Vitals Vitals Vital Signs Date Time Temp Pulse Resp B/P (MAP) Pulse Ox O2 Delivery O2 Flow Rate FiO2 11/06/17 07:45 Nasal Cannula 4.0 11/06/17 07:00 99.9 83 137/56 (83) 94 99.9 11/05/17 22:33 18 Physical Exam General: Alert, No acute distress Heart: Regular rate, Normal S1, Normal S2 Lungs: Clear, Other Abdomen: Soft, No tenderness Extremities: No clubbing, No edema Skin: No breakdown Labs LABS Laboratory Tests Test 11/05/17 13:09 11/05/17 17:08 11/05/17 21:37 11/06/17 07:41 Glucose (Fingerstick) 233 mg/dL (70-99) 224 mg/dL (70-99) 322 mg/dL (70-99) 171 mg/dL (70-99) Review of Systems Review of Systems Denies shortness of breath or chest pain. Assessment and Plan Assessmemt and Plan Problems Medical Problems: (1) Fluid overload Status: Acute (2) Shortness of breath Status: Acute acute on chronic diastolic CHF, fluid overload acute on chronic respiratory failure secondary to chronic diastolic HF ESRD, has missed HD noncompliance, poor ability to maintain self care HTN DM PLAN: Recheck AM labs Continue HD per nephrology wean O2 and abx per pulmonology Duoneb Smoking cessation education Continue home medications PT/OT Problems: Comment Review of Relevant I have reviewed the following items marli (where applicable) has been applied. Labs Laboratory Tests Test 11/04/17 16:50 11/04/17 18:37 11/04/17 20:30 11/05/17 03:45 White Blood Count 17.6 x10^3/uL (4.0-11.0) Red Blood Count 2.84 x10^6/uL (4.30-5.70) Hemoglobin 8.2 g/dL (13.0-17.5) Hematocrit 24.8 % (39.0-53.0) Mean Corpuscular Volume 88 fL (79-100) Mean Corpuscular Hemoglobin 29 pg (25-35) Mean Corpuscular Hemoglobin Concent 33 g/dL (31-37) Red Cell Distribution Width 14.6 % (11.5-14.5) Platelet Count 494 x10^3/uL (140-400) Neutrophils (%) (Auto) 33 % (31-73) Lymphocytes (%) (Auto) 59 % (24-48) Monocytes (%) (Auto) 4 % (0-9) Eosinophils (%) (Auto) 4 % (0-3) Basophils (%) (Auto) 0 % (0-3) Neutrophils # (Auto) 5.8 x10^3uL (1.8-7.7) Lymphocytes # (Auto) 10.4 x10^3/uL (1.0-4.8) Monocytes # (Auto) 0.6 x10^3/uL (0.0-1.1) Eosinophils # (Auto) 0.7 x10^3/uL (0.0-0.7) Basophils # (Auto) 0.1 x10^3/uL (0.0-0.2) Segmented Neutrophils % 32 % (35-66) Lymphocytes % 61 % (24-48) Monocytes % 2 % (0-10) Eosinophils % 5 % (0-5) Platelet Estimate Increased (ADEQUATE) Polychromasia Slight Target Cells Occ Ovalocytes Occ Crenated Cell Present Schistocytes Occ Sodium Level 140 mmol/L (136-145) Potassium Level 5.0 mmol/L (3.5-5.1) Chloride Level 97 mmol/L (98-107) Carbon Dioxide Level 31 mmol/L (21-32) Anion Gap 12 (6-14) Blood Urea Nitrogen 54 mg/dL (8-26) Creatinine 8.9 mg/dL (0.7-1.3) Estimated GFR (Cockcroft-Gault) 7.1 Glucose Level 92 mg/dL (70-99) Lactic Acid Level 0.4 mmol/L (0.4-2.0) Calcium Level 9.0 mg/dL (8.5-10.1) Total Bilirubin 0.4 mg/dL (0.2-1.0) Direct Bilirubin 0.1 mg/dL (0.0-0.2) Aspartate Amino Transf (AST/SGOT) 20 U/L (15-37) Alanine Aminotransferase (ALT/SGPT) 13 U/L (16-63) Alkaline Phosphatase 95 U/L (46-116) Troponin I Quantitative 0.271 ng/mL (0.000-0.055) 0.181 ng/mL (0.000-0.055) CV-Jjd-[id number]-Type Natriuretic Peptide 65818 pg/mL (0-124) Total Protein 7.0 g/dL (6.4-8.2) Albumin 3.0 g/dL (3.4-5.0) Lipase 87 U/L (73-393) Glucose (Fingerstick) 109 mg/dL (70-99) Nasal Screen MRSA (PCR) Negative (Negative) Test 11/05/17 13:09 11/05/17 17:08 11/05/17 21:37 11/06/17 07:41 Glucose (Fingerstick) 233 mg/dL (70-99) 224 mg/dL (70-99) 322 mg/dL (70-99) 171 mg/dL (70-99) Laboratory Tests Test 11/05/17 13:09 11/05/17 17:08 11/05/17 21:37 11/06/17 07:41 Glucose (Fingerstick) 233 mg/dL (70-99) 224 mg/dL (70-99) 322 mg/dL (70-99) 171 mg/dL (70-99) Microbiology 11/04/17 Blood Culture - Preliminary, Resulted NO GROWTH AFTER 1 DAY Medications Current Medications Albuterol/ Ipratropium (Duoneb) 3 ml 1X ONCE NEB ; Start 11/04/17 at 14:30; Stop 11/04/17 at 14:31; Status DC Methylprednisolone Sodium Succinate (SOLU-Medrol 125MG VIAL) 125 mg 1X ONCE IV Last administered on 11/04/17t 15:59; Start 11/04/17 at 14:30; Stop at 14:31; Status DC Ondansetron HCl (Zofran) 4 mg PRN Q8HRS PRN IV NAUSEA/VOMITING; Start at 15:45; Stop 11/05/17 at 15:44; Status DC Morphine Sulfate 2 mg PRN Q2HR PRN IV PAIN; Start 11/04/17 at 15:45; Stop at 15:44; Status DC Vancomycin HCl (Vanco Per Pharmacy) 1 each PRN DAILY PRN MC SEE COMMENTS Last administered on 11/05/17 09:25; Start 11/04/17 at 16:45 Piperacillin Sod/ Tazobactam Sod (Zosyn Per Pharmacy) 1 each PRN DAILY PRN MC SEE COMMENTS; Start 11/04/17 at 16:45 Vancomycin HCl 2 gm/Dextrose/ Sodium Chloride 500 ml @ 250 mls/hr 1X ONCE IV Last administered on 11/04/17 20:41; Start 11/04/17 at 17:00; Stop 11/04/17 at 18:59; Status DC Piperacillin Sod/ Tazobactam Sod (Zosyn) 2.25 gm Q8HRS IVP Last administered on 11/06/17 06:02; Start 11/04/17 at 17:00 Sodium Chloride 1,000 ml @ 1,000 mls/hr Q1H PRN IV hypotension; Start at 16:58; Stop 11/04/17 at 22:57; Status DC Diphenhydramine HCl (Benadryl) 25 mg 1X PRN PRN IV ITCHING; Start 11/04/17 at 17:00; Stop 11/05/17 at 16:59; Status DC Diphenhydramine HCl (Benadryl) 25 mg 1X PRN PRN IV ITCHING; Start 11/04/17 at 17:00; Stop 11/05/17 at 16:59; Status DC Sodium Chloride 1,000 ml @ 400 mls/hr Q2H30M PRN IV PATENCY; Start 11/04/17 at 16:58; Stop 11/05/17 at 04:57; Status DC Info (PHARMACY MONITORING -- do not chart) 1 each PRN DAILY PRN MC SEE COMMENTS ; Start 11/04/17 at 17:00; Stop 11/05/17 at 09:24; Status DC Vancomycin HCl 1 each 1X ONCE MC ; Start 11/06/17 at 05:00; Stop 11/06/17 at 05:01; Status DC Sodium Chloride 1,000 ml @ 1,000 mls/hr Q1H PRN IV hypotension; Start at 08:29; Stop 11/05/17 at 14:28; Status DC Albumin Human 200 ml @ 200 mls/hr 1X PRN PRN IV Hypotension; Start 11/05/17 at 08:30; Stop 11/05/17 at 14:29; Status DC Info (PHARMACY MONITORING -- do not chart) 1 each PRN DAILY PRN MC SEE COMMENTS ; Start 11/05/17 at 08:30 Lactobacillus Rhamnosus (Culturelle) 1 cap BID PO Last administered on 21:03; Start 11/05/17 at 21:00 Albuterol/ Ipratropium (Duoneb) 3 ml RTQID NEB Last administered on 11/05/17 20:42; Start 11/05/17 at 12:00 Zolpidem Tartrate (Ambien) 5 mg PRN QHS PRN PO INSOMNIA Last administered on 00:51; Start 11/05/17 at 23:45 Sodium Chloride 1,000 ml @ 1,000 mls/hr Q1H PRN IV hypotension; Start at 07:30; Stop 11/06/17 at 13:29 Sodium Chloride 1,000 ml @ 400 mls/hr Q2H30M PRN IV PATENCY; Start 11/06/17 at 07:30; Stop 11/06/17 at 19:29 Info (PHARMACY MONITORING -- do not chart) 1 each PRN DAILY PRN MC SEE COMMENTS ; Start 11/06/17 at 09:15 Active Scripts Active Levemir Flextouch (Insulin Detemir) 100 Unit/1 Ml Insuln.pen 32 Units SQ HS Novolog Flexpen (Insulin Aspart) 100 Unit/1 Ml Insuln.pen 8 Units SQ TIDAC Culturelle (Lactobacillus Rhamnosus Gg) 1 Each Cap.sprink 1 Cap PO BID Levaquin (Levofloxacin) 500 Mg Tablet 500 Mg PO Q48H until 10/21/17 Isosorbide Mononitrate Er (Isosorbide Mononitrate) 30 Mg Tab.er.24h 30 Mg PO DAILY Reported Mirtazapine 15 Mg Tablet 1 Tab PO QHS Renvela (Sevelamer Carbonate) 800 Mg Tablet 800 Mg PO TIDWMEALS Vitamin D (Cholecalciferol (Vitamin D3)) 1,000 Unit Capsule 1 Cap PO DAILY Nephro-Ulises Tablet (Folic Acid/Vitamin B Comp W-C) 0.8 Mg Tablet 1 Tab PO DAILY Trazodone Hcl 50 Mg Tablet 1 Tab PO QHS Duoneb 0.5-3(2.5) Mg/3 Ml (Albuterol/Ipratropium) 3 Ml Ampul.neb 3 Ml NEB TID Colestipol Hcl 1 Gm Tablet 1 Gm PO DAILY Atorvastatin Calcium 10 Mg Tablet 5 Mg PO HS Take next dose tonight 12/20/15 at bedtime Aspir-Lorin (Aspirin) 325 Mg Tablet.dr 325 Mg PO DAILY Take next dose tomorrow 12/21/15 in AM Amlodipine Besylate 10 Mg Tablet 10 Mg PO DAILY Take next tomorrow 12/21/15 in AM Levemir Flextouch (Insulin Detemir) 100 Unit/1 Ml Insuln.pen 28 Unit SQ HS TAKE NEXT DOSE TONIGHT 12/20/15 AT BEDTIME Polyethylene Glycol 3350 255 Gm Powder 17 Gm PO DAILY TAKE DAILY NEEDED FOR CONSTIPATION Nitrostat (Nitroglycerin) 0.4 Mg Tab.subl 0.4 Mg SL PRN Q5MIN PRN Benadryl (Diphenhydramine Hcl) 25 Mg Capsule 25 Mg PO PRN Q6HRS PRN TAKE NEEDED Acetaminophen 500 Mg Tablet 500 Mg PO PRN TID PRN Loratadine 10 Mg Tablet 10 Mg PO DAILY TAKE NEXT DOSE TOMORROW 12/21/15 IN AM Levothyroxine Sodium 75 Mcg Tablet 75 Mcg PO DAILY TAKE NEXT DOSE TOMORROW 12/21/15 IN AM Tums (Calcium Carbonate) 200 Mg Tab.chew 200 Mg PO PRN Q6HRS PRN Tramadol Hcl 50 Mg Tablet 100 Mg PO BID PRN Gabapentin 300 Mg Capsule 300 Mg PO HS TAKE NEXT DOSE TONIGHT 12/20/15 AT BEDTIME Vitals/I & O Vital Sign - Last 24 Hours 11/05/17 11/05/17 11/05/17 11/05/17 15:15 15:39 20:38 20:42 Temp 97.9 98.6 97.9 98.6 Pulse 91 79 Resp 16 18 B/P (MAP) 136/60 (85) 134/54 (80) Pulse Ox 94 100 96 97 O2 Delivery Nasal Cannula Room Air Nasal Cannula Room Air O2 Flow Rate 4.0 5.0 4.5 5.0 11/05/17 11/06/17 11/06/17 11/06/17 22:33 00:05 07:00 07:45 Temp 99.9 99.9 99.9 99.9 Pulse 83 83 Resp 18 B/P (MAP) 137/56 (83) 137/56 (83) Pulse Ox 94 94 O2 Delivery Nasal Cannula Nasal Cannula Nasal Cannula Nasal Cannula O2 Flow Rate 4.0 4.0 4.0 4.0 Intake and Output 11/05/17 11/05/17 11/06/17 15:00 23:00 07:00 Intake Total 0 ml 275 ml 400 ml Output Total 3 ml 0 ml Balance 0 ml 272 ml 400 ml LUIZ ALVARADO III DO Nov 06, 2017 12:24
[2017-11-06] MEDS: VANCOMYCIN PER PHARMACY MC PRN (13:39)
[2017-11-06 14:39] VITALS: BP 139/60
[2017-11-06 19:31] VITALS: BP 135/75
[2017-11-06 23:33] VITALS: BP 149/64
--- NOTE | 2017-11-07 00:57 | PN ---
DATE: SUBJECTIVE: The patient is being seen while having dialysis. He feels better. No shortness of breath. PHYSICAL EXAMINATION: VITAL SIGNS: Reviewed, stable. Pulse ox 96% on 2 liters. HEENT: Sclerae nonicteric. NECK: Supple. LUNGS: Diminished breath sounds. CARDIOVASCULAR: Regular rate and rhythm. ABDOMEN: Soft, nontender. EXTREMITIES: With no pitting edema. ASSESSMENT: 1. Acute hypoxic respiratory failure secondary to congestive heart failure. 2. Acute on chronic diastolic heart failure. 3. End-stage renal disease, on hemodialysis. 4. Chronic obstructive pulmonary disease, clinically compensated. RECOMMENDATIONS: 1. The patient is doing well with ultrafiltration with hemodialysis. Clinically better. 2. We will obtain chest x-ray post-hemodialysis. 3. Wean off oxygen. 4. Possible discharge home after hemodialysis. JESSICA HAYS MD DR: MEAGAN/jc JOB#: [id number] / [id number]
[2017-11-07 03:24] VITALS: BP 130/45
[2017-11-07] MEDS: PIPERACILLIN/TAZO IV Push 2.25 GM VIAL. IVP SCH (05:22)
[2017-11-07 07:00] VITALS: BP 102/62
[2017-11-07] MEDS: LACTOBACILLUS RHAMNOSUS GG 1 CAPSULE. PO SCH ×2 (07:57→21:36)
[2017-11-07] MEDS: IPRATRPIUM/ALBUTEROL 0.5/2.5MG 3 ML NEBU. NEB SCH ×4 (08:03→19:26)
--- NOTE | 2017-11-07 08:33 | RAD ---
Examination: Single frontal view of the chest History: History of shortness of breath Comparison: 11/04/2017 Findings: The cardiomediastinal silhouette grossly appears unremarkable. Median sternotomy wires appear intact. Minimal prominent appearing bilateral interstitial markings probably interstitial infiltrates or edema grossly similar to prior exam. Impression: Unchanged exam.
--- NOTE | 2017-11-07 10:22 | PDOC ---
PROGRESS NOTES Chief Complaint Chief Complaint acute on chronic diastolic CHF, fluid overload acute on chronic respiratory failure secondary to chronic diastolic HF ESRD, has missed HD noncompliance, poor ability to maintain self care HTN DM History of Present Illness History of Present Illness Patient seen and examined. No acute events overnight. States he has no one at home to take him to dialysis. Would like assistance finding placement. Denies chest pain, shortness of breath. Vitals Vitals Vital Signs Date Time Temp Pulse Resp B/P (MAP) Pulse Ox O2 Delivery O2 Flow Rate FiO2 11/07/17 08:03 92 Nasal Cannula 2.0 11/07/17 07:00 98.6 80 20 102/62 (75) 98.6 Physical Exam General: Alert, No acute distress Heart: Regular rate, Normal S1, Normal S2 Lungs: Clear, Other Abdomen: Soft, No tenderness Extremities: No clubbing, No edema Skin: No breakdown Labs LABS Laboratory Tests Test 11/06/17 17:04 11/07/17 07:34 Glucose (Fingerstick) 136 mg/dL (70-99) 141 mg/dL (70-99) Review of Systems Review of Systems Denies fevers/chills, chest pain, shortness of breath. Assessment and Plan Assessmemt and Plan Problems Medical Problems: (1) Fluid overload Status: Acute (2) Shortness of breath Status: Acute acute on chronic diastolic CHF, fluid overload acute on chronic respiratory failure secondary to chronic diastolic HF ESRD, has missed HD noncompliance, poor ability to maintain self care HTN DM PLAN: Recheck labs HD per nephrology Duoneb Smoking cessation Continue home medications PT/OT D/c disposition pending Problems: Comment Review of Relevant I have reviewed the following items marli (where applicable) has been applied. Labs Laboratory Tests Test 11/05/17 13:09 11/05/17 17:08 11/05/17 21:37 11/06/17 07:41 Glucose (Fingerstick) 233 mg/dL (70-99) 224 mg/dL (70-99) 322 mg/dL (70-99) 171 mg/dL (70-99) Test 11/06/17 17:04 11/07/17 07:34 Glucose (Fingerstick) 136 mg/dL (70-99) 141 mg/dL (70-99) Laboratory Tests Test 11/06/17 17:04 11/07/17 07:34 Glucose (Fingerstick) 136 mg/dL (70-99) 141 mg/dL (70-99) Microbiology 11/04/17 Blood Culture - Preliminary, Resulted NO GROWTH AFTER 2 DAYS Medications Current Medications Albuterol/ Ipratropium (Duoneb) 3 ml 1X ONCE NEB ; Start 11/04/17 at 14:30; Stop 11/04/17 at 14:31; Status DC Methylprednisolone Sodium Succinate (SOLU-Medrol 125MG VIAL) 125 mg 1X ONCE IV Last administered on 11/04/17 15:59; Start 11/04/17 at 14:30; Stop at 14:31; Status DC Ondansetron HCl (Zofran) 4 mg PRN Q8HRS PRN IV NAUSEA/VOMITING; Start at 15:45; Stop 11/05/17 at 15:44; Status DC Morphine Sulfate 2 mg PRN Q2HR PRN IV PAIN; Start 11/04/17 at 15:45; Stop at 15:44; Status DC Vancomycin HCl (Vanco Per Pharmacy) 1 each PRN DAILY PRN MC SEE COMMENTS Last administered on 11/06/17 13:39; Start 11/04/17 at 16:45; Stop 11/06/17 at 17 :03; Status DC Piperacillin Sod/ Tazobactam Sod (Zosyn Per Pharmacy) 1 each PRN DAILY PRN MC SEE COMMENTS; Start 11/04/17 at 16:45 Vancomycin HCl 2 gm/Dextrose/ Sodium Chloride 500 ml @ 250 mls/hr 1X ONCE IV Last administered on 11/04/17 20:41; Start 11/04/17 at 17:00; Stop 11/04/17 at 18:59; Status DC Piperacillin Sod/ Tazobactam Sod (Zosyn) 2.25 gm Q8HRS IVP Last administered on 11/07/17 05:22; Start 11/04/17 at 17:00 Sodium Chloride 1,000 ml @ 1,000 mls/hr Q1H PRN IV hypotension; Start at 16:58; Stop 11/04/17 at 22:57; Status DC Diphenhydramine HCl (Benadryl) 25 mg 1X PRN PRN IV ITCHING; Start 11/04/17 at 17:00; Stop 11/05/17 at 16:59; Status DC Diphenhydramine HCl (Benadryl) 25 mg 1X PRN PRN IV ITCHING; Start 11/04/17 at 17:00; Stop 11/05/17 at 16:59; Status DC Sodium Chloride 1,000 ml @ 400 mls/hr Q2H30M PRN IV PATENCY; Start 11/04/17 at 16:58; Stop 11/05/17 at 04:57; Status DC Info (PHARMACY MONITORING -- do not chart) 1 each PRN DAILY PRN MC SEE COMMENTS ; Start 11/04/17 at 17:00; Stop 11/05/17 at 09:24; Status DC Vancomycin HCl 1 each 1X ONCE MC ; Start 11/06/17 at 05:00; Stop 11/06/17 at 05:01; Status DC Sodium Chloride 1,000 ml @ 1,000 mls/hr Q1H PRN IV hypotension; Start at 08:29; Stop 11/05/17 at 14:28; Status DC Albumin Human 200 ml @ 200 mls/hr 1X PRN PRN IV Hypotension; Start 11/05/17 at 08:30; Stop 11/05/17 at 14:29; Status DC Info (PHARMACY MONITORING -- do not chart) 1 each PRN DAILY PRN MC SEE COMMENTS ; Start 11/05/17 at 08:30; Stop 11/06/17 at 17:03; Status DC Lactobacillus Rhamnosus (Culturelle) 1 cap BID PO Last administered on 07:57; Start 11/05/17 at 21:00 Albuterol/ Ipratropium (Duoneb) 3 ml RTQID NEB Last administered on 11/07/17 08:03; Start 11/05/17 at 12:00 Zolpidem Tartrate (Ambien) 5 mg PRN QHS PRN PO INSOMNIA Last administered on 20:50; Start 11/05/17 at 23:45 Sodium Chloride 1,000 ml @ 1,000 mls/hr Q1H PRN IV hypotension; Start at 07:30; Stop 11/06/17 at 13:29; Status DC Sodium Chloride 1,000 ml @ 400 mls/hr Q2H30M PRN IV PATENCY; Start 11/06/17 at 07:30; Stop 11/06/17 at 19:29; Status DC Info (PHARMACY MONITORING -- do not chart) 1 each PRN DAILY PRN MC SEE COMMENTS ; Start 11/06/17 at 09:15 Active Scripts Active Levemir Flextouch (Insulin Detemir) 100 Unit/1 Ml Insuln.pen 32 Units SQ HS Novolog Flexpen (Insulin Aspart) 100 Unit/1 Ml Insuln.pen 8 Units SQ TIDAC Culturelle (Lactobacillus Rhamnosus Gg) 1 Each Cap.sprink 1 Cap PO BID Levaquin (Levofloxacin) 500 Mg Tablet 500 Mg PO Q48H until 10/21/17 Isosorbide Mononitrate Er (Isosorbide Mononitrate) 30 Mg Tab.er.24h 30 Mg PO DAILY Reported Mirtazapine 15 Mg Tablet 1 Tab PO QHS Renvela (Sevelamer Carbonate) 800 Mg Tablet 800 Mg PO TIDWMEALS Vitamin D (Cholecalciferol (Vitamin D3)) 1,000 Unit Capsule 1 Cap PO DAILY Nephro-Ulises Tablet (Folic Acid/Vitamin B Comp W-C) 0.8 Mg Tablet 1 Tab PO DAILY Trazodone Hcl 50 Mg Tablet 1 Tab PO QHS Duoneb 0.5-3(2.5) Mg/3 Ml (Albuterol/Ipratropium) 3 Ml Ampul.neb 3 Ml NEB TID Colestipol Hcl 1 Gm Tablet 1 Gm PO DAILY Atorvastatin Calcium 10 Mg Tablet 5 Mg PO HS Take next dose tonight 12/20/15 at bedtime Aspir-Lorin (Aspirin) 325 Mg Tablet.dr 325 Mg PO DAILY Take next dose tomorrow 12/21/15 in AM Amlodipine Besylate 10 Mg Tablet 10 Mg PO DAILY Take next tomorrow 12/21/15 in AM Levemir Flextouch (Insulin Detemir) 100 Unit/1 Ml Insuln.pen 28 Unit SQ HS TAKE NEXT DOSE TONIGHT 12/20/15 AT BEDTIME Polyethylene Glycol 3350 255 Gm Powder 17 Gm PO DAILY TAKE DAILY NEEDED FOR CONSTIPATION Nitrostat (Nitroglycerin) 0.4 Mg Tab.subl 0.4 Mg SL PRN Q5MIN PRN Benadryl (Diphenhydramine Hcl) 25 Mg Capsule 25 Mg PO PRN Q6HRS PRN TAKE NEEDED Acetaminophen 500 Mg Tablet 500 Mg PO PRN TID PRN Loratadine 10 Mg Tablet 10 Mg PO DAILY TAKE NEXT DOSE TOMORROW 12/21/15 IN AM Levothyroxine Sodium 75 Mcg Tablet 75 Mcg PO DAILY TAKE NEXT DOSE TOMORROW 12/21/15 IN AM Tums (Calcium Carbonate) 200 Mg Tab.chew 200 Mg PO PRN Q6HRS PRN Tramadol Hcl 50 Mg Tablet 100 Mg PO BID PRN Gabapentin 300 Mg Capsule 300 Mg PO HS TAKE NEXT DOSE TONIGHT 12/20/15 AT BEDTIME Vitals/I & O Vital Sign - Last 24 Hours 11/06/17 11/06/17 11/06/17 11/06/17 12:23 14:39 15:46 19:31 Temp 98.3 98.4 98.3 98.4 Pulse 80 90 Resp 19 18 B/P (MAP) 139/60 (86) 135/75 (95) Pulse Ox 97 96 97 O2 Delivery Room Air Nasal Cannula Room Air Nasal Cannula O2 Flow Rate 4.0 2.0 11/06/17 11/06/17 11/06/17 11/07/17 19:43 20:00 23:33 03:24 Temp 98.3 98.5 98.3 98.5 Pulse 79 68 Resp 18 18 B/P (MAP) 149/64 (92) 130/45 (73) Pulse Ox 99 97 94 O2 Delivery Nasal Cannula Nasal Cannula Nasal Cannula Nasal Cannula O2 Flow Rate 3.0 2.0 2.0 2.0 11/07/17 11/07/17 11/07/17 07:00 08:00 08:03 Temp 98.6 98.6 Pulse 80 Resp 20 B/P (MAP) 102/62 (75) Pulse Ox 90 92 O2 Delivery Nasal Cannula Nasal Cannula Nasal Cannula O2 Flow Rate 4.0 2.0 2.0 Intake and Output 11/06/17 11/06/17 11/07/17 14:59 22:59 06:59 Intake Total 660 ml Balance 660 ml LUIZ ALVARADO III DO Nov 07, 2017 10:22
[2017-11-07 11:00] VITALS: BP 135/64
--- NOTE | 2017-11-07 11:14 | PDOC ---
PULMONARY PROGRESS NOTES Subjective feels better Vitals Vital Signs Date Time Temp Pulse Resp B/P (MAP) Pulse Ox O2 Delivery O2 Flow Rate FiO2 11/07/17 08:03 92 Nasal Cannula 2.0 11/07/17 07:00 98.6 80 20 102/62 (75) 98.6 General: Alert, No acute distress HEENT: Other Lungs: Clear Cardiovascular: S1, S2 Abdomen: Soft, Non-tender Neuro Exam: Alert Extremities: Other (trace edema) Skin: Warm Labs Laboratory Tests Test 11/05/17 13:09 11/05/17 17:08 11/05/17 21:37 11/06/17 07:41 Glucose (Fingerstick) 233 mg/dL (70-99) 224 mg/dL (70-99) 322 mg/dL (70-99) 171 mg/dL (70-99) Test 11/06/17 17:04 11/07/17 07:34 Glucose (Fingerstick) 136 mg/dL (70-99) 141 mg/dL (70-99) Laboratory Tests Test 11/06/17 17:04 11/07/17 07:34 Glucose (Fingerstick) 136 mg/dL (70-99) 141 mg/dL (70-99) Medications Active Scripts Medications Dose Route/Sig Max Daily Dose Days Date Category Dose Instructions Levemir Flextouch (Insulin Detemir) 100 Unit/1 Ml Insuln.pen 32 Units SQ HS 10/14/17 Rx Novolog Flexpen (Insulin Aspart) 100 Unit/1 Ml Insuln.pen 8 Units SQ TIDAC 10/14/17 Rx Culturelle (Lactobacillus Rhamnosus Gg) 1 Each Cap.sprink 1 Cap PO BID 10/14/17 Rx Levaquin (Levofloxacin) 500 Mg Tablet 500 Mg PO Q48H 10/14/17 Rx until 10/21/17 Isosorbide Mononitrate Er (Isosorbide Mononitrate) 30 Mg Tab.er.24h 30 Mg PO DAILY 10/14/17 Rx Mirtazapine 15 Mg Tablet 1 Tab PO QHS 10/07/17 Reported Renvela (Sevelamer Carbonate) 800 Mg Tablet 800 Mg PO TIDWMEALS 10/07/17 Reported Vitamin D (Cholecalciferol (Vitamin D3)) 1,000 Unit Capsule 1 Cap PO DAILY 10/07/17 Reported Nephro-Ulises Tablet (Folic Acid/Vitamin B Comp W-C) 0.8 Mg Tablet 1 Tab PO DAILY 10/07/17 Reported Trazodone Hcl 50 Mg Tablet 1 Tab PO QHS 11/23/16 Reported Duoneb 0.5-3(2.5) Mg/3 Ml (Albuterol/Ipratropium) 3 Ml Ampul.neb 3 Ml NEB TID 11/23/16 Reported Colestipol Hcl 1 Gm Tablet 1 Gm PO DAILY 11/23/16 Reported Atorvastatin Calcium 10 Mg Tablet 5 Mg PO HS 11/18/15 Reported Take next dose tonight 12/20/15 at bedtime Aspir-Lorin (Aspirin) 325 Mg Tablet.dr 325 Mg PO DAILY 11/18/15 Reported Take next dose tomorrow 12/21/15 in AM Amlodipine Besylate 10 Mg Tablet 10 Mg PO DAILY 11/18/15 Reported Take next tomorrow 12/21/15 in AM Levemir Flextouch (Insulin Detemir) 100 Unit/1 Ml Insuln.pen 28 Unit SQ HS 08/15/15 Reported TAKE NEXT DOSE TONIGHT 12/20/15 AT BEDTIME Polyethylene Glycol 3350 255 Gm Powder 17 Gm PO DAILY 03/24/15 Reported TAKE DAILY NEEDED FOR CONSTIPATION Nitrostat (Nitroglycerin) 0.4 Mg Tab.subl 0.4 Mg SL PRN Q5MIN PRN 03/24/15 Reported Benadryl (Diphenhydramine Hcl) 25 Mg Capsule 25 Mg PO PRN Q6HRS PRN 03/24/15 Reported TAKE NEEDED Acetaminophen 500 Mg Tablet 500 Mg PO PRN TID PRN 03/24/15 Reported Loratadine 10 Mg Tablet 10 Mg PO DAILY 04/03/14 Reported TAKE NEXT DOSE TOMORROW 12/21/15 IN AM Levothyroxine Sodium 75 Mcg Tablet 75 Mcg PO DAILY 11/11/13 Reported TAKE NEXT DOSE TOMORROW 12/21/15 IN AM Tums (Calcium Carbonate) 200 Mg Tab.chew 200 Mg PO PRN Q6HRS PRN 11/11/13 Reported Tramadol Hcl 50 Mg Tablet 100 Mg PO BID PRN 11/11/13 Reported Gabapentin 300 Mg Capsule 300 Mg PO HS 11/11/13 Reported TAKE NEXT DOSE TONIGHT 12/20/15 AT BEDTIME Impression . 1. Acute hypoxic respiratory failure secondary to [id number] diastolic heart failure. 2. End-stage renal disease, on hemodialysis now in congestive heart failure. 3. History of tobaccoism, suspect underlying chronic obstructive pulmonary disease. 4. Increased troponin. 5. Leukocytosis, most likely reactive, cannot exclude viral pneumonia. Plan . 1. Continue to wean oxygen. 2. Continue hemodialysis with ultrafiltration. 3. Repeat chest x-ray with mild CHF 4. Antibiotics can be deescalated, 5. Monitor white cell count. 6. Smoking cessation counseling provided. 7. bronchodilators. 8. Discussed with RN / consider dc plans JESSICA HAYS MD Nov 07, 2017 11:14
[2017-11-07] MEDS: AMOXICILLIN/K CLAV 500/125MG TABLET. PO SCH ×2 (12:27→20:47)
[2017-11-07] MEDS ORDERED: MAGNESIUM SULFATE 2GM 50 ML IV PRN (13:30)
[2017-11-07 14:29] VITALS: BP 131/53
[2017-11-07 19:37] VITALS: BP 157/76
[2017-11-07 23:09] VITALS: BP 152/57
[2017-11-08] MEDS: IPRATRPIUM/ALBUTEROL 0.5/2.5MG 3 ML NEBU. NEB SCH ×4 (06:23→19:26)
[2017-11-08 07:20] VITALS: BP 174/74
[2017-11-08] MEDS: AMOXICILLIN/K CLAV 500/125MG TABLET. PO SCH ×2 (08:42→21:30)
[2017-11-08] MEDS: LACTOBACILLUS RHAMNOSUS GG 1 CAPSULE. PO SCH ×2 (08:42→21:31)
--- NOTE | 2017-11-08 09:53 | PDOC ---
PULMONARY PROGRESS NOTES Subjective feels better Vitals Vital Signs Date Time Temp Pulse Resp B/P (MAP) Pulse Ox O2 Delivery O2 Flow Rate FiO2 11/08/17 08:00 Nasal Cannula 3.0 11/08/17 07:20 97.9 87 18 174/74 (107) 93 97.9 General: Alert, No acute distress HEENT: Other Lungs: Clear Cardiovascular: S1, S2 Abdomen: Soft, Non-tender Neuro Exam: Alert Extremities: Other (trace edema) Skin: Warm Labs Laboratory Tests Test 11/06/17 17:04 11/07/17 07:34 11/07/17 10:37 11/07/17 17:04 Glucose (Fingerstick) 136 mg/dL (70-99) 141 mg/dL (70-99) 249 mg/dL (70-99) 246 mg/dL (70-99) Test 11/08/17 07:20 Glucose (Fingerstick) 212 mg/dL (70-99) Laboratory Tests Test 11/07/17 10:37 11/07/17 17:04 11/08/17 07:20 Glucose (Fingerstick) 249 mg/dL (70-99) 246 mg/dL (70-99) 212 mg/dL (70-99) Medications Active Scripts Medications Dose Route/Sig Max Daily Dose Days Date Category Dose Instructions Levemir Flextouch (Insulin Detemir) 100 Unit/1 Ml Insuln.pen 32 Units SQ HS 10/14/17 Rx Novolog Flexpen (Insulin Aspart) 100 Unit/1 Ml Insuln.pen 8 Units SQ TIDAC 10/14/17 Rx Culturelle (Lactobacillus Rhamnosus Gg) 1 Each Cap.sprink 1 Cap PO BID 10/14/17 Rx Levaquin (Levofloxacin) 500 Mg Tablet 500 Mg PO Q48H 10/14/17 Rx until 10/21/17 Isosorbide Mononitrate Er (Isosorbide Mononitrate) 30 Mg Tab.er.24h 30 Mg PO DAILY 10/14/17 Rx Mirtazapine 15 Mg Tablet 1 Tab PO QHS 10/07/17 Reported Renvela (Sevelamer Carbonate) 800 Mg Tablet 800 Mg PO TIDWMEALS 10/07/17 Reported Vitamin D (Cholecalciferol (Vitamin D3)) 1,000 Unit Capsule 1 Cap PO DAILY 10/07/17 Reported Nephro-Ulises Tablet (Folic Acid/Vitamin B Comp W-C) 0.8 Mg Tablet 1 Tab PO DAILY 10/07/17 Reported Trazodone Hcl 50 Mg Tablet 1 Tab PO QHS 11/23/16 Reported Duoneb 0.5-3(2.5) Mg/3 Ml (Albuterol/Ipratropium) 3 Ml Ampul.neb 3 Ml NEB TID 11/23/16 Reported Colestipol Hcl 1 Gm Tablet 1 Gm PO DAILY 11/23/16 Reported Atorvastatin Calcium 10 Mg Tablet 5 Mg PO HS 11/18/15 Reported Take next dose tonight 12/20/15 at bedtime Aspir-Lorin (Aspirin) 325 Mg Tablet.dr 325 Mg PO DAILY 11/18/15 Reported Take next dose tomorrow 12/21/15 in AM Amlodipine Besylate 10 Mg Tablet 10 Mg PO DAILY 11/18/15 Reported Take next tomorrow 12/21/15 in AM Levemir Flextouch (Insulin Detemir) 100 Unit/1 Ml Insuln.pen 28 Unit SQ HS 08/15/15 Reported TAKE NEXT DOSE TONIGHT 12/20/15 AT BEDTIME Polyethylene Glycol 3350 255 Gm Powder 17 Gm PO DAILY 03/24/15 Reported TAKE DAILY NEEDED FOR CONSTIPATION Nitrostat (Nitroglycerin) 0.4 Mg Tab.subl 0.4 Mg SL PRN Q5MIN PRN 03/24/15 Reported Benadryl (Diphenhydramine Hcl) 25 Mg Capsule 25 Mg PO PRN Q6HRS PRN 03/24/15 Reported TAKE NEEDED Acetaminophen 500 Mg Tablet 500 Mg PO PRN TID PRN 03/24/15 Reported Loratadine 10 Mg Tablet 10 Mg PO DAILY 04/03/14 Reported TAKE NEXT DOSE TOMORROW 12/21/15 IN AM Levothyroxine Sodium 75 Mcg Tablet 75 Mcg PO DAILY 11/11/13 Reported TAKE NEXT DOSE TOMORROW 12/21/15 IN AM Tums (Calcium Carbonate) 200 Mg Tab.chew 200 Mg PO PRN Q6HRS PRN 11/11/13 Reported Tramadol Hcl 50 Mg Tablet 100 Mg PO BID PRN 11/11/13 Reported Gabapentin 300 Mg Capsule 300 Mg PO HS 11/11/13 Reported TAKE NEXT DOSE TONIGHT 12/20/15 AT BEDTIME Impression . 1. Acute hypoxic respiratory failure secondary to [id number] diastolic heart failure. 2. End-stage renal disease, on hemodialysis now in congestive heart failure. 3. History of tobaccoism, suspect underlying chronic obstructive pulmonary disease. 4. Increased troponin. 5. Leukocytosis, most likely reactive, cannot exclude viral pneumonia. Plan . 1. Continue to wean oxygen. 2. Continue hemodialysis with ultrafiltration. 3. Repeat chest x-ray with almost resolved CHF 4. Antibiotics can be deescalated, 5. Monitor white cell count. 6. Smoking cessation counseling provided. 7. bronchodilators. 8. Discussed with RN / consider dc plans JESSICA HAYS MD Nov 08, 2017 09:53
[2017-11-08 10:40] VITALS: BP 161/72
--- NOTE | 2017-11-08 10:48 | PDOC ---
PROGRESS NOTES Chief Complaint Chief Complaint acute on chronic diastolic CHF, fluid overload acute on chronic respiratory failure secondary to chronic diastolic HF ESRD, has missed HD noncompliance, poor ability to maintain self care HTN DM History of Present Illness History of Present Illness Patient seen and examined. No acute events overnight. States he has no one at home to take him to dialysis. Yesterday he said he would like assistance finding placement but states he wants to go home today. Denies chest pain, shortness of breath. Vitals Vitals Vital Signs Date Time Temp Pulse Resp B/P (MAP) Pulse Ox O2 Delivery O2 Flow Rate FiO2 11/08/17 10:40 97.5 81 19 161/72 (101) 98 Nasal Cannula 4.0 97.5 Physical Exam General: Alert, No acute distress Heart: Regular rate, Normal S1, Normal S2 Lungs: Clear Abdomen: Soft, No tenderness Extremities: No clubbing, No edema Skin: No breakdown Labs LABS Laboratory Tests Test 11/07/17 17:04 11/08/17 07:20 Glucose (Fingerstick) 246 mg/dL (70-99) 212 mg/dL (70-99) Review of Systems Review of Systems Denies chest pain, shortness of breath. Assessment and Plan Assessmemt and Plan Problems Medical Problems: (1) Fluid overload Status: Acute (2) Shortness of breath Status: Acute acute on chronic diastolic CHF, fluid overload acute on chronic respiratory failure secondary to chronic diastolic HF ESRD, has missed HD noncompliance, poor ability to maintain self care HTN DM PLAN: Augmentin HD per nephrology Duoneb Smoking cessation PT/OT d/c disposition pending Probable d/c tomorrow if placement arranged Problems: Comment Review of Relevant I have reviewed the following items marli (where applicable) has been applied. Labs Laboratory Tests Test 11/06/17 17:04 11/07/17 07:34 11/07/17 10:37 11/07/17 17:04 Glucose (Fingerstick) 136 mg/dL (70-99) 141 mg/dL (70-99) 249 mg/dL (70-99) 246 mg/dL (70-99) Test 11/08/17 07:20 Glucose (Fingerstick) 212 mg/dL (70-99) Laboratory Tests Test 11/07/17 17:04 11/08/17 07:20 Glucose (Fingerstick) 246 mg/dL (70-99) 212 mg/dL (70-99) Microbiology 11/04/17 Blood Culture - Preliminary, Resulted NO GROWTH AFTER 3 DAYS Medications Current Medications Albuterol/ Ipratropium (Duoneb) 3 ml 1X ONCE NEB ; Start 11/04/17 at 14:30; Stop 11/04/17 at 14:31; Status DC Methylprednisolone Sodium Succinate (SOLU-Medrol 125MG VIAL) 125 mg 1X ONCE IV Last administered on 11/04/17 15:59; Start 11/04/17 at 14:30; Stop at 14:31; Status DC Ondansetron HCl (Zofran) 4 mg PRN Q8HRS PRN IV NAUSEA/VOMITING; Start at 15:45; Stop 11/05/17 at 15:44; Status DC Morphine Sulfate 2 mg PRN Q2HR PRN IV PAIN; Start 11/04/17 at 15:45; Stop at 15:44; Status DC Vancomycin HCl (Vanco Per Pharmacy) 1 each PRN DAILY PRN MC SEE COMMENTS Last administered on 11/06/17 13:39; Start 11/04/17 at 16:45; Stop 11/06/17 at 17 :03; Status DC Piperacillin Sod/ Tazobactam Sod (Zosyn Per Pharmacy) 1 each PRN DAILY PRN MC SEE COMMENTS; Start 11/04/17 at 16:45; Stop 11/07/17 at 11:18; Status DC Vancomycin HCl 2 gm/Dextrose/ Sodium Chloride 500 ml @ 250 mls/hr 1X ONCE IV Last administered on 11/04/17 20:41; Start 11/04/17 at 17:00; Stop 11/04/17 at 18:59; Status DC Piperacillin Sod/ Tazobactam Sod (Zosyn) 2.25 gm Q8HRS IVP Last administered on 11/07/17 05:22; Start 11/04/17 at 17:00; Stop 11/07/17 at 11:15; Status DC Sodium Chloride 1,000 ml @ 1,000 mls/hr Q1H PRN IV hypotension; Start at 16:58; Stop 11/04/17 at 22:57; Status DC Diphenhydramine HCl (Benadryl) 25 mg 1X PRN PRN IV ITCHING; Start 11/04/17 at 17:00; Stop 11/05/17 at 16:59; Status DC Diphenhydramine HCl (Benadryl) 25 mg 1X PRN PRN IV ITCHING; Start 11/04/17 at 17:00; Stop 11/05/17 at 16:59; Status DC Sodium Chloride 1,000 ml @ 400 mls/hr Q2H30M PRN IV PATENCY; Start 11/04/17 at 16:58; Stop 11/05/17 at 04:57; Status DC Info (PHARMACY MONITORING -- do not chart) 1 each PRN DAILY PRN MC SEE COMMENTS ; Start 11/04/17 at 17:00; Stop 11/05/17 at 09:24; Status DC Vancomycin HCl 1 each 1X ONCE MC ; Start 11/06/17 at 05:00; Stop 11/06/17 at 05:01; Status DC Sodium Chloride 1,000 ml @ 1,000 mls/hr Q1H PRN IV hypotension; Start at 08:29; Stop 11/05/17 at 14:28; Status DC Albumin Human 200 ml @ 200 mls/hr 1X PRN PRN IV Hypotension; Start 11/05/17 at 08:30; Stop 11/05/17 at 14:29; Status DC Info (PHARMACY MONITORING -- do not chart) 1 each PRN DAILY PRN MC SEE COMMENTS ; Start 11/05/17 at 08:30; Stop 11/06/17 at 17:03; Status DC Lactobacillus Rhamnosus (Culturelle) 1 cap BID PO Last administered on 08:42; Start 11/05/17 at 21:00 Albuterol/ Ipratropium (Duoneb) 3 ml RTQID NEB Last administered on 11/08/17 06:23; Start 11/05/17 at 12:00 Zolpidem Tartrate (Ambien) 5 mg PRN QHS PRN PO INSOMNIA Last administered on 20:50; Start 11/05/17 at 23:45 Sodium Chloride 1,000 ml @ 1,000 mls/hr Q1H PRN IV hypotension; Start at 07:30; Stop 11/06/17 at 13:29; Status DC Sodium Chloride 1,000 ml @ 400 mls/hr Q2H30M PRN IV PATENCY; Start 11/06/17 at 07:30; Stop 11/06/17 at 19:29; Status DC Info (PHARMACY MONITORING -- do not chart) 1 each PRN DAILY PRN MC SEE COMMENTS ; Start 11/06/17 at 09:15 Amoxicillin/ Clavulanate Potassium (Augmentin 500/ 125mg) 1 tab BID PO Last administered on 11/08/17t 08:42; Start 11/07/17 at 12:00 Magnesium Sulfate/ Dextrose 50 ml @ 25 mls/hr PRN DAILY PRN IV for Mag < 1.7 on am labs; Start 11/07/17 at 13:30 Active Scripts Active Levemir Flextouch (Insulin Detemir) 100 Unit/1 Ml Insuln.pen 32 Units SQ HS Novolog Flexpen (Insulin Aspart) 100 Unit/1 Ml Insuln.pen 8 Units SQ TIDAC Culturelle (Lactobacillus Rhamnosus Gg) 1 Each Cap.sprink 1 Cap PO BID Levaquin (Levofloxacin) 500 Mg Tablet 500 Mg PO Q48H until 10/21/17 Isosorbide Mononitrate Er (Isosorbide Mononitrate) 30 Mg Tab.er.24h 30 Mg PO DAILY Reported Mirtazapine 15 Mg Tablet 1 Tab PO QHS Renvela (Sevelamer Carbonate) 800 Mg Tablet 800 Mg PO TIDWMEALS Vitamin D (Cholecalciferol (Vitamin D3)) 1,000 Unit Capsule 1 Cap PO DAILY Nephro-Ulises Tablet (Folic Acid/Vitamin B Comp W-C) 0.8 Mg Tablet 1 Tab PO DAILY Trazodone Hcl 50 Mg Tablet 1 Tab PO QHS Duoneb 0.5-3(2.5) Mg/3 Ml (Albuterol/Ipratropium) 3 Ml Ampul.neb 3 Ml NEB TID Colestipol Hcl 1 Gm Tablet 1 Gm PO DAILY Atorvastatin Calcium 10 Mg Tablet 5 Mg PO HS Take next dose tonight 12/20/15 at bedtime Aspir-Lorin (Aspirin) 325 Mg Tablet.dr 325 Mg PO DAILY Take next dose tomorrow 12/21/15 in AM Amlodipine Besylate 10 Mg Tablet 10 Mg PO DAILY Take next tomorrow 12/21/15 in AM Levemir Flextouch (Insulin Detemir) 100 Unit/1 Ml Insuln.pen 28 Unit SQ HS TAKE NEXT DOSE TONIGHT 12/20/15 AT BEDTIME Polyethylene Glycol 3350 255 Gm Powder 17 Gm PO DAILY TAKE DAILY NEEDED FOR CONSTIPATION Nitrostat (Nitroglycerin) 0.4 Mg Tab.subl 0.4 Mg SL PRN Q5MIN PRN Benadryl (Diphenhydramine Hcl) 25 Mg Capsule 25 Mg PO PRN Q6HRS PRN TAKE NEEDED Acetaminophen 500 Mg Tablet 500 Mg PO PRN TID PRN Loratadine 10 Mg Tablet 10 Mg PO DAILY TAKE NEXT DOSE TOMORROW 12/21/15 IN AM Levothyroxine Sodium 75 Mcg Tablet 75 Mcg PO DAILY TAKE NEXT DOSE TOMORROW 12/21/15 IN AM Tums (Calcium Carbonate) 200 Mg Tab.chew 200 Mg PO PRN Q6HRS PRN Tramadol Hcl 50 Mg Tablet 100 Mg PO BID PRN Gabapentin 300 Mg Capsule 300 Mg PO HS TAKE NEXT DOSE TONIGHT 12/20/15 AT BEDTIME Vitals/I & O Vital Sign - Last 24 Hours 11/07/17 11/07/17 11/07/17 11/07/17 11:00 11:37 14:29 15:16 Temp 97.4 97.8 97.4 97.8 Pulse 84 80 Resp 22 20 B/P (MAP) 135/64 (87) 131/53 (79) Pulse Ox 97 96 O2 Delivery Nasal Cannula Nasal Cannula Nasal Cannula Nasal Cannula O2 Flow Rate 4.0 3.0 4.0 3.0 11/07/17 11/07/17 11/07/17 11/07/17 19:26 19:37 20:00 23:09 Temp 98.2 98.9 98.2 98.9 Pulse 88 82 Resp 20 16 B/P (MAP) 157/76 (103) 152/57 (88) Pulse Ox 98 93 O2 Delivery Nasal Cannula Nasal Cannula Nasal Cannula Room Air O2 Flow Rate 3.0 4.0 3.0 11/08/17 11/08/17 11/08/17 11/08/17 03:05 06:23 07:20 08:00 Temp 97.9 97.9 Pulse 87 Resp 18 B/P (MAP) 174/74 (107) Pulse Ox 93 O2 Delivery Nasal Cannula Nasal Cannula Nasal Cannula Nasal Cannula O2 Flow Rate 5.0 4.0 4.0 3.0 11/08/17 10:40 Temp 97.5 97.5 Pulse 81 Resp 19 B/P (MAP) 161/72 (101) Pulse Ox 98 O2 Delivery Nasal Cannula O2 Flow Rate 4.0 Intake and Output 11/07/17 11/07/17 11/08/17 15:00 23:00 07:00 Intake Total 400 ml 480 ml Balance 400 ml 480 ml LUIZ ALVARADO III DO Nov 08, 2017 10:48
--- NOTE | 2017-11-08 12:30 | PDOC ---
CARDIO Progress Notes Date and Time Date of Service 11/08/17 Time of Evaluation 1210 Subjective Subjective: No Chest Pain, No shortness of breath Vitals Vitals Vital Signs Date Time Temp Pulse Resp B/P (MAP) Pulse Ox O2 Delivery O2 Flow Rate FiO2 11/08/17 11:25 99 Nasal Cannula 3.0 11/08/17 10:40 97.5 81 19 161/72 (101) 97.5 Weight Weight [ ] Input and Output Intake and Output Intake and Output 11/08/17 07:00 Intake Total 880 ml Balance 880 ml Intake Oral 880 ml # Voids 2 # Bowel Movements 1 Laboratory Labs Laboratory Tests Test 11/07/17 17:04 11/08/17 07:20 11/08/17 11:29 Glucose (Fingerstick) 246 mg/dL (70-99) 212 mg/dL (70-99) 238 mg/dL (70-99) Microbiology Micro Microbiology 11/04/17 Blood Culture - Preliminary, Resulted NO GROWTH AFTER 3 DAYS Physical Exam HEENT: Neck Supple W Full Motion Chest: Symmetric LUNGS: Clear to Auscultation, Other (diminished bases) Heart: S1S2, RRR Abdomen: Soft N/T Extremities: No Edema Neurology: alert, oriented, follow commands Assessment Assessment 1. Acute respiratory failure 2. Acute on chronic diastolic HF 3. CAD s/p CABG 4. Hypertension 5. 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 ESRD on HD Recommendations Fluid offloading/ management via HD Continue secondary prevention measures. NPO p MN. Will obtain renal duplex to evaluate YE/need for intervention given recurrent acute on chronic diastolic HF and history of in-stent restenosis. MONALISA HERNANDEZ APRN Nov 08, 2017 12:29
[2017-11-08 14:30] VITALS: BP 159/73
[2017-11-08] MEDS ORDERED: DEXTROSE 50% 25 GM / 50ML DISP.SYRIN. IV PRN (17:15)
[2017-11-08] MEDS: INSULIN ASPART 300 UNITS/3 ML INSULN.PEN SQ SCH (17:30)
[2017-11-08] MEDS: FOLIC/VIT B COMP W-C (RENAL) TABLET. PO SCH (18:00)
[2017-11-08] MEDS: LEVOTHYROXINE 75 MCG TABLET PO SCH (18:00)
[2017-11-08 19:35] VITALS: BP 166/67
[2017-11-08] MEDS: ATORVASTATIN CALCIUM 10 MG TABLET. PO SCH (21:00)
[2017-11-08] MEDS: CETIRIZINE HCL 10 MG TABLET. PO SCH (21:31)
[2017-11-08] MEDS: SEVELAMER CARBONATE 800 MG TABLET. PO SCH (21:31)
[2017-11-08] MEDS: MIRTAZAPINE 15 MG TABLET PO SCH (21:31)
[2017-11-08] MEDS: CHOLECALCIFEROL (VITAMIN D3) 1,000 UNIT TABLET PO SCH (21:32)
[2017-11-08] MEDS: GABAPENTIN 300 MG CAPSULE. PO SCH (21:32)
[2017-11-08] MEDS: amLODIPine BESYLATE 10 MG TABLET PO SCH (21:32)
[2017-11-08] MEDS: ASPIRIN ENTERIC COATED 325 MG TABLET.DR. PO SCH (21:32)
[2017-11-08] MEDS: INSULIN DETEMIR 300 UNITS/3 ML INSULN.PEN. SQ SCH (21:37)
[2017-11-08 23:35] VITALS: BP 170/78
[2017-11-09 03:35] VITALS: BP 171/68
[2017-11-09] MEDS: LEVOTHYROXINE 75 MCG TABLET PO SCH (06:32)
[2017-11-09 06:54] LABS: BASO # 0.1 x10^3/uL (0.0-0.2); BASO % 1 % (0-3); EOS % 3 % (0-3); HEMATOCRIT 23.7 % (39.0-53.0); HEMOGLOBIN 7.7 g/dL (13.0-17.5); LYMPH # 13.3 x10^3/uL (1.0-4.8); LYMPH % 56 % (24-48); MEAN CORPUSCULAR HEMOGLOBIN 29 pg (25-35); MEAN CORPUSCULAR HGB CONC 33 g/dL (31-37); MEAN CORPUSCULAR VOLUME 87 fL (79-100); MONO % 4 % (0-9); NEUT % 37 % (31-73); PLATELET COUNT 540 x10^3/uL (140-400); RED BLOOD COUNT 2.71 x10^6/uL (4.30-5.70); RED CELL DISTRIBUTION WIDTH 14.6 % (11.5-14.5); WHITE BLOOD COUNT 23.8 x10^3/uL (4.0-11.0)
[2017-11-09 07:11] LABS: ALBUMIN 2.7 g/dL (3.4-5.0); ALBUMIN/GLOBULIN RATIO 0.7 (1.0-1.7); CALCIUM 8.3 mg/dL (8.5-10.1); CREATININE 9.9 mg/dL (0.7-1.3); GFR 6.3; PHOSPHORUS 5.5 mg/dL (2.6-4.7); POTASSIUM 3.5 mmol/L (3.5-5.1); TOTAL BILIRUBIN 0.4 mg/dL (0.2-1.0); TOTAL PROTEIN 6.8 g/dL (6.4-8.2)
[2017-11-09 07:23] VITALS: BP 163/73
[2017-11-09] MEDS: INSULIN ASPART 300 UNITS/3 ML INSULN.PEN SQ SCH ×3 (08:00→17:00)
[2017-11-09] MEDS: IPRATRPIUM/ALBUTEROL 0.5/2.5MG 3 ML NEBU. NEB SCH ×3 (08:27→20:55)
[2017-11-09] MEDS ORDERED: COLESTIPOL HCL 1 GM TABLET PO SCH (09:00)
--- NOTE | 2017-11-09 09:12 | RAD ---
MR#: [id number] Date of Study: 11/08/2017 Ordering Physician: MONALISA HERNANDEZ, Referring Physician: [place] RAMIREZ: Shena Abraham RT R, CT RDMS AB, T APPROVED REPORT Patient Location: IN-PATIENT Indications Renal Artery Stenosis Surgery/Intervention Renal Artery Stent : Renal Artery Doppler Right Renal Artery Left Renal Arter y Proximal 157.0/20.0 cm/secProximal 96.0/30.0 cm/sec Mid 95.0/28.0 cm/secMid 77.0/25.0 cm/sec Distal 68.0/16.0 cm/secDistal 91.0/26.0 cm/sec Renal/Aorta Ratio 1.80Renal/Aorta Ratio 1.10 Prox. Resistive Index 0.80Prox. Resistive Index 0.60 Mid Resistive Index 0.70Mid Resistive Index 0.60 Distal Resistive Index 0.70Distal Resistive Index 0.70 Renal Measurements RightLeft Kidney Length7.6 cm cmKidney Length7.6 cm cm Right Additional FindingsLeft Additional Findings Aortic Doppler VelocityWaveform Proximal Aorta 86.0 cm/secTriphasic Findings Grayscale images of the right and left kidney were obtained. Limited evaluation reveals atrophic kidn eys bilaterally. The both measure approximately 7.67 m in longitudinal dimension. Color Doppler and spectral waveforms of the right and left renal arteries were obtained. The proximal right renal artery has a velocity of 157 cm/s while the left renal artery has a velocity of 96 cm/s. Renal to aortic ratios are michel within normal limits. No high-grade renal artery stenosis is identif ied. Critical Notification Critical Value: No <Conclusion> No evidence of significant renal artery stenosis bilaterally. Signed by : Chino Toscano, Electronically Approved : 11/09/2017 09:11:43
[2017-11-09] MEDS: LACTOBACILLUS RHAMNOSUS GG 1 CAPSULE. PO SCH ×2 (09:26→21:07)
[2017-11-09] MEDS: amLODIPine BESYLATE 10 MG TABLET PO SCH (09:26)
[2017-11-09] MEDS: SEVELAMER CARBONATE 800 MG TABLET. PO SCH ×3 (09:26→17:00)
[2017-11-09] MEDS: ASPIRIN ENTERIC COATED 325 MG TABLET.DR. PO SCH (09:27)
[2017-11-09] MEDS: AMOXICILLIN/K CLAV 500/125MG TABLET. PO SCH (09:27)
[2017-11-09] MEDS: CETIRIZINE HCL 10 MG TABLET. PO SCH (09:27)
[2017-11-09] MEDS: CHOLECALCIFEROL (VITAMIN D3) 1,000 UNIT TABLET PO SCH (09:27)
[2017-11-09] MEDS: FOLIC/VIT B COMP W-C (RENAL) TABLET. PO SCH (09:33)
--- NOTE | 2017-11-09 09:46 | PDOC ---
PULMONARY PROGRESS NOTES Subjective sleepy no soa Vitals Vital Signs Date Time Temp Pulse Resp B/P (MAP) Pulse Ox O2 Delivery O2 Flow Rate FiO2 11/09/17 09:26 73 163/73 11/09/17 08:28 99 Nasal Cannula 5.0 11/09/17 07:23 98.3 16 98.3 General: No acute distress HEENT: Other Lungs: Clear Cardiovascular: S1, S2 Abdomen: Soft, Non-tender Extremities: Other (trace edema) Skin: Warm Labs Laboratory Tests Test 11/07/17 10:37 11/07/17 17:04 11/08/17 07:20 11/08/17 11:29 Glucose (Fingerstick) 249 mg/dL (70-99) 246 mg/dL (70-99) 212 mg/dL (70-99) 238 mg/dL (70-99) Test 11/08/17 16:20 11/08/17 21:31 11/09/17 06:25 11/09/17 07:16 Glucose (Fingerstick) 315 mg/dL (70-99) 175 mg/dL (70-99) 148 mg/dL (70-99) White Blood Count 23.8 x10^3/uL (4.0-11.0) Red Blood Count 2.71 x10^6/uL (4.30-5.70) Hemoglobin 7.7 g/dL (13.0-17.5) Hematocrit 23.7 % (39.0-53.0) Mean Corpuscular Volume 87 fL (79-100) Mean Corpuscular Hemoglobin 29 pg (25-35) Mean Corpuscular Hemoglobin Concent 33 g/dL (31-37) Red Cell Distribution Width 14.6 % (11.5-14.5) Platelet Count 540 x10^3/uL (140-400) Neutrophils (%) (Auto) 37 % (31-73) Lymphocytes (%) (Auto) 56 % (24-48) Monocytes (%) (Auto) 4 % (0-9) Eosinophils (%) (Auto) 3 % (0-3) Basophils (%) (Auto) 1 % (0-3) Neutrophils # (Auto) 8.8 x10^3uL (1.8-7.7) Lymphocytes # (Auto) 13.3 x10^3/uL (1.0-4.8) Monocytes # (Auto) 1.0 x10^3/uL (0.0-1.1) Eosinophils # (Auto) 0.6 x10^3/uL (0.0-0.7) Basophils # (Auto) 0.1 x10^3/uL (0.0-0.2) Sodium Level 139 mmol/L (136-145) Potassium Level 3.5 mmol/L (3.5-5.1) Chloride Level 93 mmol/L (98-107) Carbon Dioxide Level 32 mmol/L (21-32) Anion Gap 14 (6-14) Blood Urea Nitrogen 69 mg/dL (8-26) Creatinine 9.9 mg/dL (0.7-1.3) Estimated GFR (Cockcroft-Gault) 6.3 BUN/Creatinine Ratio 7 (6-20) Glucose Level 162 mg/dL (70-99) Calcium Level 8.3 mg/dL (8.5-10.1) Phosphorus Level 5.5 mg/dL (2.6-4.7) Magnesium Level 2.6 mg/dL (1.8-2.4) Total Bilirubin 0.4 mg/dL (0.2-1.0) Aspartate Amino Transf (AST/SGOT) 18 U/L (15-37) Alanine Aminotransferase (ALT/SGPT) 18 U/L (16-63) Alkaline Phosphatase 94 U/L (46-116) Total Protein 6.8 g/dL (6.4-8.2) Albumin 2.7 g/dL (3.4-5.0) Albumin/Globulin Ratio 0.7 (1.0-1.7) Laboratory Tests Test 11/08/17 11:29 11/08/17 16:20 11/08/17 21:31 11/09/17 06:25 Glucose (Fingerstick) 238 mg/dL (70-99) 315 mg/dL (70-99) 175 mg/dL (70-99) White Blood Count 23.8 x10^3/uL (4.0-11.0) Red Blood Count 2.71 x10^6/uL (4.30-5.70) Hemoglobin 7.7 g/dL (13.0-17.5) Hematocrit 23.7 % (39.0-53.0) Mean Corpuscular Volume 87 fL (79-100) Mean Corpuscular Hemoglobin 29 pg (25-35) Mean Corpuscular Hemoglobin Concent 33 g/dL (31-37) Red Cell Distribution Width 14.6 % (11.5-14.5) Platelet Count 540 x10^3/uL (140-400) Neutrophils (%) (Auto) 37 % (31-73) Lymphocytes (%) (Auto) 56 % (24-48) Monocytes (%) (Auto) 4 % (0-9) Eosinophils (%) (Auto) 3 % (0-3) Basophils (%) (Auto) 1 % (0-3) Neutrophils # (Auto) 8.8 x10^3uL (1.8-7.7) Lymphocytes # (Auto) 13.3 x10^3/uL (1.0-4.8) Monocytes # (Auto) 1.0 x10^3/uL (0.0-1.1) Eosinophils # (Auto) 0.6 x10^3/uL (0.0-0.7) Basophils # (Auto) 0.1 x10^3/uL (0.0-0.2) Sodium Level 139 mmol/L (136-145) Potassium Level 3.5 mmol/L (3.5-5.1) Chloride Level 93 mmol/L (98-107) Carbon Dioxide Level 32 mmol/L (21-32) Anion Gap 14 (6-14) Blood Urea Nitrogen 69 mg/dL (8-26) Creatinine 9.9 mg/dL (0.7-1.3) Estimated GFR (Cockcroft-Gault) 6.3 BUN/Creatinine Ratio 7 (6-20) Glucose Level 162 mg/dL (70-99) Calcium Level 8.3 mg/dL (8.5-10.1) Phosphorus Level 5.5 mg/dL (2.6-4.7) Magnesium Level 2.6 mg/dL (1.8-2.4) Total Bilirubin 0.4 mg/dL (0.2-1.0) Aspartate Amino Transf (AST/SGOT) 18 U/L (15-37) Alanine Aminotransferase (ALT/SGPT) 18 U/L (16-63) Alkaline Phosphatase 94 U/L (46-116) Total Protein 6.8 g/dL (6.4-8.2) Albumin 2.7 g/dL (3.4-5.0) Albumin/Globulin Ratio 0.7 (1.0-1.7) Test 11/09/17 07:16 Glucose (Fingerstick) 148 mg/dL (70-99) Medications Active Scripts Medications Dose Route/Sig Max Daily Dose Days Date Category Dose Instructions Levemir Flextouch (Insulin Detemir) 100 Unit/1 Ml Insuln.pen 32 Units SQ HS 10/14/17 Rx Novolog Flexpen (Insulin Aspart) 100 Unit/1 Ml Insuln.pen 8 Units SQ TIDAC 10/14/17 Rx Culturelle (Lactobacillus Rhamnosus Gg) 1 Each Cap.sprink 1 Cap PO BID 10/14/17 Rx Levaquin (Levofloxacin) 500 Mg Tablet 500 Mg PO Q48H 10/14/17 Rx until 10/21/17 Isosorbide Mononitrate Er (Isosorbide Mononitrate) 30 Mg Tab.er.24h 30 Mg PO DAILY 10/14/17 Rx Mirtazapine 15 Mg Tablet 1 Tab PO QHS 10/07/17 Reported Renvela (Sevelamer Carbonate) 800 Mg Tablet 800 Mg PO TIDWMEALS 10/07/17 Reported Vitamin D (Cholecalciferol (Vitamin D3)) 1,000 Unit Capsule 1 Cap PO DAILY 10/07/17 Reported Nephro-Ulises Tablet (Folic Acid/Vitamin B Comp W-C) 0.8 Mg Tablet 1 Tab PO DAILY 10/07/17 Reported Trazodone Hcl 50 Mg Tablet 1 Tab PO QHS 11/23/16 Reported Duoneb 0.5-3(2.5) Mg/3 Ml (Albuterol/Ipratropium) 3 Ml Ampul.neb 3 Ml NEB TID 11/23/16 Reported Colestipol Hcl 1 Gm Tablet 1 Gm PO DAILY 11/23/16 Reported Atorvastatin Calcium 10 Mg Tablet 5 Mg PO HS 11/18/15 Reported Take next dose tonight 12/20/15 at bedtime Aspir-Lorin (Aspirin) 325 Mg Tablet.dr 325 Mg PO DAILY 11/18/15 Reported Take next dose tomorrow 12/21/15 in AM Amlodipine Besylate 10 Mg Tablet 10 Mg PO DAILY 11/18/15 Reported Take next tomorrow 12/21/15 in AM Levemir Flextouch (Insulin Detemir) 100 Unit/1 Ml Insuln.pen 28 Unit SQ HS 08/15/15 Reported TAKE NEXT DOSE TONIGHT 12/20/15 AT BEDTIME Polyethylene Glycol 3350 255 Gm Powder 17 Gm PO DAILY 03/24/15 Reported TAKE DAILY NEEDED FOR CONSTIPATION Nitrostat (Nitroglycerin) 0.4 Mg Tab.subl 0.4 Mg SL PRN Q5MIN PRN 03/24/15 Reported Benadryl (Diphenhydramine Hcl) 25 Mg Capsule 25 Mg PO PRN Q6HRS PRN 03/24/15 Reported TAKE NEEDED Acetaminophen 500 Mg Tablet 500 Mg PO PRN TID PRN 03/24/15 Reported Loratadine 10 Mg Tablet 10 Mg PO DAILY 04/03/14 Reported TAKE NEXT DOSE TOMORROW 12/21/15 IN AM Levothyroxine Sodium 75 Mcg Tablet 75 Mcg PO DAILY 11/11/13 Reported TAKE NEXT DOSE TOMORROW 12/21/15 IN AM Tums (Calcium Carbonate) 200 Mg Tab.chew 200 Mg PO PRN Q6HRS PRN 11/11/13 Reported Tramadol Hcl 50 Mg Tablet 100 Mg PO BID PRN 11/11/13 Reported Gabapentin 300 Mg Capsule 300 Mg PO HS 11/11/13 Reported TAKE NEXT DOSE TONIGHT 12/20/15 AT BEDTIME Impression . 1. Acute hypoxic respiratory failure secondary to [id number] diastolic heart failure. 2. End-stage renal disease, on hemodialysis now in congestive heart failure. 3. History of tobaccoism, suspect underlying chronic obstructive pulmonary disease. 4. Increased troponin. 5. Leukocytosis, no fever, no steroids Plan . 1. Continue to wean oxygen. 2. Continue hemodialysis with ultrafiltration. 3. Repeat chest x-ray with almost resolved CHF 4. Antibiotics can be deescalated, 5. Monitor white cell count. 6. Smoking cessation counseling provided. 7. bronchodilators. JESSICA HAYS MD Nov 09, 2017 09:46
[2017-11-09 10:33] VITALS: BP 147/62
--- NOTE | 2017-11-09 11:11 | PDOC ---
PROGRESS NOTES Chief Complaint Chief Complaint acute on chronic diastolic CHF, fluid overload acute on chronic respiratory failure secondary to chronic diastolic HF ESRD, has missed HD noncompliance, poor ability to maintain self care Viral pneumonia HTN DM History of Present Illness History of Present Illness Patient seen and examined. No acute events overnight. WBC went up to 23.8 from 17.6 today. Had some infiltrated on CXR on admission. Denies chest pain, shortness of breath. States he does not want placement, educated him on nursing facilities and how home would not be the best option. Vitals Vitals Vital Signs Date Time Temp Pulse Resp B/P (MAP) Pulse Ox O2 Delivery O2 Flow Rate FiO2 11/09/17 10:33 98.3 64 17 147/62 (90) 95 Nasal Cannula 4.0 98.3 Physical Exam General: Alert, No acute distress Heart: Regular rate, Normal S1, Normal S2 Lungs: Clear Abdomen: Soft, No tenderness Extremities: No clubbing, No edema Skin: No breakdown Labs LABS Laboratory Tests Test 11/08/17 11:29 11/08/17 16:20 11/08/17 21:31 11/09/17 06:25 Glucose (Fingerstick) 238 mg/dL (70-99) 315 mg/dL (70-99) 175 mg/dL (70-99) White Blood Count 23.8 x10^3/uL (4.0-11.0) Red Blood Count 2.71 x10^6/uL (4.30-5.70) Hemoglobin 7.7 g/dL (13.0-17.5) Hematocrit 23.7 % (39.0-53.0) Mean Corpuscular Volume 87 fL (79-100) Mean Corpuscular Hemoglobin 29 pg (25-35) Mean Corpuscular Hemoglobin Concent 33 g/dL (31-37) Red Cell Distribution Width 14.6 % (11.5-14.5) Platelet Count 540 x10^3/uL (140-400) Neutrophils (%) (Auto) 37 % (31-73) Lymphocytes (%) (Auto) 56 % (24-48) Monocytes (%) (Auto) 4 % (0-9) Eosinophils (%) (Auto) 3 % (0-3) Basophils (%) (Auto) 1 % (0-3) Neutrophils # (Auto) 8.8 x10^3uL (1.8-7.7) Lymphocytes # (Auto) 13.3 x10^3/uL (1.0-4.8) Monocytes # (Auto) 1.0 x10^3/uL (0.0-1.1) Eosinophils # (Auto) 0.6 x10^3/uL (0.0-0.7) Basophils # (Auto) 0.1 x10^3/uL (0.0-0.2) Sodium Level 139 mmol/L (136-145) Potassium Level 3.5 mmol/L (3.5-5.1) Chloride Level 93 mmol/L (98-107) Carbon Dioxide Level 32 mmol/L (21-32) Anion Gap 14 (6-14) Blood Urea Nitrogen 69 mg/dL (8-26) Creatinine 9.9 mg/dL (0.7-1.3) Estimated GFR (Cockcroft-Gault) 6.3 BUN/Creatinine Ratio 7 (6-20) Glucose Level 162 mg/dL (70-99) Calcium Level 8.3 mg/dL (8.5-10.1) Phosphorus Level 5.5 mg/dL (2.6-4.7) Magnesium Level 2.6 mg/dL (1.8-2.4) Total Bilirubin 0.4 mg/dL (0.2-1.0) Aspartate Amino Transf (AST/SGOT) 18 U/L (15-37) Alanine Aminotransferase (ALT/SGPT) 18 U/L (16-63) Alkaline Phosphatase 94 U/L (46-116) Total Protein 6.8 g/dL (6.4-8.2) Albumin 2.7 g/dL (3.4-5.0) Albumin/Globulin Ratio 0.7 (1.0-1.7) Test 11/09/17 07:16 Glucose (Fingerstick) 148 mg/dL (70-99) Review of Systems Review of Systems Denies chest pain, shortness of breath, fevers/chills, nausea/vomiting. Assessment and Plan Assessmemt and Plan Problems Medical Problems: (1) Fluid overload Status: Acute (2) Shortness of breath Status: Acute acute on chronic diastolic CHF, fluid overload acute on chronic respiratory failure secondary to chronic diastolic HF ESRD, has missed HD noncompliance, poor ability to maintain self care Viral pneumonia HTN DM PLAN: IV Levaquin HD per nephrology Duoneb PT/OT Continue home medications d/c disposition pending probable d/c tomorrow Problems: Comment Review of Relevant I have reviewed the following items marli (where applicable) has been applied. Labs Laboratory Tests Test 11/07/17 17:04 11/08/17 07:20 11/08/17 11:29 11/08/17 16:20 Glucose (Fingerstick) 246 mg/dL (70-99) 212 mg/dL (70-99) 238 mg/dL (70-99) 315 mg/dL (70-99) Test 11/08/17 21:31 11/09/17 06:25 11/09/17 07:16 Glucose (Fingerstick) 175 mg/dL (70-99) 148 mg/dL (70-99) White Blood Count 23.8 x10^3/uL (4.0-11.0) Red Blood Count 2.71 x10^6/uL (4.30-5.70) Hemoglobin 7.7 g/dL (13.0-17.5) Hematocrit 23.7 % (39.0-53.0) Mean Corpuscular Volume 87 fL (79-100) Mean Corpuscular Hemoglobin 29 pg (25-35) Mean Corpuscular Hemoglobin Concent 33 g/dL (31-37) Red Cell Distribution Width 14.6 % (11.5-14.5) Platelet Count 540 x10^3/uL (140-400) Neutrophils (%) (Auto) 37 % (31-73) Lymphocytes (%) (Auto) 56 % (24-48) Monocytes (%) (Auto) 4 % (0-9) Eosinophils (%) (Auto) 3 % (0-3) Basophils (%) (Auto) 1 % (0-3) Neutrophils # (Auto) 8.8 x10^3uL (1.8-7.7) Lymphocytes # (Auto) 13.3 x10^3/uL (1.0-4.8) Monocytes # (Auto) 1.0 x10^3/uL (0.0-1.1) Eosinophils # (Auto) 0.6 x10^3/uL (0.0-0.7) Basophils # (Auto) 0.1 x10^3/uL (0.0-0.2) Sodium Level 139 mmol/L (136-145) Potassium Level 3.5 mmol/L (3.5-5.1) Chloride Level 93 mmol/L (98-107) Carbon Dioxide Level 32 mmol/L (21-32) Anion Gap 14 (6-14) Blood Urea Nitrogen 69 mg/dL (8-26) Creatinine 9.9 mg/dL (0.7-1.3) Estimated GFR (Cockcroft-Gault) 6.3 BUN/Creatinine Ratio 7 (6-20) Glucose Level 162 mg/dL (70-99) Calcium Level 8.3 mg/dL (8.5-10.1) Phosphorus Level 5.5 mg/dL (2.6-4.7) Magnesium Level 2.6 mg/dL (1.8-2.4) Total Bilirubin 0.4 mg/dL (0.2-1.0) Aspartate Amino Transf (AST/SGOT) 18 U/L (15-37) Alanine Aminotransferase (ALT/SGPT) 18 U/L (16-63) Alkaline Phosphatase 94 U/L (46-116) Total Protein 6.8 g/dL (6.4-8.2) Albumin 2.7 g/dL (3.4-5.0) Albumin/Globulin Ratio 0.7 (1.0-1.7) Laboratory Tests Test 11/08/17 11:29 11/08/17 16:20 11/08/17 21:31 11/09/17 06:25 Glucose (Fingerstick) 238 mg/dL (70-99) 315 mg/dL (70-99) 175 mg/dL (70-99) White Blood Count 23.8 x10^3/uL (4.0-11.0) Red Blood Count 2.71 x10^6/uL (4.30-5.70) Hemoglobin 7.7 g/dL (13.0-17.5) Hematocrit 23.7 % (39.0-53.0) Mean Corpuscular Volume 87 fL (79-100) Mean Corpuscular Hemoglobin 29 pg (25-35) Mean Corpuscular Hemoglobin Concent 33 g/dL (31-37) Red Cell Distribution Width 14.6 % (11.5-14.5) Platelet Count 540 x10^3/uL (140-400) Neutrophils (%) (Auto) 37 % (31-73) Lymphocytes (%) (Auto) 56 % (24-48) Monocytes (%) (Auto) 4 % (0-9) Eosinophils (%) (Auto) 3 % (0-3) Basophils (%) (Auto) 1 % (0-3) Neutrophils # (Auto) 8.8 x10^3uL (1.8-7.7) Lymphocytes # (Auto) 13.3 x10^3/uL (1.0-4.8) Monocytes # (Auto) 1.0 x10^3/uL (0.0-1.1) Eosinophils # (Auto) 0.6 x10^3/uL (0.0-0.7) Basophils # (Auto) 0.1 x10^3/uL (0.0-0.2) Sodium Level 139 mmol/L (136-145) Potassium Level 3.5 mmol/L (3.5-5.1) Chloride Level 93 mmol/L (98-107) Carbon Dioxide Level 32 mmol/L (21-32) Anion Gap 14 (6-14) Blood Urea Nitrogen 69 mg/dL (8-26) Creatinine 9.9 mg/dL (0.7-1.3) Estimated GFR (Cockcroft-Gault) 6.3 BUN/Creatinine Ratio 7 (6-20) Glucose Level 162 mg/dL (70-99) Calcium Level 8.3 mg/dL (8.5-10.1) Phosphorus Level 5.5 mg/dL (2.6-4.7) Magnesium Level 2.6 mg/dL (1.8-2.4) Total Bilirubin 0.4 mg/dL (0.2-1.0) Aspartate Amino Transf (AST/SGOT) 18 U/L (15-37) Alanine Aminotransferase (ALT/SGPT) 18 U/L (16-63) Alkaline Phosphatase 94 U/L (46-116) Total Protein 6.8 g/dL (6.4-8.2) Albumin 2.7 g/dL (3.4-5.0) Albumin/Globulin Ratio 0.7 (1.0-1.7) Test 11/09/17 07:16 Glucose (Fingerstick) 148 mg/dL (70-99) Microbiology 11/04/17 Blood Culture - Preliminary, Resulted NO GROWTH AFTER 4 DAYS Medications Current Medications Albuterol/ Ipratropium (Duoneb) 3 ml 1X ONCE NEB ; Start 11/04/17 at 14:30; Stop 11/04/17 at 14:31; Status DC Methylprednisolone Sodium Succinate (SOLU-Medrol 125MG VIAL) 125 mg 1X ONCE IV Last administered on 11/04/17 15:59; Start 11/04/17 at 14:30; Stop at 14:31; Status DC Ondansetron HCl (Zofran) 4 mg PRN Q8HRS PRN IV NAUSEA/VOMITING; Start at 15:45; Stop 11/05/17 at 15:44; Status DC Morphine Sulfate 2 mg PRN Q2HR PRN IV PAIN; Start 11/04/17 at 15:45; Stop at 15:44; Status DC Vancomycin HCl (Vanco Per Pharmacy) 1 each PRN DAILY PRN MC SEE COMMENTS Last administered on 11/06/17 13:39; Start 11/04/17 at 16:45; Stop 11/06/17 at 17 :03; Status DC Piperacillin Sod/ Tazobactam Sod (Zosyn Per Pharmacy) 1 each PRN DAILY PRN MC SEE COMMENTS; Start 11/04/17 at 16:45; Stop 11/07/17 at 11:18; Status DC Vancomycin HCl 2 gm/Dextrose/ Sodium Chloride 500 ml @ 250 mls/hr 1X ONCE IV Last administered on 11/04/17 20:41; Start 11/04/17 at 17:00; Stop 11/04/17 at 18:59; Status DC Piperacillin Sod/ Tazobactam Sod (Zosyn) 2.25 gm Q8HRS IVP Last administered on 11/07/17 05:22; Start 11/04/17 at 17:00; Stop 11/07/17 at 11:15; Status DC Sodium Chloride 1,000 ml @ 1,000 mls/hr Q1H PRN IV hypotension; Start at 16:58; Stop 11/04/17 at 22:57; Status DC Diphenhydramine HCl (Benadryl) 25 mg 1X PRN PRN IV ITCHING; Start 11/04/17 at 17:00; Stop 11/05/17 at 16:59; Status DC Diphenhydramine HCl (Benadryl) 25 mg 1X PRN PRN IV ITCHING; Start 11/04/17 at 17:00; Stop 11/05/17 at 16:59; Status DC Sodium Chloride 1,000 ml @ 400 mls/hr Q2H30M PRN IV PATENCY; Start 11/04/17 at 16:58; Stop 11/05/17 at 04:57; Status DC Info (PHARMACY MONITORING -- do not chart) 1 each PRN DAILY PRN MC SEE COMMENTS ; Start 11/04/17 at 17:00; Stop 11/05/17 at 09:24; Status DC Vancomycin HCl 1 each 1X ONCE MC ; Start 11/06/17 at 05:00; Stop 11/06/17 at 05:01; Status DC Sodium Chloride 1,000 ml @ 1,000 mls/hr Q1H PRN IV hypotension; Start at 08:29; Stop 11/05/17 at 14:28; Status DC Albumin Human 200 ml @ 200 mls/hr 1X PRN PRN IV Hypotension; Start 11/05/17 at 08:30; Stop 11/05/17 at 14:29; Status DC Info (PHARMACY MONITORING -- do not chart) 1 each PRN DAILY PRN MC SEE COMMENTS ; Start 11/05/17 at 08:30; Stop 11/06/17 at 17:03; Status DC Lactobacillus Rhamnosus (Culturelle) 1 cap BID PO Last administered on 09:26; Start 11/05/17 at 21:00 Albuterol/ Ipratropium (Duoneb) 3 ml RTQID NEB Last administered on 11/08/17 15:39; Start 11/05/17 at 12:00; Stop 11/08/17 at 18:28; Status DC Zolpidem Tartrate (Ambien) 5 mg PRN QHS PRN PO INSOMNIA Last administered on 20:50; Start 11/05/17 at 23:45 Sodium Chloride 1,000 ml @ 1,000 mls/hr Q1H PRN IV hypotension; Start at 07:30; Stop 11/06/17 at 13:29; Status DC Sodium Chloride 1,000 ml @ 400 mls/hr Q2H30M PRN IV PATENCY; Start 11/06/17 at 07:30; Stop 11/06/17 at 19:29; Status DC Info (PHARMACY MONITORING -- do not chart) 1 each PRN DAILY PRN MC SEE COMMENTS ; Start 11/06/17 at 09:15 Amoxicillin/ Clavulanate Potassium (Augmentin 500/ 125mg) 1 tab BID PO Last administered on 11/09/17 09:27; Start 11/07/17 at 12:00 Magnesium Sulfate/ Dextrose 50 ml @ 25 mls/hr PRN DAILY PRN IV for Mag < 1.7 on am labs; Start 11/07/17 at 13:30 Amlodipine Besylate (Norvasc) 10 mg DAILY PO Last administered on 11/09/17 09 :26; Start 11/08/17 at 18:00 Aspirin (Ecotrin) 325 mg DAILY08 PO Last administered on 11/09/17 09:27; Start 11/08/17 at 18:00 Atorvastatin Calcium (Lipitor) 5 mg HS PO ; Start 11/08/17 at 21:00 Colestipol HCl (Colestid) 1 gm DAILY PO ; Start 11/09/17 at 09:00; Status UNV Vitamin B Complex/ Vitamin C (Mariela-Ulises) 1 tab DAILY PO Last administered on 09:33; Start 11/08/17 at 18:00 Insulin Detemir (Levemir) 28 units HS SQ Last administered on 11/08/17 21:37 ; Start 11/08/17 at 21:00 Albuterol/ Ipratropium (Duoneb) 3 ml TID NEB Last administered on 11/09/17 08 :27; Start 11/08/17 at 21:00 Levothyroxine Sodium (Synthroid) 75 mcg DAILY07 PO Last administered on 06:32; Start 11/08/17 at 18:00 Mirtazapine (Remeron) 15 mg QHS PO Last administered on 11/08/17 21:31; Start 11/08/17 at 21:00 Sevelamer Carbonate (Renvela) 800 mg TIDWMEALS PO Last administered on 09:26; Start 11/08/17 at 17:00 Vitamin D (Vitamin D3) 1,000 unit DAILY PO Last administered on 11/09/17 09: 27; Start 11/08/17 at 18:00 Gabapentin (Neurontin) 300 mg QHS PO Last administered on 11/08/17 21:32; Start 11/08/17 at 21:00 Cetirizine HCl (ZyrTEC) 10 mg DAILY PO Last administered on 11/09/17 09:27; Start 11/08/17 at 18:00 Insulin Aspart (NovoLOG) 0-9 UNITS TIDWMEALS SQ Last administered on 17:30; Start 11/08/17 at 17:30 Dextrose (Dextrose 50%-Water Syringe) 12.5 gm PRN Q15MIN PRN IV SEE COMMENTS; Start 11/08/17 at 17:15 Active Scripts Active Levemir Flextouch (Insulin Detemir) 100 Unit/1 Ml Insuln.pen 32 Units SQ HS Novolog Flexpen (Insulin Aspart) 100 Unit/1 Ml Insuln.pen 8 Units SQ TIDAC Culturelle (Lactobacillus Rhamnosus Gg) 1 Each Cap.sprink 1 Cap PO BID Levaquin (Levofloxacin) 500 Mg Tablet 500 Mg PO Q48H until 10/21/17 Isosorbide Mononitrate Er (Isosorbide Mononitrate) 30 Mg Tab.er.24h 30 Mg PO DAILY Reported Mirtazapine 15 Mg Tablet 1 Tab PO QHS Renvela (Sevelamer Carbonate) 800 Mg Tablet 800 Mg PO TIDWMEALS Vitamin D (Cholecalciferol (Vitamin D3)) 1,000 Unit Capsule 1 Cap PO DAILY Nephro-Ulises Tablet (Folic Acid/Vitamin B Comp W-C) 0.8 Mg Tablet 1 Tab PO DAILY Trazodone Hcl 50 Mg Tablet 1 Tab PO QHS Duoneb 0.5-3(2.5) Mg/3 Ml (Albuterol/Ipratropium) 3 Ml Ampul.neb 3 Ml NEB TID Colestipol Hcl 1 Gm Tablet 1 Gm PO DAILY Atorvastatin Calcium 10 Mg Tablet 5 Mg PO HS Take next dose tonight 12/20/15 at bedtime Aspir-Lorin (Aspirin) 325 Mg Tablet.dr 325 Mg PO DAILY Take next dose tomorrow 12/21/15 in AM Amlodipine Besylate 10 Mg Tablet 10 Mg PO DAILY Take next tomorrow 12/21/15 in AM Levemir Flextouch (Insulin Detemir) 100 Unit/1 Ml Insuln.pen 28 Unit SQ HS TAKE NEXT DOSE TONIGHT 12/20/15 AT BEDTIME Polyethylene Glycol 3350 255 Gm Powder 17 Gm PO DAILY TAKE DAILY NEEDED FOR CONSTIPATION Nitrostat (Nitroglycerin) 0.4 Mg Tab.subl 0.4 Mg SL PRN Q5MIN PRN Benadryl (Diphenhydramine Hcl) 25 Mg Capsule 25 Mg PO PRN Q6HRS PRN TAKE NEEDED Acetaminophen 500 Mg Tablet 500 Mg PO PRN TID PRN Loratadine 10 Mg Tablet 10 Mg PO DAILY TAKE NEXT DOSE TOMORROW 12/21/15 IN AM Levothyroxine Sodium 75 Mcg Tablet 75 Mcg PO DAILY TAKE NEXT DOSE TOMORROW 12/21/15 IN AM Tums (Calcium Carbonate) 200 Mg Tab.chew 200 Mg PO PRN Q6HRS PRN Tramadol Hcl 50 Mg Tablet 100 Mg PO BID PRN Gabapentin 300 Mg Capsule 300 Mg PO HS TAKE NEXT DOSE TONIGHT 12/20/15 AT BEDTIME Vitals/I & O Vital Sign - Last 24 Hours 11/08/17 11/08/17 11/08/17 11/08/17 11:25 14:30 15:40 19:27 Temp 98.2 98.2 Pulse 72 Resp 19 B/P (MAP) 159/73 (101) Pulse Ox 99 99 99 O2 Delivery Nasal Cannula Nasal Cannula Nasal Cannula Nasal Cannula O2 Flow Rate 3.0 4.0 3.0 3.0 11/08/17 11/08/17 11/08/17 11/08/17 19:35 20:00 21:32 23:35 Temp 97.7 98.3 97.7 98.3 Pulse 78 78 79 Resp 18 18 B/P (MAP) 166/67 (100) 166/67 170/78 (108) Pulse Ox 98 97 O2 Delivery Nasal Cannula Nasal Cannula Nasal Cannula O2 Flow Rate 4.0 3.0 4.0 11/09/17 11/09/17 11/09/17 11/09/17 03:35 07:23 08:28 09:26 Temp 99.0 98.3 99.0 98.3 Pulse 77 73 73 Resp 18 16 B/P (MAP) 171/68 (102) 163/73 (103) 163/73 Pulse Ox 91 99 99 O2 Delivery Nasal Cannula Nasal Cannula Nasal Cannula O2 Flow Rate 4.0 4.0 5.0 11/09/17 10:33 Temp 98.3 98.3 Pulse 64 Resp 17 B/P (MAP) 147/62 (90) Pulse Ox 95 O2 Delivery Nasal Cannula O2 Flow Rate 4.0 Intake and Output 11/08/17 11/08/17 11/09/17 15:00 23:00 07:00 Intake Total 287 ml 500 ml 150 ml Balance 287 ml 500 ml 150 ml LUIZ ALVARADO K III DO Nov 09, 2017 11:11
--- NOTE | 2017-11-09 12:38 | PDOC ---
SUBJECTIVE ROS F/up for ESRD with recc CHF exac doing OK overall CVS: no Orthopnea, no CP RESP: min SOB, ? JIMENEZ GI: no Nausea, no Vomiting : no Dysuria, no Urgency OBJECTIVE Vital Signs Vital Signs Date Time Temp Pulse Resp B/P (MAP) Pulse Ox O2 Delivery O2 Flow Rate FiO2 11/09/17 10:33 98.3 64 17 147/62 (90) 95 Nasal Cannula 4.0 98.3 I & 0 Intake and Output 11/09/17 07:00 Intake Total 937 ml Balance 937 ml Intake Oral 937 ml # Voids 1 PHYSICAL EXAM Physical Exam General Appearance: Awake Alert Oriented x 2 In mod resp Distress - ? underlying dementia/ memory loss Eyes: VIsion Unchanged Conjunctiva Normal EN: No EN Drainage Mucous Memb. dryihs - poor dentition Neck: min JVD + JVP Supple no Thyromegaly CVS: S1 S2 + Murmur No Gallop No Rub no Edema Resp: few LLL Rales occ Rhonchi + Acc. Muscle use GI: BS +ve NO Bruit Non Tender Non Distended : no CVA tenderness; no Suprapubic Tenderness Assessment & Plan ESRD: Dialysis as below (emergent) F 180 NR 3.0 Hrs 3 K 2.5 Ca 140 Na 35 HC03 Qb 350 + Qd 500+ Heparin 0 Units Uf 2-3 Kgs or to dry weight or new EDW as tolerated May give 25-50 gms of 25% Albumin if needed to maintain Hemodynamic stability Treatment plan reviewed and discussed with anchor tacker Hypoxia: muchbetter now, remains on NCO2 suspect fluid overload - Unclear etio of reccurance. UF with HD - some due to non-compliance? Consult SW to look into this Non-compliance with Fluid and diet - ? needs to be in a NH? Anemia of CKD by Hx - may need Epogen if hgb < 11; reval after UF on HD. Transfuse with next HD as needed. HTN - Renovascular - now bettercontrolled on Current BP meds as reviewed. Bone & Mineral: follow phos and alter binder regimen based on Trend Low ALb - encourge PO NEPRO Discussed Plan of Care and prognosis etc. at length with family. COMMENT/RELEVANT DATA Meds Current Medications Medications (Trade) Dose Ordered Sig/Zeus Start Time Stop Time Status Last Admin Dose Admin Albumin Human 200 ml @ 200 mls/hr 1X PRN PRN 11/05/17 08:30 11/05/17 14:29 DC Albuterol/ Ipratropium (Duoneb) 3 ml TID 11/08/17 21:00 11/09/17 08:27 3 ML Amlodipine Besylate (Norvasc) 10 mg DAILY 11/08/17 18:00 11/09/17 09:26 10 MG Amoxicillin/ Clavulanate Potassium (Augmentin 500/ 125mg) 1 tab BID 11/07/17 12:00 11/09/17 11:13 DC 11/09/17 09:27 1 TAB Aspirin (Ecotrin) 325 mg DAILY08 11/08/17 18:00 11/09/17 09:27 325 MG Atorvastatin Calcium (Lipitor) 5 mg HS 11/08/17 21:00 Cetirizine HCl (ZyrTEC) 10 mg DAILY 11/08/17 18:00 11/09/17 09:27 10 MG Colestipol HCl (Colestid) 1 gm DAILY 11/09/17 09:00 UNV Dextrose (Dextrose 50%-Water Syringe) 12.5 gm PRN Q15MIN PRN 11/08/17 17:15 Diphenhydramine HCl (Benadryl) 25 mg 1X PRN PRN 11/04/17 17:00 11/05/17 16:59 DC Gabapentin (Neurontin) 300 mg QHS 11/08/17 21:00 11/08/17 21:32 300 MG Info (PHARMACY MONITORING -- do not chart) 1 each PRN DAILY PRN 11/06/17 09:15 Insulin Aspart (NovoLOG) 0-9 UNITS TIDWMEALS 11/08/17 17:30 11/08/17 17:30 5 UNITS Insulin Detemir (Levemir) 28 units HS 11/08/17 21:00 11/08/17 21:37 28 UNITS Lactobacillus Rhamnosus (Culturelle) 1 cap BID 11/05/17 21:00 11/09/17 09:26 1 CAP Levofloxacin/ Dextrose 100 ml @ 100 mls/hr Q48H 11/09/17 12:00 11/09/17 12:26 100 MLS/HR Levothyroxine Sodium (Synthroid) 75 mcg DAILY07 11/08/17 18:00 11/09/17 06:32 75 MCG Magnesium Sulfate/ Dextrose 50 ml @ 25 mls/hr PRN DAILY PRN 11/07/17 13:30 Methylprednisolone Sodium Succinate (SOLU-Medrol 125MG VIAL) 125 mg 1X ONCE 11/04/17 14:30 11/04/17 14:31 DC 11/04/17 15:59 125 MG Mirtazapine (Remeron) 15 mg QHS 11/08/17 21:00 11/08/17 21:31 15 MG Morphine Sulfate 2 mg PRN Q2HR PRN 11/04/17 15:45 11/05/17 15:44 DC Ondansetron HCl (Zofran) 4 mg PRN Q8HRS PRN 11/04/17 15:45 11/05/17 15:44 DC Piperacillin Sod/ Tazobactam Sod (Zosyn Per Pharmacy) 1 each PRN DAILY PRN 11/04/17 16:45 11/07/17 11:18 DC Piperacillin Sod/ Tazobactam Sod (Zosyn) 2.25 gm Q8HRS 11/04/17 17:00 11/07/17 11:15 DC 11/07/17 05:22 2.25 GM Sevelamer Carbonate (Renvela) 800 mg TIDWMEALS 11/08/17 17:00 11/09/17 12:25 800 MG Sodium Chloride 1,000 ml @ 400 mls/hr Q2H30M PRN 11/06/17 07:30 11/06/17 19:29 DC Vancomycin HCl 1 each 1X ONCE 11/06/17 05:00 11/06/17 05:01 DC Vancomycin HCl (Vanco Per Pharmacy) 1 each PRN DAILY PRN 11/04/17 16:45 11/06/17 17:03 DC 11/06/17 13:39 1 EACH Vancomycin HCl 2 gm/Dextrose/ Sodium Chloride 500 ml @ 250 mls/hr 1X ONCE 11/04/17 17:00 11/04/17 18:59 DC 11/04/17 20:41 250 MLS/HR Vitamin B Complex/ Vitamin C (Mariela-Ulises) 1 tab DAILY 11/08/17 18:00 11/09/17 09:33 1 TAB Vitamin D (Vitamin D3) 1,000 unit DAILY 11/08/17 18:00 11/09/17 09:27 1,000 UNIT Zolpidem Tartrate (Ambien) 5 mg PRN QHS PRN 11/05/17 23:45 11/06/17 20:50 5 MG Lab Laboratory Tests Test 11/08/17 16:20 11/08/17 21:31 11/09/17 06:25 11/09/17 07:16 Glucose (Fingerstick) 315 mg/dL (70-99) 175 mg/dL (70-99) 148 mg/dL (70-99) White Blood Count 23.8 x10^3/uL (4.0-11.0) Red Blood Count 2.71 x10^6/uL (4.30-5.70) Hemoglobin 7.7 g/dL (13.0-17.5) Hematocrit 23.7 % (39.0-53.0) Mean Corpuscular Volume 87 fL (79-100) Mean Corpuscular Hemoglobin 29 pg (25-35) Mean Corpuscular Hemoglobin Concent 33 g/dL (31-37) Red Cell Distribution Width 14.6 % (11.5-14.5) Platelet Count 540 x10^3/uL (140-400) Neutrophils (%) (Auto) 37 % (31-73) Lymphocytes (%) (Auto) 56 % (24-48) Monocytes (%) (Auto) 4 % (0-9) Eosinophils (%) (Auto) 3 % (0-3) Basophils (%) (Auto) 1 % (0-3) Neutrophils # (Auto) 8.8 x10^3uL (1.8-7.7) Lymphocytes # (Auto) 13.3 x10^3/uL (1.0-4.8) Monocytes # (Auto) 1.0 x10^3/uL (0.0-1.1) Eosinophils # (Auto) 0.6 x10^3/uL (0.0-0.7) Basophils # (Auto) 0.1 x10^3/uL (0.0-0.2) Sodium Level 139 mmol/L (136-145) Potassium Level 3.5 mmol/L (3.5-5.1) Chloride Level 93 mmol/L (98-107) Carbon Dioxide Level 32 mmol/L (21-32) Anion Gap 14 (6-14) Blood Urea Nitrogen 69 mg/dL (8-26) Creatinine 9.9 mg/dL (0.7-1.3) Estimated GFR (Cockcroft-Gault) 6.3 BUN/Creatinine Ratio 7 (6-20) Glucose Level 162 mg/dL (70-99) Calcium Level 8.3 mg/dL (8.5-10.1) Phosphorus Level 5.5 mg/dL (2.6-4.7) Magnesium Level 2.6 mg/dL (1.8-2.4) Total Bilirubin 0.4 mg/dL (0.2-1.0) Aspartate Amino Transf (AST/SGOT) 18 U/L (15-37) Alanine Aminotransferase (ALT/SGPT) 18 U/L (16-63) Alkaline Phosphatase 94 U/L (46-116) Total Protein 6.8 g/dL (6.4-8.2) Albumin 2.7 g/dL (3.4-5.0) Albumin/Globulin Ratio 0.7 (1.0-1.7) Test 11/09/17 11:10 Glucose (Fingerstick) 131 mg/dL (70-99) LEIGH MORALES MD Nov 09, 2017 12:38
[2017-11-09 15:07] VITALS: BP 142/65
--- NOTE | 2017-11-09 15:23 | RAD ---
PA and lateral chest x-ray compared to portable chest radiograph dated 11/07/2017 for CHF, shortness of air. Findings: There is redemonstration of coarse interstitial lung changes throughout both lung malone, with symmetric appearance. These may reflect persistent interstitial edema or chronic bibasilar interstitial lung disease. Small bilateral pleural effusions are evident. Heart size is borderline enlarged. Postsurgical changes of the mediastinum are noted. No new lung parenchymal abnormalities are seen. Impression: 1. Persistent diffuse coarse initial lung markings likely attributable to stable interstitial pulmonary edema or chronic fibrotic interstitial lung disease. 2. Small bilateral pleural effusions.
--- NOTE | 2017-11-09 17:23 | PDOC ---
MONALISA HERNANDEZ OUTPATIENT SURGERY RN 11/09/17 1723: CARDIO Progress Notes Date and Time Date of Service 11/09/17 Time of Evaluation 1345 Subjective Subjective: No Chest Pain, No shortness of breath Vitals Vitals Vital Signs Date Time Temp Pulse Resp B/P (MAP) Pulse Ox O2 Delivery O2 Flow Rate FiO2 11/09/17 15:07 97.9 75 16 142/65 (90) 98 Nasal Cannula 4.0 97.9 Weight Weight [ ] Input and Output Intake and Output Intake and Output 11/09/17 06:59 Intake Total 937 ml Balance 937 ml Intake Oral 937 ml # Voids 1 Laboratory Labs Laboratory Tests Test 11/08/17 21:31 11/09/17 06:25 11/09/17 07:16 11/09/17 11:10 Glucose (Fingerstick) 175 mg/dL (70-99) 148 mg/dL (70-99) 131 mg/dL (70-99) White Blood Count 23.8 x10^3/uL (4.0-11.0) Red Blood Count 2.71 x10^6/uL (4.30-5.70) Hemoglobin 7.7 g/dL (13.0-17.5) Hematocrit 23.7 % (39.0-53.0) Mean Corpuscular Volume 87 fL (79-100) Mean Corpuscular Hemoglobin 29 pg (25-35) Mean Corpuscular Hemoglobin Concent 33 g/dL (31-37) Red Cell Distribution Width 14.6 % (11.5-14.5) Platelet Count 540 x10^3/uL (140-400) Neutrophils (%) (Auto) 37 % (31-73) Lymphocytes (%) (Auto) 56 % (24-48) Monocytes (%) (Auto) 4 % (0-9) Eosinophils (%) (Auto) 3 % (0-3) Basophils (%) (Auto) 1 % (0-3) Neutrophils # (Auto) 8.8 x10^3uL (1.8-7.7) Lymphocytes # (Auto) 13.3 x10^3/uL (1.0-4.8) Monocytes # (Auto) 1.0 x10^3/uL (0.0-1.1) Eosinophils # (Auto) 0.6 x10^3/uL (0.0-0.7) Basophils # (Auto) 0.1 x10^3/uL (0.0-0.2) Sodium Level 139 mmol/L (136-145) Potassium Level 3.5 mmol/L (3.5-5.1) Chloride Level 93 mmol/L (98-107) Carbon Dioxide Level 32 mmol/L (21-32) Anion Gap 14 (6-14) Blood Urea Nitrogen 69 mg/dL (8-26) Creatinine 9.9 mg/dL (0.7-1.3) Estimated GFR (Cockcroft-Gault) 6.3 BUN/Creatinine Ratio 7 (6-20) Glucose Level 162 mg/dL (70-99) Calcium Level 8.3 mg/dL (8.5-10.1) Phosphorus Level 5.5 mg/dL (2.6-4.7) Magnesium Level 2.6 mg/dL (1.8-2.4) Total Bilirubin 0.4 mg/dL (0.2-1.0) Aspartate Amino Transf (AST/SGOT) 18 U/L (15-37) Alanine Aminotransferase (ALT/SGPT) 18 U/L (16-63) Alkaline Phosphatase 94 U/L (46-116) Total Protein 6.8 g/dL (6.4-8.2) Albumin 2.7 g/dL (3.4-5.0) Albumin/Globulin Ratio 0.7 (1.0-1.7) Test 11/09/17 16:19 Glucose (Fingerstick) 216 mg/dL (70-99) Microbiology Micro Microbiology 11/04/17 Blood Culture - Final, Complete NO GROWTH AFTER 5 DAYS Physical Exam HEENT: Neck Supple W Full Motion Chest: Symmetric LUNGS: Clear to Auscultation, Other (diminished bases) Heart: S1S2, RRR Abdomen: Soft N/T Extremities: No Edema Neurology: alert, oriented, follow commands Assessment Assessment 1. Acute respiratory failure 2. Acute on chronic diastolic HF 3. CAD s/p CABG 4. Hypertension 5. YE s/p right renal MANAGER ENGAGEMENT/stent placement with more recent MANAGER ENGAGEMENT to in-stent re- stenosis; renal duplex without evidence of stenosis bilaterally 6. ESRD on HD Recommendations Fluid offloading/ management via HD Continue secondary prevention measures. Supportive care Reinforced importance of 2GM Na diet and 2000cc FR. NIDIA GOETZ MD 11/09/17 1838: CARDIO Progress Notes Plan Plan Patient seen and examined. Agree with above nurse practitioner note. Supportive care from a cardiac standpoint. Renal artery duplex reviewed and no evidence of significant stenosis. Would defer angiography at this time unless there are significant lability in blood pressure at which point we could consider repeat angiography. We'll discuss with Dr. Bolanos. MONALISA HERNANDEZ APRN Nov 09, 2017 17:23 NIDIA GOETZ MD Nov 09, 2017 18:38
[2017-11-09] MEDS ORDERED: IV NORMAL SALINE 1000ML BAG 1,000 ML IV PRN ×2 (17:30)
[2017-11-09] MEDS ORDERED: ALBUMIN HUMAN 25% 200 ML IV PRN (17:30)
[2017-11-09] MEDS ORDERED: DIALYSIS PATIENT. MC PRN (17:30)
[2017-11-09] MEDS ORDERED: diphenhydrAMINE 50 MG/ML VIAL IV PRN ×2 (17:30)
[2017-11-09] MEDS ORDERED: DARBEPOETIN ALFA 60 MCG/0.3 ML DISP.SYRIN. SQ SCH (21:00)
[2017-11-09] MEDS: GABAPENTIN 300 MG CAPSULE. PO SCH (21:08)
[2017-11-09] MEDS: ATORVASTATIN CALCIUM 10 MG TABLET. PO SCH (21:08)
[2017-11-09] MEDS: MIRTAZAPINE 15 MG TABLET PO SCH (21:08)
[2017-11-09] MEDS: INSULIN DETEMIR 300 UNITS/3 ML INSULN.PEN. SQ SCH (21:17)
[2017-11-09 23:24] VITALS: BP 159/55
[2017-11-10 03:37] VITALS: BP 101/53
[2017-11-10 04:44] LABS: BASO # 0.1 x10^3/uL (0.0-0.2); BASO % 0 % (0-3); EOS % 2 % (0-3); HEMATOCRIT 23.3 % (39.0-53.0); HEMOGLOBIN 7.6 g/dL (13.0-17.5); LYMPH # 12.2 x10^3/uL (1.0-4.8); LYMPH % 51 % (24-48); MEAN CORPUSCULAR HEMOGLOBIN 29 pg (25-35); MEAN CORPUSCULAR HGB CONC 32 g/dL (31-37); MEAN CORPUSCULAR VOLUME 88 fL (79-100); MONO % 4 % (0-9); NEUT % 43 % (31-73); PLATELET COUNT 486 x10^3/uL (140-400); RED BLOOD COUNT 2.63 x10^6/uL (4.30-5.70); RED CELL DISTRIBUTION WIDTH 14.9 % (11.5-14.5); WHITE BLOOD COUNT 23.8 x10^3/uL (4.0-11.0)
[2017-11-10 05:35] LABS: ALBUMIN 2.7 g/dL (3.4-5.0); ALBUMIN/GLOBULIN RATIO 0.6 (1.0-1.7); CALCIUM 8.3 mg/dL (8.5-10.1); CREATININE 6.8 mg/dL (0.7-1.3); GFR 9.7; POTASSIUM 4.2 mmol/L (3.5-5.1); TOTAL BILIRUBIN 0.4 mg/dL (0.2-1.0); TOTAL PROTEIN 7.1 g/dL (6.4-8.2)
[2017-11-10 06:05] LABS: ALBUMIN 2.8 g/dL (3.4-5.0); CALCIUM 8.4 mg/dL (8.5-10.1); CREATININE 6.7 mg/dL (0.7-1.3); GFR 9.8; PHOSPHORUS 3.3 mg/dL (2.6-4.7); POTASSIUM 4.6 mmol/L (3.5-5.1)
[2017-11-10 07:00] VITALS: BP 128/61
[2017-11-10 08:18] VITALS: BP 124/79
[2017-11-10] MEDS: IPRATRPIUM/ALBUTEROL 0.5/2.5MG 3 ML NEBU. NEB SCH ×2 (08:42→13:05)
[2017-11-10] MEDS: LEVOTHYROXINE 75 MCG TABLET PO SCH (09:22)
[2017-11-10] MEDS: ASPIRIN ENTERIC COATED 325 MG TABLET.DR. PO SCH (09:23)
[2017-11-10] MEDS: CHOLECALCIFEROL (VITAMIN D3) 1,000 UNIT TABLET PO SCH (09:23)
[2017-11-10] MEDS: SEVELAMER CARBONATE 800 MG TABLET. PO SCH ×3 (09:23→17:00)
[2017-11-10] MEDS: amLODIPine BESYLATE 10 MG TABLET PO SCH (09:23)
[2017-11-10] MEDS: FOLIC/VIT B COMP W-C (RENAL) TABLET. PO SCH (09:23)
[2017-11-10] MEDS: LACTOBACILLUS RHAMNOSUS GG 1 CAPSULE. PO SCH (09:23)
[2017-11-10] MEDS: CETIRIZINE HCL 10 MG TABLET. PO SCH (09:24)
[2017-11-10] MEDS: INSULIN ASPART 300 UNITS/3 ML INSULN.PEN SQ SCH ×3 (09:30→17:00)
--- NOTE | 2017-11-10 09:31 | PDOC ---
PROGRESS NOTES Chief Complaint Chief Complaint acute on chronic diastolic CHF, fluid overload acute on chronic respiratory failure secondary to chronic diastolic HF ESRD, has missed HD noncompliance, poor ability to maintain self care Viral pneumonia HTN DM History of Present Illness History of Present Illness Patient seen and examined. Resting comfotably, in no acute distress. WBC remains at 23.8. Denies chest pain, shortness of breath, fevers/chills. SW worked with patient and family to set up placement at [facility] pending d/c. Vitals Vitals Vital Signs Date Time Temp Pulse Resp B/P (MAP) Pulse Ox O2 Delivery O2 Flow Rate FiO2 11/10/17 08:44 91 Room Air 11/10/17 07:00 98.0 74 20 128/61 (83) 3.0 98.0 Physical Exam General: Alert, No acute distress Heart: Regular rate, Normal S1, Normal S2 Lungs: Clear Abdomen: Soft, No tenderness Extremities: No clubbing, No edema Skin: No breakdown Labs LABS Laboratory Tests Test 11/09/17 11:10 11/09/17 16:19 11/09/17 21:06 11/10/17 03:15 Glucose (Fingerstick) 131 mg/dL (70-99) 216 mg/dL (70-99) 192 mg/dL (70-99) White Blood Count 23.8 x10^3/uL (4.0-11.0) Red Blood Count 2.63 x10^6/uL (4.30-5.70) Hemoglobin 7.6 g/dL (13.0-17.5) Hematocrit 23.3 % (39.0-53.0) Mean Corpuscular Volume 88 fL (79-100) Mean Corpuscular Hemoglobin 29 pg (25-35) Mean Corpuscular Hemoglobin Concent 32 g/dL (31-37) Red Cell Distribution Width 14.9 % (11.5-14.5) Platelet Count 486 x10^3/uL (140-400) Neutrophils (%) (Auto) 43 % (31-73) Lymphocytes (%) (Auto) 51 % (24-48) Monocytes (%) (Auto) 4 % (0-9) Eosinophils (%) (Auto) 2 % (0-3) Basophils (%) (Auto) 0 % (0-3) Neutrophils # (Auto) 10.1 x10^3uL (1.8-7.7) Lymphocytes # (Auto) 12.2 x10^3/uL (1.0-4.8) Monocytes # (Auto) 1.0 x10^3/uL (0.0-1.1) Eosinophils # (Auto) 0.5 x10^3/uL (0.0-0.7) Basophils # (Auto) 0.1 x10^3/uL (0.0-0.2) Sodium Level 140 mmol/L (136-145) Potassium Level 4.6 mmol/L (3.5-5.1) Chloride Level 99 mmol/L (98-107) Carbon Dioxide Level 27 mmol/L (21-32) Anion Gap 14 (6-14) Blood Urea Nitrogen 43 mg/dL (8-26) Creatinine 6.7 mg/dL (0.7-1.3) Estimated GFR (Cockcroft-Gault) 9.8 BUN/Creatinine Ratio 6 (6-20) Glucose Level 199 mg/dL (70-99) Calcium Level 8.4 mg/dL (8.5-10.1) Phosphorus Level 3.3 mg/dL (2.6-4.7) Magnesium Level 2.1 mg/dL (1.8-2.4) Total Bilirubin 0.4 mg/dL (0.2-1.0) Aspartate Amino Transf (AST/SGOT) 14 U/L (15-37) Alanine Aminotransferase (ALT/SGPT) 16 U/L (16-63) Alkaline Phosphatase 93 U/L (46-116) Total Protein 7.1 g/dL (6.4-8.2) Albumin 2.8 g/dL (3.4-5.0) Albumin/Globulin Ratio 0.6 (1.0-1.7) Test 11/10/17 07:13 Glucose (Fingerstick) 177 mg/dL (70-99) Review of Systems Review of Systems Denies chest pain, shortness of breath, fevers/chills. Assessment and Plan Assessmemt and Plan Problems Medical Problems: (1) Fluid overload Status: Acute (2) Shortness of breath Status: Acute acute on chronic diastolic CHF, fluid overload acute on chronic respiratory failure secondary to chronic diastolic HF ESRD, has missed HD noncompliance, poor ability to maintain self care Viral pneumonia HTN DM PLAN: IV Levaquin HD per nephrology Duoneb PT/OT Continue home medications Recheck AM labs, trend WBC d/c to [facility] when leukocytosis resolved Problems: Comment Review of Relevant I have reviewed the following items marli (where applicable) has been applied. Labs Laboratory Tests Test 11/08/17 11:29 11/08/17 16:20 11/08/17 21:31 11/09/17 06:25 Glucose (Fingerstick) 238 mg/dL (70-99) 315 mg/dL (70-99) 175 mg/dL (70-99) White Blood Count 23.8 x10^3/uL (4.0-11.0) Red Blood Count 2.71 x10^6/uL (4.30-5.70) Hemoglobin 7.7 g/dL (13.0-17.5) Hematocrit 23.7 % (39.0-53.0) Mean Corpuscular Volume 87 fL (79-100) Mean Corpuscular Hemoglobin 29 pg (25-35) Mean Corpuscular Hemoglobin Concent 33 g/dL (31-37) Red Cell Distribution Width 14.6 % (11.5-14.5) Platelet Count 540 x10^3/uL (140-400) Neutrophils (%) (Auto) 37 % (31-73) Lymphocytes (%) (Auto) 56 % (24-48) Monocytes (%) (Auto) 4 % (0-9) Eosinophils (%) (Auto) 3 % (0-3) Basophils (%) (Auto) 1 % (0-3) Neutrophils # (Auto) 8.8 x10^3uL (1.8-7.7) Lymphocytes # (Auto) 13.3 x10^3/uL (1.0-4.8) Monocytes # (Auto) 1.0 x10^3/uL (0.0-1.1) Eosinophils # (Auto) 0.6 x10^3/uL (0.0-0.7) Basophils # (Auto) 0.1 x10^3/uL (0.0-0.2) Sodium Level 139 mmol/L (136-145) Potassium Level 3.5 mmol/L (3.5-5.1) Chloride Level 93 mmol/L (98-107) Carbon Dioxide Level 32 mmol/L (21-32) Anion Gap 14 (6-14) Blood Urea Nitrogen 69 mg/dL (8-26) Creatinine 9.9 mg/dL (0.7-1.3) Estimated GFR (Cockcroft-Gault) 6.3 BUN/Creatinine Ratio 7 (6-20) Glucose Level 162 mg/dL (70-99) Calcium Level 8.3 mg/dL (8.5-10.1) Phosphorus Level 5.5 mg/dL (2.6-4.7) Magnesium Level 2.6 mg/dL (1.8-2.4) Total Bilirubin 0.4 mg/dL (0.2-1.0) Aspartate Amino Transf (AST/SGOT) 18 U/L (15-37) Alanine Aminotransferase (ALT/SGPT) 18 U/L (16-63) Alkaline Phosphatase 94 U/L (46-116) Total Protein 6.8 g/dL (6.4-8.2) Albumin 2.7 g/dL (3.4-5.0) Albumin/Globulin Ratio 0.7 (1.0-1.7) Test 11/09/17 07:16 11/09/17 11:10 11/09/17 16:19 11/09/17 21:06 Glucose (Fingerstick) 148 mg/dL (70-99) 131 mg/dL (70-99) 216 mg/dL (70-99) 192 mg/dL (70-99) Test 11/10/17 03:15 11/10/17 07:13 White Blood Count 23.8 x10^3/uL (4.0-11.0) Red Blood Count 2.63 x10^6/uL (4.30-5.70) Hemoglobin 7.6 g/dL (13.0-17.5) Hematocrit 23.3 % (39.0-53.0) Mean Corpuscular Volume 88 fL (79-100) Mean Corpuscular Hemoglobin 29 pg (25-35) Mean Corpuscular Hemoglobin Concent 32 g/dL (31-37) Red Cell Distribution Width 14.9 % (11.5-14.5) Platelet Count 486 x10^3/uL (140-400) Neutrophils (%) (Auto) 43 % (31-73) Lymphocytes (%) (Auto) 51 % (24-48) Monocytes (%) (Auto) 4 % (0-9) Eosinophils (%) (Auto) 2 % (0-3) Basophils (%) (Auto) 0 % (0-3) Neutrophils # (Auto) 10.1 x10^3uL (1.8-7.7) Lymphocytes # (Auto) 12.2 x10^3/uL (1.0-4.8) Monocytes # (Auto) 1.0 x10^3/uL (0.0-1.1) Eosinophils # (Auto) 0.5 x10^3/uL (0.0-0.7) Basophils # (Auto) 0.1 x10^3/uL (0.0-0.2) Sodium Level 140 mmol/L (136-145) Potassium Level 4.6 mmol/L (3.5-5.1) Chloride Level 99 mmol/L (98-107) Carbon Dioxide Level 27 mmol/L (21-32) Anion Gap 14 (6-14) Blood Urea Nitrogen 43 mg/dL (8-26) Creatinine 6.7 mg/dL (0.7-1.3) Estimated GFR (Cockcroft-Gault) 9.8 BUN/Creatinine Ratio 6 (6-20) Glucose Level 199 mg/dL (70-99) Calcium Level 8.4 mg/dL (8.5-10.1) Phosphorus Level 3.3 mg/dL (2.6-4.7) Magnesium Level 2.1 mg/dL (1.8-2.4) Total Bilirubin 0.4 mg/dL (0.2-1.0) Aspartate Amino Transf (AST/SGOT) 14 U/L (15-37) Alanine Aminotransferase (ALT/SGPT) 16 U/L (16-63) Alkaline Phosphatase 93 U/L (46-116) Total Protein 7.1 g/dL (6.4-8.2) Albumin 2.8 g/dL (3.4-5.0) Albumin/Globulin Ratio 0.6 (1.0-1.7) Glucose (Fingerstick) 177 mg/dL (70-99) Laboratory Tests Test 11/09/17 11:10 11/09/17 16:19 11/09/17 21:06 11/10/17 03:15 Glucose (Fingerstick) 131 mg/dL (70-99) 216 mg/dL (70-99) 192 mg/dL (70-99) White Blood Count 23.8 x10^3/uL (4.0-11.0) Red Blood Count 2.63 x10^6/uL (4.30-5.70) Hemoglobin 7.6 g/dL (13.0-17.5) Hematocrit 23.3 % (39.0-53.0) Mean Corpuscular Volume 88 fL (79-100) Mean Corpuscular Hemoglobin 29 pg (25-35) Mean Corpuscular Hemoglobin Concent 32 g/dL (31-37) Red Cell Distribution Width 14.9 % (11.5-14.5) Platelet Count 486 x10^3/uL (140-400) Neutrophils (%) (Auto) 43 % (31-73) Lymphocytes (%) (Auto) 51 % (24-48) Monocytes (%) (Auto) 4 % (0-9) Eosinophils (%) (Auto) 2 % (0-3) Basophils (%) (Auto) 0 % (0-3) Neutrophils # (Auto) 10.1 x10^3uL (1.8-7.7) Lymphocytes # (Auto) 12.2 x10^3/uL (1.0-4.8) Monocytes # (Auto) 1.0 x10^3/uL (0.0-1.1) Eosinophils # (Auto) 0.5 x10^3/uL (0.0-0.7) Basophils # (Auto) 0.1 x10^3/uL (0.0-0.2) Sodium Level 140 mmol/L (136-145) Potassium Level 4.6 mmol/L (3.5-5.1) Chloride Level 99 mmol/L (98-107) Carbon Dioxide Level 27 mmol/L (21-32) Anion Gap 14 (6-14) Blood Urea Nitrogen 43 mg/dL (8-26) Creatinine 6.7 mg/dL (0.7-1.3) Estimated GFR (Cockcroft-Gault) 9.8 BUN/Creatinine Ratio 6 (6-20) Glucose Level 199 mg/dL (70-99) Calcium Level 8.4 mg/dL (8.5-10.1) Phosphorus Level 3.3 mg/dL (2.6-4.7) Magnesium Level 2.1 mg/dL (1.8-2.4) Total Bilirubin 0.4 mg/dL (0.2-1.0) Aspartate Amino Transf (AST/SGOT) 14 U/L (15-37) Alanine Aminotransferase (ALT/SGPT) 16 U/L (16-63) Alkaline Phosphatase 93 U/L (46-116) Total Protein 7.1 g/dL (6.4-8.2) Albumin 2.8 g/dL (3.4-5.0) Albumin/Globulin Ratio 0.6 (1.0-1.7) Test 11/10/17 07:13 Glucose (Fingerstick) 177 mg/dL (70-99) Microbiology 11/04/17 Blood Culture - Final, Complete NO GROWTH AFTER 5 DAYS Medications Current Medications Albuterol/ Ipratropium (Duoneb) 3 ml 1X ONCE NEB ; Start 11/04/17 at 14:30; Stop 11/04/17 at 14:31; Status DC Methylprednisolone Sodium Succinate (SOLU-Medrol 125MG VIAL) 125 mg 1X ONCE IV Last administered on 11/04/17t 15:59; Start 11/04/17 at 14:30; Stop at 14:31; Status DC Ondansetron HCl (Zofran) 4 mg PRN Q8HRS PRN IV NAUSEA/VOMITING; Start at 15:45; Stop 11/05/17 at 15:44; Status DC Morphine Sulfate 2 mg PRN Q2HR PRN IV PAIN; Start 11/04/17 at 15:45; Stop at 15:44; Status DC Vancomycin HCl (Vanco Per Pharmacy) 1 each PRN DAILY PRN MC SEE COMMENTS Last administered on 11/06/17t 13:39; Start 11/04/17 at 16:45; Stop 11/06/17 at 17 :03; Status DC Piperacillin Sod/ Tazobactam Sod (Zosyn Per Pharmacy) 1 each PRN DAILY PRN MC SEE COMMENTS; Start 11/04/17 at 16:45; Stop 11/07/17 at 11:18; Status DC Vancomycin HCl 2 gm/Dextrose/ Sodium Chloride 500 ml @ 250 mls/hr 1X ONCE IV Last administered on 11/04/17t 20:41; Start 11/04/17 at 17:00; Stop 11/04/17 at 18:59; Status DC Piperacillin Sod/ Tazobactam Sod (Zosyn) 2.25 gm Q8HRS IVP Last administered on 11/07/17t 05:22; Start 11/04/17 at 17:00; Stop 11/07/17 at 11:15; Status DC Sodium Chloride 1,000 ml @ 1,000 mls/hr Q1H PRN IV hypotension; Start at 16:58; Stop 11/04/17 at 22:57; Status DC Diphenhydramine HCl (Benadryl) 25 mg 1X PRN PRN IV ITCHING; Start 11/04/17 at 17:00; Stop 11/05/17 at 16:59; Status DC Diphenhydramine HCl (Benadryl) 25 mg 1X PRN PRN IV ITCHING; Start 11/04/17 at 17:00; Stop 11/05/17 at 16:59; Status DC Sodium Chloride 1,000 ml @ 400 mls/hr Q2H30M PRN IV PATENCY; Start 11/04/17 at 16:58; Stop 11/05/17 at 04:57; Status DC Info (PHARMACY MONITORING -- do not chart) 1 each PRN DAILY PRN MC SEE COMMENTS ; Start 11/04/17 at 17:00; Stop 11/05/17 at 09:24; Status DC Vancomycin HCl 1 each 1X ONCE MC ; Start 11/06/17 at 05:00; Stop 11/06/17 at 05:01; Status DC Sodium Chloride 1,000 ml @ 1,000 mls/hr Q1H PRN IV hypotension; Start at 08:29; Stop 11/05/17 at 14:28; Status DC Albumin Human 200 ml @ 200 mls/hr 1X PRN PRN IV Hypotension; Start 11/05/17 at 08:30; Stop 11/05/17 at 14:29; Status DC Info (PHARMACY MONITORING -- do not chart) 1 each PRN DAILY PRN MC SEE COMMENTS ; Start 11/05/17 at 08:30; Stop 11/06/17 at 17:03; Status DC Lactobacillus Rhamnosus (Culturelle) 1 cap BID PO Last administered on 21:07; Start 11/05/17 at 21:00 Albuterol/ Ipratropium (Duoneb) 3 ml RTQID NEB Last administered on 11/08/17 15:39; Start 11/05/17 at 12:00; Stop 11/08/17 at 18:28; Status DC Zolpidem Tartrate (Ambien) 5 mg PRN QHS PRN PO INSOMNIA Last administered on 20:50; Start 11/05/17 at 23:45 Sodium Chloride 1,000 ml @ 1,000 mls/hr Q1H PRN IV hypotension; Start at 07:30; Stop 11/06/17 at 13:29; Status DC Sodium Chloride 1,000 ml @ 400 mls/hr Q2H30M PRN IV PATENCY; Start 11/06/17 at 07:30; Stop 11/06/17 at 19:29; Status DC Info (PHARMACY MONITORING -- do not chart) 1 each PRN DAILY PRN MC SEE COMMENTS ; Start 11/06/17 at 09:15 Amoxicillin/ Clavulanate Potassium (Augmentin 500/ 125mg) 1 tab BID PO Last administered on 11/09/17 09:27; Start 11/07/17 at 12:00; Stop 11/09/17 at 11 :13; Status DC Magnesium Sulfate/ Dextrose 50 ml @ 25 mls/hr PRN DAILY PRN IV for Mag < 1.7 on am labs; Start 11/07/17 at 13:30 Amlodipine Besylate (Norvasc) 10 mg DAILY PO Last administered on 11/09/17 09 :26; Start 11/08/17 at 18:00 Aspirin (Ecotrin) 325 mg DAILY08 PO Last administered on 11/09/17 09:27; Start 11/08/17 at 18:00 Atorvastatin Calcium (Lipitor) 5 mg HS PO Last administered on 11/09/17 21:08 ; Start 11/08/17 at 21:00 Colestipol HCl (Colestid) 1 gm DAILY PO ; Start 11/09/17 at 09:00; Status UNV Vitamin B Complex/ Vitamin C (Mariela-Ulises) 1 tab DAILY PO Last administered on 09:33; Start 11/08/17 at 18:00 Insulin Detemir (Levemir) 28 units HS SQ Last administered on 11/09/17 21:17 ; Start 11/08/17 at 21:00 Albuterol/ Ipratropium (Duoneb) 3 ml TID NEB Last administered on 11/10/17 08 :42; Start 11/08/17 at 21:00 Levothyroxine Sodium (Synthroid) 75 mcg DAILY07 PO Last administered on 06:32; Start 11/08/17 at 18:00 Mirtazapine (Remeron) 15 mg QHS PO Last administered on 11/09/17 21:08; Start 11/08/17 at 21:00 Sevelamer Carbonate (Renvela) 800 mg TIDWMEALS PO Last administered on 12:25; Start 11/08/17 at 17:00 Vitamin D (Vitamin D3) 1,000 unit DAILY PO Last administered on 11/09/17 09: 27; Start 11/08/17 at 18:00 Gabapentin (Neurontin) 300 mg QHS PO Last administered on 11/09/17 21:08; Start 11/08/17 at 21:00 Cetirizine HCl (ZyrTEC) 10 mg DAILY PO Last administered on 11/09/17 09:27; Start 11/08/17 at 18:00 Insulin Aspart (NovoLOG) 0-9 UNITS TIDWMEALS SQ Last administered on 17:30; Start 11/08/17 at 17:30 Dextrose (Dextrose 50%-Water Syringe) 12.5 gm PRN Q15MIN PRN IV SEE COMMENTS; Start 11/08/17 at 17:15 Levofloxacin/ Dextrose 100 ml @ 100 mls/hr Q48H IV Last administered on 12:26; Start 11/09/17 at 12:00 Darbepoetin Po (Aranesp) 60 mcg We SQ Last administered on 11/09/17 21:09; Start 11/09/17 at 21:00 Sodium Chloride 1,000 ml @ 1,000 mls/hr Q1H PRN IV hypotension; Start at 17:30; Stop 11/09/17 at 23:59; Status DC Albumin Human 200 ml @ 200 mls/hr 1X PRN PRN IV Hypotension; Start 11/09/17 at 17:30; Stop 11/09/17 at 23:29; Status DC Diphenhydramine HCl (Benadryl) 25 mg 1X PRN PRN IV ITCHING; Start 11/09/17 at 17:30; Stop 11/09/17 at 23:59; Status DC Diphenhydramine HCl (Benadryl) 25 mg 1X PRN PRN IV ITCHING; Start 11/09/17 at 17:30; Stop 11/09/17 at 23:59; Status DC Sodium Chloride 1,000 ml @ 400 mls/hr Q2H30M PRN IV PATENCY; Start 11/09/17 at 17:30; Stop 11/09/17 at 23:59; Status DC Info (PHARMACY MONITORING -- do not chart) 1 each PRN DAILY PRN MC SEE COMMENTS ; Start 11/09/17 at 17:30; Status UNV Active Scripts Active Levemir Flextouch (Insulin Detemir) 100 Unit/1 Ml Insuln.pen 32 Units SQ HS Novolog Flexpen (Insulin Aspart) 100 Unit/1 Ml Insuln.pen 8 Units SQ TIDAC Culturelle (Lactobacillus Rhamnosus Gg) 1 Each Cap.sprink 1 Cap PO BID Levaquin (Levofloxacin) 500 Mg Tablet 500 Mg PO Q48H until 10/21/17 Isosorbide Mononitrate Er (Isosorbide Mononitrate) 30 Mg Tab.er.24h 30 Mg PO DAILY Reported Mirtazapine 15 Mg Tablet 1 Tab PO QHS Renvela (Sevelamer Carbonate) 800 Mg Tablet 800 Mg PO TIDWMEALS Vitamin D (Cholecalciferol (Vitamin D3)) 1,000 Unit Capsule 1 Cap PO DAILY Nephro-Ulises Tablet (Folic Acid/Vitamin B Comp W-C) 0.8 Mg Tablet 1 Tab PO DAILY Trazodone Hcl 50 Mg Tablet 1 Tab PO QHS Duoneb 0.5-3(2.5) Mg/3 Ml (Albuterol/Ipratropium) 3 Ml Ampul.neb 3 Ml NEB TID Colestipol Hcl 1 Gm Tablet 1 Gm PO DAILY Atorvastatin Calcium 10 Mg Tablet 5 Mg PO HS Take next dose tonight 12/20/15 at bedtime Aspir-Lorin (Aspirin) 325 Mg Tablet.dr 325 Mg PO DAILY Take next dose tomorrow 12/21/15 in AM Amlodipine Besylate 10 Mg Tablet 10 Mg PO DAILY Take next tomorrow 12/21/15 in AM Levemir Flextouch (Insulin Detemir) 100 Unit/1 Ml Insuln.pen 28 Unit SQ HS TAKE NEXT DOSE TONIGHT 12/20/15 AT BEDTIME Polyethylene Glycol 3350 255 Gm Powder 17 Gm PO DAILY TAKE DAILY NEEDED FOR CONSTIPATION Nitrostat (Nitroglycerin) 0.4 Mg Tab.subl 0.4 Mg SL PRN Q5MIN PRN Benadryl (Diphenhydramine Hcl) 25 Mg Capsule 25 Mg PO PRN Q6HRS PRN TAKE NEEDED Acetaminophen 500 Mg Tablet 500 Mg PO PRN TID PRN Loratadine 10 Mg Tablet 10 Mg PO DAILY TAKE NEXT DOSE TOMORROW 12/21/15 IN AM Levothyroxine Sodium 75 Mcg Tablet 75 Mcg PO DAILY TAKE NEXT DOSE TOMORROW 12/21/15 IN AM Tums (Calcium Carbonate) 200 Mg Tab.chew 200 Mg PO PRN Q6HRS PRN Tramadol Hcl 50 Mg Tablet 100 Mg PO BID PRN Gabapentin 300 Mg Capsule 300 Mg PO HS TAKE NEXT DOSE TONIGHT 12/20/15 AT BEDTIME Vitals/I & O Vital Sign - Last 24 Hours 11/09/17 11/09/17 11/09/17 11/09/17 10:33 15:07 20:57 21:15 Temp 98.3 97.9 98.3 97.9 Pulse 64 75 Resp 17 16 B/P (MAP) 147/62 (90) 142/65 (90) Pulse Ox 95 98 94 O2 Delivery Nasal Cannula Nasal Cannula Nasal Cannula Nasal Cannula O2 Flow Rate 4.0 4.0 2.0 2.0 11/09/17 11/10/17 11/10/17 11/10/17 23:24 03:37 07:00 08:44 Temp 98.1 98.4 98.0 98.1 98.4 98.0 Pulse 76 76 74 Resp 18 18 20 B/P (MAP) 159/55 (89) 101/53 (69) 128/61 (83) Pulse Ox 93 94 91 O2 Delivery Nasal Cannula Nasal Cannula Nasal Cannula Room Air O2 Flow Rate 4.0 2.0 3.0 Intake and Output 11/09/17 11/09/17 11/10/17 15:00 23:00 07:00 Intake Total 700 ml 250 ml Output Total 150 ml Balance 700 ml 100 ml LUIZ ALVARADO III DO Nov 10, 2017 09:31
--- NOTE | 2017-11-10 09:43 | PDOC ---
PULMONARY PROGRESS NOTES Subjective sleepy no soa Vitals Vital Signs Date Time Temp Pulse Resp B/P (MAP) Pulse Ox O2 Delivery O2 Flow Rate FiO2 11/10/17 09:23 74 128/61 11/10/17 08:44 91 Room Air 11/10/17 08:00 3.0 11/10/17 07:00 98.0 20 98.0 General: No acute distress HEENT: Other Lungs: Clear Cardiovascular: S1, S2 Abdomen: Soft, Non-tender Extremities: Other (trace edema) Skin: Warm Labs Laboratory Tests Test 11/08/17 11:29 11/08/17 16:20 11/08/17 21:31 11/09/17 06:25 Glucose (Fingerstick) 238 mg/dL (70-99) 315 mg/dL (70-99) 175 mg/dL (70-99) White Blood Count 23.8 x10^3/uL (4.0-11.0) Red Blood Count 2.71 x10^6/uL (4.30-5.70) Hemoglobin 7.7 g/dL (13.0-17.5) Hematocrit 23.7 % (39.0-53.0) Mean Corpuscular Volume 87 fL (79-100) Mean Corpuscular Hemoglobin 29 pg (25-35) Mean Corpuscular Hemoglobin Concent 33 g/dL (31-37) Red Cell Distribution Width 14.6 % (11.5-14.5) Platelet Count 540 x10^3/uL (140-400) Neutrophils (%) (Auto) 37 % (31-73) Lymphocytes (%) (Auto) 56 % (24-48) Monocytes (%) (Auto) 4 % (0-9) Eosinophils (%) (Auto) 3 % (0-3) Basophils (%) (Auto) 1 % (0-3) Neutrophils # (Auto) 8.8 x10^3uL (1.8-7.7) Lymphocytes # (Auto) 13.3 x10^3/uL (1.0-4.8) Monocytes # (Auto) 1.0 x10^3/uL (0.0-1.1) Eosinophils # (Auto) 0.6 x10^3/uL (0.0-0.7) Basophils # (Auto) 0.1 x10^3/uL (0.0-0.2) Sodium Level 139 mmol/L (136-145) Potassium Level 3.5 mmol/L (3.5-5.1) Chloride Level 93 mmol/L (98-107) Carbon Dioxide Level 32 mmol/L (21-32) Anion Gap 14 (6-14) Blood Urea Nitrogen 69 mg/dL (8-26) Creatinine 9.9 mg/dL (0.7-1.3) Estimated GFR (Cockcroft-Gault) 6.3 BUN/Creatinine Ratio 7 (6-20) Glucose Level 162 mg/dL (70-99) Calcium Level 8.3 mg/dL (8.5-10.1) Phosphorus Level 5.5 mg/dL (2.6-4.7) Magnesium Level 2.6 mg/dL (1.8-2.4) Total Bilirubin 0.4 mg/dL (0.2-1.0) Aspartate Amino Transf (AST/SGOT) 18 U/L (15-37) Alanine Aminotransferase (ALT/SGPT) 18 U/L (16-63) Alkaline Phosphatase 94 U/L (46-116) Total Protein 6.8 g/dL (6.4-8.2) Albumin 2.7 g/dL (3.4-5.0) Albumin/Globulin Ratio 0.7 (1.0-1.7) Test 11/09/17 07:16 11/09/17 11:10 11/09/17 16:19 11/09/17 21:06 Glucose (Fingerstick) 148 mg/dL (70-99) 131 mg/dL (70-99) 216 mg/dL (70-99) 192 mg/dL (70-99) Test 11/10/17 03:15 11/10/17 07:13 White Blood Count 23.8 x10^3/uL (4.0-11.0) Red Blood Count 2.63 x10^6/uL (4.30-5.70) Hemoglobin 7.6 g/dL (13.0-17.5) Hematocrit 23.3 % (39.0-53.0) Mean Corpuscular Volume 88 fL (79-100) Mean Corpuscular Hemoglobin 29 pg (25-35) Mean Corpuscular Hemoglobin Concent 32 g/dL (31-37) Red Cell Distribution Width 14.9 % (11.5-14.5) Platelet Count 486 x10^3/uL (140-400) Neutrophils (%) (Auto) 43 % (31-73) Lymphocytes (%) (Auto) 51 % (24-48) Monocytes (%) (Auto) 4 % (0-9) Eosinophils (%) (Auto) 2 % (0-3) Basophils (%) (Auto) 0 % (0-3) Neutrophils # (Auto) 10.1 x10^3uL (1.8-7.7) Lymphocytes # (Auto) 12.2 x10^3/uL (1.0-4.8) Monocytes # (Auto) 1.0 x10^3/uL (0.0-1.1) Eosinophils # (Auto) 0.5 x10^3/uL (0.0-0.7) Basophils # (Auto) 0.1 x10^3/uL (0.0-0.2) Sodium Level 140 mmol/L (136-145) Potassium Level 4.6 mmol/L (3.5-5.1) Chloride Level 99 mmol/L (98-107) Carbon Dioxide Level 27 mmol/L (21-32) Anion Gap 14 (6-14) Blood Urea Nitrogen 43 mg/dL (8-26) Creatinine 6.7 mg/dL (0.7-1.3) Estimated GFR (Cockcroft-Gault) 9.8 BUN/Creatinine Ratio 6 (6-20) Glucose Level 199 mg/dL (70-99) Calcium Level 8.4 mg/dL (8.5-10.1) Phosphorus Level 3.3 mg/dL (2.6-4.7) Magnesium Level 2.1 mg/dL (1.8-2.4) Total Bilirubin 0.4 mg/dL (0.2-1.0) Aspartate Amino Transf (AST/SGOT) 14 U/L (15-37) Alanine Aminotransferase (ALT/SGPT) 16 U/L (16-63) Alkaline Phosphatase 93 U/L (46-116) Total Protein 7.1 g/dL (6.4-8.2) Albumin 2.8 g/dL (3.4-5.0) Albumin/Globulin Ratio 0.6 (1.0-1.7) Glucose (Fingerstick) 177 mg/dL (70-99) Laboratory Tests Test 11/09/17 11:10 11/09/17 16:19 11/09/17 21:06 11/10/17 03:15 Glucose (Fingerstick) 131 mg/dL (70-99) 216 mg/dL (70-99) 192 mg/dL (70-99) White Blood Count 23.8 x10^3/uL (4.0-11.0) Red Blood Count 2.63 x10^6/uL (4.30-5.70) Hemoglobin 7.6 g/dL (13.0-17.5) Hematocrit 23.3 % (39.0-53.0) Mean Corpuscular Volume 88 fL (79-100) Mean Corpuscular Hemoglobin 29 pg (25-35) Mean Corpuscular Hemoglobin Concent 32 g/dL (31-37) Red Cell Distribution Width 14.9 % (11.5-14.5) Platelet Count 486 x10^3/uL (140-400) Neutrophils (%) (Auto) 43 % (31-73) Lymphocytes (%) (Auto) 51 % (24-48) Monocytes (%) (Auto) 4 % (0-9) Eosinophils (%) (Auto) 2 % (0-3) Basophils (%) (Auto) 0 % (0-3) Neutrophils # (Auto) 10.1 x10^3uL (1.8-7.7) Lymphocytes # (Auto) 12.2 x10^3/uL (1.0-4.8) Monocytes # (Auto) 1.0 x10^3/uL (0.0-1.1) Eosinophils # (Auto) 0.5 x10^3/uL (0.0-0.7) Basophils # (Auto) 0.1 x10^3/uL (0.0-0.2) Sodium Level 140 mmol/L (136-145) Potassium Level 4.6 mmol/L (3.5-5.1) Chloride Level 99 mmol/L (98-107) Carbon Dioxide Level 27 mmol/L (21-32) Anion Gap 14 (6-14) Blood Urea Nitrogen 43 mg/dL (8-26) Creatinine 6.7 mg/dL (0.7-1.3) Estimated GFR (Cockcroft-Gault) 9.8 BUN/Creatinine Ratio 6 (6-20) Glucose Level 199 mg/dL (70-99) Calcium Level 8.4 mg/dL (8.5-10.1) Phosphorus Level 3.3 mg/dL (2.6-4.7) Magnesium Level 2.1 mg/dL (1.8-2.4) Total Bilirubin 0.4 mg/dL (0.2-1.0) Aspartate Amino Transf (AST/SGOT) 14 U/L (15-37) Alanine Aminotransferase (ALT/SGPT) 16 U/L (16-63) Alkaline Phosphatase 93 U/L (46-116) Total Protein 7.1 g/dL (6.4-8.2) Albumin 2.8 g/dL (3.4-5.0) Albumin/Globulin Ratio 0.6 (1.0-1.7) Test 11/10/17 07:13 Glucose (Fingerstick) 177 mg/dL (70-99) Medications Active Scripts Medications Dose Route/Sig Max Daily Dose Days Date Category Dose Instructions Levemir Flextouch (Insulin Detemir) 100 Unit/1 Ml Insuln.pen 32 Units SQ HS 10/14/17 Rx Novolog Flexpen (Insulin Aspart) 100 Unit/1 Ml Insuln.pen 8 Units SQ TIDAC 10/14/17 Rx Culturelle (Lactobacillus Rhamnosus Gg) 1 Each Cap.sprink 1 Cap PO BID 10/14/17 Rx Levaquin (Levofloxacin) 500 Mg Tablet 500 Mg PO Q48H 10/14/17 Rx until 10/21/17 Isosorbide Mononitrate Er (Isosorbide Mononitrate) 30 Mg Tab.er.24h 30 Mg PO DAILY 10/14/17 Rx Mirtazapine 15 Mg Tablet 1 Tab PO QHS 10/07/17 Reported Renvela (Sevelamer Carbonate) 800 Mg Tablet 800 Mg PO TIDWMEALS 10/07/17 Reported Vitamin D (Cholecalciferol (Vitamin D3)) 1,000 Unit Capsule 1 Cap PO DAILY 10/07/17 Reported Nephro-Ulises Tablet (Folic Acid/Vitamin B Comp W-C) 0.8 Mg Tablet 1 Tab PO DAILY 10/07/17 Reported Trazodone Hcl 50 Mg Tablet 1 Tab PO QHS 11/23/16 Reported Duoneb 0.5-3(2.5) Mg/3 Ml (Albuterol/Ipratropium) 3 Ml Ampul.neb 3 Ml NEB TID 11/23/16 Reported Colestipol Hcl 1 Gm Tablet 1 Gm PO DAILY 11/23/16 Reported Atorvastatin Calcium 10 Mg Tablet 5 Mg PO HS 11/18/15 Reported Take next dose tonight 12/20/15 at bedtime Aspir-Lorin (Aspirin) 325 Mg Tablet.dr 325 Mg PO DAILY 11/18/15 Reported Take next dose tomorrow 12/21/15 in AM Amlodipine Besylate 10 Mg Tablet 10 Mg PO DAILY 11/18/15 Reported Take next tomorrow 12/21/15 in AM Levemir Flextouch (Insulin Detemir) 100 Unit/1 Ml Insuln.pen 28 Unit SQ HS 08/15/15 Reported TAKE NEXT DOSE TONIGHT 12/20/15 AT BEDTIME Polyethylene Glycol 3350 255 Gm Powder 17 Gm PO DAILY 03/24/15 Reported TAKE DAILY NEEDED FOR CONSTIPATION Nitrostat (Nitroglycerin) 0.4 Mg Tab.subl 0.4 Mg SL PRN Q5MIN PRN 03/24/15 Reported Benadryl (Diphenhydramine Hcl) 25 Mg Capsule 25 Mg PO PRN Q6HRS PRN 03/24/15 Reported TAKE NEEDED Acetaminophen 500 Mg Tablet 500 Mg PO PRN TID PRN 03/24/15 Reported Loratadine 10 Mg Tablet 10 Mg PO DAILY 04/03/14 Reported TAKE NEXT DOSE TOMORROW 12/21/15 IN AM Levothyroxine Sodium 75 Mcg Tablet 75 Mcg PO DAILY 11/11/13 Reported TAKE NEXT DOSE TOMORROW 12/21/15 IN AM Tums (Calcium Carbonate) 200 Mg Tab.chew 200 Mg PO PRN Q6HRS PRN 11/11/13 Reported Tramadol Hcl 50 Mg Tablet 100 Mg PO BID PRN 11/11/13 Reported Gabapentin 300 Mg Capsule 300 Mg PO HS 11/11/13 Reported TAKE NEXT DOSE TONIGHT 12/20/15 AT BEDTIME Impression . 1. Acute hypoxic respiratory failure secondary to [id number] diastolic heart failure. 2. End-stage renal disease, on hemodialysis now in congestive heart failure. 3. History of tobaccoism, suspect underlying chronic obstructive pulmonary disease. 4. Increased troponin. 5. Persistent Leukocytosis, no fever, not on steroids, consult ID Plan . 1. Continue to wean oxygen. 2. Continue hemodialysis with ultrafiltration. 3. Repeat chest x-ray with very mild CHF 4. On levaquin, no fever, persistent leukocytosis, consult ID 5. Monitor white cell count. 6. Smoking cessation counseling provided. 7. bronchodilators. JESSICA HAYS MD Nov 10, 2017 09:43
[2017-11-10 11:00] VITALS: BP 130/55
--- NOTE | 2017-11-10 14:32 | PDOC ---
Infectious Disease Note ROS ROS Vital Sign Vital Signs Vital Signs Date Time Temp Pulse Resp B/P (MAP) Pulse Ox O2 Delivery O2 Flow Rate FiO2 11/10/17 13:07 91 Room Air 11/10/17 11:00 98.3 84 20 130/55 (80) 3.0 98.3 Labs Lab Laboratory Tests Test 11/09/17 16:19 11/09/17 21:06 11/10/17 03:15 11/10/17 07:13 Glucose (Fingerstick) 216 mg/dL (70-99) 192 mg/dL (70-99) 177 mg/dL (70-99) White Blood Count 23.8 x10^3/uL (4.0-11.0) Red Blood Count 2.63 x10^6/uL (4.30-5.70) Hemoglobin 7.6 g/dL (13.0-17.5) Hematocrit 23.3 % (39.0-53.0) Mean Corpuscular Volume 88 fL (79-100) Mean Corpuscular Hemoglobin 29 pg (25-35) Mean Corpuscular Hemoglobin Concent 32 g/dL (31-37) Red Cell Distribution Width 14.9 % (11.5-14.5) Platelet Count 486 x10^3/uL (140-400) Neutrophils (%) (Auto) 43 % (31-73) Lymphocytes (%) (Auto) 51 % (24-48) Monocytes (%) (Auto) 4 % (0-9) Eosinophils (%) (Auto) 2 % (0-3) Basophils (%) (Auto) 0 % (0-3) Neutrophils # (Auto) 10.1 x10^3uL (1.8-7.7) Lymphocytes # (Auto) 12.2 x10^3/uL (1.0-4.8) Monocytes # (Auto) 1.0 x10^3/uL (0.0-1.1) Eosinophils # (Auto) 0.5 x10^3/uL (0.0-0.7) Basophils # (Auto) 0.1 x10^3/uL (0.0-0.2) Sodium Level 140 mmol/L (136-145) Potassium Level 4.6 mmol/L (3.5-5.1) Chloride Level 99 mmol/L (98-107) Carbon Dioxide Level 27 mmol/L (21-32) Anion Gap 14 (6-14) Blood Urea Nitrogen 43 mg/dL (8-26) Creatinine 6.7 mg/dL (0.7-1.3) Estimated GFR (Cockcroft-Gault) 9.8 BUN/Creatinine Ratio 6 (6-20) Glucose Level 199 mg/dL (70-99) Calcium Level 8.4 mg/dL (8.5-10.1) Phosphorus Level 3.3 mg/dL (2.6-4.7) Magnesium Level 2.1 mg/dL (1.8-2.4) Total Bilirubin 0.4 mg/dL (0.2-1.0) Aspartate Amino Transf (AST/SGOT) 14 U/L (15-37) Alanine Aminotransferase (ALT/SGPT) 16 U/L (16-63) Alkaline Phosphatase 93 U/L (46-116) Total Protein 7.1 g/dL (6.4-8.2) Albumin 2.8 g/dL (3.4-5.0) Albumin/Globulin Ratio 0.6 (1.0-1.7) Test 11/10/17 11:59 Glucose (Fingerstick) 204 mg/dL (70-99) Objective Assessment Leukocytosis - received Solumedrol 11/04 times one CLL CKD on HD Acute hypoxic respiratory failure secondary to [id number] diastolic heart failure Plan Plan of Care WBC likely CLL. D/c Levofloxacin Thank you # [id number] LALITHA BAUTISTA MD Nov 10, 2017 14:32
--- NOTE | 2017-11-10 23:33 | CONS ---
DATE OF CONSULTATION: 11/10/2017 PATIENT LOCATION: Room 660. REQUESTING PHYSICIAN: Dr. Bob. REASON FOR CONSULTATION: Leukocytosis. HISTORY OF PRESENT ILLNESS: The patient is a pleasant 72-year-old gentleman who was admitted to [facility] through the Emergency Room on 11/04/2017 secondary to shortness of air, swelling and elevated blood pressure. In the Emergency Room, he was given a dose of Solu-Medrol and received some vancomycin and Zosyn. Several days later, he was switched to Augmentin. However, despite the antibiotics, his white blood cell count remained elevated at 23.8. On 11/09/2017, he was started on levofloxacin. Today, his white blood cell count is stable at 23.8. Additionally, he has got chronic kidney disease and is on dialysis. He has not had any fevers, but I am concerned if the white blood cell count has been . Currently, the patient is sitting in a chair. He is a little bit frustrated because he cannot find his underwear and wants to get the "hell out of here". His appetite has been down, but he has been eating some. He has not had any cramps, diarrhea, bloating or constipation. No problems passing his urine. Does have a dry cough at times. Denies any fever, chills, sweats or headaches. PAST MEDICAL HISTORY: Positive for CLL; history of chronic kidney disease, on hemodialysis; hypertension; hypothyroidism; myocardial infarction; supraventricular tachycardia; diabetes; history of chronic respiratory failure; COPD and back pain. PAST SURGICAL HISTORY: Positive for coronary artery bypass grafting. Has a coronary artery stenting as well as a left upper extremity AV fistula. REVIEW OF SYSTEMS: Otherwise negative, except for the mentioned above. ALLERGIES: No known drug allergies. SOCIAL HISTORY: He is a smoker, also drinks socially and has history of marijuana use. Does have a history of cocaine abuse in the past as well. FAMILY HISTORY: Noncontributory. CURRENT MEDICATIONS: Include levofloxacin, Norvasc, atorvastatin, Lipitor, Zyrtec, Benadryl, Neurontin, NovoLog insulin, Levemir, lactobacillus, Synthroid and Remeron. Other meds are available, I had reviewed in the chart. PHYSICAL EXAMINATION: VITAL SIGNS: He is afebrile. Temperature 98.3, pulse 84, respirations 20, blood pressure 130/55 and satting 91% on room air and was 94 on 3 liters. CONSTITUTIONAL: He is cooperative for the most part. He is in no acute distress. He wears glasses. HEENT: Pupils are equal and reactive. Oral cavity, pharynx is clear. NECK: Supple. No JVD. LUNGS: Decreased in the bases, without wheeze. HEART: S1, S2. ABDOMEN: Soft, nontender and nondistended, with positive bowel sounds. EXTREMITIES: No clubbing, cyanosis or gross edema. SKIN: Warm to touch, without signs of rash. He has a left upper extremity fistula without signs of complications. NEUROLOGIC: He is nonfocal, moves all extremities. PSYCHIATRIC: Affect, he is a little upset, but cooperative. LABORATORY DATA: White count is 23.8, hemoglobin 7.6, platelets of 486,000, lymphs 51 and neutrophils 43. Creatinine 6.7, glucose 199. Essentially normal liver function study tests. MRSA screen negative from 11/04/2017. Chest x-ray from 11/09/2017, small bilateral pleural effusions, persistent coarse lung interstitial markings secondary to interstitial pulmonary edema and chronic fibrotic interstitial lung disease. IMPRESSION: 1. Leukocytosis, received Solu-Medrol on 11/04/2017 x 1. 2. Chronic lymphocytic leukemia. 3. Chronic kidney disease, on hemodialysis. 4. Acute hypoxic respiratory failure secondary to [id number] heart failure. RECOMMENDATIONS: WBC likely elevated secondary to Solu-Medrol and CLL. We will discontinue levofloxacin. Dr. Bob, thank you for allowing us to participate in this patient's care. Should you have any questions, please do not hesitate to contact me. LALITHA BAUTISTA MD DR: ALLI/cj JOB#: [id number] / [id number]
[2017-11-16] MEDS ORDERED: LACT1CAP25 PO (10:57)
[2017-11-16] MEDS ORDERED: FOLI0.8T3 PO (10:57)
[2017-11-16] MEDS ORDERED: TAMS0.4C97 PO (10:57)
== END 2017-11-10 17:48 | DRG 291 ==
LOC: ER 11:24 → ED HOLD 16:32 → 1 WEST ICU 19:01 → 6 SOUTH 11-05 11:21 → UNDODISIN 11-06 13:30 → 6 SOUTH 11-06 21:20
PROVIDERS: ADMIT Internal Medicine; ATTEND Internal Medicine
PROC: 5A1D70Z Performance of Urinary Filtration, Intermittent, Less than 6 Hours Per Day (ICD-10-PCS; principal; 2017-11-04)
PROC: 5A1D70Z Performance of Urinary Filtration, Intermittent, Less than 6 Hours Per Day (ICD-10-PCS; 2017-11-05)
PROC: 5A1D70Z Performance of Urinary Filtration, Intermittent, Less than 6 Hours Per Day (ICD-10-PCS; 2017-11-06)
PROC: 5A1D70Z Performance of Urinary Filtration, Intermittent, Less than 6 Hours Per Day (ICD-10-PCS; 2017-11-09)
DX: I13.2 Hypertensive heart and chronic kidney disease with heart failure and with stage 5 chronic kidney disease, or end stage renal disease (principal); I50.33 Acute on chronic diastolic (congestive) heart failure; J96.21 Acute and chronic respiratory failure with hypoxia; J12.9 Viral pneumonia, unspecified; N18.6 End stage renal disease; C91.10 Chronic lymphocytic leukemia of B-cell type not having achieved remission; J44.0 Chronic obstructive pulmonary disease with (acute) lower respiratory infection; K21.9 Gastro-esophageal reflux disease without esophagitis; E78.00 Pure hypercholesterolemia, unspecified; E03.9 Hypothyroidism, unspecified; I25.2 Old myocardial infarction; G47.00 Insomnia, unspecified; F14.10 Cocaine abuse, uncomplicated; E78.5 Hyperlipidemia, unspecified; I25.10 Atherosclerotic heart disease of native coronary artery without angina pectoris; E11.22 Type 2 diabetes mellitus with diabetic chronic kidney disease; F17.200 Nicotine dependence, unspecified, uncomplicated; I70.1 Atherosclerosis of renal artery; Z86.73 Personal history of transient ischemic attack (TIA), and cerebral infarction without residual deficits; Z99.2 Dependence on renal dialysis; Z91.19 Patient's noncompliance with other medical treatment and regimen; Z91.14 Patient's other noncompliance with medication regimen; Z91.15 Patient's noncompliance with renal dialysis; Z83.3 Family history of diabetes mellitus; Z95.5 Presence of coronary angioplasty implant and graft; Z95.1 Presence of aortocoronary bypass graft
CPT/HCPCS: 36415; 71010; 71020; 76770; 80048; 80053; 80069; 80076; 82962; 83605; 83690; 83735; 83880; 84100; 84484; 85007; 85025; 87040; 87641; 93005; 94640; 94760; 96374; J0881; J1815; J1956; J2543; J2930; J3370; J7620; 97110; 97116; 97530; 97535; 99285-25